=== PATIENT | male | born 1935 | race Caucasian/White ===

== ENCOUNTER 2019-12-31 07:50 | Day surgery (SDC) | payer OTHER ==
[2019-12-29 16:17] LABS: Absolute Lymphocytes (CBC) 1.9 K/uL (0.7-4.9); Basophils % 0.6 % (0-1.3); Hematocrit 37.6 % (39.6-49.0); Lymphocytes % 21.2 % (15.3-44.8); MPV 8.6 fL (7.6-11.3); RBC Red Blood Cell Count 3.96 M/uL (4.33-5.43)
[2019-12-29 16:23] LABS: Protime INR 1.08
[2019-12-29 16:35] LABS: Potassium 5.1 mmol/L (3.5-5.1)
--- NOTE | 2019-12-29 16:48 | RAD REPORT ---
EXAM DESCRIPTION: Dustin Stark (2 Views)12/29/2019 4:09 pm CLINICAL HISTORY: Hypertension/coronary arterial disease COMPARISON: 2017 FINDINGS: The lungs appear clear of acute infiltrate. The heart is borderline enlarged IMPRESSION: No acute abnormalities displayed
--- NOTE | 2019-12-31 06:40 | EKG ---
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: BRAYAN MEASUREMENT RESULTS: Intervals: Rate: 79 NV: 224 QRSD: 132 QT: 436 QTc: 499 [place]: P: 78 NV: 224 QRS: -46 T: 127 INTERPRETIVE STATEMENTS: Sinus rhythm with 1st degree AV block with occasional and consecutive premature ventricular complexes Left axis deviation Nonspecific intraventricular block Cannot rule out Inferior infarct, age undetermined Cannot rule out Anterior infarct, age undetermined T wave abnormality, consider lateral ischemia Abnormal ECG Compared to ECG 05/15/2015 13:02:24 Ventricular premature complex(es) now present First degree AV block now present Left-axis deviation now present Possible ischemia now present Sinus bradycardia no longer present Myocardial infarct finding still present T-wave abnormality still present Electronically Signed On 12-31-19 06:38:40 CDT by Vinh Barfield
--- OUTSIDE RECORDS SUMMARY | 2019-12-31 07:52 | XMS REPORT | Summary of Care ---
:1935 Author Organization [facility] - Health Address [address] [place] [address] Care Team Providers Name Role Phone Rell Zuñgia Primary Care Provider Encounter Details Date Type Department Care Team Description 08/26/2019 Orders Only [facility] Doctor Unassigned, No [address] [facility] [place] [address] [address] [place] [address] Allergies No Known Allergiesdocumented as of this encounter (statuses as of 11/03/2019) Medications Medication Sig Dispensed Refills Start Date End Date Status gabapentin 100 mg Take 100 mg by 0 Active capsule mouth at bedtime. clopidogrel 75 mg Take 75 mg by 0 Active tablet mouth daily. losartan 100 mg tablet Take 100 mg by 0 Active mouth daily. aspirin 81 mg chewable Take 81 mg by 0 Active tablet mouth daily. simvastatin 40 mg Take 40 mg by 0 Active tablet mouth daily. carvedilol 25 mg tablet Take 25 mg by 0 Active mouth 2 (two) times daily with meals. traMADol 50 mg tablet Take 50 mg by 0 Active mouth 2 (two) times daily. documented as of this encounter (statuses as of 11/03/2019) Active Problems No known active problemsdocumented as of this encounter (statuses as of 11/03/2019) Social History Tobacco Use Types Packs/Day Years Used Date Former Smoker Smokeless Tobacco: Never Used Sex Assigned at Date Recorded Not on file Job Start Date Occupation Industry Not on file Not on file Not on file Travel History Travel Start Travel End No recent travel history available. documented as of this encounter Last Filed Vital Signs Not on filedocumented in this encounter Plan of Treatment Health Maintenance Due Date Last Done Comments DTaP,Tdap,and Td Vaccines (1 - Tdap) 1946 Zoster Recombinant Vaccine (SHINGRIX) (1 of 2) 1987 Medicare Wellness Visit 2002 PNEUMOCOCCAL VACCINES 65+ (1 of 2 - PCV13) 2002 INFLUENZA VACCINE (#1) 2019 documented as of this encounter Implants Implanted Type Area Clinical Cytogenetics Director Device Shelf Model / Identifier Expiration Date Ser ial / Lot Lens, Bridger #[id number] - [id number] LENS Right: Bridger 06/12/2023 [id number] / Implanted: Qty: 1 on 03/03/2019 by Janusz Seals MD at [facility] 1 [id number] / N/A Lens, Bridger #[id number] - [id number] LENS Left: Eye Bridger 06/12/2023 [id number] / Implanted: Qty: 1 on 03/17/2019 by Janusz Seals MD at [facility] 1 [id number] / N/A documented as of this encounter Procedures Procedure Name Priority Date/Time Associated Diagnosis Comme nts AUTHORIZATION FOR RELEASE Routine 08/26/2019 12:01 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 & B ent [id number] [place] [phone] CIGNA CIGNA [id number] 2013-Prese HMO /PPO/[place] documented as of this encounter
--- OUTSIDE RECORDS SUMMARY | 2019-12-31 07:52 | XMS REPORT | Continuity of Care Document ---
:1935 Author Organization [facility] t Address [address] [place] [address] Dr. Garza. [address] [place] [address] Care Team Providers Name Role Phone Doctor Unassigned, [place] Attending Clinician Unavailable Carlo FLETCHER, A Attending Clinician 1, Lab Attending Clinician Unavailable Carlo FLETCHER, A Admitting Clinician Problems This patient has no known problems. Allergies, Adverse Reactions, Alerts This patient has no known allergies or adverse reactions. Medications This patient has no known medications. Procedures This patient has no known procedures. Encounters Start End Encounter Admission Attending Care Care Encounter Source Date/Time Date/Time Type Type Clinicians Facility Department ID 2019-08-26 2019-08-26 Orders Doctor RAMOS [id number] 00:00:00 00:00:00 Only Unassigned, AMELIA [id number] [place] [facility] 4.2.7.2.686 [id number] 2019-03-17 2019-03-17 [facility] [id number] 11:26:00 14:59:00 Encounter Janusz Logan [id number] [place] 4.2.7.2.686 Surgical [id number] [place] [address] 2019-03-03 2019-03-03 [facility] [id number] 09:37:00 13:20:00 Encounter Janusz Logan [id number] [place] [id number] Surgical [id number] [place] [address] 2019-03-03 2019-03-03 Orders Doctor RICHARD [id number] 00:00:00 00:00:00 Only Unassigned, AMELIA [id number] [place] [facility] [id number] [id number] [id number] 2019-02-24 2019-02-24 Wire 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
[2019-12-31] MEDS ORDERED: NA CHLORIDE 0.9% 500 ML ONE (08:11)
[2019-12-31] MEDS ORDERED: HEPA 1000U/500MLS 1,000 UNIT/500 ML BAG IV ONE (09:54)
[2019-12-31] MEDS ORDERED: MIDAZOLAM HCL 2 MG/2 ML INJ ONE (09:55)
[2019-12-31] MEDS ORDERED: FENTANYL CITR 100 MCG/2 ML ONE (09:55)
[2019-12-31] MEDS ORDERED: ATROPINE SULF 1 MG/10 ML SYR IV ONE (09:55)
[2019-12-31] MEDS ORDERED: NA CHLORIDE 0.9% 0 ML ONE (09:55)
[2019-12-31] MEDS ORDERED: ACETYLCYST 20% 4 ML VIAL IH ONE (09:59)
--- NOTE | 2019-12-31 11:28 | OP ---
Date of Procedure: 12/31/2019 Surgeon: Vinh Barfield MD Fiberglass Ski Maker: Izabela Matos. The patient will be going home today. Medical therapy. He will see me in the office in next 2 weeks . Procedures: Left heart catheterization, selective coronary arteriogram, left ventriculogram, and nusrat ective bilateral carotid angiogram. Reason For Procedure: CVD and CAD, positive stress test, positive carotid Doppler. History Of Present Illness: Mr. Mg is 84, has had a history of right carotid stent, multipl e coronary stents, had atypical chest pain, positive stress test, abnormal carotid Doppler. Procedure In Detail: Brought to the gold leaf laborer today as an outpatient. He was prepped and draped in t he routine sterile fashion. He was given Versed and fentanyl for sedation. A 6-English sheath was in troduced in the right common femoral artery. Angiography there was normal. Angio-Seal was used to c lose the case. Jany catheter left and right were used to do the procedure. He had a normal left main. He had 100% occlusion of the circumflex. He had 100% occlusion of the RCA distally. He had c ollaterals from the LAD to the distal circ and the OM. His LAD had pslrigvv-ye-ueqgyy plaque buildup without any focal stenosis. The LV gram showed an ejection fraction about 45% to 50%. No aortic st enosis. Normal left ventricular end-diastolic pressure of 12. He was hypertensive while there were no effusions noted. His carotid arteries revealed a patent right ICA stent. He had about 50% left i nternal carotid artery stenosis. He had 90% stenosis in both external carotid arteries. The common carotid arteries were normal. There were no complications or blood loss. Postoperative Diagnosis: Severe and coronary artery disease. Plan: Plan is however to continue medical therapy. Anesthesia: Total conscious sedation was 45 minutes. NB/MODL Voice ID: [id number] Report ID: [id number]
[2019-12-31 12:04] VITALS: TEMP 97.2
[2019-12-31 13:16] VITALS: BP 166/79; O2SAT 100
== END 2019-12-31 13:05 | disposition home or self-care (01) ==
LOC: CCL 07:50
DX: I25.10 Atherosclerotic heart disease of native coronary artery without angina pectoris (principal); I25.82 Chronic total occlusion of coronary artery; I65.23 Occlusion and stenosis of bilateral carotid arteries; Z11.59 Encounter for screening for other viral diseases; I34.0 Nonrheumatic mitral (valve) insufficiency; I70.208 Unspecified atherosclerosis of native arteries of extremities, other extremity; I10 Essential (primary) hypertension; E78.5 Hyperlipidemia, unspecified; E78.6 Lipoprotein deficiency; G62.9 Polyneuropathy, unspecified; F17.200 Nicotine dependence, unspecified, uncomplicated; Z95.5 Presence of coronary angioplasty implant and graft; Z79.02 Long term (current) use of antithrombotics/antiplatelets; Z79.82 Long term (current) use of aspirin
CPT/HCPCS: 93005; 85025; 80048; 36415; 85610; 85730; 71046; 93458; 36222; U0002; C1893; C1760; J2250; J3010; J7040; J0583

== ENCOUNTER 2020-01-22 15:57 | Inpatient (IN) | payer OTHER ==
--- OUTSIDE RECORDS SUMMARY | 2020-01-22 16:00 | XMS REPORT | Continuity of Care Document ---
:1935 Author Organization [facility] t Address [address] [place] [address] Dr. Garza. [address] [place] [address] Care Team Providers Name Role Phone Doctor Unassigned, [place] Attending Clinician Unavailable Carlo FLETCHER, A Attending [...] ID 2019-08-26 2019-08-26 Orders Doctor RAMOS [id number] 00:00:00 00:00:00 Only Unassigned AMELIA [id number] [place] [facility] 4.2.7.2.686 [id number] 2019-03-17 2019-03-17 [facility] [id number] 11:26:00 14:59:00 Encounter Janusz Logan [id number] [place] 4.2.7.2.686 Surgical [id number] [place] [address] 2019-03-03 2019-03-03 [facility] [id number] 09:37:00 13:20:00 Encounter Janusz Logan [id number] [place] 4.2.7.2.686 Surgical [id number] [place] [address] 2019-03-03 2019-03-03 Orders Doctor RAMOS [id number] 00:00:00 00:00:00 Only Unassigned, AMELIA [id number] [place] [facility] 4.2.7.2.686 [id number] 2019-02-24 2019-02-24 Cremator 1, Adc Lab [facility] [id number] 16:37:01 16:54:18 Visit M[place]ool 350.1.13.10 [place] 4.2.7.2.686 [place] [id number] Results This patient has no known results.
[2020-01-22 16:49] LABS: Absolute Lymphocytes (CBC) 1.1 K/uL (0.7-4.9); Basophils % 0.1 % (0-1.3); Hematocrit 37.3 % (39.6-49.0); Lymphocytes % 5.8 % (15.3-44.8); MPV 8.6 fL (7.6-11.3); RBC Red Blood Cell Count 3.96 M/uL (4.33-5.43)
[2020-01-22 16:55] LABS: Protime INR 1.29
--- NOTE | 2020-01-22 16:56 | RAD REPORT ---
EXAM DESCRIPTION: CT - Head Brain Wo Cont - 01/22/2020 4:39 pm CLINICAL HISTORY: AMS, fever COMPARISON: No comparisons TECHNIQUE: Axial 5 mm thick images of the head were obtained without IV contrast. All CT scans are performed using dose optimization technique as appropriate and may include automated exposure control or mA/KV adjustment according to patient size. FINDINGS: No intracranial hemorrhage, mass, edema or shift of mid-line structures. No acute infarcti on changes seen. No cortical edema or sulcal effacement. Mild atrophy and moderate chronic ischemic c hanges are present. Ventricles are in proportion to volume loss. Arterial and physiologic calcificat ions are present. Mastoid air cells and visualized portions of the paranasal sinuses are clear. No acute bony findings. IMPRESSION: No hemorrhage or acute intracranial finding identifiable. Atrophy and chronic ischemic changes are present with ventricles in proportion to volume loss. Chronic ischemic changes can mask nonhemorrhagic acute infarction. MR brain followup can be obtained if there is ongoing concern for acute ischemia.
[2020-01-22 17:28] LABS: Albumin 3.3 g/dL (3.4-5.0); Bilirubin Direct 0.3 mg/dL (0-0.2); Bilirubin Total 3.6 mg/dL (0.2-1.0); Ferritin 197.8 ng/mL (26-388); Potassium 5.2 mmol/L (3.5-5.1); Protein, Total 7.6 g/dL (6.4-8.2); Troponin (Emerg Dept Use Only) 0.04 ng/mL (0.0-0.045)
--- NOTE | 2020-01-22 17:44 | RAD REPORT ---
EXAM DESCRIPTION: RAD - Chest Single View - 01/22/2020 5:07 pm CLINICAL HISTORY: AMS, fever COMPARISON: Two view chest December 29, 2019 and December 23, 2016 TECHNIQUE: AP portable chest image was obtained 01/22/2020 5:07 pm . FINDINGS: No peripheral mass or consolidation. Small nodular focus lateral mid right lung field has not change from 2017. Interstitial pattern is not clearly different from prior imaging. No failure or volume overload. Heart and vasculature are normal. No measurable pleural effusion and no pneumothora x. No acute bony abnormality seen. No acute aortic findings suspected. IMPRESSION: No acute cardiopulmonary process. Chest is not clearly different from prior imaging.
--- NOTE | 2020-01-22 17:52 | ER ---
Nurse's Notes [facility] Name: Vitor Mg Age: 84 yrs Sex: Male : 1935 Arrival Date: 01/22/2020 Time: 16:00 Bed 14 Private MD: Diagnosis: Fever, unspecified;Altered mental status, unspecified;Acute kidney failure, unspecified Presentation: 01/21 16:41 Chief complaint: EMS states: PT FOUND BY NEIGHBOR "NON RESPONSIVE" SITTING IN CHAIR ls4 OUTSIDE. PT IS NOW ALERT AND ORIENTED TIMES SELF. PT DAUGHTER IS CONFIRMED COVID POSITIVE. Coronavirus screen: Surgical mask placed on patient. Patient moved to private room, placed in contact and droplet isolation with eye protection until further assessment. Patient denies a cough. Patient reports shortness of breath or difficulty breathing. Patient denies measured and/or subjective temperature greater than 100.4F prior to today's visit. Patient denies travel on a cruise ship or to a country the [facility] currently lists as an affected area. Patient reports contact with known and/or suspected case of COVID-19. Ebola Screen: No symptoms or risks identified at this time. Initial Sepsis Screen: Does the patient meet any 2 criteria? RR > 20 per min. Altered Mental Status. Yes Does the patient have a suspected source of infection? No. Patient's initial sepsis screen is negative. Risk Assessment: Do you want to hurt yourself or someone else? Patient reports no desire to harm self or others. Onset of symptoms is unknown. Care prior to arrival: Medication(s) given: Normal saline infusion, 650 ML IV initiated. 20 GA, in the right forearm, Oxygen administered. via nasal cannula. Activity prior to arrival: unresponsive. 16:41 Method Of Arrival: EMS: [facility] ls4 16:41 Acuity: GLENDY 2 ls4 Triage Assessment: 16:47 General: Appears distressed, Behavior is cooperative, flat. Pain: Unable to use pain ls4 scale. FLACC scale score is 3 out of 10. Neuro: Level of Consciousness is lethargic, Oriented to person, Spud Grader are weak bilaterally Moves all extremities. Weakness Gait is UNABLE. Speech is slurred, Facial symmetry appears normal, Pupils are PERRLA, Intact. Cardiovascular: Denies chest pain, Capillary refill < 3 seconds Clubbing of nail beds is absent Patient's skin is warm and dry. Rhythm is regular. Respiratory: Airway is patent Respiratory effort is labored, shallow, Respiratory pattern is tachypnea. Derm: Skin with poor turgor Skin is flushed, Skin temperature is warm. Musculoskeletal:. Historical: - Allergies: 16:47 No Known Allergies; ls4 - PMHx: 16:47 CAD; Chronic pain; Hypertension; ls4 - PSHx: 16:47 Heart stents; ls4 - Immunization history:: Adult Immunizations up to date. - Social history:: Smoking status: unknown. - Family history:: not pertinent. - Hospitalizations: : No recent hospitalization is reported. Screenin:12 Abuse screen: Denies threats or abuse. Denies injuries from another. Nutritional ls4 screening: No deficits noted. Tuberculosis screening: No symptoms or risk factors identified. Fall Risk None identified. Assessment: 17:12 Reassessment: Patient appears in no apparent distress at this time. Patient and/or ls4 family updated on plan of care and expected duration. Pain level reassessed. Patient is alert, oriented x 3, equal unlabored respirations, skin warm/dry/pink. 18:29 Reassessment: Patient appears in no apparent distress at this time. Patient and/or ls4 family updated on plan of care and expected duration. Pain level reassessed. Patient is alert, oriented x 3, equal unlabored respirations, skin warm/dry/pink. Patient denies pain at this time. Neuro: Level of Consciousness is awake, alert, obeys commands, Oriented to person, place. Vital Signs: 16:41 BP 122 / 47; Pulse 56; Resp 28; Temp 97.9(O); Pulse Ox 96% on R/A; Weight 86.18 kg; ls4 Height 5 ft. 10 in. (177.80 cm); Pain 0/10; 17:13 BP 114 / 45; Pulse 47; Resp 14; Pulse Ox 99% on R/A; Pain 0/10; ls4 19:00 BP 143 / 51; Pulse 61; Resp 16; Pulse Ox 96% on R/A; Pain 0/10; ls4 20:00 BP 158 / 61; Pulse 76; Resp 18; Pulse Ox 98% on R/A; Pain 0/10; ls4 21:00 BP 155 / 62; Pulse 73; Resp 19; Pulse Ox 97% on R/A; Pain 0/10; ls4 22:00 BP 158 / 63; Pulse 58; Resp 16; Pulse Ox 99% on R/A; Pain 0/10; ls4 0712 00:00 BP 148 / 55; Pulse 69; Resp 18; Pulse Ox 100% ; Pain 0/10; ls4 01:13 BP 148 / 58; Pulse 59; Resp 19; Pulse Ox 96% on R/A; Pain 0/10; ls4 01/21 16:41 Body Mass Index 27.26 (86.18 kg, 177.80 cm) 4 ED Course: 01/21 16:00 Patient arrived in ED. rn 16:00 Gregory Cheney MD is Attending Physician. rn 16:39 CT completed. Patient tolerated procedure well. Patient moved back from CT. bq 16:39 CT Head Brain wo Cont In Process Unspecified. EDMS 16:41 Debbei Huston RN is Primary Nurse. ls4 16:45 Triage completed. ls4 16:50 Arm band placed on left wrist. EKG done per protocol. Performed by ED Staff. Labs ls4 ordered per protocol. Drawn by ED staff. X-ray ordered. CT ordered. 17:07 CXR XRAY In Process Unspecified. EDMS 17:12 No provider procedures requiring assistance completed. Initial lab(s) drawn, by il, 4 sent to lab. X-ray(s) taken. Inserted saline lock: 18 gauge in right antecubital area, using aseptic technique. Blood collected. Patient maintains SpO2 saturation greater than 95% on room air. 17:50 Bacilio Stone DO is Hospitalizing Provider. rn 17:56 Throat Culture Sent. 4 01/23 07:00 Patient has correct armband on for positive identification. aa5 07:00 Patient admitted, IV remains in place. aa5 09:55 Urine Dipstick--Ancillary (enter results) Sent. 5 Administered Medications: No medications were administered Outcome: 01/21 17:51 Decision to Hospitalize by Provider. rn 01/23 07:00 Admitted to ER Hold. Please see [facility] for further documentation. aa5 07:00 Condition: stable aa5 07:00 Instructed on the need for admit. 13:10 Patient left the ED. aa5 Signatures: Dispatcher [employer] EDMS Quilty, СветланаGregory Morales MD MD rn Calderon, Audri, RN RN aa5 Cecy Ellis 5 Debbie Huston RN RN ls4 Corrections: (The following items were deleted from the chart) 13:29 13:28 Patient left the ED. adriana wright
--- NOTE | 2020-01-22 17:52 | EDPHYS ---
Physician Documentation [facility] Name: Vitor Mg Age: 84 yrs Sex: Male : 1935 Arrival Date: 01/22/2020 Time: 16:00 Bed 14 Private MD: ED Physician Gregory Cheney HPI: 01/21 16:04 This 84 yrs old Male presents to ER via Unassigned with complaints of AMS, rn fever. 16:04 The patient presents with confusion, decreased responsiveness. Onset: The rn symptoms/episode began/occurred at an unknown time. Associated signs and symptoms: Pertinent positives: confusion. Current symptoms: In the emergency department the patient's symptoms have improved. It is unknown whether or not the patient has had similar symptoms in the past. Unknown onset, neighbor called 911 because patient was not responding to his name, per report patient likes to sit outside daily, in partial shade, was found to be altered/minimally responsive, was alert when EMS arrived, was not unconscious. Patient does not report pain or problems, but does seem confused, unknown baseline and onset of symptoms. Per report, has been sitting outside since 0800. Daughter is COVID +, but unknown if direct contact recently. . Historical: - Allergies: 16:47 No Known Allergies; ls4 - PMHx: 16:47 CAD; Chronic pain; Hypertension; ls4 - PSHx: 16:47 Heart stents; ls4 - Immunization history:: Adult Immunizations up to date. - Social history:: Smoking status: unknown. - Family history:: not pertinent. - Hospitalizations: : No recent hospitalization is reported. ROS: 16:04 Constitutional: Negative for chills, and weight loss, Eyes: Negative for injury, pain, rn redness, and discharge, Cardiovascular: Negative for chest pain, palpitations, and edema, Respiratory: Negative for shortness of breath, cough, wheezing, and pleuritic chest pain, Abdomen/GI: Negative for abdominal pain, nausea, vomiting, diarrhea, and constipation, MS/Extremity: Negative for injury and deformity, Skin: Negative for injury, rash, and discoloration, Neuro: Negative for headache, numbness, tingling, and seizure. Exam: 16:04 Constitutional: This is a well developed, well nourished patient who is awake, alert, rn and in no acute distress. Head/Face: Normocephalic, atraumatic. ENT: dry MM Neck: Trachea midline, no thyromegaly or masses palpated, and no cervical lymphadenopathy. Supple, full range of motion without nuchal rigidity, or vertebral point tenderness. No Meningismus. Cardiovascular: Regular rate and rhythm. No pulse deficits. Respiratory: Diminished breath sounds bilateral bases. No increased work of breathing, no retractions or nasal flaring. Abdomen/GI: soft, non-tender Skin: Warm, dry, and no evidence of cellulitis. MS/ Extremity: Pulses equal, no cyanosis. Neurovascular intact. Full, normal range of motion. Equal circumference. Neuro: Awake and alert, difficult to understand, moves all 4 extremities equally. Vital Signs: 16:41 BP 122 / 47; Pulse 56; Resp 28; Temp 97.9(O); Pulse Ox 96% on R/A; Weight 86.18 kg; ls4 Height 5 ft. 10 in. (177.80 cm); Pain 0/10; 17:13 BP 114 / 45; Pulse 47; Resp 14; Pulse Ox 99% on R/A; Pain 0/10; ls4 19:00 BP 143 / 51; Pulse 61; Resp 16; Pulse Ox 96% on R/A; Pain 0/10; ls4 20:00 BP 158 / 61; Pulse 76; Resp 18; Pulse Ox 98% on R/A; Pain 0/10; ls4 21:00 BP 155 / 62; Pulse 73; Resp 19; Pulse Ox 97% on R/A; Pain 0/10; ls4 22:00 BP 158 / 63; Pulse 58; Resp 16; Pulse Ox 99% on R/A; Pain 0/10; ls4 0712 00:00 BP 148 / 55; Pulse 69; Resp 18; Pulse Ox 100% ; Pain 0/10; ls4 01:13 BP 148 / 58; Pulse 59; Resp 19; Pulse Ox 96% on R/A; Pain 0/10; 4 01/21 16:41 Body Mass Index 27.26 (86.18 kg, 177.80 cm) ls4 MDM: 01/21 16:00 Patient medically screened. rn 17:46 Differential Diagnosis: pneumonia, TIA, UTI, volume depletion, COVID, dehydration, heat rn exhaustion. Data reviewed: vital signs, nurses notes, lab test result(s), radiologic studies, CT scan, plain films, and as a result, I will admit patient. Counseling: I had a detailed discussion with the patient and/or guardian regarding: the historical points, exam findings, and any diagnostic results supporting the discharge/admit diagnosis, lab results, radiology results, the need for further work-up and treatment in the hospital. Response to treatment: the patient's symptoms have mildly improved after treatment, and as a result, I will admit patient. Admission orders: after a detailed discussion of the patient's condition and case, the admit orders are written by me. ED course: Spoke to daughter cassandra porter who states was over visiting him this last week after he was attacked by bees, states is normally very active. She visited him prior to being aware of her COVID status. Admitted for fever/AMS/possible COVID, and acute kidney injury.. 01/21 16:03 Order name: Blood Culture Adult (2) 01/21 16:03 Order name: BMP; Complete Time: 17:35 01/21 16:03 Order name: C-Reactive Protein; Complete Time: 17:35 01/21 16:03 Order name: CBC with Diff; Complete Time: 18:39 01/21 16:03 Order name: COVID-19 01/21 16:03 Order name: D-Dimer; Complete Time: 16:59 01/21 16:03 Order name: Ferritin; Complete Time: 17:35 01/21 16:03 Order name: Flu; Complete Time: 17:24 01/21 16:03 Order name: Lactate; Complete Time: 17:15 01/21 16:03 Order name: LFT's; Complete Time: 17:35 01/21 16:03 Order name: Lipase; Complete Time: 17:35 01/21 16:03 Order name: Procalcitonin; Complete Time: 17:38 01/21 16:03 Order name: PT-INR; Complete Time: 16:59 01/21 16:03 Order name: Ptt, Activated; Complete Time: 16:59 01/21 16:03 Order name: Strep; Complete Time: 17:15 01/21 16:03 Order name: Troponin (emerg Dept Use Only); Complete Time: 17:35 01/21 16:03 Order name: Urine Microscopic Only; Complete Time: 18:39 rn 01/21 16:03 Order name: Urine Culture 01/21 16:52 Order name: CBC Smear Scan; Complete Time: 18:39 [facility] 01/21 17:19 Order name: Throat Culture [facility] 01/22 02:50 Order name: Blood Culture [facility] 01/22 05:23 Order name: CBC with Automated Diff; Complete Time: 07:35 [facility] 01/22 05:50 Order name: Basic Metabolic Panel; Complete Time: 07:35 [facility] 01/22 05:50 Order name: Creatine Phosphokinase; Complete Time: 07:35 [facility] 01/22 05:50 Order name: T4 Free; Complete Time: 07:35 [facility] 01/22 05:50 Order name: Magnesium; Complete Time: 07:35 [facility] 01/22 05:50 Order name: Thyroid Stimulating Hormone; Complete Time: 07:35 [facility] 01/23 04:59 Order name: Gram Stain--Aerobic Bottle [facility] 01/23 06:36 Order name: CBC with Automated Diff [facility] 01/23 06:51 Order name: Basic Metabolic Panel [facility] 01/21 16:03 Order name: CXR XRAY; Complete Time: 17:45 rn 01/21 16:03 Order name: EKG; Complete Time: 16:04 rn 01/21 16:03 Order name: Cardiac monitoring; Complete Time: 18:28 01/21 16:03 Order name: Droplet/Contact Precautions; Complete Time: 10:17 rn 01/21 16:03 Order name: EKG - Nurse/Tech; Complete Time: 18:29 rn 01/21 16:03 Order name: Regalado; Complete Time: 18:29 rn 01/21 16:03 Order name: IV Start; Complete Time: 18:29 rn 01/21 16:03 Order name: Labs collected and sent; Complete Time: 18:29 rn 01/21 16:03 Order name: O2 Per Protocol; Complete Time: 18:28 rn 01/21 16:03 Order name: O2 Sat Monitoring; Complete Time: 18:28 rn 01/21 16:03 Order name: Urine Dipstick-Ancillary (obtain specimen); Complete Time: 18:28 rn 01/21 16:03 Order name: CT Head Brain wo Cont; Complete Time: 16:59 rn 01/23 06:51 Order name: Creatine Phosphokinase [facility] 01/23 06:51 Order name: Magnesium [facility] 01/23 09:34 Order name: Urine Dipstick--Ancillary (enter results) em1 01/23 09:43 Order name: Urine Dipstick-Ancillary ED[facility] Administered Medications: No medications were administered Disposition: 01/22/20 17:51 Hospitalization ordered by Bacilio Stone for Inpatient Admission. Preliminary diagnosis are Fever, unspecified, Altered mental status, unspecified, Acute kidney failure, unspecified. - Bed requested for [facility] ER HOLD. - Status is Inpatient Admission. aa5 - Condition is Stable. - Problem is new. - Symptoms have improved. Signatures: Dispatcher [employer] EDCO Gregory Cheney MD MD rn Calderon, Audri, RN RN aa5 Pollo Loya, CRE[employer] [id number] [employer] [id number] Cyndi Jones RN RN Debbie Huston RN RN ls4 Corrections: (The following items were deleted from the chart) 22:39 17:51 Hospitalization Ordered by Bacilio Stone DO for Inpatient Admission. Preliminary cg diagnosis is Fever, unspecified; Altered mental status, unspecified; Acute kidney failure, unspecified. Bed requested for Telemetry/MedSurg (Inpatient). Status is Inpatient Admission. Condition is Stable. Problem is new. Symptoms have improved. rn 22:39 22:39 01/22/2020 17:51 Hospitalization Ordered by Bacilio Stone DO for Inpatient cg Admission. Preliminary diagnosis is Fever, unspecified; Altered mental status, unspecified; Acute kidney failure, unspecified. Bed requested for [facility] ER HOLD. Status is Inpatient Admission. Condition is Stable. Problem is new. Symptoms have improved. 01/23 13:28 01/21 22:39 01/22/2020 17:51 Hospitalization Ordered by Bacilio Stone DO for Inpatient aa5 Admission. Preliminary diagnosis is Fever, unspecified; Altered mental status, unspecified; Acute kidney failure, unspecified. Bed requested for [facility] ER HOLD. Status is Inpatient Admission. Condition is Stable. Problem is new. Symptoms have improved.
[2020-01-22 17:53] LABS: Blood Morphology Comment NOT SEEN (NOT SEEN); Platelet Estimate ADEQ; Urine White Blood Cell Casts OK
[2020-01-22 18:27] LABS: Urine Bacteria LOADED /HPF (NONE SEEN); Urine Culture Reflex Order REFLEXED; Urine RBC <5 /HPF (NONE SEEN)
--- NOTE | 2020-01-22 18:42 | P.HP ---
Certification for Inpatient Patient admitted to: Inpatient With expected LOS: >2 Midnights Patient will require the following post-hospital care: None Practitioner: I am a practitioner with admitting privileges, knowledge of patient current condition, hospital course, and medical plan of care. Services: Services provided to patient in accordance with Admission requirements found in Title 42 Section 412.3 of the Code of Federal Regulations <Pollo Loya - Last Filed: 01/22/20 18:31> Patient History Date of Service: 01/22/20 Primary Care Provider: Yahir Reason for admission: ARF, UTI, AMS History of Present Illness: 84-year-old male with medical history of hypertension, CAD, hyperlipidemia, present to the emergency department after he was found to be outside sitting in a chair and unresponsive. Neighbor saw him sitting in a chair in front of his house and went to check on him and noticed that he was just gazing forward and not responding. Neighbor then dumped cold water on him and called 911. Patient was febrile with EMS with a fever of 103. Patient was evaluated in the emergency department with head CT scan which was without acute findings, chest x-ray without acute findings. Patient is found to have urinary tract infection, leukocytosis, acute renal failure. ED provider wishes to admit patient for further evaluation. When I saw the patient in the emergency department he was more alert than on arrival. Patient was able to tell me the current year but not the reason for which she is in the hospital or what happened this morning. Patient will be admitted for further evaluation and management. Home medications list reviewed: Yes - Past Medical/Surgical History Has patient received pneumonia vaccine in the past: No Diabetic: No -: Hypertension -: Hyperlipidemia -: CAD -: Cardiac catheterization Psychosocial/ Personal History: Patient currently lives at home alone - Family History Family History: Reviewed- Non-Contributory - Social History Smoking Status: Never smoker Alcohol use: No CD- Drugs: No Caffeine use: No Place of Residence: Home <Pollo Loya - Last Filed: 01/22/20 18:31> Date of Service: 01/22/20 Primary Care Provider: Dr. Zuñiga <Bacilio Stone - Last Filed: 01/22/20 18:45> Allergies No Known Allergies Allergy (Verified 05/15/15 13:02) Review of Systems General: Malaise Eyes: Unremarkable ENT: Unremarkable Respiratory: Unremarkable Cardiovascular: Unremarkable Gastrointestinal: Unremarkable Genitourinary: Unremarkable Musculoskeletal: Unremarkable Integumentary: Unremarkable Neurological: Unremarkable Lymphatics: Unremarkable <Pollo Loya - Last Filed: 01/22/20 18:31> Physical Examination - Physical Exam General: Alert, In no apparent distress, Oriented x3 HEENT: Atraumatic, Normocephalic Neck: Supple Respiratory: Clear to auscultation bilaterally, Normal air movement Cardiovascular: No edema, Regular rate/rhythm, Normal S1 S2 Capillary refill: <2 Seconds Gastrointestinal: Normal bowel sounds, Soft and benign Musculoskeletal: No swelling, No contractures, No erythema, No tenderness Integumentary: No significant lesion, No tenderness/swelling, No erythema, No warmth, Other (Mucous membranes dry) Neurological: Normal gait, Normal speech, Normal strength at 5/5 x4 extr, Normal tone, Sensation intact External genitalia: No edema - Studies Laboratory Data (last 24 hrs) 01/22/20 16:30: PT 15.1 H, INR 1.29, APTT 32.6 01/22/20 16:30: WBC 18.3 H, Hgb 12.2 L, Hct 37.3 L, Plt Count 149 L 01/22/20 16:30: Sodium 137, Potassium 5.2 H, BUN 31 H, Creatinine 2.59 H, Glucose 151 H, Total Bilirubin 3.6 H, AST 19, ALT 14, Alkaline Phosphatase 55, Lipase 148 Microbiology Data (last 24 hrs): 01/22/20 16:35 Nasopharnyx Influenza Type A Antigen Screen - Final 01/22/20 16:35 Nasopharnyx Influenza Type B Antigen Screen - Final 01/22/20 16:35 Throat Group A Streptococcus Rapid Screen - Final <Pollo Loya - Last Filed: 01/22/20 18:31> - Studies Laboratory Data (last 24 hrs) 01/22/20 16:30: PT 15.1 H, INR 1.29, APTT 32.6 01/22/20 16:30: WBC 18.3 H, Hgb 12.2 L, Hct 37.3 L, Plt Count 149 L 01/22/20 16:30: Sodium 137, Potassium 5.2 H, BUN 31 H, Creatinine 2.59 H, Glucose 151 H, Total Bilirubin 3.6 H, AST 19, ALT 14, Alkaline Phosphatase 55, Lipase 148 Microbiology Data (last 24 hrs): 01/22/20 16:35 Nasopharnyx Influenza Type A Antigen Screen - Final 01/22/20 16:35 Nasopharnyx Influenza Type B Antigen Screen - Final 01/22/20 16:35 Throat Group A Streptococcus Rapid Screen - Final <Bacilio Stone - Last Filed: 01/22/20 18:45> Assessment and Plan - Plan Assessment Acute renal failure-likely prerenal Urinary tract infection with leukocytosis Hypertension Hyperlipidemia CAD Plan Acute renal failure-likely prerenal: Patient will be admitted for further evaluation management. Nephrology will be consulted. Patient appears dry assume patient dehydrated after being found outside. Will start with maintenance fluids at 100 cc/hour. Will obtain CK levels. DVT prophylaxis with heparin 5000 units subcutaneous twice daily. Appreciate further input from nephrology. Urinary tract infection with leukocytosis: Will continue Rocephin at this time. Urine culture obtained, will follow results. Hypertension: Patient currently on ARB, will hold at this time. Will provide patient with p.r.n. blood pressure medication. Hyperlipidemia: Will obtain patient's home medications, hold statin at this time until his confirm patient is not rhabdomyolysis. CAD: Continue patient's Plavix to 5 mg once daily. Discharge Plan: Home Plan to discharge in: Greater than 2 days - Advance Directives Does patient have a Living Will: No Does patient have a Durable POA for Healthcare: No - Code Status/Comfort Care Code Status Assessed: Yes (Patient is full code) Critical Care: No Time Spent Managing Pts Care (In Minutes): 55 <Pollo Loya - Last Filed: 01/22/20 18:31> - Plan Case discussed in detail with nurse practitioner. Agree with evaluation, assessment and plan of care. Orders placed. Patient will be patient under investigation for COVID due to recent exposure. Continue IV fluids. Continue Rocephin. Will monitor closely. <Bacilio Stone - Last Filed: 01/22/20 18:45>
[2020-01-23 01:44] VITALS: BMI 26.6
[2020-01-23] MEDS ORDERED: HYDRALAZINE HCL 20 MG/ML VIAL IV PRN (02:31)
[2020-01-23] MEDS: HEPARIN 5000 UNIT/ML 1 ML VIAL SQ SCH ×3 (02:31→21:00)
[2020-01-23] MEDS: NA CHLORIDE 0.9% 1,000 ML IV SCH ×3 (02:31→22:31)
[2020-01-23] MEDS ORDERED: ONDANSETRON 4 MG/2 ML VIAL IV PRN (02:31)
[2020-01-23] MEDS ORDERED: ACETAMINOPHEN 500 MG TAB PO PRN (02:31)
[2020-01-23] MEDS: GABAPENTIN 100 MG CAP PO SCH ×2 (02:31→21:00)
[2020-01-23] MEDS ORDERED: TRAMADOL HCL 50 MG TAB PO PRN (02:31)
[2020-01-23] MEDS ORDERED: NA CHLORIDE 0.9% 1,000 ML ONE ×2 (02:57→13:43)
[2020-01-23] MEDS ORDERED: HEPARIN 5000 UNIT/ML 1 ML VIAL ONE ×2 (02:57→08:58)
[2020-01-23] MEDS ORDERED: GABAPENTIN 100 MG CAP ONE (03:04)
[2020-01-23 05:20] LABS: Absolute Lymphocytes (CBC) 1.4 K/uL (0.7-4.9); Basophils % 0.2 % (0-1.3); Hematocrit 33.8 % (39.6-49.0); Lymphocytes % 10.3 % (15.3-44.8); MPV 8.6 fL (7.6-11.3); RBC Red Blood Cell Count 3.59 M/uL (4.33-5.43)
[2020-01-23 05:50] LABS: Magnesium 2.1 mg/dL (1.8-2.4); Potassium 4.4 mmol/L (3.5-5.1); Thyroid Stimulating Hormone 0.609 uIU/mL (0.360-3.740)
[2020-01-23] MEDS ORDERED: CLOPIDOGREL 75 MG TABLET ONE (08:58)
[2020-01-23] MEDS ORDERED: CEFTRIAXONE/SWI 1gm 1 GM/10 ML SYR ONE (08:59)
[2020-01-23] MEDS ORDERED: CEFTRIAXONE/SWI 1gm 1 GM/10 ML SYR IVP SCH (09:00)
[2020-01-23] MEDS ORDERED: CLOPIDOGREL 75 MG TABLET PO SCH (09:00)
[2020-01-23] MEDS ORDERED: CEFTRIAXONE 1 GM/NS 50 ML 1 GM/50 ML BAG IV SCH (09:00)
--- NOTE | 2020-01-23 09:52 | P.CNS ---
Date of Consult: 01/23/20 Reason for Consult: KAYY Requesting Physician: mp tuttle Primary Care Provider: Dr. Zuñiga Chief Complaint: ARF, UTI, AMS History of Present Illness: Pt is an 84 yo male iwth past medical hx of HTN, CAD, HLD presenting with altered menatl status. At this time states he feels well but is unsure of why he is here. Work up done in the ED demonstrated kayy, hyperkalemia. Pt was started on IVF per primary team with improvement in kidney function. Renal has been consulted fro KAYY and hyperkalemia Allergies No Known Allergies Allergy (Verified 05/15/15 13:02) - Past Medical/Surgical History Diabetic: No -: Hypertension -: Hyperlipidemia -: CAD -: Cardiac catheterization Psychosocial/ Personal History: Patient currently lives at home alone - Social History Alcohol use: No CD- Drugs: No Caffeine use: No Place of Residence: Home Review of Systems General: Unremarkable Eyes: Unremarkable Respiratory: Unremarkable Cardiovascular: Unremarkable Gastrointestinal: Unremarkable Genitourinary: Unremarkable Musculoskeletal: Unremarkable Integumentary: Unremarkable Neurological: Confusion Physical Examination Temp Pulse Resp BP Pulse Ox 73 19 152/57 H 97 01/23/20 06:31 01/23/20 06:31 01/23/20 06:31 01/23/20 06:31 General: Alert, Oriented x2 HEENT: Atraumatic, PERRLA, Mucous membr. moist/pink, EOMI, Sclerae nonicteric Neck: Supple, 2+ carotid pulse no bruit, No LAD, Without JVD or thyroid abnormality Respiratory: Diminished Cardiovascular: No edema, Normal S1 S2 Capillary refill: <2 Seconds Gastrointestinal: Normal bowel sounds, No tenderness Integumentary: No rashes, No breakdown Neurological: Normal gait, Normal speech, Normal tone, Normal affect Laboratory Data (last 24 hrs) 01/22/20 16:30: PT 15.1 H, INR 1.29, APTT 32.6 01/22/20 16:30: WBC 18.3 H, Hgb 12.2 L, Hct 37.3 L, Plt Count 149 L 01/22/20 16:30: Sodium 137, Potassium 5.2 H, BUN 31 H, Creatinine 2.59 H, Glucose 151 H, Total Bilirubin 3.6 H, AST 19, ALT 14, Alkaline Phosphatase 55, Lipase 148 - Problems (1) KAYY (acute kidney injury) Current Visit: Yes Status: Acute (2) Hyperkalemia Current Visit: Yes Status: Acute (3) UTI (urinary tract infection) Current Visit: Yes Status: Acute Conclusions/Impression: KAYY most likely prerenal . Agree with continued IVF hydration Hyperkalemia is improved with IVF. Continue to monitor. Low K diet. May liberalize once kidney function is back to normal Avoid any contrasted studies, acei, arbs, nsaids, fleece enemas Please renally dose medications. Medications looking appropriate Will continue to follow.
--- NOTE | 2020-01-23 11:08 | P.PN ---
Subjective Date of Service: 01/23/20 Primary Care Provider: Dr. Zuñiga Chief Complaint: ARF, UTI, AMS Subjective: Improving Review of Systems 10-point ROS is otherwise unremarkable Physical Examination - Vital Signs Blood Pressure: 152/57 Pulse: 73 Respirations: 19 Pulse Ox (%): 97 - Physical Exam General: Alert, In no apparent distress HEENT: Atraumatic, PERRLA, EOMI Neck: Supple, JVD not distended Respiratory: Clear to auscultation bilaterally, Normal air movement Cardiovascular: Regular rate/rhythm, Normal S1 S2 Gastrointestinal: Normal bowel sounds, No tenderness Musculoskeletal: No tenderness Integumentary: No rashes Neurological: Normal speech, Normal tone, Normal affect Lymphatics: No axilla or inguinal lymphadenopathy - Studies Laboratory Data (last 24 hrs) 01/22/20 16:30: PT 15.1 H, INR 1.29, APTT 32.6 01/22/20 16:30: WBC 18.3 H, Hgb 12.2 L, Hct 37.3 L, Plt Count 149 L 01/22/20 16:30: Sodium 137, Potassium 5.2 H, BUN 31 H, Creatinine 2.59 H, Glucose 151 H, Total Bilirubin 3.6 H, AST 19, ALT 14, Alkaline Phosphatase 55, Lipase 148 Microbiology Data (last 24 hrs): 01/22/20 16:35 Nasopharnyx Influenza Type A Antigen Screen - Final 01/22/20 16:35 Nasopharnyx Influenza Type B Antigen Screen - Final 01/22/20 16:35 Throat Group A Streptococcus Rapid Screen - Final Assessment & Plan Discharge Plan: Home Plan to discharge in: 24 Hours - Code Status/Comfort Care Code Status Assessed: Yes (Patient is full code) Physician Review Additional Text: Assessment Acute renal failure-likely prerenal Urinary tract infection with leukocytosis Hypertension Hyperlipidemia CAD Plan Acute renal failure-likely prerenal: Patient doing much better with fluids overnight, still with some renal insufficiency. Patient still appears dry. Will continue with normal saline 100 cc/hours for now and re-evaluate. Nephrology did see patient and agrees that patient is likely prerenal. Urinary tract infection with leukocytosis: Will continue Rocephin at this time. Urine culture obtained, will follow results. Hypertension: Patient currently on ARB, will hold at this time. Will provide patient with p.r.n. blood pressure medication. Hyperlipidemia: Will obtain patient's home medications, hold statin at this time until his confirm patient is not rhabdomyolysis. CAD: Continue patient's Plavix to 75 mg once daily. Critical Care: No Time Spent Managing Pts Care (In Minutes): 55
[2020-01-24] MEDS ORDERED: HEPARIN 5000 UNIT/ML 1 ML VIAL ONE (01:21)
[2020-01-24] MEDS ORDERED: NA CHLORIDE 0.9% 1,000 ML ONE ×2 (01:21→09:45)
[2020-01-24] MEDS ORDERED: ACETAMINOPHEN 500 MG TAB ONE (01:21)
[2020-01-24] MEDS ORDERED: TRAMADOL HCL 50 MG TAB ONE (01:23)
[2020-01-24] MEDS ORDERED: HYDRALAZINE HCL 20 MG/ML VIAL ONE (02:30)
[2020-01-24 06:31] LABS: Absolute Lymphocytes (CBC) 1.6 K/uL (0.7-4.9); Basophils % 0.3 % (0-1.3); Hematocrit 36.3 % (39.6-49.0); Lymphocytes % 12.8 % (15.3-44.8); MPV 8.6 fL (7.6-11.3); RBC Red Blood Cell Count 3.87 M/uL (4.33-5.43)
[2020-01-24 06:50] LABS: Magnesium 2.1 mg/dL (1.8-2.4); Potassium 4.3 mmol/L (3.5-5.1)
[2020-01-24 09:42] LABS: Urine Blood 1+ (NEG); Urine Glucose NEGATIVE (NEG); Urine Protein TRACE (NEG)
--- NOTE | 2020-01-24 11:02 | P.DS ---
Admission Date: 01/22/20 Discharge Date: 01/24/20 Primary Care Provider: Dr. Zuñiga Reason for Admission: ARF, UTI, AMS Consultations: Nephrology- Dr. Rosa Procedures: Chest x-ray FINDINGS: No peripheral mass or consolidation. Small nodular focus lateral mid right lung field has not change from 2017. Interstitial pattern is not clearly different from prior imaging. No failure or volume overload. Heart and vasculature are normal. No measurable pleural effusion and no pneumothorax. No acute bony abnormality seen. No acute aortic findings suspected. IMPRESSION: No acute cardiopulmonary process. Head CT All CT scans are performed using dose optimization technique as appropriate and may include automated exposure control or mA/KV adjustment according to patient size. FINDINGS: No intracranial hemorrhage, mass, edema or shift of mid-line structures. No acute infarction changes seen. No cortical edema or sulcal effacement. Mild atrophy and moderate chronic ischemic changes are present. Ventricles are in proportion to volume loss. Arterial and physiologic calcifications are present. Mastoid air cells and visualized portions of the paranasal sinuses are clear. No acute bony findings. IMPRESSION: No hemorrhage or acute intracranial finding identifiable. Atrophy and chronic ischemic changes are present with ventricles in proportion to volume loss. Chronic ischemic changes can mask nonhemorrhagic acute infarction. MR brain followup can be obtained if there is ongoing concern for acute ischemia. Medical problem list Acute renal failure-likely prerenal Urinary tract infection with leukocytosis Hypertension Hyperlipidemia CAD Brief History of Present Illness: 84-year-old male with medical history of hypertension, CAD, hyperlipidemia, present to the emergency department after he was found to be outside sitting in a chair and unresponsive. Neighbor saw him sitting in a chair in front of his house and went to check on him and noticed that he was just gazing forward and not responding. Neighbor then dumped cold water on him and called 911. Patient was febrile with EMS with a fever of 103. Patient was evaluated in the emergency department with head CT scan which was without acute findings, chest x-ray without acute findings. Patient is found to have urinary tract infection, leukocytosis, acute renal failure. ED provider wishes to admit patient for further evaluation. When I saw the patient in the emergency department he was more alert than on arrival. Patient was able to tell me the current year but not the reason for which she is in the hospital or what happened this morning. Patient will be admitted for further evaluation and management. Hospital Course: 84-year-old male with medical history of hypertension, hyperlipidemia, coronary artery disease present to the emergency department with acute mental status changes, acute kidney injury, urinary tract infection. Patient was admitted, nephrology did see the patient. Patient received IV Rocephin throughout the course of hospitalization. Patient mental status and kidney function greatly improved during his hospital stay. Patient is now back to baseline mental status and renal function. Urine culture grew out 4 gram- negative rods. Discussed with daughter at length. Patient will be discharged on Augmentin 500 PO BID for seven days. Patient wanted to follow up with primary care doctor in 1-2 weeks to follow this hospitalization. Daughter reports the patient does live at home alone but she and other family will stay with him to help him take care of his animals. The patient is stable for discharge at this time. Patient daughter test positive for COVID, patient is PUI, currently still pending results of the testing. Will recommend self quarantine for 2 weeks, social distancing, facial coverings, patient to call for results from testing if they do not hear in the next day or 2. If results are positive patient will be contacted over the phone. Patient not currently having any symptoms of COVID. Patient with history of hypertension, hyperlipidemia, coronary artery disease. Patient continue with his previously prescribed medications for these conditions. Further adjustment to medications can be performed by his primary care doctor. <Pollo Loya - Last Filed: 01/24/20 11:14> Admission Date: 01/22/20 Discharge Date: 01/26/20 Hospital Course: Urine culture result shows Morganella. Patient was sent home with Augmentin. I was able to reach family. Spoke to daughter. Augmentin will be discontinued. Will switch over to Levaquin 500 mg daily for 7 days. Recommend follow up with PCP to further address. <Bacilio Stone - Last Filed: 01/26/20 14:57> Disposition: ROUTINE DISCHARGE Discharge Condition: GOOD Vital Signs/Physical Exam: Temp Pulse Resp BP Pulse Ox 98.6 F 79 19 141/68 H 100 01/24/20 06:00 01/24/20 06:00 01/24/20 06:00 01/24/20 06:00 01/24/20 06:00 General: Alert, In no apparent distress HEENT: Atraumatic, PERRLA, EOMI Neck: Supple, JVD not distended Respiratory: Clear to auscultation bilaterally, Normal air movement Cardiovascular: Regular rate/rhythm, Normal S1 S2 Gastrointestinal: Normal bowel sounds, No tenderness Musculoskeletal: No tenderness Integumentary: No rashes Neurological: Normal speech, Normal tone, Normal affect Laboratory Data at Discharge: WBC 12.9 K/uL (4.3-10.9) H 01/24/20 05:00 Hgb 12.3 g/dL (13.6-17.9) L 01/24/20 05:00 Hct 36.3 % (39.6-49.0) L 01/24/20 05:00 Plt Count 154 K/uL (152-406) D 01/24/20 05:00 PT 15.1 SECONDS (9.5-12.5) H 01/22/20 16:30 INR 1.29 01/22/20 16:30 APTT 32.6 SECONDS (24.3-36.9) 01/22/20 16:30 Sodium 140 mmol/L (136-145) 01/24/20 05:00 Potassium 4.3 mmol/L (3.5-5.1) 01/24/20 05:00 BUN 27 mg/dL (7-18) H 01/24/20 05:00 Creatinine 1.15 mg/dL (0.55-1.3) 01/24/20 05:00 Glucose 102 mg/dL (74-106) 01/24/20 05:00 Magnesium 2.1 mg/dL (1.8-2.4) 01/24/20 05:00 Total Bilirubin 3.6 mg/dL (0.2-1.0) H 01/22/20 16:30 AST 19 U/L (15-37) 01/22/20 16:30 ALT 14 U/L (12-78) 01/22/20 16:30 Alkaline Phosphatase 55 U/L (45-117) 01/22/20 16:30 Lipase 148 U/L (73-393) 01/22/20 16:30 <Pollo Loya - Last Filed: 01/24/20 11:14> Vital Signs/Physical Exam: Temp Pulse Resp BP Pulse Ox 97.9 F 80 18 145/57 H 98 01/24/20 12:00 01/24/20 12:00 01/24/20 12:00 01/24/20 12:00 01/24/20 12:00 Laboratory Data at Discharge: WBC 12.9 K/uL (4.3-10.9) H 01/24/20 05:00 Hgb 12.3 g/dL (13.6-17.9) L 01/24/20 05:00 Hct 36.3 % (39.6-49.0) L 01/24/20 05:00 Plt Count 154 K/uL (152-406) D 01/24/20 05:00 PT 15.1 SECONDS (9.5-12.5) H 01/22/20 16:30 INR 1.29 01/22/20 16:30 APTT 32.6 SECONDS (24.3-36.9) 01/22/20 16:30 Sodium 140 mmol/L (136-145) 01/24/20 05:00 Potassium 4.3 mmol/L (3.5-5.1) 01/24/20 05:00 BUN 27 mg/dL (7-18) H 01/24/20 05:00 Creatinine 1.15 mg/dL (0.55-1.3) 01/24/20 05:00 Glucose 102 mg/dL (74-106) 01/24/20 05:00 Magnesium 2.1 mg/dL (1.8-2.4) 01/24/20 05:00 Total Bilirubin 3.6 mg/dL (0.2-1.0) H 01/22/20 16:30 AST 19 U/L (15-37) 01/22/20 16:30 ALT 14 U/L (12-78) 01/22/20 16:30 Alkaline Phosphatase 55 U/L (45-117) 01/22/20 16:30 Lipase 148 U/L (73-393) 01/22/20 16:30 <Bacilio Stone - Last Filed: 01/26/20 14:57> Patient Discharge Instructions: 1. Patient will need follow up with primary care doctor in 1-2 weeks to follow up this hospitalization. Recommend repeat in 1 week with primary care doctor to confirm resolution of urinary tract infection. 2. 84-year-old male with medical history of hypertension, hyperlipidemia, coronary artery disease present to the emergency department with acute mental status changes, acute kidney injury, urinary tract infection. Patient was admitted, nephrology did see the patient. Patient received IV Rocephin throughout the course of hospitalization. Patient mental status and kidney function greatly improved during his hospital stay. Patient is now back to baseline mental status and renal function. Urine culture grew out 4 gram-negative rods. Discussed with daughter at length. Patient will be discharged on Augmentin 500 PO BID for seven days. Patient wanted to follow up with primary care doctor in 1-2 weeks to follow this hospitalization. Daughter reports the patient does live at home alone but she and other family will stay with him to help him take care of his animals. The patient is stable for discharge at this time. Patient daughter test positive for COVID, patient is PUI, currently still pending results of the testing. Will recommend self quarantine for 2 weeks, social distancing, facial coverings, patient to call for results from testing if they do not hear in the next day or 2. If results are positive patient will be contacted over the phone. Patient not currently having any symptoms of COVID. Patient with history of hypertension, hyperlipidemia, coronary artery disease. Patient continue with his previously prescribed medications for these conditions. Further adjustment to medications can be performed by his primary care doctor. Diet: AHA Activity: Ad tamiko Time spent managing pt's care (in minutes): 55 <Pollo Loya - Last Filed: 01/24/20 11:14> <Bacilio Stone - Last Filed: 01/26/20 14:57> Home Medications: Clopidogrel Bisulfate [Plavix*] 75 mg PO DAILY tablet 01/24/20 Gabapentin [Neurontin*] 100 mg PO BEDTIME cap 01/24/20 traMADol HCL [Ultram*] 50 mg PO TID PRN tab 01/24/20 levoFLOXacin [Levaquin] 500 mg PO DAILY #7 tab 01/26/20 New Medications: levoFLOXacin [Levaquin] 500 mg PO DAILY #7 tab
[2020-01-24 11:26] VITALS: BP 145/57; TEMP 97.9
[2020-01-24] MEDS ORDERED: NA CHLORIDE 0.9% 1,000 ML IV SCH (11:30)
[2020-01-24 12:40] VITALS: O2SAT 98
== END 2020-01-24 13:10 | disposition home or self-care (01) | DRG 683 ==
LOC: ER 15:57 → ERHOLD 18:29
PROVIDERS: ADMIT Family Medicine; ATTEND Family Medicine
DX: N17.9 Acute kidney failure, unspecified (principal); N39.0 Urinary tract infection, site not specified; E87.5 Hyperkalemia; I10 Essential (primary) hypertension; E78.5 Hyperlipidemia, unspecified; I25.10 Atherosclerotic heart disease of native coronary artery without angina pectoris; Z20.828 Contact with and (suspected) exposure to other viral communicable diseases
CPT/HCPCS: 36415; 70450; 71045; 80048; 80076; 81003; 81015; 82550; 82728; 83605; 83690; 83735; 84145; 84439; 84443; 84484; 85025; 85379; 85610; 85730; 86140; 87040; 87070; 87077; 87081; 87086; 87088; 87186; 87205; 87804; 93005; 99285; J0360; J0696; J1644; J7030; U0002

== ENCOUNTER 2020-09-22 07:18 | Day surgery (SDC) | payer OTHER ==
[2020-09-20 12:20] LABS: Absolute Lymphocytes (CBC) 1.9 K/uL (0.7-4.9); Basophils % 0.6 % (0-1.3); Hematocrit 35.8 % (39.6-49.0); Lymphocytes % 19.9 % (15.3-44.8); MPV 7.8 fL (7.6-11.3); RBC Red Blood Cell Count 3.85 M/uL (4.33-5.43)
[2020-09-20 12:37] LABS: Albumin 3.7 g/dL (3.4-5.0); Bilirubin Total 2.4 mg/dL (0.2-1.0); Potassium 5.3 mmol/L (3.5-5.1); Protein, Total 7.9 g/dL (6.4-8.2)
[2020-09-22] MEDS ORDERED: Ringers Lactate 1,000 ML IV SCH (07:30)
[2020-09-22] MEDS ORDERED: IBUPROFEN 400 MG TAB PO PRN (07:30)
[2020-09-22] MEDS ORDERED: ACETAMINOPHEN 325 MG TABLET PO PRN (07:30)
[2020-09-22] MEDS ORDERED: Ringers Lactate 1,000 ML IV ONE (07:56)
[2020-09-22] MEDS ORDERED: EPINEPHRINE/PF 1 MG/ML AMP ONE (08:48)
[2020-09-22] MEDS ORDERED: OXYMETAZOLINE HCL 0.05% 15ML NAS ONE (09:16)
[2020-09-22] MEDS ORDERED: GLYCOPYRROLATE 0.2 MG/ML SYR ONE ×2 (09:24)
[2020-09-22] MEDS ORDERED: propofoL 200 MG/20 ML VIAL IV ONE (09:24)
[2020-09-22] MEDS ORDERED: LIDOCAINE 2% MPF 5 ML VIAL ONE (09:24)
[2020-09-22] MEDS ORDERED: MIDAZOLAM HCL 2 MG/2 ML INJ ONE (09:24)
[2020-09-22] MEDS ORDERED: FENTANYL CITR 250 MCG/5 ML ONE (09:26)
[2020-09-22] MEDS ORDERED: LIDOCAINE 1% W/EPI 1:100,000 MDV 20 ML VIAL ONE (09:26)
[2020-09-22] MEDS ORDERED: ROCURONIUM 50 MG/5 ML VIAL IV ONE (09:26)
[2020-09-22] MEDS ORDERED: ONDANSETRON 4 MG/2 ML VIAL ONE (09:28)
[2020-09-22] MEDS ORDERED: FENTANYL CITR 100 MCG/2 ML ONE (09:28)
[2020-09-22] MEDS ORDERED: EPHEDRINE SULF 50 MG/ML VIAL ONE (09:30)
[2020-09-22] MEDS ORDERED: SUCCINYLCHOLINE 20 MG/ML (10 ML) IV ONE (09:31)
--- NOTE | 2020-09-22 10:00 | P.BOP ---
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
--- NOTE | 2020-09-22 11:16 | OP ---
Date of Procedure: 09/22/2020 Surgeon: Mary Gastelum MD Preoperative Diagnosis: Neoplasm of uncertain behavior of larynx. 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 Procedure: Direct laryngoscopy with telescope and biopsy. Indication For Procedure: Mr. Mg presented to the ENT Clinic in followup for evaluation of a neck mass. He was initially seen at [facility] for a stroke and during evaluation was noted to have a mass in the neck. Outpatient referral to the ENT was recommended. 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 It is unknown whether the immobility is due to the tumor or due to his recent stroke, which affected the left side of his body. Description Of Procedure: The patient was brought to the operating room. He was placed under genera l anesthesia via oral endotracheal tube. He is easily and atraumatically intubated with no significa nt difficulty. A shoulder roll was placed. The neck was extended and head supported and exam under anesthesia was undertaken. The lips, buccal mucosa, gingiva, floor of mouth, oral tongue, hard palat e, soft palate and uvula are all unremarkable. The patient is edentulous in the maxilla and mandible . There was no visible tonsil tissue and findings were suggestive of prior tonsillectomy. The tonsi llar fossa and base of tongue were palpated with no indurated masses or lesions. A [facility] laryngoscope was fitted with a 15-degree telescope and used to perform a direct laryng oscopy. The scope was initially advanced to the glottis. The subglottis was partially obscured by t he presence of the endotracheal tube, but appeared unremarkable. The left and right true vocal fold appeared slightly hypervascular, but did not appear to be involved with any gross tumor. The larynge al ventricle appeared clear from gross tumor. The lower portion of the left false vocal fold appeare d to smooth, but as we moved superiorly exophytic tumor was seen to occupy the left supraglottic nik nx extending slightly onto the base of the epiglottis and involving the aryepiglottic fold and aryten oid. A cup forceps was used to collect biopsy specimens from this main mass of tumor and was labeled false vocal fold. A gauze sponge was applied to the biopsy site for several minutes to aid in hemos tasis. After removal, the Kelsey-Berci laryngoscope was removed and the Eugene laryngoscope was us ed to perform further evaluation. The majority of the epiglottis appears uninvolved. The vallecula appears clear from any gross tumor. The posterior aspect of the left arytenoid appears to have some additional tumor and a second biopsy labeled left arytenoid was collected. The interarytenoid area w as slightly difficult to assess due to the presence of the endotracheal tube. The posterior hypophar yngeal wall and piriform sinus appear uninvolved in the tumor. I am concerned about some submucosal spread of the tumor going toward the pharyngoepiglottic fold. After suctioning of blood and secretio ns and additional packing in the hypopharynx to control bleeding from the arytenoid biopsy site. The area appears hemostatic. The laryngoscope was removed and the patient was returned to care of anest hesia for awakening and extubation in the operating room, which proceeded without difficulty. Complications: None. Specimen: 1.Left false vocal fold. 2.Left arytenoid. Findings: Based on the appearance and the extent of the tumor, I would classify his findings as T3 d ue to preoperative immobility of the hemilarynx. Based on the ease of intubation and lack of obstruc tive bulky tumor, the decision was made to forego a surgical airway at this time. Disposition: The patient was transported in stable condition to the recovery room and will be discha rged home later today. We will initiate a referral to the radiation and medical oncologist for definitive treatment. MANUEL/LIZ Voice ID: [id number] Report ID: [id number]
[2020-09-22 11:47] VITALS: BP 152/47; TEMP 96.9; O2SAT 98
== END 2020-09-22 11:37 | disposition home health service (06) ==
LOC: OR 07:18
PROVIDERS: ATTEND Otolaryngology
PROC: 0CBS8ZX Excision of Larynx, Via Natural or Artificial Opening Endoscopic, Diagnostic (ICD-10-PCS; 2020-09-22)
PROC: 0CBV8ZX Excision of Left Vocal Cord, Via Natural or Artificial Opening Endoscopic, Diagnostic (ICD-10-PCS; principal; 2020-09-22 09:00)
DX: C32.0 Malignant neoplasm of glottis (principal); I10 Essential (primary) hypertension; M19.90 Unspecified osteoarthritis, unspecified site; Z95.5 Presence of coronary angioplasty implant and graft; Z20.822 Contact with and (suspected) exposure to COVID-19
CPT/HCPCS: 93005; 85025; 36415; 88305; 80053; 31536; U0003; J2704; J0330; J3010; J7120; J2405; J0171; J2250

== ENCOUNTER 2020-12-29 12:16 | Emergency (ER) | payer OTHER ==
--- OUTSIDE RECORDS SUMMARY | 2020-12-29 12:18 | XMS REPORT | Continuity of Care Document ---
:1935 Author Organization [facility] t Address [address] [place] [address] Dr. Garza[address] [place] [address] Care Team Providers Name Role Phone Doctor Unassigned, [place] Attending Clinician Unavailable Carlo FLETCHER, A Attending [...] ID 2019-08-26 2019-08-26 Orders Doctor RAMOS [id number] 00:00:00 00:00:00 Only UnassignedROBERTAY [id number] [place] [facility] [id number] 2019-03-17 2019-03-17 [facility] [id number] 11:26:00 14:59:00 Encounter Janusz Logan [id number] [place] [id number] Surgical [id number] [place] [address] 2019-03-03 2019-03-03 [facility] [id number] 09:37:00 13:20:00 Encounter Janusz Logan [id number] [place] [id number] Surgical [id number] [place] [address] 2019-03-03 2019-03-03 Orders Doctor RAMOS [id number] 00:00:00 00:00:00 Only Unassigned, AMELIA [id number] [place] [facility] [id number] 2019-02-24 2019-02-24 Sales Utility Representative 1, Adc Lab [facility] [id number] 16:37:01 16:54:18 Visit Roscoe [id number] [place] [id number] [place] [id number] Results This patient has no known results.
[2020-12-29 13:12] LABS: Absolute Lymphocytes (CBC) 1.4 K/uL (0.7-4.9); Basophils % 0.7 % (0-1.3); Hematocrit 30.5 % (39.6-49.0); Lymphocytes % 20.4 % (15.3-44.8); MPV 7.3 fL (7.6-11.3); RBC Red Blood Cell Count 3.28 M/uL (4.33-5.43)
[2020-12-29 13:23] LABS: Protime INR 1.59
[2020-12-29 13:24] LABS: Albumin 2.8 g/dL (3.4-5.0); Bilirubin Direct 0.3 mg/dL (0-0.2); Bilirubin Total 1.3 mg/dL (0.2-1.0); Magnesium 2.1 mg/dL (1.8-2.4); Potassium 4.6 mmol/L (3.5-5.1); Protein, Total 6.6 g/dL (6.4-8.2); Troponin (Emerg Dept Use Only) 0.04 ng/mL (0.0-0.045)
--- NOTE | 2020-12-29 13:50 | RAD REPORT ---
EXAM DESCRIPTION: RAD - Chest Single View - 12/29/2020 1:24 pm CLINICAL HISTORY: DYSPNEA, weakness, history of head and neck cancer COMPARISON: Portable January 2001 TECHNIQUE: AP portable chest image was obtained 12/29/2020 1:24 pm . FINDINGS: Chronic interstitial lung pattern is present not substantially different from comparison. No consolidation, mass or failure findings. Severity of chronic disease could mask minimal edema or infiltrate. Heart and vasculature are normal. No measurable pleural effusion and no pneumothorax. No acute bony abnormality seen. No acute aortic findings suspected. IMPRESSION: Chronic interstitial pattern matching comparison.
--- NOTE | 2020-12-29 14:23 | RAD REPORT ---
EXAM DESCRIPTION: CT - Head Brain Wo Cont - 12/29/2020 2:04 pm CLINICAL HISTORY: DIZZINESS, syncope, head and neck cancer, prior CVA COMPARISON: CT head January 2020 TECHNIQUE: Axial 5 mm thick images of the head were obtained without IV contrast. All CT scans are performed using dose optimization technique as appropriate and may include automated exposure control or mA/KV adjustment according to patient size. FINDINGS: No intracranial hemorrhage, mass, edema or shift of mid-line structures. No acute cortical based infarction. No cortical edema or sulcal effacement. No abnormal extra-axial fluid collections. Atrophy changes are present mild to moderate for age with ventricles in proportion to the volume los s. Physiologic basal ganglia calcifications are present. There is moderate severity chronic ischemic change. This extends into the posterior limbs of each internal capsule thalamus tissue. Mastoid air cells and visualized portions of the paranasal sinuses are clear. No acute bony findings. Prominent soft tissue seen between the left superior orbital ridge and the na sofrontal junction. This is difficult to further characterize. This could be trauma related if there was a fall. Soft tissue infection/inflammatory process is possible. IMPRESSION: Negative non-contrast CT head examination. And prominent soft tissues between the left superior orbital rim and the nasofrontal junction. This n eeds correlation with clinical presentation.
--- NOTE | 2020-12-29 15:14 | ER ---
Nurse's Notes [facility] Name: Vitor Mg Age: 85 yrs Sex: Male : 1935 Arrival Date: 12/29/2020 Time: 12:18 Bed 8 Private MD: Diagnosis: Muscle weakness (generalized) Presentation: 12/29 12:18 Chief complaint: EMS states: Generalized weakness x approx 3 weeks, had difficulty ph standing and getting into daughter's vehicle today, currently receiving radiation for throat cancer, VSS. Coronavirus screen: Client denies travel out of the [place] in the last 14 days. At this time, the client does not indicate any symptoms associated with coronavirus-19. Ebola Screen: No symptoms or risks identified at this time. Initial Sepsis Screen: Does the patient meet any 2 criteria? No. Patient's initial sepsis screen is negative. Does the patient have a suspected source of infection? No. Patient's initial sepsis screen is negative. Risk Assessment: Do you want to hurt yourself or someone else? Patient reports no desire to harm self or others. Onset of symptoms was December 29, 2020. 12:18 Method Of Arrival: EMS: [facility] ph 12:18 Acuity: GLENDY 3 ph Historical: - Allergies: 12:22 No Known Allergies; ph - PMHx: 12:22 CAD; Chronic pain; Hypertension; Cancer, throat; CVA; ph - PSHx: 12:22 Heart stents; ph - Immunization history:: Adult Immunizations unknown. - Social history:: Smoking status: Patient reports the use of cigarette tobacco products. Screenin:23 Abuse screen: Denies threats or abuse. Denies injuries from another. Nutritional ph screening: No deficits noted. Tuberculosis screening: No symptoms or risk factors identified. Fall Risk None identified. Assessment: 12:30 General: Appears in no apparent distress. comfortable, Behavior is calm, cooperative, ph appropriate for age. Pain: Complains of pain in neck. Neuro: Level of Consciousness is awake, alert, obeys commands, Oriented to person, place, time, situation, Reports dizziness. Cardiovascular: Reports fatigue, lightheadedness, Denies chest pain, nausea, shortness of breath. Respiratory: Airway is patent Respiratory effort is even, unlabored. GI: No signs and/or symptoms were reported involving the gastrointestinal system. Derm: Skin is fragile, is thin, Skin is pink, warm \T\ dry. Musculoskeletal: Circulation, motion, and sensation intact. Range of motion: intact in all extremities. 13:30 Reassessment: Patient appears in no apparent distress at this time. Patient and/or ph family updated on plan of care and expected duration. Pain level reassessed. Patient is alert, oriented x 3, equal unlabored respirations, skin warm/dry/pink. 14:30 Reassessment: Patient appears in no apparent distress at this time. Patient and/or ph family updated on plan of care and expected duration. Pain level reassessed. Patient is alert, oriented x 3, equal unlabored respirations, skin warm/dry/pink. 15:30 Reassessment: Patient appears in no apparent distress at this time. Patient and/or ph family updated on plan of care and expected duration. Pain level reassessed. Patient is alert, oriented x 3, equal unlabored respirations, skin warm/dry/pink. D/C pending completion of IV fluids. Vital Signs: 12:18 BP 129 / 58; Pulse 61; Resp 18; Temp 97.5; Pulse Ox 96% on R/A; ph 13:10 BP 123 / 52; Pulse 64; Resp 18; Pulse Ox 97% on R/A; ph 15:30 BP 158 / 85 Supine; Pulse 70; ph 15:30 BP 142 / 70 Sitting; Pulse 71; ph 15:30 BP 127 / 52 Standing; Pulse 81; ph ED Course: 12:18 Patient arrived in ED. ph 12:21 Triage completed. ph 12:22 Arm band placed on Patient placed in an exam room, on a stretcher, on cardiac/vascular sonographer, ph on pulse oximetry. 12:23 Patient has correct armband on for positive identification. Call light in reach. Side ph rails up X2. Pulse ox on. NIBP on. Door closed. Noise minimized. Warm blanket given. 12:24 Oc Bridges PA is PHCP. jr8 12:24 Matt Tran MD is Attending Physician. jr8 12:28 Marlin Hensley RN is Primary Nurse. ph 12:55 Maintain EMS IV. Dressing intact. Good blood return noted. Site clean \T\ dry. Gauge \T\ ph site: 20 RAC. IV is patent, with fluids infusing freely, with good blood return, Flushed right with 5 ml normal saline. 13:24 XRAY Chest (1 view) In Process Unspecified. EDMS 14:03 CT Head Brain wo Cont In Process Unspecified. EDMS 17:20 No provider procedures requiring assistance completed. IV discontinued, intact, ph bleeding controlled, No redness/swelling at site. Pressure dressing applied. Administered Medications: 15:35 Drug: NS 0.9% 1000 ml Route: IV; Rate: 1000 ml; Site: left antecubital; ph Outcome: 15:13 Discharge ordered by MD. nicholson 17:22 Patient left the ED. ph 17:22 Discharged to home via wheelchair. ph 17:22 Condition: good 17:22 Discharge instructions given to patient, family, Instructed on discharge instructions, follow up and referral plans. Demonstrated understanding of instructions, follow-up care. Signatures: Dispatcher [employer] EDOc Moore PA PA jr8 Marlin Hensley, RN RN ph
--- NOTE | 2020-12-29 15:14 | EDPHYS ---
Physician Documentation [facility] Name: Vitor Mg Age: 85 yrs Sex: Male : 1935 Arrival Date: 12/29/2020 Time: 12:18 Bed 8 Private MD: ED Physician Matt Tran HPI: 12/29 14:38 This 85 yrs old Male presents to ER via EMS with complaints of General jr8 Weakness. 14:38 Onset: The symptoms/episode began/occurred gradually, 1 week(s) ago. Associated signs jr8 and symptoms: The patient has no apparent associated signs or symptoms. Modifying factors: The patient symptoms are alleviated by nothing, the patient symptoms are aggravated by activity. The patient has not experienced similar symptoms in the past. The patient has not recently seen a physician. 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 Stated that since then has been weak and fatigued . Historical: - Allergies: 12:22 No Known Allergies; ph - PMHx: 12:22 CAD; Chronic pain; Hypertension; Cancer, throat; CVA; ph - PSHx: 12:22 Heart stents; ph - Immunization history:: Adult Immunizations unknown. - Social history:: Smoking status: Patient reports the use of cigarette tobacco products. ROS: 14:38 Eyes: Negative for injury, pain, redness, and discharge, ENT: Negative for injury, jr8 pain, and discharge, Neck: Negative for injury, pain, and swelling, Cardiovascular: Negative for chest pain, palpitations, and edema, Respiratory: Negative for shortness of breath, cough, wheezing, and pleuritic chest pain, Abdomen/GI: Negative for abdominal pain, nausea, vomiting, diarrhea, and constipation, Back: Negative for injury and pain, MS/Extremity: Negative for injury and deformity, Skin: Negative for injury, rash, and discoloration, Neuro: Negative for headache, weakness, numbness, tingling, and seizure. 14:38 Constitutional: Positive for fatigue, malaise. Exam: 14:38 Eyes: Pupils equal round and reactive to light, extra-ocular motions intact. Lids and jr8 lashes normal. Conjunctiva and sclera are non-icteric and not injected. Cornea within normal limits. Periorbital areas with no swelling, redness, or edema. ENT: Nares patent. No nasal discharge, no septal abnormalities noted. Tympanic membranes are normal and external auditory canals are clear. Oropharynx with no redness, swelling, or masses, exudates, or evidence of obstruction, uvula midline. Mucous membranes moist. Neck: Trachea midline, no thyromegaly or masses palpated, and no cervical lymphadenopathy. Supple, full range of motion without nuchal rigidity, or vertebral point tenderness. No Meningismus. Cardiovascular: Regular rate and rhythm with a normal S1 and S2. No gallops, murmurs, or rubs. Normal PMI, no JVD. No pulse deficits. Respiratory: Lungs have equal breath sounds bilaterally, clear to auscultation and percussion. No rales, rhonchi or wheezes noted. No increased work of breathing, no retractions or nasal flaring. Abdomen/GI: Soft, non-tender, with normal bowel sounds. No distension or tympany. No guarding or rebound. No evidence of tenderness throughout. Back: No spinal tenderness. No costovertebral tenderness. Full range of motion. Skin: Warm, dry with normal turgor. Normal color with no rashes, no lesions, and no evidence of cellulitis. MS/ Extremity: Pulses equal, no cyanosis. Neurovascular intact. Full, normal range of motion. Neuro: Awake and alert, GCS 15, oriented to person, place, time, and situation. Cranial nerves II-XII grossly intact. Motor strength 5/5 in all extremities. Sensory grossly intact. Cerebellar exam normal. Normal gait. Vital Signs: 12:18 BP 129 / 58; Pulse 61; Resp 18; Temp 97.5; Pulse Ox 96% on R/A; ph 13:10 BP 123 / 52; Pulse 64; Resp 18; Pulse Ox 97% on R/A; ph 15:30 BP 158 / 85 Supine; Pulse 70; ph 15:30 BP 142 / 70 Sitting; Pulse 71; ph 15:30 BP 127 / 52 Standing; Pulse 81; ph MDM: 12:25 Patient medically screened. [facility] 14:38 Data reviewed: vital signs, nurses notes, lab test result(s), EKG, radiologic studies, [facility] CT scan, plain films. Data interpreted: Pulse oximetry: on room air is 97 %. Interpretation: normal. Counseling: I had a detailed discussion with the patient and/or guardian regarding: the historical points, exam findings, and any diagnostic results supporting the discharge/admit diagnosis, lab results, radiology results, the need for outpatient follow up, a family practitioner, to return to the emergency department if symptoms worsen or persist or if there are any questions or concerns that arise at home. 15:12 ED course: No acute findings on labs, ECG, or imaging to explain the weakness he has bharat felt. Most likely from his treatments. Would continue to hydrate and eat well. Push protein content. Needs to f/u with PCP. If worse knows to return . 12/29 12:25 Order name: Basic Metabolic Panel; Complete Time: 13:32 12/29 12:25 Order name: CBC with Diff; Complete Time: 13:12/29 12:25 Order name: LFT's; Complete Time: :12/29 12:25 Order name: Magnesium; Complete Time: 13:12/29 12:25 Order name: NT PRO-BNP; Complete Time: 13:12/29 12:25 Order name: PT-INR; Complete Time: 13:12/29 12:25 Order name: Troponin (emerg Dept Use Only); Complete Time: 13:12/29 12:25 Order name: XRAY Chest (1 view); Complete Time: 13:51 12/29 12:25 Order name: EKG; Complete Time: 12:12/29 12:25 Order name: Cardiac monitoring; Complete Time: 13:12/29 12:25 Order name: EKG - Nurse/Tech; Complete Time: 14:03 12/29 12:25 Order name: IV Saline Lock; Complete Time: 13:12/29 13:52 Order name: CT Head Brain wo Cont; Complete Time: 14:12/29 12:25 Order name: Labs collected and sent; Complete Time: 13:12/29 12:25 Order name: O2 Per Protocol; Complete Time: 13:12/29 12:25 Order name: O2 Sat Monitoring; Complete Time: 13:12/29 13:51 Order name: Orthostatics; Complete Time: 15:51 Administered Medications: 15:35 Drug: NS 0.9% 1000 ml Route: IV; Rate: 1000 ml; Site: left antecubital; ph Disposition: 12/30 14:37 Co-signature as Attending Physician, Matt Tran MD. ma2 Disposition: 12/29/20 15:13 Discharged to Home. Impression: Muscle weakness (generalized). - Condition is Stable. - Discharge Instructions: Weakness. - Medication Reconciliation Form, Thank You Letter, Antibiotic Education, Prescription Opioid Use form. - Follow up: Private Physician; When: 2 - 3 days; Reason: Recheck today's complaints, Continuance of care, Re-evaluation by your physician. - Problem is new. - Symptoms have improved. Signatures: Dispatcher [employer] EDMS Oc Bridges PA PA jr8 Marlin Hensley RN RN ph Alzahri, Mohammad, MD MD ma2 Corrections: (The following items were deleted from the chart) 12/29 17:22 15:13 12/29/2020 15:13 Discharged to Home. Impression: Muscle weakness (generalized). ph Condition is Stable. Forms are Medication Reconciliation Form, Thank You Letter, Antibiotic Education, Prescription Opioid Use. Follow up: Private Physician; When: 2 - 3 days; Reason: Recheck today's complaints, Continuance of care, Re-evaluation by your physician. Problem is new. Symptoms have improved. jr8
[2020-12-29] MEDS ORDERED: NA CHLORIDE 0.9% 1,000 ML ONE (15:53)
[2020-12-29 17:54] VITALS: TEMP 97.5
[2020-12-29 17:56] VITALS: O2SAT 97
[2020-12-29 17:58] VITALS: BP 127/52
--- NOTE | 2020-12-30 09:45 | EKG ---
Test Date: 2020-12-29 Test Time: 13:38:40 Email Designer: KASSIDY MEASUREMENT RESULTS: Intervals: Rate: 66 AL: 194 QRSD: 130 QT: 464 QTc: 486 Sabine: P: 44 AL: 194 QRS: -45 T: 213 INTERPRETIVE STATEMENTS: Sinus rhythm with premature atrial complexes Left axis deviation Nonspecific intraventricular block Inferior infarct, age undetermined Cannot rule out Anterior infarct, age undetermined T wave abnormality, consider lateral ischemia Abnormal ECG Compared to ECG 09/20/2020 11:57:47 Atrial premature complex(es) now present Sinus bradycardia no longer present Myocardial infarct finding still present T-wave abnormality still present Possible ischemia still present Electronically Signed On 12-30-20 09:43:42 CDT by Vinh Barfield
== END 2020-12-29 17:22 | disposition home or self-care (01) ==
LOC: ER 12:16
DX: R53.1 Weakness (principal); I25.10 Atherosclerotic heart disease of native coronary artery without angina pectoris; I10 Essential (primary) hypertension; Z95.5 Presence of coronary angioplasty implant and graft; C14.0 Malignant neoplasm of pharynx, unspecified; Z86.73 Personal history of transient ischemic attack (TIA), and cerebral infarction without residual deficits; F17.210 Nicotine dependence, cigarettes, uncomplicated; G89.29 Other chronic pain
CPT/HCPCS: 93005; 85025; 80048; 36415; 83735; 85610; 80076; 84484; 83880; 70450; 71045; J7030

== ENCOUNTER 2020-12-30 18:14 | Emergency (ER) | payer OTHER ==
--- OUTSIDE RECORDS SUMMARY | 2020-12-30 18:17 | XMS REPORT | Continuity of Care Document ---
:1935 Author Organization [facility] t Address [address] [place] [address] Care Team Providers Name Role Phone Doctor Unassigned, [place] Attending Clinician Unavailable Carlo FLETCHER, A Attending [...] ID 2019-08-26 2019-08-26 Orders Doctor RAMOS [id number] 00:00:00 00:00:00 Only Unassigned, AMELIA [id number] [place] [facility] [id number] [id number] 2019-03-17 2019-03-17 [facility] [id number] 11:26:00 14:59:00 Encounter Janusz Logan [id number] [place] [id number] Surgical [id number] [place] [address] 2019-03-03 2019-03-03 [facility] [id number] 09:37:00 13:20:00 Encounter Janusz Logan [id number] [place] [id number] Surgical [id number] [place] [address] 2019-03-03 2019-03-03 Orders Doctor RICHARD [id number] 12 00:00:00 00:00:00 Only Unassigned, AMELIA [id number] [place] [facility] [id number] [id number] 2019-02-24 2019-02-24 Substation Designer 1, Adc Lab [facility] [id number] 16:37:01 16:54:18 Visit Doreen [id number] [place] [id number] [place] [id number] 353 Results This patient has no known results.
--- NOTE | 2020-12-30 19:05 | ER ---
Nurse's Notes [facility] Name: Vitor Mg Age: 85 yrs Sex: Male : 1935 Arrival Date: 12/30/2020 Time: 18:18 Bed 13 Private MD: Rell Zuñiga Diagnosis: Facial Laceration Presentation: 12/30 18:26 Chief complaint: Intermittent bleeding from wound on forehead sustained during fall 2 hb weeks ago. Daughter reports "the house looks like a murderer scene and it was squirting like a faucet last night." Not bleeding at this time. Takes Eliquis. Coronavirus screen: At this time, the client does not indicate any symptoms associated with coronavirus-19. Ebola Screen: No symptoms or risks identified at this time. Risk Assessment: Do you want to hurt yourself or someone else? Patient reports no desire to harm self or others. Onset of symptoms was December 30, 2020. 18:26 Method Of Arrival: Wheelchair hb 18:26 Acuity: GLENDY 3 hb Historical: - Allergies: 18:29 No Known Allergies; hb - PMHx: 18:29 CAD; cancer, throat; Chronic pain; CVA; Hypertension; hb - PSHx: 18:29 Heart stents; hb - Immunization history:: Adult Immunizations up to date. - Social history:: Smoking status: Patient denies any tobacco usage or history of. Screenin:33 Abuse screen: Denies threats or abuse. Nutritional screening: No deficits noted. vg1 Tuberculosis screening: No symptoms or risk factors identified. Fall Risk Fall in past 12 months (25 points). No secondary diagnosis (0 pts). No IV (0 pts). Ambulatory Aid- Crutches/Cane/Walker (15 pts). Gait- Normal/Bed Rest/Wheelchair (0 pts) Mental Status- Oriented to own ability (0 pts). Total Guzman Fall Scale indicates Low Risk Score (25-44 pts). Fall prevention measures have been instituted. Side Rails Up X 2 Placed close to Nursing Station Family Present and informed to notify staff if they need to leave bedside. Assessment: 18:30 General: Appears in no apparent distress. comfortable, Behavior is calm, cooperative. vg1 Pain: Denies pain. Neuro: Level of Consciousness is awake, alert, obeys commands, Oriented to person, place, time, situation. Cardiovascular: Patient's skin is warm and dry. Respiratory: Airway is patent Respiratory effort is even, unlabored. GI: No signs and/or symptoms were reported involving the gastrointestinal system. : No signs and/or symptoms were reported regarding the genitourinary system. EENT: No signs and/or symptoms were reported regarding the EENT system. Derm: Skin is thin, Skin is pink, warm \\T\\ dry. Wound noted above left eye Wound is bleeding. Musculoskeletal: Circulation, motion, and sensation intact. Vital Signs: 18:26 BP 163 / 68; Pulse 68; Resp 16; Temp 97.2; Pulse Ox 100% ; hb 18:34 BP 163 / 68; Pulse 70; Resp 16; Pulse Ox 98% on R/A; vg1 ED Course: 18:18 Patient arrived in ED. mr 18:18 Rell Zuñiga MD is Private Physician. mr 18:23 Nusrat Jones, RN is Primary Nurse. vg1 18:26 [facility] 18:26 Matt Tran MD is Attending Physician. [facility] 18:29 Triage completed. hb 18:29 Arm band placed on. hb 18:34 Patient has correct armband on for positive identification. Placed in gown. Bed in low vg1 position. Call light in reach. Side rails up X2. Adult w/ patient. 19:03 Felipe Pichardo MD is Referral Physician. [facility] 19:16 Primary Nurse role handed off by Nusrat Jones RN mw2 Administered Medications: No medications were administered Outcome: 19:03 Discharge ordered by . [facility] 19:17 Discharged to home ambulatory. ak2 19:17 Condition: good 19:17 Discharge instructions given to patient, family, Prescriptions given X 19:18 Patient left the ED. ak2 Signatures: Robin Hawthorne PA PA jeremy AlessandroChery Evie Sierra, RN RN Veronica Wood 2 Nusrat Jones RN RN 1 Pete Yousif ak2 Corrections: (The following items were deleted from the chart) 18:31 18:26 Temp 97.2F; hb hb
--- NOTE | 2020-12-30 19:05 | EDPHYS ---
Physician Documentation [facility] Name: Vitor Mg Age: 85 yrs Sex: Male : 1935 Arrival Date: 12/30/2020 Time: 18:18 Bed 13 Private MD: Rell Zuñiga ED Physician Matt Tran HPI: 12/30 19:00 This 85 yrs old Male presents to ER via Wheelchair with complaints of Open jmm Wound. 19:00 The complaints affect the forehead. Onset: The symptoms/episode began/occurred jmm gradually, 2 week(s) ago. Associated signs and symptoms: Loss of consciousness: This patient did not experience any loss of consciousness. Pertinent negatives: fever. Family states the patient has had interittent bleeding since the initial injury worse last night. . Historical: - Allergies: 18:29 No Known Allergies; hb - PMHx: 18:29 CAD; cancer, throat; Chronic pain; CVA; Hypertension; hb - PSHx: 18:29 Heart stents; hb - Immunization history:: Adult Immunizations up to date. - Social history:: Smoking status: Patient denies any tobacco usage or history of. ROS: 19:00 Constitutional: Negative for fever, chills, and weight loss, Cardiovascular: Negative jmm for chest pain, palpitations, and edema, Respiratory: Negative for shortness of breath, cough, wheezing, and pleuritic chest pain. 19:00 Skin: Positive for laceration(s). 19:00 All other systems are negative. Exam: 19:00 Constitutional: This is a well developed, well nourished patient who is awake, alert, jmm and in no acute distress. 19:00 Eyes: EOMI, no conjunctival erythema appreciated ENT: Moist Mucus Membranes Neck: Trachea midline, Supple Chest/axilla: Normal chest wall appearance and motion. Cardiovascular: Regular rate and rhythm. No edema appreciated Respiratory: Normal respirations, no respiratory distress appreciated Abdomen/GI: Non distended, soft Back: Normal ROM Skin: General appearance color normal MS/ Extremity: Moves all extremities, no obvious deformities appreciated, no edema noted to the lower extremities Neuro: Awake and alert, normal gait Psych: Behavior is normal, Mood is normal, Patient is cooperative and pleasant 19:00 Head/face: laceration noted to the left eyebrow region, mild bleeding, large clot noted. Vital Signs: 18:26 BP 163 / 68; Pulse 68; Resp 16; Temp 97.2; Pulse Ox 100% ; hb 18:34 BP 163 / 68; Pulse 70; Resp 16; Pulse Ox 98% on R/A; vg1 Laceration: 19:01 Wound Repair of 1cm ( 0.4in ) subcutaneous laceration to forehead. Distal jmm neuro/vascular/tendon intact. Anesthesia: Local anesthetic administered with 2 mls of 1% lidocaine w/ Epi. Wound prep: Moderate cleansing with betadine by me. Skin closed with 1 4-0 Prolene using figure 8. Patient tolerated well. MDM: 18:44 Patient medically screened. jeremy 19:01 Data reviewed: vital signs, nurses notes. Counseling: I had a detailed discussion with nilsa the patient and/or guardian regarding: the historical points, exam findings, and any diagnostic results supporting the discharge/admit diagnosis, the need for outpatient follow up, to return to the emergency department if symptoms worsen or persist or if there are any questions or concerns that arise at home. ED course: Bleeding controlled in the ED. RX for abx given due to delayed closure. Administered Medications: No medications were administered Disposition: 12/30/20 19:03 Discharged to Home. Impression: Facial Laceration. - Condition is Stable. - Discharge Instructions: Delayed Wound Closure. - Prescriptions for Bactrim DS 800- 160 mg Oral Tablet - take 1 tablet by ORAL route every 12 hours for 10 days; 20 tablet. - Medication Reconciliation Form, Thank You Letter, Antibiotic Education, Prescription Opioid Use form. - Follow up: Felipe Pichardo MD; When: 2 - 3 days; Reason: Recheck today's complaints, Continuance of care, Re-evaluation by your physician. Signatures: Robin Hawthorne PA PA jmm Baxter, Heather, ALLEY RN Pete Sim ak2 Corrections: (The following items were deleted from the chart) 19:18 19:03 12/30/2020 19:03 Discharged to Home. Impression: Facial Laceration. Condition is ak2 Stable. Forms are Medication Reconciliation Form, Thank You Letter, Antibiotic Education, Prescription Opioid Use. Follow up: Felipe Pichardo; When: 2 - 3 days; Reason: Recheck today's complaints, Continuance of care, Re-evaluation by your physician. nilsa
[2020-12-30] MEDS ORDERED: LIDOCAINE 1% W/EPI 1:100,000 MDV 20 ML VIAL ONE (19:09)
[2020-12-30 19:51] VITALS: BP 163/68; TEMP 97.2
[2020-12-30 19:53] VITALS: O2SAT 98
== END 2020-12-30 19:18 | disposition home or self-care (01) ==
LOC: ER 18:14
PROC: 0JQ10ZZ Repair Face Subcutaneous Tissue and Fascia, Open Approach (ICD-10-PCS; principal; 2020-12-30)
DX: S01.81XA Laceration without foreign body of other part of head, initial encounter (principal); I10 Essential (primary) hypertension; Z85.21 Personal history of malignant neoplasm of larynx; Z95.818 Presence of other cardiac implants and grafts
CPT/HCPCS: 99282

== ENCOUNTER 2021-01-09 13:51 | Inpatient (IN) | payer OTHER ==
--- OUTSIDE RECORDS SUMMARY | 2021-01-09 13:53 | XMS REPORT | Continuity of Care Document ---
:1935 Author Organization [facility] t Address [address] [place] [address] Dr. [address] [place] [address] Care Team Providers Name Role Phone Doctor Unassigned, Brielle Attending Clinician Unavailable Carlo FLETCHER, A Attending [...] ID 2019-08-26 2019-08-26 Orders Doctor RAMOS [id number] 00:00:00 00:00:00 Only Unassigned, AMELIA [id number] Brielle [facility] [id number] 2019-03-17 2019-03-17 [facility] [id number] 11:26:00 14:59:00 Encounter Janusz Logan [id number] [place] [id number] Surgical [id number] [place] [address] 2019-03-03 2019-03-03 [facility] [id number] 09:37:00 13:20:00 Encounter Janusz Logan [id number] [place] [id number] Surgical [id number] [place] [address] 2019-03-03 2019-03-03 Orders Doctor RICHARD [id number] 12 00:00:00 00:00:00 Only Unassigned, AMELIA [id number] [place] [facility] [id number] [id number] 2019-02-24 2019-02-24 Chemistry Teacher 1, Adc Lab [facility] [id number] 16:37:01 16:54:18 Visit Doreen [id number] [place] [id number] [place] [id number] [id number] Results This patient has no known results.
[2021-01-09 14:51] LABS: Absolute Lymphocytes (CBC) 1.6 K/uL (0.7-4.9); Hematocrit 31.2 % (39.6-49.0); Lymphocytes % 23.5 % (15.3-44.8); MPV 7.5 fL (7.6-11.3); RBC Red Blood Cell Count 3.34 M/uL (4.33-5.43)
[2021-01-09 15:17] LABS: Bilirubin Direct 0.2 mg/dL (0-0.2); Bilirubin Total 0.6 mg/dL (0.2-1.0); Magnesium 2.4 mg/dL (1.8-2.4); Protein, Total 6.8 g/dL (6.4-8.2); Troponin (Emerg Dept Use Only) 0.03 ng/mL (0.0-0.045)
[2021-01-09 15:23] LABS: Potassium 5.8 mmol/L (3.5-5.1)
--- NOTE | 2021-01-09 16:06 | RAD REPORT ---
EXAM DESCRIPTION: Dustin Single View01/09/2021 3:54 pm CLINICAL HISTORY: Syncope COMPARISON: December 29, 2020 FINDINGS: Mild haziness involves the left lung apex which may indicate mild pneumonitis. Pleural and pulmonary parenchymal scarring unchanged Calcified lung granulomas. Calcified pleural plaques are present. Heart is upper limits normal size
--- NOTE | 2021-01-09 16:23 | ER ---
Nurse's Notes [facility] Name: Vitor Mg Age: 85 yrs Sex: Male : 1935 Arrival Date: 01/09/2021 Time: 13:55 Bed 14 Private MD: Diagnosis: Other pneumonia, unspecified organism;Hyperkalemia;Acute kidney failure, unspecified Presentation: 01/09 13:57 Chief complaint: Patient states: Near syncopal episode while at follow up during [facility] treatment. BP at [place] center was reading 80/40s. Daughter reports that patient has been experiencing dizzy episodes upon standing/ repositioning for about a week. Coronavirus screen: Client denies travel out of the [place] in the last 14 days. Ebola Screen: Patient denies exposure to infectious person. Patient denies travel to an Ebola-affected area in the 21 days before illness onset. Initial Sepsis Screen: Does the patient meet any 2 criteria? No. Patient's initial sepsis screen is negative. Does the patient have a suspected source of infection? No. Patient's initial sepsis screen is negative. Risk Assessment: Do you want to hurt yourself or someone else? Patient reports no desire to harm self or others. Onset of symptoms was January 02, 2021. 13:57 Method Of Arrival: Ambulatory ss 13:57 Acuity: GLENDY 3 ss Triage Assessment: 14:12 General: Appears in no apparent distress. comfortable, Behavior is cooperative, bp appropriate for age, drowsy. Pain: Denies pain. EENT: No deficits noted. Neuro: Reports a syncopal episode. Cardiovascular: Rhythm is sinus bradycardia. Respiratory: No deficits noted. GI: No signs and/or symptoms were reported involving the gastrointestinal system. : No signs and/or symptoms were reported regarding the genitourinary system. Derm: No deficits noted. Musculoskeletal: No deficits noted. Historical: - Allergies: 15:33 No Known Allergies; bp - Home Meds: 15:33 apixaban oral [Active]; gabapentin enacarbil oral [Active]; clopidogrel oral [Active]; bp Tramadol Oral [Active]; carvedilol oral [Active]; losartan oral [Active]; Simvastatin Oral [Active]; - PMHx: 15:33 CAD; cancer, throat; Chronic pain; CVA; Hypertension; bp - Immunization history:: Adult Immunizations up to date. - Social history:: Smoking status: Patient denies any tobacco usage or history of. Screenin:00 Abuse screen: Denies threats or abuse. Denies injuries from another. Nutritional bp screening: No deficits noted. Tuberculosis screening: No symptoms or risk factors identified. Fall Risk None identified. Assessment: 14:15 General: SEE TRIAGE NOTE. bp 15:00 Reassessment: No changes from previously documented assessment. Patient and/or family bp updated on plan of care and expected duration. Pain level reassessed. Neuro: Level of Consciousness is awake, alert, confused. Cardiovascular: Rhythm is sinus rhythm. 19:00 Reassessment: Patient appears in no apparent distress at this time. Patient and/or ad5 family updated on plan of care and expected duration. Pain level reassessed. Patient is alert, oriented x 3, equal unlabored respirations, skin warm/dry/pink. 19:00 General: Appears in no apparent distress. comfortable, Behavior is calm, cooperative, ad5 appropriate for age. Pain: Denies pain. Neuro: No deficits noted. Level of Consciousness is awake, alert, obeys commands, Oriented to person, place, situation, Jig Bore Operator are equal bilaterally Weakness. Cardiovascular: No deficits noted. Capillary refill < 3 seconds Patient's skin is warm and dry. Respiratory: No deficits noted. Airway is patent Respiratory effort is even, unlabored, Respiratory pattern is regular, symmetrical. Vital Signs: 13:57 BP 126 / 50; Resp 19; Temp 98.3(O); Pulse Ox 100% on R/A; Pain 0/10; ss 15:00 BP 105 / 48; Pulse 60; Resp 19; Pulse Ox 100% ; bp 19:30 BP 143 / 65; Pulse 70; Resp 20 S; Pulse Ox 95% on R/A; ad5 NIH Stroke Scale Scores: 13:57 NIHSS Score: 0 ss ED Course: 13:55 Patient arrived in ED. as 13:59 Chente Schmid PA is PHCP. cp 13:59 Gregory Cheney MD is Attending Physician. cp 14:00 Patient has correct armband on for positive identification. Bed in low position. Call bp light in reach. Side rails up X2. Adult w/ patient. 14:02 Ok Motley, RN is Primary Nurse. bp 14:13 Arm band placed on. bp 14:25 Inserted saline lock: 20 gauge in right forearm, using aseptic technique. Blood bp collected. 14:36 Triage completed. ss 15:54 XRAY Chest (1 view) In Process Unspecified. EDMS 16:21 Rell Zuñiga MD is Hospitalizing Provider. cp 16:41 CT Head Brain wo Cont In Process Unspecified. EDMS 17:35 IV discontinued, intact, bleeding controlled, Pressure dressing applied. dh3 17:43 Inserted saline lock: 20 gauge in right antecubital area, using aseptic technique. dh3 19:31 No provider procedures requiring assistance completed. ea 19:31 Patient admitted, IV remains in place. ea Administered Medications: 16:10 Drug: Kayexalate (polystyrene) 30 grams Route: PO; bp 17:49 Follow up: Response: No adverse reaction bp 16:15 Drug: Insulin Regular Human 5 units {Co-Signature: jl7 (Eben Tomlin RN).} Route: IVP; bp Site: right forearm; 17:49 Follow up: Response: No adverse reaction bp 16:15 Drug: D50W 50 ml Route: IVP; Site: right forearm; bp 17:49 Follow up: Response: No adverse reaction bp 16:15 Drug: Calcium Gluconate 1 grams Route: IVPB; Infused Over: 60 mins; Site: right forearm;bp 17:49 Follow up: IV Status: Completed infusion; IV Intake: 100ml bp 16:30 Drug: NS 0.9% 500 ml Route: IV; Rate: 500 ml/hr; Site: right antecubital; bp 19:31 Follow up: IV Status: Completed infusion; IV Intake: 500ml ad5 16:30 Drug: Rocephin - (cefTRIAXone) 1 grams Route: IVPB; Infused Over: 30 mins; Site: right bp antecubital; 18:15 Follow up: IV Status: Completed infusion; IV Intake: 50ml bp 18:00 Drug: Zithromax (azithromycin) 500 mg Route: IVPB; Infused Over: 1 hrs; Site: right bp antecubital; Intake: 17:49 IV: 100ml; Total: 100ml. bp 18:15 IV: 50ml; Total: 150ml. bp 19:31 IV: 500ml; Total: 650ml. ad5 Outcome: 16:22 Decision to Hospitalize by Provider. cp 19:31 Instructed on the need for admit, Demonstrated understanding of instructions. ea 19:40 Admitted to Med/surg accompanied by nurse, via stretcher, Report called to ALLEY Gonzalez ad5 19:40 Condition: stable 20:09 Patient left the ED. ad5 NIH Stroke Scale - NIH Stroke Score Date: 01/09/2021 Time: 13:57 Total Score = 0 1a. Level of Consciousness (LOC) - 0(Alert) 1b. Level of Consciousness (LOC) (Month \T\ Age) - 0(Both) 1c. LOC Commands (Open \T\ Closes Eyes/Programmer Analyst) - 0(Both) 2. Best Gaze (Lateral Gaze Paresis) - 0(Normal) 3. Visual Field Loss - 0(No visual loss) 4. Facial Palsy - 0(Normal) 5a. Left Arm: Motor (10-second hold) - 0(No drift) 5b. Right Arm: Motor (10-second hold) - 0(No drift) 6a. Left Leg: Motor (5-second hold - always test supine) - 0(No drift) 6b. Right Leg: Motor (5-second hold - always test supine) - 0(No drift) 7. Limb Ataxia (finger/nose \T\ heel/morton - test with eyes open) - 0(Absent) 8. Sensory Loss (pinprick arms/legs/face) - 0(Normal) 9. Best Language: Aphasia (description/naming/reading) - 0(No aphasia) 10. Dysarthria (speech clarity - read or repeat words) - 0(Normal) 11. Extinction and Inattention (visual/tactile/auditory/spatial/personal) - 0(No abnormality) Initials: ss Signatures: Dispatcher [employer] Radha Serna Shelby, RN RN Chente Schmid PA PA cp Herrera, Deanna 3 Shari Dowling RN RN ea Peltier, Brian, RN RN bp Davidson, Andrea ad5 Eben Tomlin RN jl7
--- NOTE | 2021-01-09 16:23 | EDPHYS ---
Physician Documentation [facility] Name: Vitor Mg Age: 85 yrs Sex: Male : 1935 Arrival Date: 01/09/2021 Time: 13:55 Bed 14 Private MD: ED Physician Gregory Cheney HPI: 01/09 14:05 This 85 yrs old Male presents to ER via Unassigned with complaints of Syncope.cp 14:05 The patient has experienced syncope, collapsed. cp 14:05 Onset: The symptoms/episode began/occurred today. cp 14:05 Duration: The patient has had multiple episodes, that last an unknown period of time. cp Context: the episode(s) was witnessed, by family, daughter, occurred while walking into office at [facility] for f/u appt. Daughter reports patient seemed to have multiple episodes of brief loss of consciousness while walking into office of [facility]. EMS reports blood pressure in the 80's upon initial evaluation. Historical: - Allergies: 15:33 No Known Allergies; bp - Home Meds: 15:33 apixaban oral [Active]; gabapentin enacarbil oral [Active]; clopidogrel oral [Active]; bp Tramadol Oral [Active]; carvedilol oral [Active]; losartan oral [Active]; Simvastatin Oral [Active]; - PMHx: 15:33 CAD; cancer, throat; Chronic pain; CVA; Hypertension; bp - Immunization history:: Adult Immunizations up to date. - Social history:: Smoking status: Patient denies any tobacco usage or history of. ROS: 14:10 Neuro: Positive for syncope, weakness, Negative for altered mental status, headache, cp numbness. 14:10 Constitutional: Negative for body aches, chills, fever, poor PO intake. cp 14:10 Cardiovascular: Negative for chest pain, edema, palpitations. 14:10 Respiratory: Negative for cough, shortness of breath, wheezing. 14:10 Eyes: Negative for injury, pain, redness, and discharge. cp 14:10 ENT: Negative for ear pain, sore throat, difficulty swallowing, difficulty handling cp secretions. 14:10 Abdomen/GI: Negative for abdominal pain, nausea, vomiting, and diarrhea, black/tarry stool, rectal bleeding. 14:10 : Negative for urinary symptoms. 14:10 All other systems are negative. Exam: 14:15 Constitutional: The patient appears in no acute distress, alert, awake, cp non-diaphoretic, non-toxic, well developed, frail. 14:15 Head/Face: Normocephalic, atraumatic. cp 14:15 Eyes: Periorbital structures: appear normal, Pupils: equal, round, and reactive to light and accomodation, Extraocular movements: intact throughout, Conjunctiva: normal, no exudate, no injection, Sclera: no appreciated abnormality, Lids and lashes: appear normal, bilaterally. 14:15 ENT: External ear(s): are unremarkable, Ear canal(s): are normal, clear, TM's: dullness, bilaterally, Nose: is normal, Mouth: Lips: dry, Oral mucosa: moist, Posterior pharynx: Airway: no evidence of obstruction, patent. 14:15 Neck: ROM/movement: is normal, is supple, without pain, no range of motions limitations. 14:15 Chest/axilla: Inspection: normal, Palpation: is normal, no crepitus, no tenderness. 14:15 Cardiovascular: Rate: normal, Rhythm: regular, Edema: is not appreciated, JVD: is not appreciated. 14:15 Respiratory: the patient does not display signs of respiratory distress, Respirations: normal, no use of accessory muscles, no retractions, labored breathing, is not present, Breath sounds: are clear throughout, no decreased breath sounds, no stridor, no wheezing. 14:15 Abdomen/GI: Inspection: abdomen appears normal, Bowel sounds: active, all quadrants, Palpation: abdomen is soft and non-tender, in all quadrants. 14:15 Back: pain, is absent, ROM is normal. 14:15 Skin: cellulitis, is not appreciated, no rash present. 14:15 Neuro: Orientation: to person, place \T\ time. Mentation: is normal, Motor: moves all fours, general weakness with no focal deficits, Sensation: is normal. 14:35 ECG was reviewed by the Attending Physician. cp Vital Signs: 13:57 BP 126 / 50; Resp 19; Temp 98.3(O); Pulse Ox 100% on R/A; Pain 0/10; ss 15:00 BP 105 / 48; Pulse 60; Resp 19; Pulse Ox 100% ; bp 19:30 BP 143 / 65; Pulse 70; Resp 20 S; Pulse Ox 95% on R/A; ad5 NIH Stroke Scale Scores: 13:57 NIHSS Score: 0 ss MDM: 14:00 Patient medically screened. 16:21 Data reviewed: vital signs, nurses notes, lab test result(s), EKG, radiologic studies, cp plain films. 17:45 Counseling: I had a detailed discussion with the patient and/or guardian regarding: the historical points, exam findings, and any diagnostic results supporting the discharge/admit diagnosis, lab results, radiology results, the need for further work-up and treatment in the hospital. 17:45 Physician consultation: Rell Zuñiga MD was called at 17:45, was contacted at 17:45, regarding admission, to the telemetry unit. patient's condition. 01/09 14:07 Order name: Basic Metabolic Panel; Complete Time: 15:54 01/09 15:54 Interpretation: Normal except: NA 134; K 5.8; GLUC 141; BUN 26; CRE 2.25; GFR 28. 01/09 14:07 Order name: CBC with Diff; Complete Time: 15:54 01/09 15:55 Interpretation: Normal except: RBC 3.34; HGB 10.2; HCT 31.2; PLT 255; MPV 7.5. 01/09 14:07 Order name: LFT's; Complete Time: 15:54 01/09 14:07 Order name: Magnesium; Complete Time: 15:54 01/09 14:07 Order name: NT PRO-BNP; Complete Time: 15:54 01/09 14:07 Order name: PT-INR; Complete Time: 17:08 01/09 14:07 Order name: Troponin (emerg Dept Use Only); Complete Time: 15:54 01/09 15:55 Interpretation: Reviewed. 01/09 14:07 Order name: Urine Microscopic Only; Complete Time: 17:45 01/09 16:11 Order name: SARS-COV-2 RT PCR; Complete Time: 16:17 [facility] 01/09 17:02 Order name: Urine Dipstick-Ancillary; Complete Time: 17:08 [facility] 01/09 17:51 Order name: Basic Metabolic Panel [facility] 01/09 17:51 Order name: Basic Metabolic Panel [facility] 01/09 17:51 Order name: CBC with Automated Diff EDMS 01/09 14:07 Order name: XRAY Chest (1 view); Complete Time: 16:08 01/09 14:07 Order name: EKG; Complete Time: 14:08 01/09 16:20 Order name: CT Head Brain wo Cont; Complete Time: 17:08 01/09 17:08 Interpretation: Report reviewed. 01/09 17:51 Order name: CBC with Automated Diff EDMS 01/09 17:51 Order name: NT PRO-BNP EDMS 01/09 17:51 Order name: NT PRO-BNP EDMS 01/09 17:51 Order name: Troponin I EDMS 01/09 17:51 Order name: Troponin I EDMS 01/09 17:51 Order name: Troponin I EDWA 01/09 14:07 Order name: Cardiac monitoring; Complete Time: 14:12 01/09 14:07 Order name: EKG - Nurse/Tech; Complete Time: 14:30 01/09 14:07 Order name: IV Saline Lock; Complete Time: 14:30 01/09 14:07 Order name: Labs collected and sent; Complete Time: 14:30 01/09 14:07 Order name: O2 Per Protocol; Complete Time: 14:11 01/09 14:07 Order name: O2 Sat Monitoring; Complete Time: 14:11 01/09 14:07 Order name: Urine Dipstick-Ancillary (obtain specimen); Complete Time: 17:50 01/09 17:51 Order name: Regular EDWA EC:35 Rate is 58 beats/min. Rhythm is regular. WI interval is prolonged at 208 msec. QRS cp interval is prolonged at 128 msec. QT interval is normal. Interpreted by me. Reviewed by me. Administered Medications: 16:10 Drug: Kayexalate (polystyrene) 30 grams Route: PO; bp 17:49 Follow up: Response: No adverse reaction bp 16:15 Drug: Insulin Regular Human 5 units {Co-Signature: jl7 (Eben Tomlin RN).} Route: IVP; bp Site: right forearm; 17:49 Follow up: Response: No adverse reaction bp 16:15 Drug: D50W 50 ml Route: IVP; Site: right forearm; bp 17:49 Follow up: Response: No adverse reaction bp 16:15 Drug: Calcium Gluconate 1 grams Route: IVPB; Infused Over: 60 mins; Site: right forearm;bp 17:49 Follow up: IV Status: Completed infusion; IV Intake: 100ml bp 16:30 Drug: NS 0.9% 500 ml Route: IV; Rate: 500 ml/hr; Site: right antecubital; bp 19:31 Follow up: IV Status: Completed infusion; IV Intake: 500ml ad5 16:30 Drug: Rocephin - (cefTRIAXone) 1 grams Route: IVPB; Infused Over: 30 mins; Site: right bp antecubital; 18:15 Follow up: IV Status: Completed infusion; IV Intake: 50ml bp 18:00 Drug: Zithromax (azithromycin) 500 mg Route: IVPB; Infused Over: 1 hrs; Site: right bp antecubital; Disposition Summary: 01/09/21 16:22 Hospitalization Ordered Hospitalization Status: Inpatient Admission cp Provider: Rell Zuñiga cp Location: Telemetry/MedSurg (Inpatient) cp Condition: Fair cp Problem: new cp Symptoms: have improved cp Bed/Room Type: Standard cp Room Assignment: 212(01/09/21 18:36) dw Diagnosis - Other pneumonia, unspecified organism cp - Hyperkalemia cp - Acute kidney failure, unspecified cp Forms: - Medication Reconciliation Form cp - SBAR form cp NIH Stroke Scale - NIH Stroke Score Date: 01/09/2021 Time: 13:57 Total Score = 0 1a. Level of Consciousness (LOC) - 0(Alert) 1b. Level of Consciousness (LOC) (Month \T\ Age) - 0(Both) 1c. LOC Commands (Open \T\ Closes Eyes/Airplane Navigator) - 0(Both) 2. Best Gaze (Lateral Gaze Paresis) - 0(Normal) 3. Visual Field Loss - 0(No visual loss) 4. Facial Palsy - 0(Normal) 5a. Left Arm: Motor (10-second hold) - 0(No drift) 5b. Right Arm: Motor (10-second hold) - 0(No drift) 6a. Left Leg: Motor (5-second hold - always test supine) - 0(No drift) 6b. Right Leg: Motor (5-second hold - always test supine) - 0(No drift) 7. Limb Ataxia (finger/nose \T\ heel/morton - test with eyes open) - 0(Absent) 8. Sensory Loss (pinprick arms/legs/face) - 0(Normal) 9. Best Language: Aphasia (description/naming/reading) - 0(No aphasia) 10. Dysarthria (speech clarity - read or repeat words) - 0(Normal) 11. Extinction and Inattention (visual/tactile/auditory/spatial/personal) - 0(No abnormality) Initials: ss Addendum: 01/11/2021 19:18 Co-signature as Attending Physician, Gregory Cheney MD. rn Signatures: Dispatcher [employer] EDMS Gavi Thapa RN RN dw Gregory Cheney MD MD rn Page, Corey, PA PA cp Peltier, Brian, ALLEY RN Edy Guzman RN jl7 Corrections: (The following items were deleted from the chart) 01/09 15:15 14:56 CORONAVIRUS+MR.LAB.BRZ ordered. EDMS EDMS 17:50 16:09 Regalado ordered. cp bp 18:36 16:22 cp dw
[2021-01-09 16:32] LABS: Protime INR 1.46
[2021-01-09] MEDS ORDERED: INSULIN -REGULAR HUMAN 50 UNIT/0.5 ML ML ONE (16:34)
[2021-01-09] MEDS ORDERED: CALCIUM GLUCONATE 1 GM IVPB 1 GM/50 ML BAG IV ONE (16:35)
[2021-01-09] MEDS ORDERED: SOD POLYSTYREN SUL 15 GM/60 ML UCUP ONE (16:35)
[2021-01-09] MEDS ORDERED: D50W 25 GM/50 ML SYRINGE IV ONE (16:35)
[2021-01-09 17:02] LABS: Urine Blood Trace-intact (Negative); Urine Glucose Trace (Negative); Urine Protein Negative (Negative); Urine Specific Gravity 1.015 (1.005-1.030)
--- NOTE | 2021-01-09 17:02 | RAD REPORT ---
EXAM DESCRIPTION: CT - Head Brain Wo Cont - 01/09/2021 4:41 pm CLINICAL HISTORY: Syncope COMPARISON: December 29, 2020 TECHNIQUE: Computed axial tomography of the head was obtained. IV contrast was not requested. All CT scans are performed using dose optimization technique as appropriate and may include automated exposure control or mA/KV adjustment according to patient size. FINDINGS: An intracranial bleed is not seen . The ventricles are normal in caliber. No extra-axial fluid collection is noted. Basal ganglia calcifications Mild low-density areas within periventricular, deep and subcortical white matter likely represent isc hemic changes secondary to small vessel disease. Fluid within the sinuses/ mastoids is not seen. IMPRESSION: No acute intracranial abnormality is seen. If patient's symptoms persist MRI of the bra in would be recommended.
[2021-01-09] MEDS ORDERED: CEFTRIAXONE/SWI 1gm 1 GM/10 ML SYR ONE (17:41)
[2021-01-09] MEDS ORDERED: NA CHLORIDE 0.9% 500 ML ONE (17:41)
[2021-01-09 17:42] LABS: Urine Bacteria <20 /HPF (NONE SEEN); Urine RBC <5 /HPF (NONE SEEN)
[2021-01-09] MEDS ORDERED: AZITHROMYCIN 500 MG/250 ML BAG IV SCH (17:45)
[2021-01-09] MEDS: NA CHLORIDE 0.9% 1,000 ML IV SCH (20:24)
[2021-01-09] MEDS ORDERED: CEFTRIAXONE/SWI 1gm 1 GM/10 ML SYR IV SCH (21:00)
[2021-01-09] MEDS: MORPHINE 4 MG/ML SYR IV PRN (22:12)
[2021-01-09 22:53] VITALS: BMI 22.8
[2021-01-10] MEDS: MORPHINE 4 MG/ML SYR IV PRN ×2 (03:24→12:45)
[2021-01-10 06:11] LABS: Absolute Lymphocytes (CBC) 2.3 K/uL (0.7-4.9); Basophils % 1.1 % (0-1.3); Hematocrit 31.7 % (39.6-49.0); Lymphocytes % 29.3 % (15.3-44.8); MPV 7.2 fL (7.6-11.3); RBC Red Blood Cell Count 3.38 M/uL (4.33-5.43)
[2021-01-10] MEDS: CEFTRIAXONE/SWI 1gm 1 GM/10 ML SYR IV SCH ×2 (06:26→21:16)
[2021-01-10 06:29] LABS: Potassium 4.8 mmol/L (3.5-5.1)
[2021-01-10] MEDS ORDERED: PNEUMOCOCCAL VACCINE 0.5 ML IMVAC ONE (08:00)
[2021-01-10] MEDS ORDERED: CLOPIDOGREL 75 MG TABLET PO ONE (08:47)
[2021-01-10] MEDS ORDERED: carvediloL 25 MG TAB PO ONE (08:47)
[2021-01-10] MEDS ORDERED: LOSARTAN POTASSIUM 50 MG TABLET PO ONE (08:47)
[2021-01-10] MEDS ORDERED: APIXABAN 2.5 MG TABLET PO ONE (08:48)
[2021-01-10] MEDS: AZITHROMYCIN IV 250 MG in NA CHLORIDE 0.9% 250 ML IVPB SCH (09:34)
[2021-01-10] MEDS: NA CHLORIDE 0.9% 1,000 ML IV SCH (09:34)
--- NOTE | 2021-01-10 16:35 | EKG ---
Test Date: 2021-01-09 Test Time: 14:31:03 Rda: MILANA MEASUREMENT RESULTS: Intervals: Rate: 58 TX: 208 QRSD: 128 QT: 464 QTc: 455 Norman: P: TX: 208 QRS: -14 T: 245 INTERPRETIVE STATEMENTS: Sinus bradycardia Nonspecific intraventricular block Possible Lateral infarct, age undetermined Possible Inferior infarct, age undetermined Abnormal ECG Compared to ECG 12/29/2020 13:38:40 Sinus rhythm no longer present Atrial premature complex(es) no longer present Left-axis deviation no longer present T-wave abnormality no longer present Possible ischemia no longer present Myocardial infarct finding still present Electronically Signed On 01-10-21 16:33:10 CDT by Vinh Barfield
[2021-01-10] MEDS ORDERED: DOCUSATE NA 100 MG CAP PO PRN (16:45)
[2021-01-10] MEDS ORDERED: HYDROCODONE PO PRN (19:30)
[2021-01-10] MEDS ORDERED: ACETAMINOPHEN PO PRN (19:30)
[2021-01-10] MEDS ORDERED: HOME MED 1 EA UNK (Simvastatin [Simvastatin] 40 MG Tablet) PO SCH (21:00)
[2021-01-10] MEDS: ATORVASTATIN 20 MG TAB PO SCH (21:19)
[2021-01-10] MEDS: APIXABAN 2.5 MG TABLET PO SCH (21:19)
[2021-01-10] MEDS: carvediloL 25 MG TAB PO SCH (21:20)
[2021-01-10] MEDS: GABAPENTIN 100 MG CAP PO SCH (21:21)
[2021-01-11 04:44] LABS: Absolute Lymphocytes (CBC) 1.7 K/uL (0.7-4.9); Basophils % 1.4 % (0-1.3); Hematocrit 28.3 % (39.6-49.0); Lymphocytes % 27.3 % (15.3-44.8); MPV 7.2 fL (7.6-11.3); RBC Red Blood Cell Count 3.07 M/uL (4.33-5.43)
[2021-01-11 04:58] LABS: Potassium 5.1 mmol/L (3.5-5.1)
[2021-01-11] MEDS: CEFTRIAXONE/SWI 1gm 1 GM/10 ML SYR IV SCH ×2 (07:06→21:21)
[2021-01-11] MEDS: carvediloL 25 MG TAB PO SCH ×2 (08:36→21:22)
[2021-01-11] MEDS: CLOPIDOGREL 75 MG TABLET PO SCH (08:36)
[2021-01-11] MEDS: APIXABAN 2.5 MG TABLET PO SCH ×2 (08:36→21:22)
[2021-01-11] MEDS: AZITHROMYCIN IV 250 MG in NA CHLORIDE 0.9% 250 ML IVPB SCH (08:36)
[2021-01-11] MEDS: LOSARTAN POTASSIUM 50 MG TABLET PO SCH (08:36)
[2021-01-11] MEDS ORDERED: HOME MED 1 EA UNK (Losartan Potassium [Losartan Potassium] 100 MG Tablet) PO SCH (09:00)
--- NOTE | 2021-01-11 09:15 | RAD REPORT ---
EXAM DESCRIPTION: RAD - Chest Single View - 01/11/2021 4:58 am CLINICAL HISTORY: possible pneumonia Chest pain. COMPARISON: Chest Single View dated 01/09/2021; Chest Single View dated 12/29/2020; Chest Single View dated 01/22/2020; Chest Pa And Lat (2 Views) dated 12/29/2019 FINDINGS: Portable technique limits examination quality. Mild bilateral pulmonary opacities are present, slightly progressive since comparative study. The hea rt is mildly enlarged in size. No displaced fractures.Aortic atherosclerosis. IMPRESSION: Mild worsening in bilateral pulmonary opacities seen since comparative study.
--- NOTE | 2021-01-11 19:49 | PN ---
Date of Progress Note: 01/11/2021 The patient seems stabilized today as far as his blood pressure and his activity level was concerned. He did walk with physical therapy using his walker and his daughter for support. His creatinine gaona s dropped significantly and was back to normal. Remainder of his chemistries are good. He now had n o further episodes of near or actual syncope and I feel that patient could be discharged probably in a.m. Continue all his medications with the use of Home Health and perhaps some home aides as long as there is somebody in the house with him. Home health has been consulted. HR/MODL Voice ID: [id number] Report ID: [id number]
--- NOTE | 2021-01-11 20:01 | PN ---
The patient's creatinine has now dropped below 3. Hydration has improved and atrial fibrillation. C ontinued on his home medications. Blood pressure is stable. Physical Therapy will be consulted as w ell as Energy Economist and Home Health. HR/MODL Voice ID: [id number] Report ID: [id number]
--- NOTE | 2021-01-11 20:01 | HP ---
Date of Admission: 01/09/2021 Entrance Complaint: Syncope and near syncope. History Of Present Illness: The patient was brought to the emergency room after having a visit at [facility] where was follow up for his throat cancer and radiation treatment, and she stated, th is was from the daughter that he felt weak, dizzy and just about passed out and perhaps for a second or 2 was out. At that time, he was seen by emergency personnel. His blood pressure was recorded in the 80s. The patient had a somewhat similar episode approximately 10 days ago, was seen in the ER. At that time, workup was basically negative. It was felt that he should follow up with Cardiology as well. An actual appointment has been made for last week when he had his syncope episode. Past Medical History: As mentioned throat cancer with radiation treatment. Also history of hyperten alex, atrial fibrillation, CVA. Family History: Noncontributory. Social History: Nonsmoker, nondrinker. Physical Examination: General: Patient is a rather hard of hearing but stable mentally, depressed could be determined. Vital Signs: Stable vital signs at the time he was seen in the hospital. Head and Neck: Normocephalic. Pupils are equal and reactive to light and accommodation. Fundi nega tive. Trachea midline. Thyroid not palpable. ENT negative. Chest: Clear to P and A. Cardiovascular: PMI in midclavicular line. Heart: Sounds normal. Peripheral pulses are present and equal bilaterally. Abdomen: No organomegaly. Bowel sounds present. Extremities: Decreased strength in the lower extremities, good tone and movements bilaterally. Refl exes physiologic. Rectal: Deferred. Impression: Syncope, near syncope, possible vasovagal syncope, hypertension controlled, coronary art celso disease, atrial fibrillation controlled, throat cancer by history, remote. Plan: Patient will be admitted, placed on telemetry. It as noted that his creatinine was excessive. He has had history of this when he has had somewhat similar episode or the stroke. . On ce he is hydrated. He comes down to relatively normal levels. HR/MODL Voice ID: [id number]
[2021-01-11] MEDS: ATORVASTATIN 20 MG TAB PO SCH (21:21)
[2021-01-11] MEDS: GABAPENTIN 100 MG CAP PO SCH (21:21)
[2021-01-11] MEDS: MORPHINE 4 MG/ML SYR IV PRN (21:22)
[2021-01-12 04:23] LABS: Absolute Lymphocytes (CBC) 1.9 K/uL (0.7-4.9); Basophils % 1.5 % (0-1.3); Hematocrit 30.5 % (39.6-49.0); Lymphocytes % 26.2 % (15.3-44.8); MPV 7.3 fL (7.6-11.3); RBC Red Blood Cell Count 3.28 M/uL (4.33-5.43)
[2021-01-12 04:41] LABS: Potassium 4.6 mmol/L (3.5-5.1)
[2021-01-12] MEDS: carvediloL 25 MG TAB PO SCH (08:52)
[2021-01-12] MEDS: CEFTRIAXONE/SWI 1gm 1 GM/10 ML SYR IV SCH (08:52)
[2021-01-12] MEDS: APIXABAN 2.5 MG TABLET PO SCH (08:53)
[2021-01-12] MEDS: CLOPIDOGREL 75 MG TABLET PO SCH (08:53)
[2021-01-12] MEDS: LOSARTAN POTASSIUM 50 MG TABLET PO SCH (08:53)
[2021-01-12] MEDS: AZITHROMYCIN IV 250 MG in NA CHLORIDE 0.9% 250 ML IVPB SCH (08:53)
[2021-01-12 11:38] VITALS: O2SAT 98
[2021-01-12] MEDS: MORPHINE 4 MG/ML SYR IV PRN (12:14)
[2021-01-12 12:44] VITALS: BP 129/57; TEMP 97
--- NOTE | 2021-01-12 17:20 | PN ---
Date of Progress Note: 01/12/2021 The patient seems stable. His creatinine is now down on in normal. Potassium is normal. He has been mobilized. Blood pressure is stable. Feel he could be discharged. Home health has been set up to m onitor him. We will continue to monitor his creatinine. Some question which triggers off his near a nd vasovagal syncope whether that comes first or whether his creatinine is elevated and it makes him more susceptible, therefore we will monitor his the creatinine levels on an outpatient basis. He is to follow up with his oncologist and firer bisque kiln in the next few weeks. I will see him depending on the results of the blood test. Can be discharged this afternoon. Continue on the same medication. HR/MODL Voice ID: [id number] Report ID: [id number]
[2021-01-12] MEDS ORDERED: ENSURE ENLIVE 237 ML CAN PO SCH (21:00)
== END 2021-01-12 17:51 | disposition home health service (06) | DRG 312 ==
LOC: ER 13:51 → ERHOLD 17:47 → 2ND 19:41
PROVIDERS: ADMIT Family Medicine; ATTEND Family Medicine
DX: R55 Syncope and collapse (principal); I10 Essential (primary) hypertension; I48.91 Unspecified atrial fibrillation; I25.10 Atherosclerotic heart disease of native coronary artery without angina pectoris; Z85.819 Personal history of malignant neoplasm of unspecified site of lip, oral cavity, and pharynx
CPT/HCPCS: 36415; 70450; 71045; 80048; 80076; 81003; 81015; 83735; 83880; 84484; 85025; 85610; 93005; 94760; 97116; 97161; 97530; 99285; J0456; J0610; J0696; J7030; J7040; J7050; U0003

== ENCOUNTER 2021-01-31 13:49 | Observation (INO) | payer OTHER ==
--- OUTSIDE RECORDS SUMMARY | 2021-01-31 13:51 | XMS REPORT | Continuity of Care Document ---
:1935 Author Organization [facility] t Address [address] [place] [address] Care Team Providers Name Role Phone Doctor Unassigned, [place] Attending Clinician Unavailable Carlo FLETCHER, A Attending Clinician 1, Lab Attending Clinician Unavailable Carlo FLETCHER, A Admitting Clinician Problems This patient has no known problems. Allergies, Adverse Reactions, Alerts This patient has no known allergies or adverse reactions. Social History Social Habit Start Date Stop Date Quantity Comments Source Sex Assigned At [facility] Medications This patient has no known medications. Procedures This patient has no known procedures. Encounters Start End Encounter Admission Attending Care Care Encounter Source Date/Time Date/Time Type Type Clinicians Facility Department ID 2019-08-26 2019-08-26 Orders Doctor RAMOS [id number] 00:00:00 00:00:00 Only Unassigned, AMELIA [id number] [place] [facility] [id number] 2019-03-17 2019-03-17 [facility] [id number] 11:26:00 14:59:00 Encounter Janusz Logan [id number] [place] [id number] Surgical [id number] Bryan 071 2019-03-03 2019-03-03 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 [facility] [id number] 16:37:01 16:54:18 Visit Doreen [id number] [place] [id number] [place] [id number] Results Test Description Test Time Test Comments Results Result Comments Source SARS-COV2/RT-PCR ([facility]) 2020-01-23 16:45:00 Test Item Value Reference Range Interpretation Comme nts SARS-COV2/RT-PCR (test code = 0035733) Negative Not Detected, N egative SARS-COV-2 PERFORMING LAB (test code = 8702923) [facility] Negative result for this test determines that SARS-CoV-2 RNA was not present in the specimen above the Limit of Detection (LOD). However, Negative results do not preclude SARS-CoV-2 infection and should not be used as the sole basis for treatment or patient management decisions. Negative results mustbe combined with clinical observations, patient history, and epidemiological information. A false negative result may occur if a specimen is improperly collected, transported or handled. A false negative result should be considered if patient's recent exposures or clinical presentation indicate that COVID-19 (SARS-CoV-2) is likely and diagnostic tests for other causes of illness are negative. Re-testing should be considered in cases of suspected false negatives.The limit of detection for this assay is 800 copies/mL.This SARS CoV-2 test is a real-time RT-PCR test intended for the qualitative detection of nucleic acid from SARS-CoV-2 in a nasopharyngeal swab specimen collected from individuals susp ected of COVID-19 by their healthcare provider.This test has not been Food and Drug Administration (FDA) cleared or approved. This is a modified version of an approved Emergency Use Authorization (EUA) and is in the process of review by the FDA. Once authorized by the FDA, the issued EUA will be effective until the declaration that circumstances exist justifying the authorization of the emergency use of in vitro diagnostic tests for detection and/or diagnosis of COVID-19 is terminated under Section 564(b)(2) of the Act or the EUA is revoked under Section 564(g) of the Act.Fact Sheet for Healthcare Providers:https://www.[employer]/sites/default/files/product/documents/Fact_Shee s_EV_Oivmhqrbq_Ceyt_NSLZ-WmO-8.pdfFact Sheet for Healthcare Patients:https://www.[employer]/sites/default/files/product/ documents/Xzrs_Eayxx_Wbtfhbpp_Tzzt_DKUR-HcR-0.pdfPerforming Laboratory:[facility] [place] [address]
--- NOTE | 2021-01-31 14:25 | RAD REPORT ---
EXAM DESCRIPTION: RAD - Chest Single View - 01/31/2021 2:14 pm CLINICAL HISTORY: CHEST PAIN COMPARISON: Chest Pa And Lat (2 Views) dated 01/18/2021; Chest Single View dated 01/11/2021; Chest Singl e View dated 01/09/2021; Chest Single View dated 12/29/2020 FINDINGS: No evidence of edema or pneumonia. The heart size is within normal limits.No acute osseous abnormality. No significant pleural effusions or pneumothorax. Several calcified right lung nodules. No suspicious masses identified. Cardiomegaly. IMPRESSION: No acute cardiopulmonary disease.
[2021-01-31 14:29] LABS: Absolute Lymphocytes (CBC) 1.6 K/uL (0.7-4.9); Basophils % 0.7 % (0-1.3); Hematocrit 31.3 % (39.6-49.0); Lymphocytes % 22.7 % (15.3-44.8); MPV 7.6 fL (7.6-11.3); RBC Red Blood Cell Count 3.34 M/uL (4.33-5.43)
[2021-01-31 14:37] LABS: Protime INR 1.33
[2021-01-31] MEDS ORDERED: NA CHLORIDE 0.9% 500 ML ONE (14:46)
[2021-01-31 15:00] LABS: Albumin 3.3 g/dL (3.4-5.0); Bilirubin Direct 0.3 mg/dL (0-0.2); Magnesium 2.6 mg/dL (1.8-2.4); Potassium 4.8 mmol/L (3.5-5.1); Protein, Total 6.7 g/dL (6.4-8.2); Troponin (Emerg Dept Use Only) 0.04 ng/mL (0.0-0.045)
--- NOTE | 2021-01-31 16:30 | EDPHYS ---
Physician Documentation [facility] Name: Vitor Mg Age: 85 yrs Sex: Male : 1935 Arrival Date: 01/31/2021 Time: 13:52 Bed 6 Private MD: ED Physician Matt Tran HPI: 01/31 14:57 This 85 yrs old Male presents to ER via EMS with complaints of Low Blood ma2 Pressure. 14:57 Onset: The symptoms/episode began/occurred gradually, 2 day(s) ago. Severity of ma2 symptoms: At their worst the symptoms were mild in the emergency department the symptoms are unchanged. The patient has not experienced similar symptoms in the past. 15:02 85 years old male, was at the clinic today and before he was seen his blood pressure ma2 was 70/50, so they called EMS and they checked blood pressure was 80/50, so they brought the patient here, he was dizzy and lightheaded, however he has no symptoms at this time, with normal blood pressure, he had this before 2 weeks ago where he was hypotensive and found to be dehydrated.. Historical: - Allergies: 13:56 No Known Allergies; tw2 - Home Meds: 13:56 Coreg 25 mg Oral tab 1 tab 2 times per day [Active]; Eliquis 2.5 mg oral tab 1 tab 2 tw2 times per day [Active]; glucosamine sulfate 1,500 mg oral pwpk [Active]; lansoprazole 30 mg oral cpDR 1 cap once daily [Active]; losartan 100 mg oral tab 1 tab once daily [Active]; Neurontin 100 mg Oral cap 1 cap once daily [Active]; Plavix 75 mg Oral tab 1 tab once daily [Active]; prednisone 20 mg Oral tab 1 tab 2 times per day [Active]; simvastatin 40 mg oral tab [Active]; Symbicort 80-4.5 mcg/actuation inhalation HFAA 2 puffs 2 times per day [Active]; tramadol 50 mg Oral tab 1 tab every 4 hours [Active]; - PMHx: 13:56 CAD; cancer, throat; Chronic pain; CVA; Hypertension; tw2 - Immunization history:: Adult Immunizations. - Social history:: Smoking status: . - Family history:: not pertinent. ROS: 15:02 Constitutional: Negative for fever, chills, and weight loss. ma2 15:02 All other systems are negative. Exam: 15:02 Constitutional: This is a well developed, well nourished patient who is awake, alert, ma2 and in no acute distress. Head/Face: Normocephalic, atraumatic. Eyes: Pupils equal round and reactive to light, extra-ocular motions intact. Lids and lashes normal. Conjunctiva and sclera are non-icteric and not injected. Cornea within normal limits. Periorbital areas with no swelling, redness, or edema. ENT: Nares patent. No nasal discharge, no septal abnormalities noted. Tympanic membranes are normal and external auditory canals are clear. Oropharynx with no redness, swelling, or masses, exudates, or evidence of obstruction, uvula midline. Mucous membranes moist. Neck: Trachea midline, no thyromegaly or masses palpated, and no cervical lymphadenopathy. Supple, full range of motion without nuchal rigidity, or vertebral point tenderness. No Meningismus. Chest/axilla: Normal chest wall appearance and motion. Nontender with no deformity. No lesions are appreciated. Cardiovascular: Regular rate and rhythm with a normal S1 and S2. No gallops, murmurs, or rubs. Normal PMI, no JVD. No pulse deficits. Respiratory: Lungs have equal breath sounds bilaterally, clear to auscultation and percussion. No rales, rhonchi or wheezes noted. No increased work of breathing, no retractions or nasal flaring. Abdomen/GI: Soft, non-tender, with normal bowel sounds. No distension or tympany. No guarding or rebound. No evidence of tenderness throughout. Skin: Warm, dry with normal turgor. Normal color with no rashes, no lesions, and no evidence of cellulitis. MS/ Extremity: Pulses equal, no cyanosis. Neurovascular intact. Full, normal range of motion. Neuro: Awake and alert, GCS 15, oriented to person, place, time, and situation. Cranial nerves II-XII grossly intact. Motor strength 5/5 in all extremities. Sensory grossly intact. Cerebellar exam normal. Normal gait. Vital Signs: 13:52 BP 102 / 51; Pulse 60; Resp 17; Temp 98.6(TE); Pulse Ox 100% on R/A; Weight 79.38 kg tw2 (R); 15:03 BP 124 / 44; Pulse 66; Resp 15; Pulse Ox 99% on R/A; hb 16:00 BP 129 / 50; Pulse 67; Resp 15; Pulse Ox 99% on R/A; hb 16:48 BP 137 / 67; Pulse 66; Resp 14; Pulse Ox 97% on R/A; hb 17:54 BP 137 / 55; Pulse 66; Resp 17; Pulse Ox 100% on R/A; Pain 0/10; hb 18:27 BP 164 / 94; Pulse 89; Resp 22; Pulse Ox 97% ; hb 19:42 BP 108 / 42; Pulse 70; Resp 17; Pulse Ox 99% ; ad5 MDM: 13:54 Patient medically screened. [facility] 15:02 Differential Diagnosis altered mental status, sepsis, flu, dehydration. [facility] 16:20 Data reviewed: vital signs, nurses notes. Counseling: I had a detailed discussion with [facility] the patient and/or guardian regarding: the historical points, exam findings, and any diagnostic results supporting the discharge/admit diagnosis, the presence of at least one elevated blood pressure reading (>120/80) during this emergency department visit, the need for outpatient follow up. 16:28 Response to treatment: the patient's symptoms have markedly improved after treatment. [facility] 01/31 13:52 Order name: Basic Metabolic Panel [facility] 01/31 13:52 Order name: CBC with Diff [facility] 01/31 13:52 Order name: LFT's [facility] 01/31 13:52 Order name: Magnesium [facility] 01/31 13:52 Order name: NT PRO-BNP; Complete Time: 15:38 [facility] 01/31 13:52 Order name: PT-INR; Complete Time: 15:38 [facility] 01/31 13:52 Order name: Troponin (emerg Dept Use Only); Complete Time: 15:38 [facility] 01/31 13:53 Order name: Basic Metabolic Panel; Complete Time: 15:38 [facility] 01/31 13:53 Order name: CBC with Automated Diff; Complete Time: 15:38 [facility] 01/31 13:53 Order name: Liver (Hepatic) Function; Complete Time: 15:38 [facility] 01/31 13:53 Order name: Magnesium; Complete Time: 15:38 [facility] 01/31 14:05 Order name: Blood Culture Adult (2) [facility] 01/31 14:05 Order name: Lactate; Complete Time: 15:38 [facility] 01/31 13:52 Order name: XRAY Chest (1 view); Complete Time: 15:38 [facility] 01/31 13:52 Order name: EKG; Complete Time: 13:53 [facility] 01/31 13:52 Order name: Cardiac monitoring; Complete Time: 14:39 [facility] 01/31 13:52 Order name: EKG - Nurse/Tech; Complete Time: 16:44 [facility] 01/31 13:52 Order name: IV Saline Lock; Complete Time: 14:39 [facility] 01/31 13:52 Order name: Labs collected and sent; Complete Time: 14:39 [facility] 01/31 13:52 Order name: O2 Per Protocol; Complete Time: 14:39 [facility] 01/31 13:52 Order name: O2 Sat Monitoring; Complete Time: 14:39 [facility] 01/31 14:05 Order name: Urine Dipstick-Ancillary (obtain specimen); Complete Time: 16:33 [facility] 01/31 19:18 Order name: SARS-COV-2 RT PCR EDMS Administered Medications: 14:39 Drug: NS 0.9% 500 ml Route: IV; Rate: bolus; Site: left antecubital; hb 15:00 Follow up: Response: No adverse reaction; IV Status: Completed infusion; IV Intake: hb 500ml Disposition Summary: 01/31/21 16:29 Hospitalization Ordered Hospitalization Status: Observation ma2 Provider: Bacilio Stone [facility] Location: Telemetry/MedSur (observation) ma2 Condition: Stable ma2 Problem: new pr2 Symptoms: are unchanged pr2 Bed/Room Type: Standard [facility] Room Assignment: 205(01/31/21 19:26) tl1 Diagnosis - Dehydration ma2 - Hypovolemia ma2 Forms: - Medication Reconciliation Form ma2 - SBAR form pr2 Signatures: Dispatcher [employer] EDMS Desiree Ibarra RN RN tl1 Evie Sierra RN RN hb Wise, Tara, RN RN tw2 Matt Tran MD MD pr2 Corrections: (The following items were deleted from the chart) 18:19 17:55 CORONAVIRUS+MR.LAB.BRZ ordered. EDMS EDMS 19:26 16:29 ma2 tl1
--- NOTE | 2021-01-31 16:30 | ER ---
Nurse's Notes [facility] Name: Vitor Mg Age: 85 yrs Sex: Male : 1935 Arrival Date: 01/31/2021 Time: 13:52 Bed 6 Private MD: Diagnosis: Dehydration;Hypovolemia Presentation: 01/31 13:52 Chief complaint: EMS states: pt was at [facility] [employer] [facility] for routine check up. tw2 Staff noted BP in 70's. We initially got 80's. Staff started a 22g in RIGHT hand. we started 500 ml NS. he was also AMS when we arrived. has become more aware since fluids have started. states he just "doesn't feel well". no changes noted on EKG. Staff and pts daughter told us that the same thing happened a week ago and was admitted for dehydration. Coronavirus screen: At this time, the client does not indicate any symptoms associated with coronavirus-19. Ebola Screen: Patient denies travel to an Ebola-affected area in the 21 days before illness onset. Initial Sepsis Screen: Does the patient meet any 2 criteria? No. Patient's initial sepsis screen is negative. Does the patient have a suspected source of infection? No. Patient's initial sepsis screen is negative. Risk Assessment: Do you want to hurt yourself or someone else? Patient reports no desire to harm self or others. Onset of symptoms was January 31, 2021. 13:52 Method Of Arrival: EMS: [facility] tw2 13:52 Acuity: GLENDY 2 tw2 Historical: - Allergies: 13:56 No Known Allergies; tw2 - Home Meds: 13:56 Coreg 25 mg Oral tab 1 tab 2 times per day [Active]; Eliquis 2.5 mg oral tab 1 tab 2 tw2 times per day [Active]; glucosamine sulfate 1,500 mg oral pwpk [Active]; lansoprazole 30 mg oral cpDR 1 cap once daily [Active]; losartan 100 mg oral tab 1 tab once daily [Active]; Neurontin 100 mg Oral cap 1 cap once daily [Active]; Plavix 75 mg Oral tab 1 tab once daily [Active]; prednisone 20 mg Oral tab 1 tab 2 times per day [Active]; simvastatin 40 mg oral tab [Active]; Symbicort 80-4.5 mcg/actuation inhalation HFAA 2 puffs 2 times per day [Active]; tramadol 50 mg Oral tab 1 tab every 4 hours [Active]; - PMHx: 13:56 CAD; cancer, throat; Chronic pain; CVA; Hypertension; tw2 - Immunization history:: Adult Immunizations. - Social history:: Smoking status: . - Family history:: not pertinent. Screenin:59 Abuse screen: Denies threats or abuse. Denies injuries from another. Nutritional hb screening: No deficits noted. Tuberculosis screening: No symptoms or risk factors identified. Fall Risk Total Guzman Fall Scale indicates Low Risk Score (25-44 pts). Fall prevention measures have been instituted. Side Rails Up X 2 Frequent Obs/Assesments occuring As available Patient and Family Educated on Fall Prevention Program and strategies. Assessment: 14:00 General: Appears in no apparent distress. Behavior is calm, cooperative. Pain: Denies hb pain. Neuro: Level of Consciousness is lethargic, Oriented to person. Cardiovascular: Patient's skin is warm and dry. Rhythm is regular. Respiratory: Respiratory effort is even, unlabored, Respiratory pattern is regular, symmetrical. GI: No signs and/or symptoms were reported involving the gastrointestinal system. : No signs and/or symptoms were reported regarding the genitourinary system. EENT: No signs and/or symptoms were reported regarding the EENT system. Derm: Skin is pink, warm \\T\\ dry. Musculoskeletal: Reports generalized weakness. 14:09 Reassessment: xray at bedside at this time. tw2 15:02 Reassessment: Patient appears in no apparent distress at this time. No changes from previously documented assessment. Patient and/or family updated on plan of care and expected duration. Pain level reassessed. 16:07 Reassessment: Patient appears in no apparent distress at this time. Patient and/or hb family updated on plan of care and expected duration. Pain level reassessed. 16:20 Reassessment: Dr. Stone at bedside. 16:47 Reassessment: Patient appears in no apparent distress at this time. Patient and/or hb family updated on plan of care and expected duration. Pain level reassessed. 17:54 Reassessment: Patient appears in no apparent distress at this time. No changes from previously documented assessment. Patient and/or family updated on plan of care and expected duration. Pain level reassessed. 19:05 Reassessment: Patient appears in no apparent distress at this time. Patient and/or ad5 family updated on plan of care and expected duration. Pain level reassessed. Patient is alert, oriented x 3, equal unlabored respirations, skin warm/dry/pink. Vital Signs: 13:52 BP 102 / 51; Pulse 60; Resp 17; Temp 98.6(TE); Pulse Ox 100% on R/A; Weight 79.38 kg tw2 (R); 15:03 BP 124 / 44; Pulse 66; Resp 15; Pulse Ox 99% on R/A; hb 16:00 BP 129 / 50; Pulse 67; Resp 15; Pulse Ox 99% on R/A; hb 16:48 BP 137 / 67; Pulse 66; Resp 14; Pulse Ox 97% on R/A; hb 17:54 BP 137 / 55; Pulse 66; Resp 17; Pulse Ox 100% on R/A; Pain 0/10; hb 18:27 BP 164 / 94; Pulse 89; Resp 22; Pulse Ox 97% ; hb 19:42 BP 108 / 42; Pulse 70; Resp 17; Pulse Ox 99% ; ad5 ED Course: 13:52 Patient arrived in ED. tw2 13:52 Matt Tran MD is Attending Physician. ma2 13:56 Triage completed. tw2 13:59 Evie Sierra, RN is Primary Nurse. hb 13:59 Patient has correct armband on for positive identification. Bed in low position. Call hb light in reach. Side rails up X2. shelter monitor on. Pulse ox on. NIBP on. 14:07 Arm band placed on. tw2 14:12 Warm blanket given. hb 14:13 XRAY Chest (1 view) In Process Unspecified. EDMS 16:15 Assisted with urinal. hb 16:29 Bacilio Stone DO is Hospitalizing Provider. ma2 16:35 Warm blanket given. hb 16:44 Door closed. Noise minimized. Lights dimmed. Warm blanket given. Diet: Patient given hb water. 17:54 Assisted to bathroom. Assisted with urinal. hb 18:07 Diet: Patient given water. hb 19:47 No provider procedures requiring assistance completed. Patient admitted, IV remains in ad5 place. Administered Medications: 14:39 Drug: NS 0.9% 500 ml Route: IV; Rate: bolus; Site: left antecubital; hb 15:00 Follow up: Response: No adverse reaction; IV Status: Completed infusion; IV Intake: hb 500ml Intake: 15:00 IV: 500ml; Total: 500ml. hb Outcome: 16:29 Decision to Hospitalize by Provider. day 19:47 Admitted to Med/surg Report called to ALLEY Dumont ad5 19:47 Condition: stable 19:47 Instructed on the need for admit. 20:05 Patient left the ED. em Signatures: Dispatcher [employer] Kel Ellington RN RN Evie Sanches RN RN hb Wise, Tara, RN RN 2 Matt Tran MD MD [facility] Edy Marino ad5
--- NOTE | 2021-01-31 16:47 | P.HP ---
Certification for Inpatient Patient admitted to: Observation With expected LOS: <2 Midnights Patient will require the following post-hospital care: None Practitioner: I am a practitioner with admitting privileges, knowledge of patient current condition, hospital course, and medical plan of care. Services: Services provided to patient in accordance with Admission requirements found in Title 42 Section 412.3 of the Code of Federal Regulations Patient History Date of Service: 01/31/21 Primary Care Provider: Dr. Zuñiga; Cardiology-Dr. Barfield Reason for admission: Hypertension History of Present Illness: 85-year-old male with history of CAD, peripheral x-ray disease, history of CVA, hypertension, and throat cancer. Patient had been recently seen in the hospital for syncope. Patient was found to be dehydrated at that time. Patient was discharged. Since that time his blood pressures have been fluctuating high and low. He went to his phlebotomy coordinator today to further evaluate. Patient takes Eliquis 2.5 mg 1 pill twice daily, losartan 100 mg daily, Plavix 75 mg daily, Zocor 40 mg daily, carvedilol 25 mg 1 pill twice daily. While at the cardiology office he was found to have a low blood pressure of around 70-80 systolic. EMS was called EMS noted blood pressure of around 80 systolic. Patient was given 500 bolus fluid by EMS. In the ER patient was given another 500 bolus. Patient at that time had had some dizziness, disorientation. No syncopal episode was noted. The patient was transferred by EMS to the hospital. In the ER patient was evaluated. Patient received another 500 IV fluid bolus. Blood pressure improved. Blood pressure now stable. Patient alert and cooperative. White count 7.2, hemoglobin 10.6. Sodium 136, potassium 4.8. BUN of 33, creatinine 1.5 GFR 45. Troponin unremarkable. Patient was admitted for further evaluation. Upon further investigation daughter who is present reports blood pressures have been fluctuating. There has not been any report of his blood pressures being low but he has lost a significant amount of weight since he was diagnosed with throat cancer. This was diagnosed in 2020. Since that time he has received radiation therapy. He has had poor oral intake. He does take his medications regularly. Allergies No Known Allergies Allergy (Verified 01/09/21 20:26) Home medications list reviewed: Yes Home Medications: Clopidogrel Bisulfate [Plavix*] 75 mg PO DAILY tablet 01/24/20 Gabapentin [Neurontin*] 100 mg PO BEDTIME cap 01/24/20 Apixaban [Eliquis] 2.5 mg PO BID 09/20/20 Carvedilol [Coreg] 25 mg PO BID 09/20/20 Losartan Potassium 100 mg PO DAILY 09/20/20 Simvastatin 40 mg PO BEDTIME 09/20/20 traMADol HCL [Ultram*] 50 mg PO BID PRN 09/20/20 Docusate [Colace Cap] 2 tab PO BID PRN 01/09/21 Hydrocodone/Apap 7.5/325 Soln 5 ml PO SEECOM 01/09/21 - Past Medical/Surgical History Diabetic: No -: Hypertension -: Hyperlipidemia -: CAD -: Throat cancer status post radiation therapy -: Chronic pain -: CVA -: Peripheral vascular disease -: Multiple stents to the heart -: Stents to the lower extremity -: Stents to the carotid Psychosocial/ Personal History: Patient lives at home with daughter. - Family History Family History: Reviewed- Non-Contributory - Social History Smoking Status: Never smoker Alcohol use: No CD- Drugs: No Caffeine use: No Place of Residence: Home Review of Systems General: Weakness, Malaise, As per HPI Eyes: Unremarkable Respiratory: Unremarkable Cardiovascular: Light Headedness, As per HPI Gastrointestinal: Unremarkable Genitourinary: Unremarkable Musculoskeletal: Unremarkable Integumentary: Unremarkable Neurological: Weakness, Confusion, As per HPI Lymphatics: Unremarkable Physical Examination - Studies Laboratory Data (last 24 hrs) 01/31/21 14:22: PT 15.3 H, INR 1.33 01/31/21 14:22: WBC 7.20, Hgb 10.6 L, Hct 31.3 L, Plt Count 177 01/31/21 14:22: Sodium 136, Potassium 4.8, BUN 33 H, Creatinine 1.50 H, Glucose 105, Magnesium 2.6 H, Total Bilirubin 1.0, AST 19, ALT 15, Alkaline Phosphatase 46 Assessment and Plan - Plan Physical Exam: GENERAL: The patient is a well-developed, well-nourished, in no apparent distress. Alert and oriented x3. VITAL SIGNS: Reviewed HEENT: Head is normocephalic and atraumatic. Extraocular muscles are intact. Pup ils are equal, round, and reactive to light and accommodation. Nares appeared normal. Mouth is well hydrated and without lesions. Mucous membranes are moist. NECK: Supple. No carotid bruits. No lymphadenopathy or thyromegaly. LUNGS: Clear to auscultation. No crackles or wheezes are heard. HEART: Regular rate and rhythm, no appreciable gallops, rubs, murmurs or extra heart sounds ABDOMEN: Soft, nontender, and nondistended. Positive bowel sounds. No hepatosplenomegaly was noted. EXTREMITIES: Without any cyanosis, clubbing, rash, lesions or peripheral edema. NEUROLOGIC: The patient is oriented to person, place and time. Strength and sensation are grossly intact. Face is symmetric. SKIN: Normal color, turgor and temperature. No ulcerations or rashes noted. Impression: Hypotension likely from dehydration and medication with history of hypertension CAD Atrial fibrillation on chronic anticoagulation therapy Peripheral vascular disease History of CVA Hyperlipidemia History of throat cancer status post radiation therapy Chronic pain Plan: Hypotension likely from dehydration and medication with history of hypertension: Patient will be admitted for further evaluation and treatment. Blood pressure is now stable. Suspect patient is likely dehydrated in combination with his blood pressure medication. For now we will hold losartan. Will decrease carvedilol by half. Continue carvedilol 12.5 mg 1 pill twice daily. We will place parameters to hold if systolic less than 110. Will check orthostatics in the morning. Continue IV fluids for now. Recheck lab again tomorrow. Will consult cardiology to further discuss as the patient was seen in the office. CAD: Continue with Plavix 75 mg daily, Zocor 40 mg daily Atrial fibrillation on chronic anticoagulation therapy: Continue Eliquis 2.5 mg 1 pill twice daily. Will decrease carvedilol to 12.5 mg twice daily. Parameters in place to hold if blood pressure is low. Continue with above recommendation. Peripheral vascular disease: Continue with home medicationPlavix, Zocor. History of CVA: Continue home medicationPlavix, Zocor. Hyperlipidemia: Continue with Zocor 40 mg daily History of throat cancer status post radiation therapy: Patient has finished radiation therapy. Will continue with chopped diet. Encourage oral intake. Will provide supplementation. Chronic pain: Continue tramadol and hydrocodone. Code Status: DO NOT RESUSCITATE DVT prophylaxis: Eliquis Advanced Care Planning-30 minutes: Home at discharge Discharge Plan: Home Plan to discharge in: 24 Hours - Advance Directives Does patient have a Living Will: No Does patient have a Durable POA for Healthcare: No - Code Status/Comfort Care Code Status Assessed: Yes (Patient is DNR) Time Spent Managing Pts Care (In Minutes): 55
[2021-01-31] MEDS ORDERED: TRAMADOL HCL 50 MG TAB PO PRN (20:16)
[2021-01-31] MEDS ORDERED: NA CHLORIDE 0.9% 1,000 ML IV SCH (20:16)
[2021-01-31] MEDS ORDERED: ONDANSETRON 4 MG/2 ML VIAL IV PRN (20:16)
[2021-01-31] MEDS ORDERED: ACETAMINOPHEN 500 MG TAB PO PRN (20:16)
[2021-01-31 20:36] VITALS: BMI 23.1
[2021-01-31] MEDS ORDERED: GABAPENTIN 100 MG CAP PO SCH (21:00)
[2021-01-31] MEDS ORDERED: ATORVASTATIN 20 MG TAB PO SCH (21:00)
[2021-01-31 21:11] LABS: Troponin I 0.04 ng/mL (0.0-0.045)
[2021-01-31] MEDS: HYDROCODONE/APAP 5/325 MG TAB PO PRN (21:40)
[2021-01-31] MEDS: APIXABAN 2.5 MG TABLET PO SCH (21:40)
[2021-01-31] MEDS: carvediloL 12.5 MG TAB PO SCH (21:45)
[2021-01-31 23:48] LABS: Urine Appearance CLEAR (Clear); Urine Bilirubin NEGATIVE (Negative); Urine Blood NEGATIVE (Negative); Urine Color YELLOW (Yellow); Urine Glucose NEGATIVE (Negative); Urine Protein NEGATIVE (Negative); Urine Urobilinogen 0.2 mg/dL (0.2-1.0)
[2021-01-31 23:51] LABS: Urine Microscopic Reflex NO UMIC
--- NOTE | 2021-02-01 05:58 | P.DS ---
Admission Date: 01/31/21 Discharge Date: 02/01/21 Primary Care Provider: Dr. Zuñiga; Cardiology-Dr. Barfield Disposition: ROUTINE DISCHARGE Discharge Condition: GOOD Reason for Admission: Hypertension Consultations: Cardiology-Dr. Barfield Procedures: COVID: Negative, Unvaccinated CXR: COMPARISON: Chest Pa And Lat (2 Views) dated 01/18/2021; Chest Single View dated 01/11/2021; Chest Single View dated 01/09/2021; Chest Single View dated 12/29/2020 FINDINGS: No evidence of edema or pneumonia. The heart size is within normal limits.No acute osseous abnormality. No significant pleural effusions or pneumothorax. Several calcified right lung nodules. No suspicious masses identified. Cardiomegaly. IMPRESSION: No acute cardiopulmonary disease. Medical problem list: Hypotension likely from dehydration and medication with history of hypertension CAD Atrial fibrillation on chronic anticoagulation therapy Peripheral vascular disease History of CVA Hyperlipidemia History of throat cancer status post radiation therapy Chronic pain Brief History of Present Illness: 85-year-old male with history of CAD, peripheral x-ray disease, history of CVA, hypertension, and throat cancer. Patient had been recently seen in the hospital for syncope. Patient was found to be dehydrated at that time. Patient was discharged. Since that time his blood pressures have been fluctuating high and low. He went to his corduroy brusher operator today to further evaluate. Patient takes Eliquis 2.5 mg 1 pill twice daily, losartan 100 mg daily, Plavix 75 mg daily, Zocor 40 mg daily, carvedilol 25 mg 1 pill twice daily. While at the cardiology office he was found to have a low blood pressure of around 70-80 systolic. EMS was called EMS noted blood pressure of around 80 systolic. Patient was given 500 bolus fluid by EMS. In the ER patient was given another 500 bolus. Patient at that time had had some dizziness, disorientation. No syncopal episode was noted. The patient was transferred by EMS to the hospital. In the ER patient was evaluated. Patient received another 500 IV fluid bolus. Blood pressure improved. Blood pressure now stable. Patient alert and cooperative. White count 7.2, hemoglobin 10.6. Sodium 136, potassium 4.8. BUN of 33, creatinine 1.5 GFR 45. Troponin unremarkable. Patient was admitted for further evaluation. Upon further investigation daughter who is present reports blood pressures have been fluctuating. There has not been any report of his blood pressures being low but he has lost a significant amount of weight since he was diagnosed with throat cancer. This was diagnosed in 2020. Since that time he has received radiation therapy. He has had poor oral intake. He does take his medications regularly. Hospital Course: Patient presented with hypotension likely from dehydration and medication. Patient with history of hypertension. Patient received IV fluids as the patient appeared slightly dehydrated. Medications have been adjusted during the course of his stay. Case discussed with his corduroy brusher operator. At discharge losartan will be discontinued. At discharge patient will continue with carvedilol 12.5 mg 1 pill twice daily. Recommend to monitor blood pressure daily. He is to keep his blood pressure log and follow-up with his PCP or cardiology to further adjust medication. If blood pressures remain above 140/90 carvedilol will need to be adjusted. This can be done with the help of his PCP or corduroy brusher operator. Recommend follow-up with PCP in 1 to 2 weeks to Day hospitalization. Recommend follow- up with cardiology in 1 week to follow-up this hospitalization and further adjust medication. Patient with history of CAD, peripheral vascular disease, atrial fibrillation on chronic anticoagulation therapy, history of CVA, and hypertension. At discharge patient will continue with Plavix 75 mg daily, Zocor 40 mg daily, Eliquis 2.5 mg 1 pill twice daily and as recommended above carvedilol 12.5 mg 1 pill twice daily. Recommend follow-up with PCP and cardiology in 1 to 2 weeks to follow-up hospitalization. Patient with history of throat cancer status post radiation therapy. Patient has finished radiation. Patient will continue with a chopped diet. Recommend follow-up with oncology and radiation oncology to further monitor his care. Patient with chronic pain. At discharge patient will continue with tramadol, Neurontin and hydrocodone as directed. Vital Signs/Physical Exam: Temp Pulse Resp BP Pulse Ox 97.8 F 71 18 144/64 H 97 02/01/21 04:00 02/01/21 04:00 02/01/21 04:00 02/01/21 04:00 02/01/21 04:00 General: Alert, In no apparent distress, Oriented x3, Cooperative HEENT: Atraumatic Neck: Supple Respiratory: Clear to auscultation bilaterally, Normal air movement Cardiovascular: Normal pulses, Regular rate/rhythm Gastrointestinal: Normal bowel sounds, No tenderness, No masses, No rebound, No guarding Musculoskeletal: No erythema, No tenderness, No warmth Integumentary: No tenderness/swelling, No erythema, No warmth, No cyanosis Neurological: Normal speech, Normal strength at 5/5 x4 extr, Normal tone, Normal affect Laboratory Data at Discharge: WBC 7.20 K/uL (4.3-10.9) 01/31/21 14:22 Hgb 10.6 g/dL (13.6-17.9) L 01/31/21 14:22 Hct 31.3 % (39.6-49.0) L 01/31/21 14:22 Plt Count 177 K/uL (152-406) 01/31/21 14:22 PT 15.3 SECONDS (9.5-12.5) H 01/31/21 14:22 INR 1.33 01/31/21 14:22 Sodium 136 mmol/L (136-145) 01/31/21 14:22 Potassium 4.8 mmol/L (3.5-5.1) 01/31/21 14:22 BUN 33 mg/dL (7-18) H 01/31/21 14:22 Creatinine 1.50 mg/dL (0.55-1.3) H 01/31/21 14:22 Glucose 105 mg/dL (74-106) 01/31/21 14:22 Magnesium 2.6 mg/dL (1.8-2.4) H 01/31/21 14:22 Total Bilirubin 1.0 mg/dL (0.2-1.0) 01/31/21 14:22 AST 19 U/L (15-37) 01/31/21 14:22 ALT 15 U/L (12-78) 01/31/21 14:22 Alkaline Phosphatase 46 U/L (45-117) 01/31/21 14:22 Troponin I 0.04 ng/mL (0.0-0.045) 01/31/21 20:33 Home Medications: Clopidogrel Bisulfate [Plavix*] 75 mg PO DAILY tablet 01/24/20 Gabapentin [Neurontin*] 100 mg PO BEDTIME cap 01/24/20 Apixaban [Eliquis *] 2.5 mg PO BID 09/20/20 Simvastatin 40 mg PO BEDTIME 09/20/20 traMADol HCL [Ultram*] 50 mg PO BID PRN 09/20/20 Docusate [Colace Cap*] 2 tab PO BID PRN 01/09/21 Hydrocodone Bit/Acetaminophen [Hydrocodon-Acetaminophen 5-325] 1 tab PO Q6H PRN 01/31/21 carvediloL [Coreg*] 12.5 mg PO BID 6AM 6PM #60 tab 02/01/21 New Medications: carvediloL [Coreg*] 12.5 mg PO BID 6AM 6PM #60 tab Physician Discharge Instructions: Patient presented with hypotension likely from dehydration and medication. Patient with history of hypertension. Patient received IV fluids as the patient appeared slightly dehydrated. Medications have been adjusted during the course of his stay. Case discussed with his corduroy brusher operator. At discharge losartan will be discontinued. At discharge patient will continue with carvedilol 12.5 mg 1 pill twice daily. Recommend to monitor blood pressure daily. He is to keep his blood pressure log and follow-up with his PCP or cardiology to further adjust medication. If blood pressures remain above 140/90 carvedilol will need to be adjusted. This can be done with the help of his PCP or corduroy brusher operator. Recommend follow-up with PCP in 1 to 2 weeks to Day hospitalization. Recommend follow-up with cardiology in 1 week to follow-up this hospitalization and further adjust medication. Patient with history of CAD, peripheral vascular disease, atrial fibrillation on chronic anticoagulation therapy, history of CVA, and hypertension. At discharge patient will continue with Plavix 75 mg daily, Zocor 40 mg daily, Eliquis 2.5 mg 1 pill twice daily and as recommended above carvedilol 12.5 mg 1 pill twice daily. Recommend follow-up with PCP and cardiology in 1 to 2 weeks to follow-up hospitalization. Patient with history of throat cancer status post radiation therapy. Patient has finished radiation. Patient will continue with a chopped diet. Recommend follow-up with oncology and radiation oncology to further monitor his care. Patient with chronic pain. At discharge patient will continue with tramadol, Neurontin and hydrocodone as directed. Diet: AHA Activity: Ad tamiko Followup: Unknown,U [Primary Care Provider] - Time spent managing pt's care (in minutes): 55
[2021-02-01] MEDS: carvediloL 12.5 MG TAB PO SCH (06:10)
[2021-02-01 06:31] LABS: Absolute Lymphocytes (CBC) 1.4 K/uL (0.7-4.9); Basophils % 0.6 % (0-1.3); Hematocrit 30.7 % (39.6-49.0); Lymphocytes % 25.5 % (15.3-44.8); MPV 7.3 fL (7.6-11.3); RBC Red Blood Cell Count 3.27 M/uL (4.33-5.43)
[2021-02-01 06:43] LABS: Potassium 4.5 mmol/L (3.5-5.1)
[2021-02-01 06:44] LABS: Magnesium 2.5 mg/dL (1.8-2.4); Thyroid Stimulating Hormone 1.27 uIU/mL (0.360-3.740)
[2021-02-01 06:50] LABS: CKMB Creatine Kinase MB 3.9 ng/mL (1.0-3.6); Troponin I 0.05 ng/mL (0.0-0.045)
[2021-02-01] MEDS ORDERED: DOCUSATE NA 100 MG CAP PO PRN (07:35)
[2021-02-01] MEDS: APIXABAN 2.5 MG TABLET PO SCH (08:10)
[2021-02-01] MEDS: HYDROCODONE/APAP 5/325 MG TAB PO PRN (08:13)
[2021-02-01] MEDS ORDERED: CLOPIDOGREL 75 MG TABLET PO SCH (09:00)
[2021-02-01 11:14] VITALS: O2SAT 97
[2021-02-01 12:58] VITALS: BP 124/58; TEMP 97.3
--- NOTE | 2021-02-02 20:17 | CON ---
Date of Consultation: 02/01/2021 Reason For Consultation: Hypotension. History Of Present Illness: Mr. Mg is an 85-year-old patient whom I know, actually was in m y office with altered mental status, blood pressure of 70, sent to the emergency room for admission a nd evaluation and was admitted by Dr. Stone. He never really had any chest pain or nausea or vomiti ng. He had diaphoresis. He had altered mental status. No PND, orthopnea, pedal edema, palpitation, or syncope. Past Medical History: As indicated. Has atrial fibrillation, coronary artery disease, , C OPD, history of CVA, and history of throat cancer. Review of Systems: He is a do not resuscitate. Social History: Negative. Family History: Negative. Allergies: NONE. Medications: At home include Eliquis, Neurontin, losartan, Zocor, Coreg, Plavix, and Symbicort. Physical Examination: Vital Signs: When I saw him; his blood pressure was 144/64 after hydration and he was in chronic atr ial fibrillation. His rate was 80. HEENT: Negative. Neck: Supple with no bruit. Chest: Clear. Cardiac: Revealed a regular rhythm and rate. No murmurs, gallops, or rubs. Abdomen: Benign. Extremities: Revealed no clubbing, cyanosis, or edema. Diagnostic Data: Positive for a creatinine of 1.5 and that improved to 1.16 after hydration. His tr oponin was 0.05. BNP was 4641. Impression And Plan: Hypotension with dehydration that has improved. His BNP elevation and troponin elevation are secondary to demand ischemia from hypotension. I think we need to continue his Eliqui s for his atrial fibrillation. We need to continue his Neurontin. We need to stop the losartan. We need to continue Zocor. We need to decrease the Coreg dose by half. Continue Plavix and Symbicort, and he can go home and I will see him in the office in the near future. JUNIOR/RUDYL Voice ID: [id number] Report ID: [id number]
== END 2021-02-01 12:59 | disposition home health service (06) ==
LOC: ER 13:49 → 2ND 20:00
PROVIDERS: ADMIT Family Medicine; ATTEND Family Medicine
DX: I95.9 Hypotension, unspecified (principal); I25.10 Atherosclerotic heart disease of native coronary artery without angina pectoris; I10 Essential (primary) hypertension; I48.91 Unspecified atrial fibrillation; E78.5 Hyperlipidemia, unspecified; E86.1 Hypovolemia; G89.29 Other chronic pain; J44.9 Chronic obstructive pulmonary disease, unspecified; I73.9 Peripheral vascular disease, unspecified; Z66 Do not resuscitate; Z79.01 Long term (current) use of anticoagulants; Z79.02 Long term (current) use of antithrombotics/antiplatelets; Z95.5 Presence of coronary angioplasty implant and graft; Z95.820 Peripheral vascular angioplasty status with implants and grafts; Z86.73 Personal history of transient ischemic attack (TIA), and cerebral infarction without residual deficits; Z85.819 Personal history of malignant neoplasm of unspecified site of lip, oral cavity, and pharynx; Z20.822 Contact with and (suspected) exposure to COVID-19
CPT/HCPCS: 87040 ×2; 85025 ×2; 80048 ×2; 36415; 83735 ×2; 82550 ×2; 85610; 80061; 80076; 83605; 84443; 81003; 84484 ×3; 82553 ×2; 84439; 83880; 71045; 97161; 96360; 99285; U0003; J7040; J7030 ×2; G0378 ×3

== ENCOUNTER 2022-01-02 13:05 | Inpatient (IN) | payer OTHER ==
--- OUTSIDE RECORDS SUMMARY | 2022-01-02 13:09 | XMS REPORT | Continuity of Care Document ---
:1935 Author Organization [facility] t Address [address] [place] [address] Care Team Providers Name Role Phone Leslee Zuñigaey Primary Care Physician Therapy, Adc Covid Infusion Attending Clinician Unavailable Bridget FLETCHER, H Attending Clinician Ben GILL Attending Clinician Unavailable Azeb HAGER Attending Clinician Unavailable Only, Db Test Attending Clinician Unavailable Ludivina BELT NOTCHER Attending Clinician LUDIVINA Attending Clinician Unavailable Doctor Unassigned, Name Attending Clinician Unavailable Carlo FLETCHER, A Attending Clinician 1, Lab Attending Clinician Unavailable Carlo FLETCHER, A Admitting Clinician Payers Payer Name Policy Type Policy Number Effective Date Expiration Date S ource Problems Condition Condition Condition Status Onset Resolution Last Treating Co mments Source Name Details Category Date Date Treatment Clinician Date No known No known Disease Unive rs active active ity of problems problems [facility] Allergies, Adverse Reactions, Alerts Allergy Allergy Status Severity Reaction(s) Onset Inactive Treating Comm ents Source Name Type Date Date Clinician NO KNOWN Drug Active Univers ALLERGIE Class ity of S [facility] Social History Social Habit Start Date Stop Date Quantity Comments Source Exposure to 2021-12-21 2021-12-31 Not sure [facility] SARS-CoV-2 (event) 00:00:00 13:06:00 Medica l Branch Tobacco use and 2019-03-01 2019-03-01 Never used [facility] exposure 00:00:00 00:00:00 Medical Branch Sex Ass[birth year] At [birth year] [facility] 00:00:00 00:00:00 Medical Branch Smoking Status Start Date Stop Date Source Former smoker 2019-03-01 00:00:00 2019-03-01 00:00:00 [facility] Medical Branch Medications Ordered Filled Start Stop Current Ordering Indication Dosage Frequency Signature Comments Components Source Medication Medication Date Date Medication? Clinician (SIG) Name Name aspirin 81 2019-0 Yes 81mg Take 81 mg U nivers mg chewable 9-09 by mouth ity of tablet 16:02: daily. [place] [address] Medical Branch simvastatin 2019-0 Yes 40mg Take 40 mg Univers 40 mg 9-09 by mouth ity of tablet 16:02: daily. [place] [address] Medical Branch carvedilol 2018-0 Yes 25mg Take 25 mg U nivers 25 mg 9-09 by mouth 2 ity of tablet 16:02: (two) [place] [address] times Medical daily with Branch meals. traMADol 50 2018-0 Yes 50mg Take 50 mg Univers mg tablet 9-09 by mouth 2 ity of 16:02: (two) [place] [address] times Medical daily. Branch gabapentin 2018-0 Yes 100mg Take 100 Un tameka 100 mg 9-09 mg by ity of capsule 16:02: mouth at [place] [address] bedtime. Medical Branch clopidogrel 2018-0 Yes 75mg Take 75 mg Univers 75 mg 9-09 by mouth ity of tablet 16:02: daily. [place] [address] Medical Branch losartan 2018-0 Yes 100mg Take 100 Univ ers 100 mg 9-09 mg by ity of tablet 16:02: mouth [place] [address] daily. Medical Branch aspirin 81 2019-0 Yes 81mg Take 81 mg U nivers mg chewable 9-09 by mouth ity of tablet 16:02: daily. [place] [address] Medical Branch simvastatin 2019-0 Yes 40mg Take 40 mg Univers 40 mg 9-09 by mouth ity of tablet 16:02: daily. [place] [address] Medical Branch carvedilol 2019-0 Yes 25mg Take 25 mg U nivers 25 mg 9-09 by mouth 2 ity of tablet 16:02: (two) [place] [address] times Medical daily with Branch meals. traMADol 50 2019-0 Yes 50mg Take 50 mg Univers mg tablet 9-09 by mouth 2 ity of 16:02: (two) [place] [address] times Medical daily. Branch gabapentin 2019-0 Yes 100mg Take 100 Un tameka 100 mg 9-09 mg by ity of capsule 16:02: mouth at [place] [address] bedtime. Medical Branch clopidogrel 2019-0 Yes 75mg Take 75 mg Univers 75 mg 9-09 by mouth ity of tablet 16:02: daily. [place] [address] Medical Branch losartan 2019-0 Yes 100mg Take 100 Univ ers 100 mg 9-09 mg by ity of tablet 16:02: mouth [place] [address] daily. Medical Branch aspirin 81 2019-0 Yes 81mg Take 81 mg U nivers mg chewable 9-09 by mouth ity of tablet 16:02: daily. [place] [address] Medical Branch simvastatin 2019-0 Yes 40mg Take 40 mg Univers 40 mg 9-09 by mouth ity of tablet 16:02: daily. [place] [address] Medical Branch carvedilol 2019-0 Yes 25mg Take 25 mg U nivers 25 mg 9-09 by mouth 2 ity of tablet 16:02: (two) [place] [address] times Medical daily with Branch meals. traMADol 50 2019-0 Yes 50mg Take 50 mg Univers mg tablet 9-09 by mouth 2 ity of 16:02: (two) [place] [address] times Medical daily. Branch gabapentin 2019-0 Yes 100mg Take 100 Un tameka 100 mg 9-09 mg by ity of capsule 16:02: mouth at [place] [address] bedtime. Medical Branch clopidogrel 2019-0 Yes 75mg Take 75 mg Univers 75 mg 9-09 by mouth ity of tablet 16:02: daily. [place] [address] Medical Branch losartan 2019-0 Yes 100mg Take 100 Univ ers 100 mg 9-09 mg by ity of tablet 16:02: mouth [place] [address] daily. Medical Branch aspirin 81 2019-0 Yes 81mg Take 81 mg U nivers mg chewable 9-09 by mouth ity of tablet 16:02: daily. [place] [address] Medical Branch simvastatin 2019-0 Yes 40mg Take 40 mg Univers 40 mg 9-09 by mouth ity of tablet 16:02: daily. [place] [address] Medical Branch carvedilol 2019-0 Yes 25mg Take 25 mg U nivers 25 mg 9-09 by mouth 2 ity of tablet 16:02: (two) [place] [address] times Medical daily with Branch meals. traMADol 50 2019-0 Yes 50mg Take 50 mg Univers mg tablet 9-09 by mouth 2 ity of 16:02: (two) [place] [address] times Medical daily. Branch gabapentin 2019-0 Yes 100mg Take 100 Un tameka 100 mg 9-09 mg by ity of capsule 16:02: mouth at [place] [address] bedtime. Medical Branch clopidogrel 2019-0 Yes 75mg Take 75 mg Univers 75 mg 9-09 by mouth ity of tablet 16:02: daily. [place] [address] Medical Branch losartan 2019-0 Yes 100mg Take 100 Univ ers 100 mg 9-09 mg by ity of tablet 16:02: mouth [place] [address] daily. [facility] Immunizations Ordered Filled Immunization Date Status Comments Sourc e Immunization Name Name MICHELLE 2022-01-01 Completed University o f 00:00:00 [facility] Vital Signs Vital Name Observation Time Observation Value Comments Source Systolic blood 2022-01-01 22:08:00 142 mm[Hg] Univer sity of pressure [facility] Diastolic blood 2022-01-01 22:08:00 71 mm[Hg] Unive rsity of pressure [facility] Heart rate 2022-01-01 22:08:00 88 /min [facility] Body temperature 2022-01-01 22:08:00 36.89 Aissatou [facility] Respiratory rate 2022-01-01 22:08:00 19 /min [facility] Oxygen saturation in 2022-01-01 22:08:00 93 /min [facility] Arterial blood by [facility] Pulse oximetry [place] Body height 2022-01-01 21:01:00 180.3 cm [facility] Body weight 2022-01-01 21:01:00 81.647 kg [facility] BMI 2022-01-01 21:01:00 25.10 kg/m2 [facility] Procedures Procedure Date / Time Performed Performing Clinician Clementine e CONSENT/REFUSAL FOR 2021-12-31 18:08:39 Doctor Unassigned, No [facility] DIAGNOSIS AND Name [facility] TREATMENT ASSIGNMENT OF BENEFITS 2021-12-31 18:08:28 Doctor Unassigned, No [facility] Encounters Start End Encounter Admission Attending Care Care Encounter Source Date/Time Date/Time Type Type Clinicians Facility Department ID 2022-01-01 2022-01-01 Nurse Therapy, Adc Covid Infusion [facility] [id number] [facility] 16:00:00 17:00:00 Visit Felipa Gill 350.1.13.10 [place] [id number] [facility] [address] [place] 2022-01-01 2022-01-01 Outpatient Dominique GILL [facility] [id number] Univers 16:00:00 16:00:00 FELIPA [id number] ity [facility] 2022-01-01 2022-01-01 Outpatient Dominique GILL [facility] [id number] Univers 16:00:00 16:00:00 FELIPA ity [facility] 2022-01-01 2022-01-01 Letter Niyah Bowie [id number] Univers 00:00:00 00:00:00 (Out) AMELIA 350.1.13.10 it y of HOSPITAL 4.2.7.2.686 [place] [id number] [facility] [address] [place] 2021-12-31 2021-12-31 Laboratory Only, Ang Db Test [facility] [id number] Univers 13:00:00 13:15:00 Only Ludivina [facility] 350.1.13.10 ity of [place] 4.2.7.2.686 [place] MONSTER?BLEA [id number] [address] MEDICAL OFFICE BUILDING 2021-12-31 2021-12-31 Outpatient R LUDIVINA [facility] [id number] Univers 13:00:00 13:00:00 JASPREET hully o f [facility] 2021-12-31 2021-12-31 Orders Doctor RAMOS 1.2.840.114 [id number] Univers 00:00:00 00:00:00 Only Unassigned, AMELIA 350.1.13.10 ity of [place] [facility] 4.2.7.2.686 [place] [id number] [facility] [address] [place] 2019-08-26 2019-08-26 Orders Doctor RAMOS 1.2.840.114 [id number] 00:00:00 00:00:00 Only Unassigned, AMELIA 350.1.13.10 [place] [facility] 4.2.7.2.686 [id number] 2019-03-17 2019-03-17 [facility] [id number] 11:26:00 14:59:00 Encounter Janusz Logan 350.1.13.10 [place] 4.2.7.2.686 Surgical [id number] [place] [id number] 2019-03-03 2019-03-03 [facility] [id number] 09:37:00 13:20:00 Encounter Janusz Logan 350.1.13.10 [place] 4.2.7.2.686 Surgical [id number] [place] [address] 2019-03-03 2019-03-03 Orders Doctor RICHARD [id number] 00:00:00 00:00:00 Only Unassigned, AMELIA 350.1.13.10 [place] [facility] 4.2.7.2.686 [id number] 2019-02-24 2019-02-24 [place] Icer 1, Adc Lab [facility] 1.2.840.114 [id number] 16:37:01 16:54:18 Visit Doreen 350.1.13.10 [place] 4.2.7.2.686 [place] [id number] Results Test Description Test Time Test Comments Results Result Comments Source SARS-COV2/RT-PCR ([facility]) 2020-01-23 16:45:00 Test Item Value Reference Range Interpretation Comme nts SARS-COV2/RT-PCR (test code = 1979169) Negative Not Detected, N egative SARS-COV-2 PERFORMING LAB (test code = 6819060) [facility] Negative result for this test determines that [...] a nasopharyngeal swab specimen collected from individuals suspected of COVID-19 by their healthcare provider.This test [...] 564(g) of the Act.Fact Sheet for Healthcare Providers:https://www.[employer]/sites/default/files/product/documents/Fact_Shee w_RJ_Wrxelubzf_Ordr_XRRT-YqA-3.pdfFact Sheet for Healthcare Patients:https://www.[employer]com/sites/default/files/product/ documents/Vwxu_Bmloi_Kvtqgoru_Dfkk_PGWN-CiS-4.pdfPerforming Laboratory:[facility] [place] [address]
[2022-01-02] MEDS ORDERED: NA CHLORIDE 0.9% 500 ML ONE (14:51)
[2022-01-02] MEDS ORDERED: LIDOCAINE VISCOUS 2% SOLN 15 ML UDC ONE (14:51)
[2022-01-02 14:55] LABS: Urine Blood Trace-lysed (Negative); Urine Glucose Negative (Negative); Urine Protein 1+ (Negative); Urine Specific Gravity 1.015 (1.005-1.030)
[2022-01-02 14:59] LABS: Absolute Lymphocytes (CBC) 0.9 K/uL (0.7-4.9); Hematocrit 31.4 % (39.6-49.0); Lymphocytes % 16.9 % (15.3-44.8); MCV 92.7 fL (80-100); MPV 7.6 fL (7.6-11.3); RBC Red Blood Cell Count 3.38 M/uL (4.33-5.43)
[2022-01-02 15:00] LABS: Protime INR 1.39
[2022-01-02 15:16] LABS: Albumin 2.7 g/dL (3.4-5.0); Bilirubin Direct 0.3 mg/dL (0-0.2); Bilirubin Total 0.8 mg/dL (0.2-1.0); Magnesium 2.2 mg/dL (1.8-2.4); Potassium 4.4 mmol/L (3.5-5.1); Protein, Total 6.3 g/dL (6.4-8.2)
[2022-01-02 15:25] LABS: Urine Bacteria <20 /HPF (NONE SEEN); Urine RBC NONE SEEN /HPF (NONE SEEN)
[2022-01-02 15:32] LABS: Troponin High Sensitivity 216.7 pg/mL (<58.9)
--- NOTE | 2022-01-02 15:59 | RAD REPORT ---
EXAM DESCRIPTION: RAD - Chest Single View - 01/02/2022 3:32 pm CLINICAL HISTORY: COUGH COMPARISON: Chest Single View dated 01/31/2021; Chest Pa And Lat (2 Views) dated 01/18/2021; Chest Sing le View dated 01/11/2021; Chest Single View dated 01/09/2021 FINDINGS: Lines: None. Lungs: Bilateral nodular foci in the mid lungs which are chronic and may reflect sequela of granuloma tous disease. Increasing airspace opacities in the lung bases, right greater than left. Pleural: No significant pleural effusions or pneumothorax. Cardiac: The heart size is within normal limits. Bones: No acute fractures. Other: IMPRESSION: Basilar airspace disease, right greater than left, concerning for pneumonia/pneumonitis.
--- NOTE | 2022-01-02 16:48 | RAD REPORT ---
EXAM DESCRIPTION: CT - Chest For Pe Angio - 01/02/2022 4:37 pm CLINICAL HISTORY: shortness of breath COMPARISON: Chest Single View dated 01/02/2022 TECHNIQUE: Dynamically enhanced axial 3 mm thick images of the chest were obtained during administra tion of <100> mL Isovue 370 IV contrast. Coronal and oblique reconstruction images were generated and reviewed. Exam utilizes a protocol for optimal evaluation of pulmonary arterial tree. Maximum intensity projections 3D imaging was utilized All CT scans are performed using dose optimization technique as appropriate and may include automated exposure control or mA/KV adjustment according to patient size. FINDINGS: Chest Wall: No suspicious thyroid nodules or pathologic lymphadenopathy. Lungs: Ill-defined nodular ground-glass opacities are present within the lung bases. Paraseptal emphy sema. Pleura: Small effusions. Pleural plaques. Mediastinum/jelani: Reactive sized hilar and mediastinal lymph nodes. Pulmonary arteries/Aorta: No filling defect identified. No aortic aneurysm. Heart: No significant pericardial effusion. Cardiomegaly. Multi-vessel coronary artery disease. Upper abdomen: No acute abnormality. Bones: No acute abnormality. Multilevel degenerative changes are present in the spine. IMPRESSION: 1. Negative for pulmonary embolism. 2. Interstitial pulmonary edema with more focal basilar type opacities that could reflect a coexistin g pneumonia/pneumonitis.
--- NOTE | 2022-01-02 18:45 | EDPHYS ---
Physician Documentation [facility] Name: Vitor Mg Age: 86 yrs Sex: Male : 1935 Arrival Date: 01/02/2022 Time: 13:06 Bed 20 Private MD: Rell Zuñiga ED Physician Gregory Cheney HPI: 01/02 14:30 This 86 yrs old Male presents to ER via Wheelchair with complaints of Covid+, Cough. cp 14:30 The patient or guardian reports cough, that is intermittent. Onset: The cp symptoms/episode began/occurred 4 day(s) ago. Severity of symptoms: in the emergency department the symptoms are unchanged, despite home interventions. Associated signs and symptoms: Pertinent positives: sore throat, general weakness. 14:30 Patient reports testing positive for COVID-19 2 days ago. Was seen at [facility] and cp given IV antibodies. Historical: - Allergies: 13:42 No Known Allergies; ss - Home Meds: 21:04 Coreg 25 mg Oral tab 1 tab 2 times per day [Active]; Eliquis 2.5 mg Oral tab 1 tab 2 kd3 times per day [Active]; glucosamine sulfate 1,500 mg Oral pwpk [Active]; lansoprazole 30 mg Oral cpDR 1 cap once daily [Active]; losartan 100 mg Oral tab 1 tab once daily [Active]; Neurontin 100 mg Oral cap 1 cap once daily [Active]; Plavix 75 mg Oral tab 1 tab once daily [Active]; prednisone 20 mg Oral tab 1 tab 2 times per day [Active]; simvastatin 40 mg Oral tab [Active]; Symbicort 80-4.5 mcg/actuation inhalation HFAA 2 puffs 2 times per day [Active]; tramadol 50 mg Oral tab 1 tab every 4 hours [Active]; - PMHx: 13:42 CAD; Chronic pain; cancer, throat; CVA; Hypertension; ss - Immunization history:: Client reports having NOT received the Covid vaccine. - Social history:: Smoking status: Patient denies any tobacco usage or history of. ROS: 14:35 Constitutional: Positive for body aches, poor PO intake, Negative for fever. cp 14:35 Eyes: Negative for injury, pain, redness, and discharge. cp 14:35 ENT: Positive for sore throat. 14:35 Cardiovascular: Negative for chest pain, edema, palpitations. 14:35 Respiratory: Positive for cough, Negative for shortness of breath, wheezing. 14:35 Abdomen/GI: Negative for abdominal pain, vomiting, diarrhea, constipation. 14:35 Neuro: Positive for weakness, Negative for altered mental status, dizziness. 14:35 All other systems are negative. Exam: 14:40 Constitutional: The patient appears in no acute distress, alert, awake, comfortable, cp non-diaphoretic, non-toxic, well developed, well nourished. 14:40 Head/Face: Normocephalic, atraumatic. cp 14:40 Eyes: Periorbital structures: appear normal, Conjunctiva: normal, no exudate, no injection, Sclera: no appreciated abnormality, Lids and lashes: appear normal, bilaterally. 14:40 ENT: External ear(s): are unremarkable, Ear canal(s): are normal, clear, TM's: dullness, bilaterally, Nose: is normal, Mouth: Lips: dry, Oral mucosa: dry, Posterior pharynx: Airway: no evidence of obstruction, patent, swelling, is not appreciated, erythema, that is moderate, exudate, is not appreciated. 14:40 Neck: ROM/movement: is normal, is supple, without pain, no range of motions limitations, no meningismus. 14:40 Chest/axilla: Inspection: normal, Palpation: is normal, no crepitus, no tenderness. 14:40 Cardiovascular: Rate: normal, Rhythm: regular, Edema: ankle edema, that is mild, JVD: is not appreciated. 14:40 Respiratory: the patient does not display signs of respiratory distress, Respirations: normal, no use of accessory muscles, no retractions, labored breathing, is not present, Breath sounds: are clear throughout, no decreased breath sounds, no stridor, no wheezing. 14:40 Abdomen/GI: Inspection: abdomen appears normal, Palpation: abdomen is soft and non-tender, in all quadrants. 14:40 Back: pain, is absent, ROM is normal. 14:40 Skin: cellulitis, is not appreciated, no rash present. 14:40 Neuro: Orientation: to person, place \\T\\ time. Mentation: is normal, Motor: moves all fours, general weakness with no focal deficits, Sensation: is normal. 15:15 ECG was reviewed by the Attending Physician. cp 17:25 : Rectal exam: Rectal tone: normal, Stool: brown, Guaiac testing: results were cp negative for occult blood. Vital Signs: 13:39 BP 127 / 48; Pulse 71; Resp 16; Temp 98.1(TE); Pulse Ox 96% on R/A; Weight 83.46 kg; ss Height 5 ft. 11 in. (180.34 cm); Pain 8/10; 21:02 BP 139 / 56; Pulse 84; Resp 19; Pulse Ox 95% on R/A; kd3 13:39 Body Mass Index 25.66 (83.46 kg, 180.34 cm) ss MDM: 13:43 Patient medically screened. cp 15:00 Differential Diagnosis: Pneumonia Other sepsis, UTI. cp 18:30 Data reviewed: vital signs, nurses notes, lab test result(s), EKG, radiologic studies, cp CT scan, plain films. 18:30 Test interpretation: by ED physician or midlevel provider: ECG, plain radiologic cp studies. Counseling: I had a detailed discussion with the patient and/or guardian regarding: the historical points, exam findings, and any diagnostic results supporting the discharge/admit diagnosis, lab results, radiology results, the need for further work-up and treatment in the hospital. Physician consultation: Pollo Loya was contacted at 18:30, regarding admission, to the telemetry unit. patient's condition. 01/02 14:27 Order name: Basic Metabolic Panel; Complete Time: 15:44 01/02 15:44 Interpretation: Normal except: NA 134; BUN 26; GFR 63; CA 8.3. cp 01/02 14:27 Order name: CBC with Diff; Complete Time: 15:44 01/02 15:44 Interpretation: Normal except: RBC 3.38; HGB 10.5; HCT 31.4; PLT 122; MN% 15.0. 01/02 14:27 Order name: LFT's; Complete Time: 15:44 01/02 15:44 Interpretation: Normal except: ALK 43; BILID 0.3; TP 6.3; ALB 2.7; GLOB 3.6; A/G 0.8. cp 01/02 14:27 Order name: Magnesium; Complete Time: 15:44 01/02 14:27 Order name: NT PRO-BNP; Complete Time: 15:44 cp 01/02 14:27 Order name: PT-INR; Complete Time: 15:44 cp 01/02 14:27 Order name: Troponin HS; Complete Time: 15:44 cp 01/02 15:45 Interpretation: Abnormal: Troponin HS 216.7. cp 01/02 14:27 Order name: Urine Microscopic Only; Complete Time: 15:44 cp 01/02 14:27 Order name: COVID-19 SARS RT PCR (Document "Date of Onset" if Symptomatic); Complete cp Time: 15:58 01/02 14:27 Order name: Strep; Complete Time: 15:44 cp 01/02 14:27 Order name: Influenza Screen (a \\T\\ B); Complete Time: 15:44 cp 01/02 14:56 Order name: Urine Dipstick-Ancillary; Complete Time: 15:44 EDMS 01/02 15:03 Order name: Throat Culture EDLA 01/02 17:11 Order name: Procalcitonin; Complete Time: 20:11 cp 01/02 14:27 Order name: XRAY Chest (1 view); Complete Time: 17:08 cp 01/02 14:27 Order name: EKG; Complete Time: 14:28 cp 01/02 14:27 Order name: Cardiac monitoring; Complete Time: 14:47 cp 01/02 15:46 Order name: CT Chest For PE Angio cp 01/02 15:52 Order name: Chest For Pe Angio; Complete Time: 17:08 EDMS 01/02 17:11 Order name: Lactate; Complete Time: 20:11 cp 01/02 17:11 Order name: Blood Culture Adult (2) cp 01/02 18:49 Order name: CRP; Complete Time: 20:11 cp 01/02 14:27 Order name: EKG - Nurse/Tech; Complete Time: 15:13 cp 01/02 14:27 Order name: IV Saline Lock; Complete Time: 14:49 cp 01/02 14:27 Order name: Labs collected and sent; Complete Time: 14:49 cp 01/02 14:27 Order name: O2 Per Protocol; Complete Time: 14:49 cp 01/02 14:27 Order name: O2 Sat Monitoring; Complete Time: 14:49 cp 01/02 14:27 Order name: Urine Dipstick-Ancillary (obtain specimen); Complete Time: 15:13 cp EC:15 Rate is 80 beats/min. Rhythm is regular. WV interval is prolonged at 226 msec. QRS cp interval is prolonged at 140 msec. QT interval is normal. T waves are Inverted in leads I, aVL. Interpreted by me. Reviewed by me. Administered Medications: 15:45 Discontinued: NS 0.9% 250 ml IV at 125 ml/hr once cp 14:47 Drug: Viscous Lidocaine Liquid (4 %) 5 ml Route: Mucous Membrane; [facility] 21:08 Follow up: Response: No adverse reaction kd3 14:47 Drug: NS 0.9% 250 ml Route: IV; Rate: bolus; Site: right antecubital; [facility] 21:08 Follow up: Response: No adverse reaction; IV Status: Completed infusion kd3 14:47 Drug: NS 0.9% 250 ml Route: IV; Rate: 125 ml/hr; Site: right antecubital; [facility] 19:08 Drug: Albuterol - atroVENT (ipratropium) (3:1) (2.5 mg - 0.5 mg) 3 ml Route: Nebulizer; [facility] 21:07 Follow up: Response: No adverse reaction; Wheezing diminished kd3 19:10 Drug: Rocephin - (cefTRIAXone) 1 grams Route: IVPB; Infused Over: 30 mins; Site: right [facility] antecubital; 21:08 Follow up: Response: No adverse reaction; IV Status: Completed infusion kd3 19:10 Drug: Zithromax (azithromycin) 500 mg Route: IVPB; Infused Over: 1 hrs; Site: right [facility] antecubital; 21:08 Follow up: Response: No adverse reaction; IV Status: Completed infusion kd3 19:10 Drug: Aspirin Chewable Tablet 324 mg Route: PO; 6 21:08 Follow up: Response: No adverse reaction kd3 19:11 Drug: Lasix (furosemide) 40 mg Route: IVP; Site: right antecubital; [facility] 21:08 Follow up: Response: No adverse reaction kd3 Disposition Summary: 01/02/22 18:45 Hospitalization Ordered Hospitalization Status: Inpatient Admission cp Provider: Marixa Cota cp Location: Telemetry/MedSurg (Inpatient) cp Condition: Fair cp Problem: new cp Symptoms: have improved cp Bed/Room Type: Standard cp Room Assignment: 418(01/02/22 20:17) cg Diagnosis - Pneumonia due to SARS-associated coronavirus cp - Unspecified combined systolic (congestive) and diastolic (congestive) heart failure cp Forms: - Medication Reconciliation Form cp - SBAR form cp Addendum: 01/04/2022 07:14 Co-signature as Attending Physician, Gregory Cheney MD. r n Signatures: Dispatcher [employer] EDMS Chente Clayton MD MD cha Nieto, Roman, MD MD rn Smirch, Shelby, RN RN ss Pollo Loya, PROCESS DEVELOPMENT CHEMIST-C PROCESS DEVELOPMENT CHEMIST-Cla1 Chente Schmid PA Cyndi Jones cp, RN RN cg Doucette, Kyli, RN RN kd3 Nanci Gilmore RN RN [id number] Corrections: (The following items were deleted from the chart) 01/02 15:14 14:28 Chest Single View+RAD.RAD.BRZ ordered. EDMS EDMS 15:44 15:44 Normal except: NA 134; BUN 26; GFR 63. cp cp 20:17 18:45 cp cg
--- NOTE | 2022-01-02 18:45 | ER ---
Nurse's Notes [facility] Name: Vitor Mg Age: 86 yrs Sex: Male : 1935 Arrival Date: 01/02/2022 Time: 13:06 Bed 20 Private MD: Rell Zuñiga Diagnosis: Pneumonia due to SARS-associated coronavirus;Unspecified combined systolic (congestive) and diastolic (congestive) heart failure Presentation: 01/02 13:39 Chief complaint: Patient's son or daughter states: "Friday morning, he started ss getting sick. Friday he did a home test and was positive for COVID. He did the infusion, but it doesn't seem to be helping. His throat hurts so bad from the coughing and he is so weak, it's hard for him to cough everything up.". Coronavirus screen: Vaccine status: Client presents with at least one sign or symptom that may indicate coronavirus-19. Ebola Screen: Patient denies exposure to infectious person. Patient denies travel to an Ebola-affected area in the 21 days before illness onset. Initial Sepsis Screen: Does the patient meet any 2 criteria? No. Patient's initial sepsis screen is negative. Does the patient have a suspected source of infection? No. Patient's initial sepsis screen is negative. Risk Assessment: Do you want to hurt yourself or someone else? Patient reports no desire to harm self or others. Onset of symptoms was December 29, 2021. 13:39 Method Of Arrival: Wheelchair ss 13:39 Acuity: GLENDY 3 ss Historical: - Allergies: 13:42 No Known Allergies; ss - Home Meds: 21:04 Coreg 25 mg Oral tab 1 tab 2 times per day [Active]; Eliquis 2.5 mg Oral tab 1 tab 2 kd3 times per day [Active]; glucosamine sulfate 1,500 mg Oral pwpk [Active]; lansoprazole 30 mg Oral cpDR 1 cap once daily [Active]; losartan 100 mg Oral tab 1 tab once daily [Active]; Neurontin 100 mg Oral cap 1 cap once daily [Active]; Plavix 75 mg Oral tab 1 tab once daily [Active]; prednisone 20 mg Oral tab 1 tab 2 times per day [Active]; simvastatin 40 mg Oral tab [Active]; Symbicort 80-4.5 mcg/actuation inhalation HFAA 2 puffs 2 times per day [Active]; tramadol 50 mg Oral tab 1 tab every 4 hours [Active]; - PMHx: 13:42 CAD; Chronic pain; cancer, throat; CVA; Hypertension; ss - Immunization history:: Client reports having NOT received the Covid vaccine. - Social history:: Smoking status: Patient denies any tobacco usage or history of. Screenin:54 Abuse screen: Denies threats or abuse. Denies injuries from another. Nutritional 6 screening: No deficits noted. Tuberculosis screening: No symptoms or risk factors identified. Fall Risk Ambulatory Aid- Crutches/Cane/Walker (15 pts). Gait- Weak (10 pts.). Assessment: 13:52 General: Appears in no apparent distress. ill, Behavior is calm, cooperative. Pain: [facility] Pain currently is 2 out of 10 on a pain scale. Quality of pain is described as aching. Neuro: No deficits noted. Cardiovascular: No deficits noted. Respiratory: Reports cough that is pain with cough since for three days. EENT: Throat is reddened Reports pain in uvula, left aspect of posterior pharynx and right aspect of posterior pharynx when swallowing Pain is 6 out of 10 on a pain scale. since 2-3 days. Vital Signs: 13:39 BP 127 / 48; Pulse 71; Resp 16; Temp 98.1(TE); Pulse Ox 96% on R/A; Weight 83.46 kg; Height 5 ft. 11 in. (180.34 cm); Pain 8/10; 21:02 BP 139 / 56; Pulse 84; Resp 19; Pulse Ox 95% on R/A; kd3 13:39 Body Mass Index 25.66 (83.46 kg, 180.34 cm) ED Course: 13:06 Patient arrived in ED. mr 13:07 Rell Zuñiga MD is Private Physician. mr 13:39 Chente Schmid PA is PHCP. cp 13:39 Gregory Cheney MD is Attending Physician. cp 13:42 Triage completed. 13:42 Arm band placed on right wrist. 13:52 Nanci Gilmore, ALLEY is Primary Nurse. [facility] 13:54 Bed in low position. Call light in reach. Side rails up X 1. [facility] 15:16 EKG done, by ED staff, reviewed by Chente COKER. jw7 15:34 XRAY Chest (1 view) In Process Unspecified. EDMS 16:[address] jh6 16:39 Chest For Pe Angio In Process Unspecified. EDMS 18:44 Marixa Cota MD is Hospitalizing Provider. cp 20:28 Primary Nurse role handed off by Nanci Gilmore, ALLEY as6 20:55 Ghada Anthony, ALLEY is Primary Nurse. kd3 21:03 No provider procedures requiring assistance completed. Patient admitted, IV remains in kd3 place. Administered Medications: 15:45 Discontinued: NS 0.9% 250 ml IV at 125 ml/hr once cp 14:47 Drug: Viscous Lidocaine Liquid (4 %) 5 ml Route: Mucous Membrane; [facility] 21:08 Follow up: Response: No adverse reaction kd3 14:47 Drug: NS 0.9% 250 ml Route: IV; Rate: bolus; Site: right antecubital; [facility] 21:08 Follow up: Response: No adverse reaction; IV Status: Completed infusion kd3 14:47 Drug: NS 0.9% 250 ml Route: IV; Rate: 125 ml/hr; Site: right antecubital; 6 19:08 Drug: Albuterol - atroVENT (ipratropium) (3:1) (2.5 mg - 0.5 mg) 3 ml Route: Nebulizer; 6 21:07 Follow up: Response: No adverse reaction; Wheezing diminished kd3 19:10 Drug: Rocephin - (cefTRIAXone) 1 grams Route: IVPB; Infused Over: 30 mins; Site: right [facility] antecubital; 21:08 Follow up: Response: No adverse reaction; IV Status: Completed infusion kd3 19:10 Drug: Zithromax (azithromycin) 500 mg Route: IVPB; Infused Over: 1 hrs; Site: right [facility] antecubital; 21:08 Follow up: Response: No adverse reaction; IV Status: Completed infusion kd3 19:10 Drug: Aspirin Chewable Tablet 324 mg Route: PO; 6 21:08 Follow up: Response: No adverse reaction kd3 19:11 Drug: Lasix (furosemide) 40 mg Route: IVP; Site: right antecubital; [facility] 21:08 Follow up: Response: No adverse reaction kd3 Medication: 21:04 VIS not applicable for this client. kd3 Outcome: 18:45 Decision to Hospitalize by Provider. cp 21:03 Admitted to Med/surg room 418. kd3 21:03 Condition: stable 21:03 Discharge instructions given to patient, family, Instructed on the need for admit, Demonstrated understanding of instructions, follow-up care. 21:57 Patient left the ED. kd3 Signatures: Dispatcher [employer] EDND AlessandroChery mr Denia Givens RN RN ss Chente Schmid, JOHN PAUL PA cp Brown Amezquita RN RN as6 Ghada Anthony RN RN kd3 Nanci Gilmore RN RN jh6 Kae Garcia jw7
[2022-01-02] MEDS ORDERED: ALBUTEROL 2.5 MG/3 ML NEB SOL ONE (18:57)
[2022-01-02] MEDS ORDERED: CEFTRIAXONE 1000 MG/VIAL ONE (18:57)
[2022-01-02] MEDS ORDERED: ASPIRIN 81 MG CHEWABLE TABLET ONE (18:57)
[2022-01-02] MEDS ORDERED: FUROSEMIDE 40 MG/4 ML VIAL ONE (18:57)
[2022-01-02] MEDS ORDERED: AZITHROMYCIN 500 MG INJ IVPB ONE (18:57)
[2022-01-02] MEDS ORDERED: NA CHLORIDE 0.9% 250 ML ONE (18:58)
[2022-01-02] MEDS ORDERED: IPRATROPIUM BROM 0.5MG/2.5ML ONE (18:58)
--- NOTE | 2022-01-02 20:19 | P.HP ---
Certification for Inpatient Patient admitted to: Inpatient With expected LOS: >2 Midnights Patient will require the following post-hospital care: None Practitioner: I am a practitioner with admitting privileges, knowledge of patient current condition, hospital course, and medical plan of care. Services: Services provided to patient in accordance with Admission requirements found in Title 42 Section 412.3 of the Code of Federal Regulations Patient History Date of Service: 01/02/22 Reason for admission: CHF exacerbation, NSTEMI, COVID pneumonia History of Present Illness: 86-year-old male history of A. fib on chronic anticoagulation, CAD, CVA, hypertension, throat cancer presents the emergency department for generalized weakness, cough, sore throat. He reports taking a home test for COVID on Friday which was positive but seem to be getting worse. He was evaluated in the emergency department his labs were significant for moderately elevated high- sensitivity troponin, elevated BNP COVID-positive high C-reactive protein he had a CT scan of his chest which revealed pulmonary edema with more focal basilar type opacities which could reflect coexisting pneumonia or pneumonitis. ED prior wishes to admit patient for further evaluation and management of NSTEMI/CHF exacerbation/COVID pneumonia. Allergies No Known Allergies Allergy (Verified 01/31/21 22:58) Home Medications: Clopidogrel Bisulfate [Plavix*] 75 mg PO DAILY tablet 01/24/20 Gabapentin [Neurontin*] 100 mg PO BEDTIME cap 01/24/20 Apixaban [Eliquis *] 2.5 mg PO BID 09/20/20 Simvastatin 40 mg PO BEDTIME 09/20/20 traMADol HCL [Ultram*] 50 mg PO BID PRN 09/20/20 Docusate [Colace Cap*] 2 tab PO BID PRN 01/09/21 Hydrocodone Bit/Acetaminophen [Hydrocodon-Acetaminophen 5-325] 1 tab PO Q6H PRN 01/31/21 carvediloL [Coreg*] 12.5 mg PO BID 6AM 6PM #60 tab 02/01/21 - Past Medical/Surgical History Diabetic: No -: Hypertension -: Hyperlipidemia -: CAD -: Throat cancer status post radiation therapy -: Chronic pain -: CVA -: Peripheral vascular disease -: A. fib on chronic anticoagulation -: Multiple stents to the heart -: Stents to the lower extremity -: Stents to the carotid Psychosocial/ Personal History: Patient lives at home with daughter. - Family History Family History: Reviewed- Non-Contributory - Social History Alcohol use: No CD- Drugs: No Caffeine use: No Place of Residence: Home Review of Systems Unremarkable ENT: Throat Pain Respiratory: Cough, Shortness of Breath, Pleuritic Pain Cardiovascular: Edema Physical Examination - Physical Exam General: Alert, In no apparent distress, Oriented x3 HEENT: Atraumatic, PERRLA, Mucous membr. moist/pink, EOMI, Sclerae nonicteric Neck: Supple, 2+ carotid pulse no bruit, No LAD, Without JVD or thyroid abnormality Respiratory: Diminished, Crackles/rales Cardiovascular: Normal S1 S2, Edema, Irregular heart rate/rhythm Capillary refill: <2 Seconds Gastrointestinal: Normal bowel sounds, No tenderness Musculoskeletal: No tenderness Integumentary: No rashes Neurological: Normal speech, Normal strength at 5/5 x4 extr, Normal tone, Normal affect - Studies Laboratory Data (last 24 hrs) 01/02/22 14:40: PT 15.4 H, INR 1.39 01/02/22 14:40: WBC 5.2, Hgb 10.5 L, Hct 31.4 L, Plt Count 122 L 01/02/22 14:40: Sodium 134 L, Potassium 4.4, BUN 26 H, Creatinine 1.14, Glucose 106, Magnesium 2.2, Total Bilirubin 0.8, AST 30, ALT 18, Alkaline Phosphatase 43 L Microbiology Data (last 24 hrs): 01/02/22 14:35 Nasopharnyx Influenza Type A Antigen Screen - Final 01/02/22 14:35 Nasopharnyx Influenza Type B Antigen Screen - Final 01/02/22 14:35 Throat Group A Streptococcus Rapid Screen - Final Assessment and Plan - Plan Assessment: NSTEMI Acute on chronic diastolic congestive heart failure COVID-19 pneumonia A. fib on chronic anticoagulation Hypertension CAD Plan: NSTEMI: Suspect demand ischemia related to CHF exacerbation, continue diuresis, cardiology consult, trend troponins and monitor on telemetry. Patient is chest pain-free. Acute on chronic diastolic congestive heart failure: Patient reports he stopped taking his diuretic a few weeks ago continue with IV Lasix, other home medications. Cardiology consult in place. COVID-19 pneumonia: CRP significant elevated patient symptomatic with sore throat, cough. CT suggestive of possible pneumonitis/pneumonia White blood cell count normal at this time CRP significantly elevated will hold off on antibiotics defer to pulmonology continue steroids given significant elevated CRP. Appreciate further input from pulmonology. A. fib on chronic anticoagulation: Continue Eliquis, other home medications and monitor on telemetry. Hypertension: Continue home meds CAD:Continue home meds DVT PPX: Continue Eliquis Code status: Full Discharge Plan: Home Plan to discharge in: Greater than 2 days - Advance Directives Does patient have a Living Will: No Does patient have a Durable POA for Healthcare: No - Code Status/Comfort Care Code Status Assessed: Yes (Full code) Critical Care: No Time Spent Managing Pts Care (In Minutes): 70
[2022-01-02] MEDS ORDERED: ONDANSETRON 4 MG/2 ML VIAL IV PRN (22:25)
[2022-01-02] MEDS ORDERED: BENZONATATE 100 MG CAP PO PRN (22:25)
[2022-01-02 22:57] VITALS: BMI 25.1
[2022-01-02] MEDS ORDERED: TRAMADOL HCL 50 MG TAB PO PRN (23:10)
[2022-01-02] MEDS: TRAMADOL HCL 50 MG TAB PO PRN (23:25)
[2022-01-02] MEDS: GABAPENTIN 100 MG CAP PO SCH (23:25)
[2022-01-02] MEDS: APIXABAN 2.5 MG TABLET PO SCH (23:25)
[2022-01-03] MEDS ORDERED: DOCUSATE NA 100 MG CAP PO PRN (04:36)
[2022-01-03 06:14] LABS: Absolute Lymphocytes (CBC) 0.8 K/uL (0.7-4.9); Hematocrit 32.5 % (39.6-49.0); Lymphocytes % 17.1 % (15.3-44.8); MCV 90.9 fL (80-100); MPV 7.5 fL (7.6-11.3); RBC Red Blood Cell Count 3.58 M/uL (4.33-5.43)
[2022-01-03 06:30] LABS: Albumin 2.5 g/dL (3.4-5.0); Bilirubin Total 0.6 mg/dL (0.2-1.0); Magnesium 1.9 mg/dL (1.8-2.4); Potassium 3.7 mmol/L (3.5-5.1); Protein, Total 6.4 g/dL (6.4-8.2)
[2022-01-03 06:33] LABS: Troponin High Sensitivity 219.7 pg/mL (<58.9)
[2022-01-03] MEDS: carvediloL 12.5 MG TAB PO SCH ×2 (07:00→17:06)
--- NOTE | 2022-01-03 08:29 | P.CNS ---
Date of Consult: 01/03/22 Reason for Consult: Coronavirus pneumonia Chief Complaint: CHF exacerbation, NSTEMI, COVID pneumonia History of Present Illness: Patient is 86 years of age with metabolic syndrome atrial fibrillation presented to the emergency room with cough sore throat tested positive for COVID troponins were also elevated he feels fine and is off oxygen right now possible non-STEMI Allergies No Known Allergies Allergy (Verified 01/31/21 22:58) Home Medications: Clopidogrel Bisulfate [Plavix*] 75 mg PO DAILY tablet 01/24/20 Apixaban [Eliquis *] 2.5 mg PO BID 09/20/20 Simvastatin 40 mg PO BEDTIME 09/20/20 traMADol HCL [Ultram*] 50 mg PO TID PRN 09/20/20 Docusate [Colace Cap*] 2 tab PO BID PRN 01/09/21 carvediloL [Coreg*] 12.5 mg PO BID 6AM 6PM #60 tab 02/01/21 Gabapentin [Neurontin*] 100 mg PO TID 01/02/22 - Past Medical/Surgical History Diabetic: No -: Hypertension -: Hyperlipidemia -: CAD -: Throat cancer status post radiation therapy -: Chronic pain -: CVA -: Peripheral vascular disease -: A. fib on chronic anticoagulation -: Multiple stents to the heart -: Stents to the lower extremity -: Stents to the carotid Psychosocial/ Personal History: Patient lives at home with daughter. - Social History Smoking Status: Unknown if ever smoked Alcohol use: No CD- Drugs: No Caffeine use: No Place of Residence: Home Review of Systems General: Weakness Respiratory: Shortness of Breath Physical Examination Temp Pulse Resp BP Pulse Ox 98.4 F 84 19 132/76 94 01/03/22 04:00 01/03/22 07:00 01/03/22 04:00 01/03/22 07:00 01/03/22 04:00 General: Alert, Oriented x3, Cooperative Laboratory Data (last 24 hrs) 01/02/22 14:40: PT 15.4 H, INR 1.39 01/02/22 14:40: WBC 5.2, Hgb 10.5 L, Hct 31.4 L, Plt Count 122 L 01/02/22 14:40: Sodium 134 L, Potassium 4.4, BUN 26 H, Creatinine 1.14, Glucose 106, Magnesium 2.2, Total Bilirubin 0.8, AST 30, ALT 18, Alkaline Phosphatase 43 L - Problems (1) Pneumonia due to coronavirus disease 2019 Current Visit: Yes Status: Acute Plan: Age 86 admitted with possible coronavirus pneumonia he is tested positive is got some basilar interstitial changes troponins elevated most likely from the COVID BNP is also elevated he is currently off oxygen vital signs are stable discontinue steroid possible mild heart failure is to p.o. Lasix patient is anticoagulated echocardiogram ordered plan for discharge
[2022-01-03] MEDS ORDERED: dexAMETHasone 4 MG TAB PO SCH (09:00)
[2022-01-03] MEDS ORDERED: POTASSIUM CL SA 10 MEQ TAB PO ONE (09:00)
[2022-01-03] MEDS ORDERED: FUROSEMIDE 40 MG/4 ML VIAL IV SCH (09:00)
[2022-01-03] MEDS: APIXABAN 2.5 MG TABLET PO SCH ×2 (09:18→20:31)
[2022-01-03] MEDS: FUROSEMIDE 40 MG TABLET PO SCH (09:18)
[2022-01-03] MEDS: GABAPENTIN 100 MG CAP PO SCH ×3 (09:18→20:31)
[2022-01-03] MEDS: CLOPIDOGREL 75 MG TABLET PO SCH (09:18)
--- NOTE | 2022-01-03 12:53 | P.PN ---
Subjective Date of Service: 01/03/22 Chief Complaint: CHF exacerbation, NSTEMI, COVID pneumonia Subjective: No new changes ( Still significant discomfort No new changes overnight Evaluated by pulmonary this morning Daughter at bedside) Physical Examination - Vital Signs Temperature: 97.8 F Blood Pressure: 121/69 Pulse: 110 Respirations: 18 Pulse Ox (%): 97 - Studies Laboratory Data (last 24 hrs) 01/02/22 14:40: PT 15.4 H, INR 1.39 01/02/22 14:40: WBC 5.2, Hgb 10.5 L, Hct 31.4 L, Plt Count 122 L 01/02/22 14:40: Sodium 134 L, Potassium 4.4, BUN 26 H, Creatinine 1.14, Glucose 106, Magnesium 2.2, Total Bilirubin 0.8, AST 30, ALT 18, Alkaline Phosphatase 43 L Microbiology Data (last 24 hrs): 01/02/22 14:35 Nasopharnyx Influenza Type A Antigen Screen - Final 01/02/22 14:35 Nasopharnyx Influenza Type B Antigen Screen - Final 01/02/22 14:35 Throat Group A Streptococcus Rapid Screen - Final Assessment And Plan - Current Problems (Diagnosis) (1) Pneumonia due to coronavirus disease 2018 Current Visit: Yes Status: Acute (2) KAYY (acute kidney injury) Current Visit: No Status: Acute (3) Hyperkalemia Current Visit: No Status: Acute (4) UTI (urinary tract infection) Current Visit: No Status: Acute Physician Review: Patient Assessed, Agree with Above Assessment and Plan Physician Review Additional Text: - Physical Exam General: Alert, elderly male, in mild discomfort HEENT: Atraumatic, PERRLA, Mucous membr. moist/pink, EOMI, Sclerae nonicteric Neck: Supple, 2+ carotid pulse no bruit, No LAD, Without JVD or thyroid abnormality Respiratory: Still coarse crepitations bilaterally Cardiovascular: Normal S1 S2, Edema, Irregular heart rate/rhythm Capillary refill: <2 Seconds Gastrointestinal: Normal bowel sounds, No tenderness Musculoskeletal: No tenderness Integumentary: No rashes Neurological: Normal speech, Normal strength at 5/5 x4 extr, Normal tone, Normal affect Assessment and Plan NSTEMI Acute on chronic diastolic congestive heart failure COVID-19 pneumonia A. fib on chronic anticoagulation Hypertension CAD Gram + cocci bacteremia Plan: -start vanco/cefepime -follow full blood cx Troponin marginally elevated but stable Status post evaluated by cardiology, no new changes for now Follow-up pending echo Continue Lasix for presumed mild diastolic CHF Evaluated by pulmonary, steroids stopped now, follow with pulmonary Continue antitussives Continue Eliquis for A. fib, Continue home meds Advance directivewe discussed with family 01/03/22 17:13
[2022-01-03] MEDS: GUAIFENESIN 600 MG SA TAB PO SCH ×2 (14:48→20:31)
[2022-01-03] MEDS: CEFTRIAXONE 1,000 MG in NA CHLORIDE 0.9% 50 ML IVPB SCH (17:50)
[2022-01-03] MEDS ORDERED: VANCOMYCIN 2 GM in NA CHLORIDE 0.9% 500 ML IVPB ONE (18:00)
[2022-01-03] MEDS ORDERED: CEFTRIAXONE 1,000 MG in NA CHLORIDE 0.9% 50 ML IVPB SCH (18:00)
[2022-01-03] MEDS: TRAMADOL HCL 50 MG TAB PO PRN (20:31)
--- NOTE | 2022-01-03 20:36 | CON ---
Date of Consultation: 01/03/2022 Reason For Consultation: Elevated troponin. History Of Present Illness: An 86-year-old male with past medical history of coronary artery disease , dyslipidemia, hypertension, and throat cancer, presented to the hospital with generalized weakness, cough, and sore throat. Denies having any chest pain, tested positive for COVID and was admitted as such. He denies having any orthopnea or lower extremity edema or any chest pain. Past Medical History: As outlined above in HPI. Medications: Refer to reconciliation sheet for detailed list. Allergies: NO KNOWN DRUG ALLERGIES. Family History: No premature coronary artery disease or cancer. Social History: He does not smoke or drink. Does not use any drugs. Review of Systems: All systems reviewed and they were negative except for what mentioned in HPI. Physical Examination: Vital Signs: Reviewed. Head and Neck: Pupils are equal, reactive to light. Intact eye movements. No JVD. No cervical lym phadenopathy. Neck is supple. Thyroid is not enlarged. Lungs: Clear to auscultation. No accessory muscle use or muscle retraction. Heart: Irregular. No extra sounds. Abdomen: Soft, nontender. Bowel sounds positive. No organomegaly. No masses or hernia. No rigidi ty or rebound. Extremities: No clubbing or cyanosis. Intact pulses. Skin: No rash. Neurologic: Alert, awake, oriented x3. No acute focal deficits appreciated. Investigations: Troponin 219. Creatinine 1.09. C-reactive protein is 148. Hemoglobin is 11.1, whi te blood cell count is 4.8. Assessment And Recommendations: 1.Elevated troponin, very mild troponin leak, likely due to demand ischemia versus COVID induced. A t this point, it has been stable. Obtain an echocardiogram to evaluate for any wall motion abnormali ties and no further cardiac workup to be done as an inpatient. Once the patient is released and COVI D free, we will plan for outpatient nuclear stress test. 2.Atrial fibrillation, chronic. Heart rate is controlled. Continue anticoagulation. 3.Hypertension. Resume home medications, adjust further if needed. 4.COVID pneumonia appears to be stable and managed by Pulmonary. SR/MODL Voice ID: [id number] Report ID: [id number]
[2022-01-03] MEDS ORDERED: HOME MED 1 EA UNK (Simvastatin [Simvastatin] 40 MG Tablet) PO SCH (21:00)
[2022-01-03] MEDS ORDERED: ATORVASTATIN 20 MG TAB PO SCH (21:00)
[2022-01-03] MEDS ORDERED: GABAPENTIN 100 MG CAP PO SCH (23:13)
[2022-01-04 03:57] LABS: Absolute Lymphocytes (CBC) 1.2 K/uL (0.7-4.9); Hematocrit 33.3 % (39.6-49.0); Lymphocytes % 21.9 % (15.3-44.8); MCV 90.9 fL (80-100); MPV 7.7 fL (7.6-11.3); RBC Red Blood Cell Count 3.66 M/uL (4.33-5.43)
[2022-01-04 04:14] LABS: Albumin 2.6 g/dL (3.4-5.0); Bilirubin Total 0.6 mg/dL (0.2-1.0); C-Reactive Protein 98.6 mg/L (<3.00); Protein, Total 6.3 g/dL (6.4-8.2)
[2022-01-04 05:09] VITALS: O2SAT 97
[2022-01-04] MEDS: carvediloL 12.5 MG TAB PO SCH (06:32)
[2022-01-04] MEDS ORDERED: CHLORASEPTIC LOZENGES PO PRN (08:23)
[2022-01-04] MEDS: CEFTRIAXONE 1,000 MG in NA CHLORIDE 0.9% 50 ML IVPB SCH (08:25)
[2022-01-04] MEDS: APIXABAN 2.5 MG TABLET PO SCH (08:25)
[2022-01-04] MEDS: FUROSEMIDE 40 MG TABLET PO SCH (08:25)
[2022-01-04] MEDS: CLOPIDOGREL 75 MG TABLET PO SCH (08:25)
[2022-01-04] MEDS: GABAPENTIN 100 MG CAP PO SCH (08:25)
[2022-01-04] MEDS: GUAIFENESIN 600 MG SA TAB PO SCH (08:25)
--- NOTE | 2022-01-04 10:25 | P.PN ---
Subjective Date of Service: 01/04/22 Chief Complaint: CHF exacerbation, NSTEMI, COVID pneumonia Subjective: No new changes (Complain of sore throat but improving) Physical Examination - Vital Signs Temperature: 97.5 F Blood Pressure: 119/67 Pulse: 102 Respirations: 20 Pulse Ox (%): 98 - Studies Microbiology Data (last 24 hrs): 01/02/22 14:35 Throat Culture & Sensitivity - Final NORMAL UPPER RESPIRATORY CRYSTAL GROWN. 01/02/22 18:00 Blood - Blood Blood Culture Gram Stain - Final 01/02/22 18:15 Blood - Blood Blood Culture Gram Stain - Final Assessment And Plan - Current Problems (Diagnosis) (1) Pneumonia due to coronavirus disease 2019 Current Visit: Yes Status: Acute (2) KAYY (acute kidney injury) Current Visit: No Status: Acute (3) Hyperkalemia Current Visit: No Status: Acute (4) UTI (urinary tract infection) Current Visit: No Status: Acute Physician Review: Patient Assessed, Agree with Above Assessment and Plan Physician Review Additional Text: - Physical Exam General: Alert, elderly male, in mild discomfort HEENT: Atraumatic, PERRLA, Mucous membr. moist/pink, EOMI, Sclerae nonicteric Neck: Supple, 2+ carotid pulse no bruit, No LAD, Without JVD or thyroid abnormality Respiratory: Still coarse crepitations bilaterally Cardiovascular: Normal S1 S2, Edema, Irregular heart rate/rhythm Capillary refill: <2 Seconds Gastrointestinal: Normal bowel sounds, No tenderness Musculoskeletal: No tenderness Integumentary: No rashes Neurological: Normal speech, Normal strength at 5/5 x4 extr, Normal tone, Normal affect Assessment and Plan NSTEMI Acute on chronic diastolic congestive heart failure COVID-19 pneumonia A. fib on chronic anticoagulation Hypertension CAD Gram + cocci bacteremia Plan: -Clinically improving Continue vancomycin/cefepime for bacteremia Follow repeat blood culture today Unclear if actual infection versus contamination of blood culture sample, follow repeat today Continue Lasix Steroid held by pulmonary service, consider restart Continue management for COVID Continue isolation Status post mild elevated troponin, evaluated by cardiology, no new changes for now likely due to demand mediated Continue antitussives Continue Eliquis for A. fib, Continue home meds
--- NOTE | 2022-01-04 12:20 | P.DS ---
Admission Date: 01/02/22 Discharge Date: 01/04/22 Disposition: DC HOME/HOME HEALTH CARE Discharge Condition: FAIR Reason for Admission: CHF exacerbation, NSTEMI, COVID pneumonia - Problems (1) Pneumonia due to coronavirus disease 2018 Current Visit: Yes Status: Acute (2) KAYY (acute kidney injury) Current Visit: No Status: Acute (3) Hyperkalemia Current Visit: No Status: Acute (4) UTI (urinary tract infection) Current Visit: No Status: Acute Brief History of Present Illness: History of Present Illness: 86-year-old male history of A. fib on chronic anticoagulation, CAD, CVA, hypertension, throat cancer presents the emergency department for generalized weakness, cough, sore throat. He reports taking a home test for COVID on Friday which was positive but seem to be getting worse. He was evaluated in the emergency department his labs were significant for moderately elevated high- sensitivity troponin, elevated BNP COVID-positive high C-reactive protein he had a CT scan of his chest which revealed pulmonary edema with more focal basilar type opacities which could reflect coexisting pneumonia or pneumonitis. ED prior wishes to admit patient for further evaluation and management of NSTEMI/CHF exacerbation/COVID pneumonia. Allergies No Known Allergies Allergy (Verified 01/31/21 22:58) Hospital Course: Patient was admitted withc void pna , presumed acute coronary syndrome and CHF exacerbation. He was evaluated by both pulmonary and cardiology services. He is dose of steroids with discontinued as pulmonary felt his shortness of breath was likely due to CHF exacerbation. Was admitted by cardiology he had mild elevated troponin but recommended to follow as outpatient with stress test. Patient was started on IV diuretics he is can subsequently improved very well. His shortness of breath has resolved with ambulating with minimal assist. He will be discharged home to continue Lasix. Of note patient had positive blood culture for gram-positive cocci in clusters, suspicion for contamination. Antibiotics was no started. Patient will be discharged home today to follow-up with pulmonary and cardiology as outpatient - Physical Exam General: Alert, In no apparent distress, Oriented x3 HEENT: Atraumatic, PERRLA, Mucous membr. moist/pink, EOMI, Sclerae nonicteric Neck: Supple, 2+ carotid pulse no bruit, No LAD, Without JVD or thyroid abnorma lity Respiratory: improving basal creps Cardiovascular: Normal S1 S2, Edema, Irregular heart rate/rhythm Capillary refill: <2 Seconds Gastrointestinal: Normal bowel sounds, No tenderness Musculoskeletal: No tenderness Integumentary: No rashes Neurological: Normal speech, Normal strength at 5/5 x4 extr, Normal tone, Normal affect Vital Signs/Physical Exam: Temp Pulse Resp BP Pulse Ox 97.5 F 102 H 20 119/67 98 01/04/22 10:24 01/04/22 10:24 01/04/22 10:24 01/04/22 10:24 01/04/22 10:24 Laboratory Data at Discharge: WBC 5.6 K/uL (4.3-10.9) D 01/04/22 02:48 Hgb 11.3 g/dL (13.6-17.9) L 01/04/22 02:48 Hct 33.3 % (39.6-49.0) L 01/04/22 02:48 Plt Count 175 K/uL (152-406) D 01/04/22 02:48 PT 15.4 SECONDS (9.5-12.5) H 01/02/22 14:40 INR 1.39 01/02/22 14:40 Sodium 135 mmol/L (136-145) L 01/04/22 02:48 Potassium 4.0 mmol/L (3.5-5.1) 01/04/22 02:48 BUN 24 mg/dL (7-18) H 01/04/22 02:48 Creatinine 1.22 mg/dL (0.55-1.3) 01/04/22 02:48 Glucose 116 mg/dL (74-106) H 01/04/22 02:48 Magnesium 2.0 mg/dL (1.8-2.4) 01/04/22 02:48 Total Bilirubin 0.6 mg/dL (0.2-1.0) 01/04/22 02:48 AST 41 U/L (15-37) H 01/04/22 02:48 ALT 28 U/L (12-78) 01/04/22 02:48 Alkaline Phosphatase 39 U/L (45-117) L 01/04/22 02:48 Home Medications: Clopidogrel Bisulfate [Plavix*] 75 mg PO DAILY tablet 01/24/20 Apixaban [Eliquis *] 2.5 mg PO BID 09/20/20 Simvastatin 40 mg PO BEDTIME 09/20/20 traMADol HCL [Ultram*] 50 mg PO TID PRN 09/20/20 Docusate [Colace Cap*] 2 tab PO BID PRN 01/09/21 carvediloL [Coreg*] 12.5 mg PO BID 6AM 6PM #60 tab 02/01/21 Gabapentin [Neurontin*] 100 mg PO TID 01/02/22 Furosemide [Lasix*] 40 mg PO DAILY #30 tab 01/04/22 New Medications: Furosemide [Lasix*] 40 mg PO DAILY #30 tab Followup: Rell Zuñiga MD [Primary Care Provider] -
[2022-01-04 12:45] VITALS: BP 146/87; TEMP 97.6
--- NOTE | 2022-01-04 13:28 | P.PN ---
Subjective Date of Service: 01/04/22 Chief Complaint: CHF exacerbation, NSTEMI, COVID pneumonia Subjective: Improving (Patient is doing a better new complaints daughter at the bedside) Review of Systems General: Weakness Respiratory: Shortness of Breath Physical Examination - Vital Signs Temperature: 97.6 F Blood Pressure: 146/87 Pulse: 107 Respirations: 20 Pulse Ox (%): 98 - Physical Exam General: Alert, Oriented x3 Respiratory: Clear to auscultation bilaterally, Diminished - Studies Microbiology Data (last 24 hrs): 01/02/22 14:35 Throat Culture & Sensitivity - Final NORMAL UPPER RESPIRATORY CRYSTAL GROWN. 01/02/22 18:00 Blood - Blood Blood Culture Gram Stain - Final 01/02/22 18:15 Blood - Blood Blood Culture Gram Stain - Final Assessment And Plan - Current Problems (Diagnosis) (1) Coronavirus infection Current Visit: Yes Status: Acute Plan: Patient is 86 years of age admitted with coronavirus infection he is doing well saturations satisfactory does not qualify for steroid bone is probably from demand ischemia seen by cardiology labs reviewed cultures most likely contaminant minimal interstitial changes no evidence of pneumonia room air oxygenation normal discharge home vital signs stable Physician Review: Patient Assessed, Agree with Above Assessment and Plan
[2022-01-04] MEDS ORDERED: VANCOMYCIN 1.5 GM in NA CHLORIDE 0.9% 500 ML IVPB SCH (18:00)
--- NOTE | 2022-01-05 17:37 | EKG ---
Test Date: 2022-01-02 Test Time: 15:10:35 [employer] Farmer: JOSE MEASUREMENT RESULTS: Intervals: Rate: 80 [place]: 226 QRSD: 140 QT: 444 QTc: 512 [place]: P: 80 [place]: 226 QRS: -40 T: 142 INTERPRETIVE STATEMENTS: Sinus rhythm with 1st degree AV block Left axis deviation Nonspecific intraventricular block Cannot rule out Inferior infarct, age undetermined Possible Anterolateral infarct, age undetermined Abnormal ECG Compared to ECG 01/09/2021 14:31:03 First degree AV block now present Left-axis deviation now present Sinus bradycardia no longer present Myocardial infarct finding still present Electronically Signed On 01-05-22 17:31:54 CDT by Bossman Zuniga
--- NOTE | 2022-01-07 07:17 | ECHO ---
HEIGHT: 5 ft 11 in WEIGHT: 180 lb 0 oz DATE OF STUDY: 01/04/[address]: Luther Alford MD 2-DIMENSIONAL: YES M.MODE: YES DOPPLER: YES COLOR FLOW: YES TDS: PORTABLE: YES DEFINITY: BUBBLE STUDY: DIAGNOSIS: ELEVATED TROPONIN CARDIAC HISTORY: CATHERIZATION: YES SURGERY: PROSTHETIC VALVE: PACEMAKER: MEASUREMENTS (cm) DIASTOLIC (NORMALS) SYSTOLIC (NORMALS) IVSd 1.3 (0.6-1.2) LA Diam 3.7 (1.9-4.0) LVEF 40% LVIDd 5.2 (3.5-5.7) LVIDs 4.3 (2.0-3.5) %FS 17% LVPWd 1.2 (0.6-1.2) Ao Diam 3.1 (2.0-3.7) 2 DIMENSIONAL ASSESSMENT: RIGHT ATRIUM: NORMAL LEFT ATRIUM: NORMAL RIGHT VENTRICLE: NORMAL LEFT VENTRICLE: LEFT VENTRICULAR HYPERTROPHY TRICUSPID VALVE: MILD TRICUSPID REGURGITATION MITRAL VALVE: MILD MITRAL REGURGITATION PULMONIC VALVE: NORMAL AORTIC VALVE: NORMAL PERICARDIAL EFFUSION: NONE AORTIC ROOT: NORMAL LEFT VENTRICULAR WALL MOTION: MODERATE GLOBAL HYPOKINESIS DOPPLER/COLOR FLOW: SEE BELOW COMMENTS: 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 MODERATE GLOBAL HYPOKINESIS. MILD TO MODERATE MITRAL REGURGITATION. MILD TRICUSPID REGURGITATION TECHNOLOGIST: DARIAN PAT
== END 2022-01-04 14:12 | disposition home health service (06) | DRG 177 ==
LOC: ER 13:05 → ERHOLD 19:14 → 4TH 20:34
PROVIDERS: ADMIT Internal Medicine; ATTEND Internal Medicine
DX: U07.1 COVID-19 (principal); J12.82 Pneumonia due to coronavirus disease 2019; I21.4 Non-ST elevation (NSTEMI) myocardial infarction; I50.33 Acute on chronic diastolic (congestive) heart failure; N17.9 Acute kidney failure, unspecified; I48.20 Chronic atrial fibrillation, unspecified; I25.10 Atherosclerotic heart disease of native coronary artery without angina pectoris; E78.5 Hyperlipidemia, unspecified; I73.9 Peripheral vascular disease, unspecified; I11.0 Hypertensive heart disease with heart failure; E87.5 Hyperkalemia; Z79.01 Long term (current) use of anticoagulants; Z86.73 Personal history of transient ischemic attack (TIA), and cerebral infarction without residual deficits; Z85.819 Personal history of malignant neoplasm of unspecified site of lip, oral cavity, and pharynx; Z92.3 Personal history of irradiation; Z95.5 Presence of coronary angioplasty implant and graft
CPT/HCPCS: 36415; 71045; 71275; 80048; 80053; 80076; 81003; 81015; 83605; 83735; 83880; 84145; 84484; 85025; 85610; 86140; 87040; 87070; 87077; 87081; 87186; 87205; 87804; 92610; 93005; 93306; 94010; 94640; 96365; 96366; 96367; 96375; 99285; J0456; J1940; J3370; J7040; J7050; Q9967; U0003

== ENCOUNTER 2022-05-07 07:20 | Inpatient (IN) | payer OTHER ==
--- OUTSIDE RECORDS SUMMARY | 2022-05-07 07:23 | XMS REPORT | Continuity of Care Document ---
:1935 Author Organization [facility] t Address [address] [place] [address] [address]. [address] [place] [address] Care Team Providers Name Role Phone Rell Zuñiga Primary Care Physician Therapy, Adc Covid Infusion Attending Clinician Unavailable Felipa Gill MD Attending Clinician FELIPA GILL Attending Clinician Unavailable Niyah Bowie RN Attending Clinician Unavailable Only, Ang Db Test Attending Clinician Unavailable Audrey Solorznao Attending Clinician AUDREY FLORENCE Attending Clinician Unavailable Doctor Unassigned, [place] Attending Clinician Unavailable Janusz Matos MD Attending Clinician 1, [facility] Attending Clinician Unavailable Janusz Matos MD Admitting Clinician Payers Payer Name Policy Type Policy Number Effective Date Expiration Date S ource Problems Condition Condition Condition Status Onset Resolution Last Treating Co mments Source Name Details Category Date Date Treatment Clinician Date No known No known Disease Unive rs active active ity of problems problems [facility] Allergies, Adverse Reactions, Alerts Allergy Allergy Status Severity Reaction(s) Onset Inactive Treating Comm ents Source Name Type Date Date Clinician NO KNOWN Drug Active Univers ALLERGIE Class ity of S [facility] Social History Social Habit Start Date Stop Date Quantity Comments Source Exposure to 2021-12-21 2021-12-31 Not sure [facility] SARS-CoV-2 (event) 00:00:00 13:06:00 Medica l Branch Tobacco use and 2019-03-01 2019-03-01 Never used [facility] [place] exposure 00:00:00 00:00:00 [facility] Sex Assigned At [birth year] JOVITA Moreno 00:00:00 [facility]:00 [facility] Smoking Status Start Date Stop Date Source Former smoker 2019-03-01 00:00:00 2019-03-01 00:00:00 [facility] Medical Branch Medications Ordered Filled Start Stop Current Ordering Indication Dosage Frequency Signature Comments Components Source Medication Medication Date Date Medication? Clinician (SIG) Name Name aspirin 81 2019- Yes 81mg Take 81 mg U nivers mg chewable 9-09 by mouth ity of tablet 16:02: daily. [place] [address] Medical Branch simvastatin 2018-0 Yes 40mg Take 40 mg Univers 40 mg 9-09 by mouth ity of tablet 16:02: daily. [place] [address] Medical Branch carvedilol 2018- Yes 25mg Take 25 mg U nivers 25 mg 9-09 by mouth 2 ity of tablet 16:02: (two) [place] [address] times Medical daily with Branch meals. traMADol 50 2018- Yes 50mg Take 50 mg Univers mg tablet 9-09 by mouth 2 ity of 16:02: (two) [place] [address] times Medical daily. Branch gabapentin Yes 100mg Take 100 Un tameka 100 mg 9-09 mg by ity of capsule 16:02: mouth at [place] [address] bedtime. Medical Branch clopidogrel 2018-0 Yes 75mg Take 75 mg Univers 75 mg 9-09 by mouth ity of tablet 16:02: daily. [place] [address] Medical Branch losartan 2018-0 Yes 100mg Take 100 Univ ers 100 mg 9-09 mg by ity of tablet 16:02: mouth [place] [address] daily. Medical Branch aspirin 81 2019-0 Yes 81mg Take 81 mg U nivers mg chewable 9-09 by mouth ity of tablet 16:02: daily. [place] [address] Medical Branch simvastatin 2018-0 Yes 40mg Take 40 mg Univers 40 mg 9-09 by mouth ity of tablet 16:02: daily. [place] [address] Medical Branch carvedilol 2018-0 Yes 25mg Take 25 mg U nivers 25 mg 9-09 by mouth 2 ity of tablet 16:02: (two) [place] [address] times Medical daily with Branch meals. traMADol 50 2018-0 Yes 50mg Take 50 mg Univers mg tablet 9-09 by mouth 2 ity of 16:02: (two) [place] [address] times Medical daily. Branch gabapentin 2019-0 Yes 100mg Take 100 Un tameka 100 mg 9-09 mg by ity of capsule 16:02: mouth at [place] [address] bedtime. Medical Branch clopidogrel 2019-0 Yes 75mg Take 75 mg Univers 75 mg 9-09 by mouth ity of tablet 16:02: daily. [place] [address] Medical Branch losartan 2019-0 Yes 100mg Take 100 Univ ers 100 mg 9-09 mg by ity of tablet 16:02: mouth [place] [address] daily. Medical Branch aspirin 81 2019-0 Yes 81mg Take 81 mg U nivers mg chewable 9-09 by mouth ity of tablet 16:02: daily. [place] [address] Medical Branch simvastatin 2019-0 Yes 40mg Take 40 mg Univers 40 mg 9-09 by mouth ity of tablet 16:02: daily. [place] [address] Medical Branch carvedilol 2019-0 Yes 25mg Take 25 mg U nivers 25 mg 9-09 by mouth 2 ity of tablet 16:02: (two) [place] [address] times Medical daily with Branch meals. traMADol 50 2019-0 Yes 50mg Take 50 mg Univers mg tablet 9-09 by mouth 2 ity of 16:02: (two) [place] [address] times Medical daily. Branch gabapentin 2018-0 Yes 100mg Take 100 Un tameka 100 mg 9-09 mg by ity of capsule 16:02: mouth at [place] [address] bedtime. Medical Branch clopidogrel 2019-0 Yes 75mg Take 75 mg Univers 75 mg 9-09 by mouth ity of tablet 16:02: daily. [place] [address] Medical Branch losartan 2019-0 Yes 100mg Take 100 Univ ers 100 mg 9-09 mg by ity of tablet 16:02: mouth [place] [address] daily. Medical Branch aspirin 81 2019-0 Yes 81mg Take 81 mg U nivers mg chewable 9-09 by mouth ity of tablet 16:02: daily. [place] [address] Medical Branch simvastatin 2019-0 Yes 40mg Take 40 mg Univers 40 mg 9-09 by mouth ity of tablet 16:02: daily. [place] [address] Medical Branch carvedilol 2019-0 Yes 25mg Take 25 mg U nivers 25 mg 9-09 by mouth 2 ity of tablet 16:02: (two) [place] [address] times Medical daily with Branch meals. traMADol 50 2019-0 Yes 50mg Take 50 mg Univers mg tablet 9-09 by mouth 2 ity of 16:02: (two) [place] [address] times Medical daily. Branch gabapentin 2019-0 Yes 100mg Take 100 Un tameka 100 mg 9-09 mg by ity of capsule 16:02: mouth at [place] [address] bedtime. Medical Branch clopidogrel 2019-0 Yes 75mg Take 75 mg Univers 75 mg 9-09 by mouth ity of tablet 16:02: daily. [place] [address] Medical Branch losartan 2019-0 Yes 100mg Take 100 Univ ers 100 mg 9-09 mg by ity of tablet 16:02: mouth [place] [address] daily. Medical Branch Immunizations Ordered Filled Immunization Date Status Comments Sourc e Immunization Name Name MICHELLE 2022-01-01 Completed University o f 00:00:00 [facility] Vital Signs Vital Name Observation Time Observation Value Comments Source Systolic blood 2022-01-01 22:08:00 142 [facility]Hg[facility] Diastolic blood 2022-01-01 22:08:00 71 mm[Hg] [facility] Heart rate 2022-01-01 22:08:00 88 /min [facility] Body temperature 2022-01-01 22:08:00 36.89 [facility] Respiratory rate 2022-01-01 22:08:00 19 /min [facility] Oxygen saturation in 2022-01-01 22:08:00 93 /min [facility] Arterial blood by [facility] Pulse oximetry [facility] Body height 2022-01-01 21:01:00 180.3 cm [facility] Body weight 2022-01-01 21:01:00 81.647 kg [facility] BMI 2022-01-01 21:01:00 25.10 kg/m2 [facility] Procedures Procedure Date / Time Performed Performing Clinician Sour e CONSENT/REFUSAL FOR 2021-12-31 18:08:39 Doctor Unassigned, No [facility] DIAGNOSIS AND Name Medical [facility] TREATMENT ASSIGNMENT OF BENEFITS 2021-12-31 18:08:28 Doctor Unassigned, No [facility] Encounters Start End Encounter Admission Attending Care Care Encounter Source Date/Time Date/Time Type Type Clinicians Facility Department ID 2022-01-01 2022-01-01 Nurse Therapy, Adc Covid Infusion [facility] [id number] Univers 16:00:00 17:00:00 Visit Bridget Felipa Ben ALLENLUISA [id number] [place]y [id number] [id number] [facility] 053 [place] 2022-01-01 2022-01-01 Outpatient R [facility] [id number] Univers 16:00:00 16:00:00 FELIPA ity of [facility] 2022-01-01 2022-01-01 Letter Niyah Bowie [id number] Univers 00:00:00 00:00:00 (Out) AMELIA [id number] it y of HOSPITAL 4.2.7.2.686 [place] [id number] [facility] 019 [place] 2021-12-31 2021-12-31 Laboratory Only, Ang Db Test [facility] 1.2.8 40.114 [id number] Univers 13:00:00 13:15:00 [facility] [id number] ity of [place] 4.2.7.2.686 [place] as MONSTER?BLEA [id number] [address] MEDICAL OFFICE BUILDING 2021-12-31 2021-12-31 Outpatient R [facility] [id number] Univers 13:00:00 13:00:00 AUDREY ity o f [facility] 2021-12-31 2021-12-31 Orders Doctor RAMOS [id number] [id number] Univers 00:00:00 00:00:00 Only Unassigned, AMELIA [id number] ity of [place] [facility] 4.2.7.2.686 [place] as [id number] [facility] 009 Branch 2019-08-26 2019-08-26 Orders Doctor RAMOS 1.2.840.114 [id number] 00:00:00 00:00:00 Only Unassigned, AMELIA [id number] [place] [facility] 4.2.7.2.686 [id number] 2019-03-17 2019-03-17 [facility] [id number] 11:26:00 14:59:00 Encounter Janusz Logan [id number] [place] 4.2.7.2.686 Surgical [id number] [place] [address] 2019-03-03 2019-03-03 Hospital [facility] [id number] 09:37:00 13:20:00 Encounter Janusz Logan 350.1.13.10 [place] 4.2.7.2.686 [facility] [id number] [place] [address] 2019-03-03 2019-03-03 Orders Doctor RICHARD 1.2.840.114 [id number] 00:00:00 00:00:00 Only Unassigned, AMELIA 350.1.13.10 [place] [id number] 2019-02-24 2019-02-24 Auditing Clerk 1, Adc Lab [facility] 1.2.840.114 [id number] 16:37:01 16:54:18 Visit Doreen 350.1.13.10 [place] 4.2.7.2.686 [place] [id number] [id number] Results Test Description Test Time Test Comments Results Result Comments Source SARS-COV2/RT-PCR ([facility]) 2020-01-23 16:45:00 Test Item Value Reference Range Interpretation Comme nts SARS-COV2/RT-PCR (test code = 1300227) Negative Not Detected, N egative SARS-COV-2 PERFORMING LAB (test code = 1747331) [facility] Negative result for this test determines that SARS-CoV-2 RNA was not present in the specimen above the Limit of Detection (LOD). However, Negative results do not preclude SARS-CoV-2 infection and should not be used as the sole basis for treatment or patient management decisions. Negative results must be combined with clinical observations, patient history, and [...] justifying the authorization of the emergency use ofin vitro diagnostic tests for detection and/or diagnosis of COVID-19 is terminated under Section 564(b)(2) of the Act or the EUA is revoked under Section 564(g) of the Act.Fact Sheet for Healthcare Prov iders:https://www.[employer]/sites/default/files/product/documents/Fact_Sheet_HC _Elmhdqqev_Cnyf_VZHY-NzS-2.pdfFact Sheet for Healthcare Patients:https://www.[employer]/sites/default/files/product/docume nts/Imrq_Ywnva_Uficjcse_Zplk_HSOP-OcH-5.pdfPerforming Laboratory:[facility] [place] [address]
[2022-05-07 07:59] LABS: Absolute Lymphocytes (CBC) 0.9 K/uL (0.7-4.9); Hematocrit 38.6 % (39.6-49.0); Lymphocytes % 10.3 % (15.3-44.8); MCV 92.9 fL (80-100); MPV 8.1 fL (7.6-11.3); RBC Red Blood Cell Count 4.16 M/uL (4.33-5.43)
[2022-05-07 08:02] LABS: Protime INR 1.4
[2022-05-07 08:24] LABS: Albumin 3.7 g/dL (3.4-5.0); Bilirubin Direct 0.4 mg/dL (0-0.2); Bilirubin Total 2.2 mg/dL (0.2-1.0); Magnesium 2.3 mg/dL (1.8-2.4); Potassium 4.2 mmol/L (3.5-5.1); Protein, Total 7.4 g/dL (6.4-8.2); Troponin High Sensitivity 48.2 pg/mL (<58.9)
--- NOTE | 2022-05-07 08:41 | RAD REPORT ---
EXAM DESCRIPTION: RAD - Chest Single View - 05/07/2022 8:30 am CLINICAL HISTORY: DYSPNEA COMPARISON: Portable 01/02/2022, portable 01/31/2021 TECHNIQUE: AP portable chest image was obtained 05/07/2022 8:30 am . FINDINGS: Lung volumes are normal range. Interstitial and alveolar opacities are present in the lowe r right lung field is slightly more prominent than prior imaging. Patient has a baseline chronic lung parenchymal process. Heart size is prominent but stable. Upper lobe vasculature within normal range. No measurable pleura l effusion and no pneumothorax. No acute bony abnormality seen. No acute aortic findings suspected. IMPRESSION: Mild or early right lung base pneumonia is suspected, superimposed on chronic interstiti al lung disease.
--- NOTE | 2022-05-07 09:09 | ER ---
Nurse's Notes [facility] Name: Vitor Mg Age: 87 yrs Sex: Male : 1935 Arrival Date: 05/07/2022 Time: 07:22 Bed 7 Private MD: Diagnosis: Pneumonia, congestive heart failure Presentation: 05/07 07:22 Chief complaint: EMS states: client was cleaning his chicken coops about two days ago kc6 and then started having some difficulty breathing. stated they believe it may have been from the dust/feathers. Coronavirus screen: Vaccine status: Patient reports being unvaccinated. Client denies travel out of the [place] in the last 14 days. At this time, the client does not indicate any symptoms associated with coronavirus-19. Ebola Screen: No symptoms or risks identified at this time. Initial Sepsis Screen: Does the patient meet any 2 criteria? No. Patient's initial sepsis screen is negative. Does the patient have a suspected source of infection? No. Patient's initial sepsis screen is negative. Risk Assessment: Do you want to hurt yourself or someone else? Patient reports no desire to harm self or others. Onset of symptoms was May 05, 2022. 07:22 Method Of Arrival: EMS: [facility] 07:22 Acuity: GLENDY 3 kc6 Triage Assessment: 07:52 General: Appears in no apparent distress. uncomfortable, Behavior is calm, cooperative, kc6 appropriate for age. Historical: - Allergies: 07:52 No Known Allergies; kc6 - Home Meds: 07:52 Eliquis 2.5 mg oral tab [Active]; Neurontin 100 mg Oral cap 1 cap once daily [Active]; kc6 Plavix 75 mg oral tab [Active]; simvastatin 40 mg oral tab [Active]; carvedilol 12.5 mg oral tab [Active]; tramadol 50 mg Oral tab 1 tab every 4 hours [Active]; - PMHx: 07:52 cancer, throat; CVA; Hypertension; kc6 - PSHx: 07:52 Stented artery; kc6 - Immunization history:: Adult Immunizations up to date, Client reports having NOT received the Covid vaccine. Flu vaccine is not up to date. - Social history:: Smoking status: unknown. Screenin:55 Abuse screen: Denies threats or abuse. Denies injuries from another. Nutritional kc6 screening: No deficits noted. Tuberculosis screening: No symptoms or risk factors identified. Fall Risk No fall in past 12 months (0 pts). Secondary diagnosis (15 points) CVA, IV access (20 points). Ambulatory Aid- None/Bed Rest/Nurse Assist (0 pts). Gait- Normal/Bed Rest/Wheelchair (0 pts) Mental Status- Oriented to own ability (0 pts). Total Guzman Fall Scale indicates Low Risk Score (25-44 pts). Fall prevention measures have been instituted. Side Rails Up X 2 Placed close to Nursing Station Frequent Obs/Assesments occuring Family Present and informed to notify staff if they need to leave bedside As available Patient and Family Educated on Fall Prevention Program and strategies. Assessment: 07:27 General: Appears in no apparent distress. uncomfortable, Behavior is calm, cooperative, kc6 appropriate for age. Pain: Complains of pain in mid-sternal area Pain does not radiate. Quality of pain is described as burning, sharp, Pain began 2-3 days ago. Is intermittent, Alleviated by rest, Aggravated by increased activity. Neuro: Brunner Agitation-Sedation Scale (RASS): 0 - Alert and Calm Level of Consciousness is awake, alert, obeys commands, Oriented to person, place, time, situation, Appropriate for age. Cardiovascular: Heart tones S1 S2 present Capillary refill < 3 seconds. Respiratory: Airway is patent Respiratory effort is even, labored, Respiratory pattern is symmetrical, tachypnea Breath sounds with wheezes bilaterally. expiratory. GI: No signs and/or symptoms were reported involving the gastrointestinal system. : No signs and/or symptoms were reported regarding the genitourinary system. EENT: No signs and/or symptoms were reported regarding the EENT system. Derm: No signs and/or symptoms reported regarding the dermatologic system. Skin is intact, Skin is pink, warm \\T\\ dry. Musculoskeletal: No signs and/or symptoms reported regarding the musculoskeletal system. 08:27 Reassessment: Patient appears in no apparent distress at this time. No changes from kc6 previously documented assessment. Patient and/or family updated on plan of care and expected duration. Pain level reassessed. Patient is alert, oriented x 3, equal unlabored respirations, skin warm/dry/pink. 09:30 Reassessment: Patient appears in no apparent distress at this time. No changes from kc6 previously documented assessment. Patient and/or family updated on plan of care and expected duration. Pain level reassessed. Patient is alert, oriented x 3, equal unlabored respirations, skin warm/dry/pink. client stated his pain is 10/10 to the RICK lower legs and feet. 10:35 Reassessment: Patient appears in no apparent distress at this time. No changes from kc6 previously documented assessment. Patient and/or family updated on plan of care and expected duration. Pain level reassessed. Patient is alert, oriented x 3, equal unlabored respirations, skin warm/dry/pink. 11:14 Reassessment: 450 mL of clear, yellow urine emptied from urinal. [facility] 11:52 Reassessment: Patient appears in no apparent distress at this time. No changes from kc6 previously documented assessment. Patient and/or family updated on plan of care and expected duration. Pain level reassessed. Patient is alert, oriented x 3, equal unlabored respirations, skin warm/dry/pink. client stated his pain is "gone". 12:52 Reassessment: Patient appears in no apparent distress at this time. No changes from kc6 previously documented assessment. Patient and/or family updated on plan of care and expected duration. Pain level reassessed. Patient is alert, oriented x 3, equal unlabored respirations, skin warm/dry/pink. 13:52 Reassessment: Patient appears in no apparent distress at this time. No changes from kc6 previously documented assessment. Patient and/or family updated on plan of care and expected duration. Pain level reassessed. Patient is alert, oriented x 3, equal unlabored respirations, skin warm/dry/pink. 14:52 Reassessment: Patient appears in no apparent distress at this time. No changes from kc6 previously documented assessment. Patient and/or family updated on plan of care and expected duration. Pain level reassessed. Patient is alert, oriented x 3, equal unlabored respirations, skin warm/dry/pink. 15:52 Reassessment: Patient appears in no apparent distress at this time. No changes from kc6 previously documented assessment. Patient and/or family updated on plan of care and expected duration. Pain level reassessed. Patient is alert, oriented x 3, equal unlabored respirations, skin warm/dry/pink. 18:39 Reassessment: attempted to call report to fourth floor. Per Liat, she assigned client kc6 to car shifter nurse ALLEY Dumont who is in the middle of [facility]. Vital Signs: 07:22 BP 139 / 95 LA Sitting (auto/reg); Pulse 123 LA; Resp 24 S; Temp 97.9(TE); Pulse Ox 99% kc6 on 2.5 lpm NC; 07:58 BP 139 / 95; Pulse 123; Resp 24 S; Temp 97.9(TE); Pulse Ox 99% on 2.5 lpm NC; Weight kc6 72.57 kg (R); Height 5 ft. 11 in. (180.34 cm) (R); 08:28 BP 131 / 82; Pulse 90; Resp 17 S; Pulse Ox 98% on 2.5 lpm NC; kc6 09:32 BP 148 / 81; Pulse 97; Resp 24 S; Pulse Ox 99% on 2.5 lpm NC; Pain 10/10; kc6 10:35 BP 146 / 87; Pulse 106; Resp 23 S; Pulse Ox 100% on 2.5 lpm NC; kc6 11:53 BP 140 / 82; Pulse 92; Resp 18 S; Temp 97.7(O); Pulse Ox 96% on 2.5 lpm NC; Pain 0/10; kc6 15:38 BP 124 / 72; Pulse 99; Resp 19 S; Pulse Ox 98% on 2.5 lpm NC; Pain 0/10; kc6 16:25 BP 115 / 68; Pulse 97; Resp 18 S; Pulse Ox 98% on 2.5 lpm NC; kc6 18:42 BP 127 / 65; Pulse 71; Resp 13 S; Pulse Ox 100% on R/A; kc6 20:00 BP 127 / 57; Pulse 87; Resp 23; Pulse Ox 99% on R/A; ll3 07:58 Body Mass Index 22.32 (72.57 kg, 180.34 cm) [facility] ED Course: 07:22 Patient arrived in ED. kc6 07:22 Lisette Booker, ALLEY is Primary Nurse. kc6 07:22 Jamarcus Parrish MD is Attending Physician. sp3 07:27 Triage completed. kc6 07:39 EKG done, by ED staff, reviewed by Jamarcus Parrish MD. jd3 07:51 Basic Metabolic Panel Sent. kc6 07:51 CBC with Diff Sent. kc6 07:51 D-Dimer Sent. kc6 07:51 LFT's Sent. kc6 07:51 Magnesium Sent. kc6 07:51 NT PRO-BNP Sent. kc6 07:52 PT-INR Sent. kc6 07:52 Troponin HS Sent. kc6 07:52 No provider procedures requiring assistance completed. Inserted saline lock: 20 gauge kc6 in right antecubital area, using aseptic technique. Blood collected. 07:59 Arm band placed on. kc6 08:21 COVID-19 SARS RT PCR (Document "Date of Onset" if Symptomatic) Sent. kc6 08:31 XRAY Chest (1 view) In Process Unspecified. EDMS 09:08 Drake Kingsley MD is Hospitalizing Provider. sp3 09:40 First set of blood cultures drawn Right Forearm. vg1 09:51 Rell Zuñiga MD is Hospitalizing Provider. sp3 09:57 Drake Kingsley MD is Hospitalizing Provider. sp3 10:35 Blood Culture Adult (2) Sent. kc6 10:39 Patient has correct armband on for positive identification. Placed in gown. Bed in low kc6 position. Call light in reach. Side rails up X2. Adult w/ patient. 19:52 Flu Sent. oe 21:05 Patient admitted, IV remains in place. ll3 Administered Medications: 09:25 Drug: Lasix (furosemide) 40 mg Route: IVP; Site: right antecubital; kc6 10:25 Follow up: Urine output 1200 ml; Response: No adverse reaction kc6 09:25 Drug: traMADol 50 mg Route: PO; kc6 10:25 Follow up: Response: No adverse reaction; Pain is decreased; RASS: Alert and Calm (0) kc6 10:30 Drug: Cefepime 1 grams Route: IVPB; Rate: 200 ml/hr; Infused Over: 30 mins; Site: right kc6 antecubital; 10:59 Follow up: Response: No adverse reaction; IV Status: Completed infusion; IV Intake: kc6 100ml Medication: 10:39 VIS not applicable for this client. kc6 Intake: 10:59 IV: 100ml; Total: 100ml. kc6 Output: 10:25 Urine: 1200ml; Total: 1200ml. kc6 Outcome: 09:08 Decision to Hospitalize by Provider. sp3 21:05 Admitted to Tele accompanied by tech, via wheelchair, room 430, with oxygen, with ll3 chart, Report called to ALLEY Dumont 21:10 Patient left the ED. ll3 Signatures: Dispatcher [employer] EDMS Brett Garcia Jonathon RN RN jNusrat Kam RN RN vg1 Jamarcus Parrish MD MD sp3 Kendal Ramirez RN RN ll3 Lisette Booker RN RN kc6 Corrections: (The following items were deleted from the chart) 07:36 07:27 Pain: Denies pain. kc6 kc6 11:07 07:27 Respiratory: Airway is patent Respiratory effort is even, labored, Respiratory kc6 pattern is symmetrical, tachypnea kc6
--- NOTE | 2022-05-07 09:09 | EDPHYS ---
Physician Documentation [facility] Name: Vitor Mg Age: 87 yrs Sex: Male : 1935 Arrival Date: 05/07/2022 Time: 07:22 Bed 7 Private MD: ED Physician Jamarcus Parrish HPI: 05/07 07:45 This 87 yrs old Male presents to ER via EMS with complaints of shortness of breath. sp3 07:45 87-year-old male with a history of atrial fibrillation, COPD, hypertension, prior CVA sp3 and to the ED for chief complaint shortness of breath for 4 days. Patient did say that he was cleaning up bird cages approximately 1 week ago and that may be a contributing factor. Patient also recovered from hospitalization from COVID-19 in December 2021. He denies any URI symptoms, cough, fever, chest pain, abdominal pain, back pain, headache, nausea, vomiting, diarrhea, rash, known sick contacts, travel history, or any other ROS at this time. Shortness of breath is worse on exertion.. Historical: - Allergies: 07:52 No Known Allergies; kc6 - Home Meds: 07:52 Eliquis 2.5 mg oral tab [Active]; Neurontin 100 mg Oral cap 1 cap once daily [Active]; kc6 Plavix 75 mg oral tab [Active]; simvastatin 40 mg oral tab [Active]; carvedilol 12.5 mg oral tab [Active]; tramadol 50 mg Oral tab 1 tab every 4 hours [Active]; - PMHx: 07:52 cancer, throat; CVA; Hypertension; kc6 - PSHx: 07:52 Stented artery; kc6 - Immunization history:: Adult Immunizations up to date, Client reports having NOT received the Covid vaccine. Flu vaccine is not up to date. - Social history:: Smoking status: unknown. ROS: 07:47 Constitutional: Negative for fever, chills, and weight loss, Eyes: Negative for injury, sp3 pain, redness, and discharge, ENT: Negative for injury, pain, and discharge, Neck: Negative for injury, pain, and swelling, Cardiovascular: Negative for chest pain, palpitations, and edema, Abdomen/GI: Negative for abdominal pain, nausea, vomiting, diarrhea, and constipation, Back: Negative for injury and pain, MS/Extremity: Negative for injury and deformity, Skin: Negative for injury, rash, and discoloration, Neuro: Negative for headache, weakness, numbness, tingling, and seizure, Psych: Negative for depression, anxiety, suicide ideation, homicidal ideation, and hallucinations, Allergy/Immunology: Negative for hives, rash, and allergies, Endocrine: Negative for neck swelling, polydipsia, polyuria, polyphagia, and marked weight changes, Hematologic/Lymphatic: Negative for swollen nodes, abnormal bleeding, and unusual bruising. 07:47 All other systems are negative. Exam: 07:47 Constitutional: This is a well developed, well nourished patient who is awake, alert, sp3 and in no acute distress. Head/Face: Normocephalic, atraumatic. Eyes: Pupils equal round and reactive to light, extra-ocular motions intact. Lids and lashes normal. Conjunctiva and sclera are non-icteric and not injected. Cornea within normal limits. Periorbital areas with no swelling, redness, or edema. ENT: Nares patent. No nasal discharge, no septal abnormalities noted. External auditory canals are clear. Oropharynx with no redness, swelling, or masses, exudates, or evidence of obstruction, uvula midline. Mucous membranes moist. Neck: Trachea midline, no thyromegaly or masses palpated, and no cervical lymphadenopathy. Supple, full range of motion without nuchal rigidity, or vertebral point tenderness. No Meningismus. Chest/axilla: Normal chest wall appearance and motion. Nontender with no deformity. No lesions are appreciated. Abdomen/GI: Soft, non-tender, with normal bowel sounds. No distension or tympany. No guarding or rebound. No evidence of tenderness throughout. Skin: Warm, dry with normal turgor. Normal color with no rashes, no lesions, and no evidence of cellulitis. MS/ Extremity: Pulses equal, no cyanosis. Neurovascular intact. Full, normal range of motion. Neuro: Awake and alert, GCS 15, oriented to person, place, time, and situation. Cranial nerves II-XII grossly intact. Motor strength 5/5 in all extremities. Sensory grossly intact. Cerebellar exam normal. Normal gait. Psych: Awake, alert, with orientation to person, place and time. Behavior, mood, and affect are within normal limits. 07:47 Cardiovascular: Patient is in atrial fibrillation with heart rate in the 90-120 range varies on patient and exertion during physical exam.. 07:47 ECG was reviewed by the Attending Physician. EG demonstrates atrial fibrillation with ventricular response at 100 bpm with possible a flutter pattern as well. QRS demonstrates left bundle branch block no discordance in nonspecific diffuse ST/T changes. EKG from December 2021 demonstrates normal sinus rhythm with left bundle branch block. 07:47 Respiratory: Patient has Rales/crackles bilaterally in the lower lung lane posteriorly. Upper lung lane and anterior are coarse but clear. Respiratory rate is in the 20-24 range patient is on oxygen at 2 L with saturation in the 98% range.. Vital Signs: 07:22 BP 139 / 95 LA Sitting (auto/reg); Pulse 123 LA; Resp 24 S; Temp 97.9(TE); Pulse Ox 99% kc6 on 2.5 lpm NC; 07:58 BP 139 / 95; Pulse 123; Resp 24 S; Temp 97.9(TE); Pulse Ox 99% on 2.5 lpm NC; Weight kc6 72.57 kg (R); Height 5 ft. 11 in. (180.34 cm) (R); 08:28 BP 131 / 82; Pulse 90; Resp 17 S; Pulse Ox 98% on 2.5 lpm NC; kc6 09:32 BP 148 / 81; Pulse 97; Resp 24 S; Pulse Ox 99% on 2.5 lpm NC; Pain 10/10; kc6 10:35 BP 146 / 87; Pulse 106; Resp 23 S; Pulse Ox 100% on 2.5 lpm NC; kc6 11:53 BP 140 / 82; Pulse 92; Resp 18 S; Temp 97.7(O); Pulse Ox 96% on 2.5 lpm NC; Pain 0/10; kc6 15:38 BP 124 / 72; Pulse 99; Resp 19 S; Pulse Ox 98% on 2.5 lpm NC; Pain 0/10; kc6 16:25 BP 115 / 68; Pulse 97; Resp 18 S; Pulse Ox 98% on 2.5 lpm NC; kc6 18:42 BP 127 / 65; Pulse 71; Resp 13 S; Pulse Ox 100% on R/A; kc6 20:00 BP 127 / 57; Pulse 87; Resp 23; Pulse Ox 99% on R/A; ll3 07:58 Body Mass Index 22.32 (72.57 kg, 180.34 cm) kc6 MDM: 07:23 Patient medically screened. sp3 07:51 Data reviewed: vital signs, nurses notes, EMS record. ED course: 87-year-old male with sp3 complex medical history now presents with shortness of breath for 4 days. Differential diagnosis includes CHF, pneumonia, viral syndrome with COPD exacerbation and to a lesser extent pulmonary embolism. 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 Patient has no current cancer treatment. Do not believe patient is having acute coronary syndrome, GA, sepsis, aortic pathology in the thorax or abdomen including dissection and aneurysm or any other critical findings at this time. Work-up will include standard cardiac work-up of labs, chest x-ray, EKG, and oxygen treatment. Disposition will be based on work-up results with likely admission given his degree of dyspnea.. 09:05 ED course: As right lower lobe pneumonia as well as elevated BNP. Will initiate Lasix sp3 and antibiotic treatment and admit patient. Atrial fibrillation and resulting ventricular response may result in decreased neck output resulting in possible CHF. Is negative and given creatinine CT PE protocol is contraindicated. However I do not believe PE is a high probability in this patient. Patient feels better on oxygen we will get patient admitted at this time.. 05/07 07:30 Order name: Basic Metabolic Panel; Complete Time: 08:44 sp3 05/07 07:30 Order name: CBC with Diff; Complete Time: 08:3 05/07 07:30 Order name: D-Dimer; Complete Time: 08: sp3 05/07 07:30 Order name: LFT's; Complete Time: 08:44 sp3 05/07 07:30 Order name: Magnesium; Complete Time: 08:44 sp3 05/07 07:30 Order name: NT PRO-BNP; Complete Time: 08:44 sp3 05/07 07:30 Order name: PT-INR; Complete Time: 08:44 sp3 05/07 07:30 Order name: Troponin HS; Complete Time: 08:44 sp3 05/07 07:30 Order name: XRAY Chest (1 view); Complete Time: 08:44 sp3 05/07 08:14 Order name: COVID-19 SARS RT PCR (Document "Date of Onset" if Symptomatic); Complete ss Time: 09:58 05/07 08:47 Order name: Blood Culture Adult (2) sp3 05/07 10:07 Order name: Vent Perfusion VQ Scan EDMS 05/07 19:36 Order name: Flu wm 05/07 20:32 Order name: Influenza Screen (A EDMS 05/07 07:30 Order name: EKG; Complete Time: 07:31 sp3 05/07 07:30 Order name: Cardiac monitoring; Complete Time: 07:36 sp3 05/07 07:30 Order name: EKG - Nurse/Tech; Complete Time: 07:36 sp3 05/07 07:30 Order name: IV Saline Lock; Complete Time: 07:51 3 05/07 07:30 Order name: Labs collected and sent; Complete Time: 07:51 3 05/07 07:30 Order name: O2 Per Protocol; Complete Time: 07:36 3 05/07 07:30 Order name: O2 Sat Monitoring; Complete Time: 07:36 3 05/07 10:08 Order name: Heart Healthy; Complete Time: 10:35 EDMS 05/07 11:51 Order name: CT EDMS Administered Medications: 09:25 Drug: Lasix (furosemide) 40 mg Route: IVP; Site: right antecubital; 6 10:25 Follow up: Urine output 1200 ml; Response: No adverse reaction [facility] 09:25 Drug: traMADol 50 mg Route: PO; 6 10:25 Follow up: Response: No adverse reaction; Pain is decreased; RASS: Alert and Calm (0) [facility] 10:30 Drug: Cefepime 1 grams Route: IVPB; Rate: 200 ml/hr; Infused Over: 30 mins; Site: right [facility] antecubital; 10:59 Follow up: Response: No adverse reaction; IV Status: Completed infusion; IV Intake: kc6 100ml Disposition Summary: 05/07/22 09:08 Hospitalization Ordered Hospitalization Status: Inpatient Admission sp3 Location: Telemetry/[facility] (Inpatient) sp3 Condition: Stable sp3 Problem: new sp3 Symptoms: have worsened sp3 Bed/Room Type: Standard sp3 Provider: Drake Kingsley(05/07/22 09:58) sp3 Room Assignment: [facility](05/07/22 18:27) Diagnosis - Pneumonia, congestive heart failure sp3 Forms: - Medication Reconciliation Form sp3 - SBAR form sp3 Signatures: Dispatcher [employer] EDMS Denia Givens RN RN ss Jamarcus Parrish MD MD sp3 Lisette Booker RN RN kc6 Corrections: (The following items were deleted from the chart) 09:07 09:05 ED course: As right lower lobe pneumonia as well as elevated BNP. Will initiate sp3 Lasix and antibiotic treatment and admit patient. Atrial fibrillation and resulting ventricular response may result in decreased neck output resulting in possible CHF.. sp3 09:51 09:08 Drake Kingsley sp3 sp3 09:58 09:51 Rell Zuñiga sp3 sp3 18:27 09:08 sp3 ss
[2022-05-07] MEDS ORDERED: TRAMADOL HCL 50 MG TAB ONE (09:16)
[2022-05-07] MEDS ORDERED: FUROSEMIDE 40 MG/4 ML VIAL ONE ×2 (09:16→17:44)
[2022-05-07] MEDS ORDERED: ACETAMINOPHEN 325 MG TABLET PO PRN (10:03)
[2022-05-07] MEDS ORDERED: ONDANSETRON 4 MG/2 ML VIAL IV PRN (10:09)
[2022-05-07] MEDS ORDERED: NA CHLORIDE 0.9% 100 ML IV ONE (10:15)
[2022-05-07] MEDS ORDERED: CEFEPIME 1 GM/VIAL ONE (10:15)
[2022-05-07] MEDS: CEFTRIAXONE 1,000 MG in NA CHLORIDE 0.9% 50 ML IVPB SCH (11:00)
--- NOTE | 2022-05-07 11:50 | RAD REPORT ---
EXAM DESCRIPTION: CT - Chest For Pe Angio - 05/07/2022 11:17 am CLINICAL HISTORY: R/O PE elevated D-Dimer COMPARISON: Chest For Pe Angio dated 01/02/2022; Chest Single View dated 05/07/2022 TECHNIQUE: Dynamically enhanced 3 mm thick images of the chest were obtained during administration o f approximately 150mL Isovue 370 IV contrast. Coronal and oblique MIP reconstruction images were gene rated and reviewed. Exam utilizes a protocol to evaluate the pulmonary arterial tree. All CT scans are performed using dose optimization technique as appropriate and may include automated exposure control or mA/KV adjustment according to patient size. FINDINGS: No pulmonary emboli are identified. Aorta opacification is limited on this pulmonary artery focused examination. Patient has very dense a ortic atherosclerotic calcifications. No centrally displaced calcifications. Calcifications are seen in the origin of the great vessels. Aortic findings are not grossly different from the January 02 examin ation. Cardiomegaly is present. No pericardial thickening or effusion. Prominent emphysema changes are present. Small right pleural effusion is present layering in the post erior right chest. Calcified and noncalcified pleural plaques are present no new or enlarging plaque. Subpleural bulla and bleb formation is present. No pneumothorax. Mediastinal and hilar lymph nodes are present in a pattern matching the December examination. No clearly pathologic lymphadenopathy. No chest wall masses or abnormal axillary lymphadenopathy. IMPRESSION: No pulmonary emboli identified. No focal acute lung parenchymal process seen. Patient has underlying emphysema. Bronchial wall thickening is present. This was present on the prior examination and more prominent. A mild bronchitis or seminal are viral infiltrate is possible. Small right-sided pleural effusion.
[2022-05-07] MEDS: AZITHROMYCIN IV 500 MG in NA CHLORIDE 0.9% 250 ML IVPB SCH (12:00)
[2022-05-07] MEDS: ASPIRIN EC 81 MG TAB PO SCH (12:00)
[2022-05-07] MEDS ORDERED: NA CHLORIDE 0.9% 50 ML IV ONE (12:24)
[2022-05-07] MEDS ORDERED: ASPIRIN EC 81 MG TAB PO ONE (12:24)
[2022-05-07] MEDS ORDERED: CEFTRIAXONE 1000 MG/VIAL ONE (12:24)
[2022-05-07] MEDS ORDERED: AZITHROMYCIN 500 MG INJ IVPB ONE (13:19)
[2022-05-07] MEDS ORDERED: NA CHLORIDE 0.9% 250 ML ONE (13:19)
[2022-05-07] MEDS ORDERED: HYDROCODONE/APAP 5/325 MG TAB ONE (13:48)
[2022-05-07] MEDS: IPRATROPIUM BROM 0.5MG/2.5ML NEB SCH ×2 (14:00→20:00)
[2022-05-07] MEDS: ALBUTEROL 2.5 MG/3 ML NEB SOL NEB SCH ×2 (14:00→20:00)
[2022-05-07] MEDS: FUROSEMIDE 40 MG/4 ML VIAL IV SCH (17:00)
[2022-05-07] MEDS ORDERED: HEPARIN 5000 UNIT/ML 1 ML VIAL SQ SCH (21:00)
[2022-05-07] MEDS ORDERED: ALBUTEROL 2.5 MG/3 ML NEB SOL ONE (21:28)
[2022-05-07] MEDS ORDERED: IPRATROPIUM BROM 0.5MG/2.5ML ONE (21:29)
[2022-05-07] MEDS: HYDROCODONE/APAP 5/325 MG TAB PO PRN (22:36)
[2022-05-07] MEDS: GABAPENTIN 100 MG CAP PO SCH (22:38)
[2022-05-07 23:31] LABS: Urine Bilirubin NEGATIVE (Negative); Urine Blood Trace (Negative); Urine Clarity Clear (Clear); Urine Color Colorless (Yellow); Urine Glucose NEGATIVE (Negative); Urine Mucus Slight /HPF (None Seen); Urine Protein NEGATIVE (Negative); Urine RBC <5 /HPF (None Seen); Urine Urobilinogen Normal (Normal)
[2022-05-08] MEDS: ALBUTEROL 2.5 MG/3 ML NEB SOL NEB SCH ×4 (01:10→19:30)
[2022-05-08] MEDS: IPRATROPIUM BROM 0.5MG/2.5ML NEB SCH ×4 (01:10→19:30)
[2022-05-08 04:45] LABS: Absolute Lymphocytes (CBC) 1.4 K/uL (0.7-4.9); Hematocrit 36.6 % (39.6-49.0); Lymphocytes % 20.4 % (15.3-44.8); MCV 92.8 fL (80-100); RBC Red Blood Cell Count 3.94 M/uL (4.33-5.43)
[2022-05-08 04:50] LABS: Potassium 3.5 mmol/L (3.5-5.1)
[2022-05-08] MEDS ORDERED: DOCUSATE NA 100 MG CAP PO PRN (04:54)
[2022-05-08] MEDS: HYDROCODONE/APAP 5/325 MG TAB PO PRN ×3 (04:55→18:50)
--- NOTE | 2022-05-08 05:10 | P.HP ---
Certification for Inpatient Patient admitted to: Inpatient With expected LOS: >2 Midnights Patient will require the following post-hospital care: None Practitioner: I am a practitioner with admitting privileges, knowledge of patient current condition, hospital course, and medical plan of care. Services: Services provided to patient in accordance with Admission requirements found in Title 42 Section 412.3 of the Code of Federal Regulations Patient History Date of Service: 05/07/22 Reason for admission: SOB History of Present Illness: Patient is an 87-year-old male with a past medical history significant for atrial fibrillation, COPD, hypertension, CVA, HLD who presents with complaint of shortness of breath that has been ongoing for the past 4 days. Patient reported associated signs and symptoms of generalized weakness, fatigue and chest tightness. Patient denies any other signs or symptoms. Symptoms are aggravated or relieved by nothing. Patient decided to present to the hospital due to worsening symptoms. Allergies No Known Allergies Allergy (Verified 05/07/22 21:46) Home Medications: Clopidogrel Bisulfate [Plavix*] 75 mg PO DAILY tablet 01/24/20 Apixaban [Eliquis *] 2.5 mg PO BID 09/20/20 Simvastatin 40 mg PO BEDTIME 09/20/20 traMADol HCL [Ultram*] 50 mg PO TID PRN 09/20/20 Docusate [Colace Cap*] 2 tab PO BID PRN 01/09/21 carvediloL [Coreg*] 12.5 mg PO BID 6AM 6PM #60 tab 02/01/21 Gabapentin [Neurontin*] 100 mg PO TID 01/02/22 Furosemide [Lasix*] 40 mg PO SEECOM 05/07/22 - Past Medical/Surgical History Has patient received pneumonia vaccine in the past: Yes Diabetic: No -: Hypertension -: Hyperlipidemia -: CAD -: Throat cancer status post radiation therapy -: Chronic pain -: CVA -: Peripheral vascular disease -: A. fib on chronic anticoagulation -: Multiple stents to the heart -: Stents to the lower extremity -: Stents to the carotid Psychosocial/ Personal History: Patient lives at home with daughter. - Social History Smoking Status: Former smoker Alcohol use: No CD- Drugs: No Caffeine use: No Place of Residence: Home Review of Systems General: Weakness, Other (fatigue) Eyes: Unremarkable ENT: Unremarkable Respiratory: Shortness of Breath, Other (Chest tightness ) Cardiovascular: Unremarkable Gastrointestinal: Unremarkable Genitourinary: Unremarkable Musculoskeletal: Unremarkable Integumentary: Unremarkable Neurological: Weakness Lymphatics: Unremarkable Physical Examination - Vital Signs Temperature: 98 F Blood Pressure: 130/75 Pulse: 80 Respirations: 17 Pulse Ox (%): 98 - Physical Exam General: Alert, Oriented x3, Cooperative, Mild distress HEENT: Atraumatic, PERRLA, Mucous membr. moist/pink, EOMI, Sclerae nonicteric Neck: Supple, 2+ carotid pulse no bruit, No LAD, Without JVD or thyroid abnormality Respiratory: Diminished Cardiovascular: No edema, Normal S1 S2 Capillary refill: <2 Seconds Gastrointestinal: Normal bowel sounds, Soft and benign, Non-distended, No tenderness Musculoskeletal: No clubbing, No swelling, No tenderness Integumentary: No rashes, No breakdown, No significant lesion Neurological: Normal speech, Normal tone, Normal affect Lymphatics: No axilla or inguinal lymphadenopathy - Studies Laboratory Data (last 24 hrs) 05/07/22 07:43: PT 15.4 H, INR 1.40 05/07/22 07:43: WBC 8.30, Hgb 13.0 L, Hct 38.6 L, Plt Count 142 L 05/07/22 07:43: Sodium 132 L, Potassium 4.2, BUN 27 H, Creatinine 1.37 H, Glucose 123 H, Magnesium 2.3, Total Bilirubin 2.2 H, AST 26, ALT 22, Alkaline Phosphatase 53 Assessment and Plan - Plan --Pneumonia. Noted on imaging. Continue antibiotics, neb treatment with albuterol\Atrovent and O2 therapy. --Acute on chronic systolic CHF exacerbation. Continue diuresis with Lasix. Daily weight and strict I/O. 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 Likely secondary to volume overload. Continue current treatment regimen. Will reassess levels in a.m. --Anemia of chronic disease. H&H stable. We will Continue to monitor hemoglobin and transfuse if less than 7.0. --Hypertension. Stable. Continue home medications. --HLD. Continue statin. --Atrial fibrillation. Continue Eliquis. --History of PVD\CAD\CVA. Continue Aspirin, Plavix, Eliquis and statin. --Acute on chronic COPD exacerbation. Continue current management. --Peripheral neuropathy. Continue gabapentin. --Elevated D-dimer. CTA PE protocol negative for PE. Continue supportive care. --DVT prophylaxis with Eliquis. Discharge Plan: Home Plan to discharge in: Greater than 2 days - Advance Directives Does patient have a Living Will: Yes Does patient have a Durable POA for Healthcare: No - Code Status/Comfort Care Code Status Assessed: Yes Code Status: Full Code Physician Review: Patient Assessed, Agree with Above Assessment and Plan Critical Care: No
[2022-05-08 05:43] VITALS: BMI 23.3
[2022-05-08] MEDS: carvediloL 12.5 MG TAB PO SCH ×2 (05:45→17:25)
[2022-05-08] MEDS ORDERED: INFLUENZA VACCINE (for 6+ mo) 0.5 ML DOSE IMVAC ONE (08:00)
[2022-05-08] MEDS: FUROSEMIDE 40 MG/4 ML VIAL IV SCH ×2 (08:50→17:25)
[2022-05-08] MEDS: CEFTRIAXONE 1,000 MG in NA CHLORIDE 0.9% 50 ML IVPB SCH (08:51)
[2022-05-08] MEDS: AZITHROMYCIN IV 500 MG in NA CHLORIDE 0.9% 250 ML IVPB SCH (08:51)
[2022-05-08] MEDS: GABAPENTIN 100 MG CAP PO SCH ×3 (08:52→19:55)
[2022-05-08] MEDS: APIXABAN 2.5 MG TABLET PO SCH ×2 (08:52→19:55)
[2022-05-08] MEDS: ASPIRIN EC 81 MG TAB PO SCH (08:52)
[2022-05-08] MEDS: CLOPIDOGREL 75 MG TABLET PO SCH (08:52)
[2022-05-08] MEDS: METHYLPREDNISOLONE 40 MG INJ IV SCH ×2 (08:52→17:25)
[2022-05-08] MEDS ORDERED: POTASSIUM CL SA 10 MEQ TAB PO ONE (09:00)
--- NOTE | 2022-05-08 13:09 | EKG ---
Test Date: 2022-05-07 Test Time: 07:32:28 Machine Fitter: JOHN MEASUREMENT RESULTS: Intervals: Rate: 101 RI: QRSD: 156 QT: 396 QTc: 513 [place]: P: RI: QRS: -77 T: 110 INTERPRETIVE STATEMENTS: Atrial flutter with variable AV block with premature ventricular or aberrantly conducted complexes Left axis deviation Left bundle branch block Abnormal ECG Compared to ECG 01/02/2022 15:10:35 Ventricular premature complex(es) now present Left bundle-branch block now present Sinus rhythm no longer present First degree AV block no longer present Myocardial infarct finding no longer present Electronically Signed On 05-08-22 13:07:17 CDT by Bossman Zuniga
--- NOTE | 2022-05-08 19:18 | P.PN ---
Subjective Date of Service: 05/08/22 Chief Complaint: SOB No acute events overnight. His breathing is much improved today. His SpO2 was 98 % on 2 L NC this morning. He reports generalized weakness, so will consult PT. I have also encouraged him to utilize incentive spirometry. Review of Systems 10-point ROS is otherwise unremarkable General: Weakness Respiratory: SOB with Excertion Physical Examination - Vital Signs Temperature: 97.0 F Blood Pressure: 124/65 Pulse: 98 Respirations: 16 Pulse Ox (%): 97 - Physical Exam General: Alert, In no apparent distress, Oriented x3 HEENT: Atraumatic, PERRLA, Mucous membr. moist/pink, EOMI, Sclerae nonicteric Neck: Supple Respiratory: Normal air movement, Diminished, Rhonchi/gurgles (faint) Cardiovascular: Regular rate/rhythm, Normal S1 S2, No gallops, No rubs, No murmurs, Edema (trace) Gastrointestinal: Normal bowel sounds, Soft and benign, Non-distended, No tender ness, No rebound, No guarding Musculoskeletal: No clubbing Integumentary: No rashes Neurological: Normal speech, Cranial nerves 3-12 intact, Normal affect Assessment And Plan - Plan # Sepsis likely secondary to Community-Acquired Pneumonia She meets sepsis criteria based on HR > 90 bpm and RR > 20 breaths/min, and the suspected source is pneumonia. - Sepsis order set was initiated - Lactate was requested - Blood cultures drawn before antibiotics were given - Broad spectrum antibiotics started: Ceftriaxone + Azithromycin - In regards to fluids: - 30 mL/kg of IV fluids was not administered given SBP > 90, MAP > 65 # Acute on Chronic Decompensated Congestive Heart Failure - Consult Cardiology - recommendations appreciated - Ordered transthoracic echocardiogram - Diuresis with IV furosemide - Continue home carvedilol - Daily weights - Strict I/O - Cardiac diet, 1.5 L fluid restriction, 2 g Na restriction # Elevated D-Dimer - suspect secondary to above - D-Dimer = 1259 - CT chest angiogram = "No pulmonary emboli identified. No focal acute lung parenchymal process seen. Patient has underlying emphysema. Bronchial wall thickening is present. This was present on the prior examination and more prominent. A mild bronchitis or seminal are viral infiltrate is possible. Small right-sided pleural effusion." - Continue home apixaban # Coronary Artery Disease # Peripheral Vascular Disease # Cerebrovascular Accident # Hypertension # Dyslipidemia - Continue home aspirin, clopidogrel, carvedilol # Chronic Obstructive Pulmonary Disease - Does not appear to be in acute exacerbation - Continue home inhalers # Chronic Atrial Fibrillation His [id number] = 6 (CHF=1, HTN=1, Age>75=2, CVA=1, CAD/PAD=1), which warrants anticoagulation. - For rate control - carvedilol - For anticoagulation - apixaban # Chronic Kidney Disease Stage III # Anemia of Chronic Kidney Disease - Creatinine = near baseline - Monitor creatinine and urine output - Renally dose medications # Peripheral Neuropathy - Continue gabapentin Drake Kingsley M.D.
[2022-05-08] MEDS: ATORVASTATIN 20 MG TAB PO SCH (19:55)
[2022-05-08] MEDS ORDERED: GABAPENTIN 100 MG CAP PO ONE (21:55)
[2022-05-09] MEDS: IPRATROPIUM BROM 0.5MG/2.5ML NEB SCH ×4 (01:10→20:00)
[2022-05-09] MEDS: ALBUTEROL 2.5 MG/3 ML NEB SOL NEB SCH ×4 (01:10→20:00)
[2022-05-09 05:33] LABS: Absolute Lymphocytes (CBC) 0.7 K/uL (0.7-4.9); Hematocrit 40.1 % (39.6-49.0); Lymphocytes % 7.1 % (15.3-44.8); MCV 93.3 fL (80-100); MPV 8.1 fL (7.6-11.3)
[2022-05-09] MEDS: carvediloL 12.5 MG TAB PO SCH ×2 (05:51→17:00)
[2022-05-09] MEDS: CEFTRIAXONE 1,000 MG in NA CHLORIDE 0.9% 50 ML IVPB SCH (09:44)
[2022-05-09] MEDS: AZITHROMYCIN IV 500 MG in NA CHLORIDE 0.9% 250 ML IVPB SCH (09:45)
[2022-05-09] MEDS: FUROSEMIDE 40 MG/4 ML VIAL IV SCH ×2 (09:45→16:55)
[2022-05-09] MEDS: CLOPIDOGREL 75 MG TABLET PO SCH (09:45)
[2022-05-09] MEDS: GABAPENTIN 100 MG CAP PO SCH ×3 (09:46→20:59)
[2022-05-09] MEDS: ASPIRIN EC 81 MG TAB PO SCH (09:46)
[2022-05-09] MEDS: APIXABAN 2.5 MG TABLET PO SCH ×2 (09:46→20:58)
[2022-05-09] MEDS: HYDROCODONE/APAP 5/325 MG TAB PO PRN ×3 (10:39→23:56)
--- NOTE | 2022-05-09 19:21 | P.PN ---
Subjective Date of Service: 05/09/22 Chief Complaint: SOB No acute events overnight. His breathing is unchanged compared to yesterday. He tried to ambulate in his room last night without his oxygen and felt that he became extremely short of breath. SpO2 was 98 % on 2 L NC this morning. Review of Systems 10-point ROS is otherwise unremarkable Respiratory: Cough, Dry, Shortness of Breath Physical Examination - Vital Signs Temperature: 97.4 F Blood Pressure: 136/92 Pulse: 96 Respirations: 14 Pulse Ox (%): 100 Assessment And Plan - Plan - Physical Exam General: Alert, In no apparent distress, Oriented x3 HEENT: Atraumatic, PERRLA, Mucous membr. moist/pink, EOMI, Sclerae nonicteric Neck: Supple Respiratory: Normal air movement, Diminished, Rhonchi/gurgles (faint) Cardiovascular: Regular rate/rhythm, Normal S1 S2, No gallops, No rubs, No murmurs, Edema (trace) Gastrointestinal: Normal bowel sounds, Soft and benign, Non-distended, No tenderness, No rebound, No guarding Musculoskeletal: No clubbing Integumentary: No rashes Neurological: Normal speech, Cranial nerves 3-12 intact, Normal affect # Sepsis likely secondary to Community-Acquired Pneumonia She meets sepsis criteria based on HR > 90 bpm and RR > 20 breaths/min, and the suspected source is pneumonia. - Sepsis order set was initiated - Lactate = 1.2 - Blood cultures drawn before antibiotics were given - Broad spectrum antibiotics started: Ceftriaxone + Azithromycin - In regards to fluids: - 30 mL/kg of IV fluids was not administered given SBP > 90, MAP > 65 - Plan for home oxygen evaluation today # Acute on Chronic Decompensated Congestive Heart Failure - Consult Cardiology - recommendations appreciated - Ordered transthoracic echocardiogram - Diuresis with IV furosemide - Continue home carvedilol - Daily weights - Strict I/O - Cardiac diet, 1.5 L fluid restriction, 2 g Na restriction # Elevated D-Dimer - suspect secondary to above - D-Dimer = 1259 - CT chest angiogram = "No pulmonary emboli identified. No focal acute lung parenchymal process seen. Patient has underlying emphysema. Bronchial wall thickening is present. This was present on the prior examination and more prominent. A mild bronchitis or seminal are viral infiltrate is possible. Small right-sided pleural effusion." - Continue home apixaban # Coronary Artery Disease # Peripheral Vascular Disease # Cerebrovascular Accident # Hypertension # Dyslipidemia - Continue home aspirin, clopidogrel, carvedilol # Chronic Obstructive Pulmonary Disease - Does not appear to be in acute exacerbation - Continue home inhalers # Chronic Atrial Fibrillation His [id number] = 6 (CHF=1, HTN=1, Age>75=2, CVA=1, CAD/PAD=1), which warrants anticoagulation. - For rate control - carvedilol - For anticoagulation - apixaban # Chronic Kidney Disease Stage III # Anemia of Chronic Kidney Disease - Creatinine = near baseline - Monitor creatinine and urine output - Renally dose medications # Peripheral Neuropathy - Continue gabapentin Drake Kingsley M.D.
[2022-05-09] MEDS: ATORVASTATIN 20 MG TAB PO SCH (20:59)
[2022-05-09 22:21] LABS: Absolute Lymphocytes (CBC) 1.4 K/uL (0.7-4.9); Hematocrit 36.3 % (39.6-49.0); MPV 8.2 fL (7.6-11.3); RBC Red Blood Cell Count 3.94 M/uL (4.33-5.43)
[2022-05-09] MEDS ORDERED: GABAPENTIN 100 MG CAP PO ONE (22:32)
[2022-05-10] MEDS: IPRATROPIUM BROM 0.5MG/2.5ML NEB SCH ×4 (01:40→20:00)
[2022-05-10] MEDS: ALBUTEROL 2.5 MG/3 ML NEB SOL NEB SCH ×4 (01:40→20:00)
[2022-05-10 06:03] LABS: Potassium 4.2 mmol/L (3.5-5.1)
[2022-05-10] MEDS: carvediloL 12.5 MG TAB PO SCH ×2 (06:29→17:23)
[2022-05-10] MEDS: CLOPIDOGREL 75 MG TABLET PO SCH (08:49)
[2022-05-10] MEDS: FUROSEMIDE 40 MG/4 ML VIAL IV SCH ×2 (08:49→17:23)
[2022-05-10] MEDS: APIXABAN 2.5 MG TABLET PO SCH ×2 (08:49→21:21)
[2022-05-10] MEDS: GABAPENTIN 100 MG CAP PO SCH ×3 (08:49→18:34)
[2022-05-10] MEDS: ASPIRIN EC 81 MG TAB PO SCH (08:49)
[2022-05-10] MEDS: CEFTRIAXONE 1,000 MG in NA CHLORIDE 0.9% 50 ML IVPB SCH (08:50)
[2022-05-10] MEDS: AZITHROMYCIN IV 500 MG in NA CHLORIDE 0.9% 250 ML IVPB SCH (08:50)
--- NOTE | 2022-05-10 13:56 | P.PN ---
Subjective Date of Service: 05/10/22 Chief Complaint: SOB No acute events overnight. He reports that he feels slightly better today in regards to his breathing. He attempted an ambulatory SpO2 test yesterday, and I was informed that he desaturated to 88 %. Will work with case management to arrange for home oxygen. He has been working well with PT. Review of Systems 10-point ROS is otherwise unremarkable General: Weakness Respiratory: Cough, Shortness of Breath Physical Examination - Vital Signs Temperature: 97.9 F Blood Pressure: 120/72 Pulse: 89 Respirations: 16 Pulse Ox (%): 100 Assessment And Plan - Plan - Physical Exam General: Alert, In no apparent distress, Oriented x3 HEENT: Atraumatic, PERRLA, Mucous membr. moist/pink, EOMI, Sclerae nonicteric Neck: Supple Respiratory: SpO2 99 % on 2 L nasal cannula. Normal air movement, Diminished, Rhonchi/gurgles (faint) Cardiovascular: Regular rate/rhythm, Normal S1 S2, No gallops, No rubs, No murmurs, Edema (trace) Gastrointestinal: Normal bowel sounds, Soft and benign, Non-distended, No tenderness, No rebound, No guarding Musculoskeletal: No clubbing Integumentary: No rashes Neurological: Normal speech, Cranial nerves 3-12 intact, Normal affect # Sepsis likely secondary to Community-Acquired Pneumonia She meets sepsis criteria based on HR > 90 bpm and RR > 20 breaths/min, and the suspected source is pneumonia. - Sepsis order set was initiated - Lactate = 1.2 - Blood cultures drawn before antibiotics were given - Broad spectrum antibiotics started: Ceftriaxone + Azithromycin - In regards to fluids: - 30 mL/kg of IV fluids was not administered given SBP > 90, MAP > 65 - Consult case management for assistance with home oxygen arrangement - Continue PT # Acute on Chronic Decompensated Congestive Heart Failure - Consult Cardiology - recommendations appreciated - Ordered transthoracic echocardiogram - Diuresis with IV furosemide - Continue home carvedilol - Daily weights - Strict I/O - Cardiac diet, 1.5 L fluid restriction, 2 g Na restriction # Elevated D-Dimer - suspect secondary to above - D-Dimer = 1259 - CT chest angiogram = "No pulmonary emboli identified. No focal acute lung parenchymal process seen. Patient has underlying emphysema. Bronchial wall thickening is present. This was present on the prior examination and more prominent. A mild bronchitis or seminal are viral infiltrate is possible. Small right-sided pleural effusion." - Continue home apixaban # Coronary Artery Disease # Peripheral Vascular Disease # Cerebrovascular Accident # Hypertension # Dyslipidemia - Continue home aspirin, clopidogrel, carvedilol # Chronic Obstructive Pulmonary Disease - Does not appear to be in acute exacerbation - Continue home inhalers # Chronic Atrial Fibrillation His [id number] = 6 (CHF=1, HTN=1, Age>75=2, CVA=1, CAD/PAD=1), which warrants anticoagulation. - For rate control - carvedilol - For anticoagulation - apixaban # Chronic Kidney Disease Stage III # Anemia of Chronic Kidney Disease - Creatinine = near baseline - Monitor creatinine and urine output - Renally dose medications # Peripheral Neuropathy - Continue gabapentin Drake Kingsley M.D.
--- NOTE | 2022-05-10 14:42 | EKG ---
Test Date: 2022-05-10 Test Time: 11:03:33 Gas Plumbing Inspector: REYNALDO MEASUREMENT RESULTS: Intervals: Rate: 116 PA: QRSD: 148 QT: 382 QTc: 530 [place]: P: PA: QRS: -77 T: 102 INTERPRETIVE STATEMENTS: Atrial fibrillation with rapid ventricular response Left axis deviation Nonspecific intraventricular block Possible Lateral infarct, age undetermined Abnormal ECG Compared to ECG 05/07/2022 07:32:28 Myocardial infarct finding now present Atrial flutter no longer present Ventricular premature complex(es) no longer present Left bundle-branch block no longer present Electronically Signed On 05-10-22 14:42:09 CDT by Bossman Zuniga
[2022-05-10] MEDS: HYDROCODONE/APAP 5/325 MG TAB PO PRN ×2 (17:23→23:37)
[2022-05-10] MEDS: ATORVASTATIN 20 MG TAB PO SCH (21:21)
[2022-05-10 21:56] LABS: Absolute Lymphocytes (CBC) 1.8 K/uL (0.7-4.9); Hematocrit 38.8 % (39.6-49.0); Lymphocytes % 21.6 % (15.3-44.8); MCV 92.9 fL (80-100); MPV 7.8 fL (7.6-11.3); RBC Red Blood Cell Count 4.18 M/uL (4.33-5.43)
[2022-05-11] MEDS: IPRATROPIUM BROM 0.5MG/2.5ML NEB SCH ×2 (01:50→09:08)
[2022-05-11] MEDS: ALBUTEROL 2.5 MG/3 ML NEB SOL NEB SCH ×2 (01:50→09:08)
[2022-05-11 04:53] LABS: Potassium 4.3 mmol/L (3.5-5.1)
[2022-05-11] MEDS: CLOPIDOGREL 75 MG TABLET PO SCH (08:19)
[2022-05-11] MEDS: APIXABAN 2.5 MG TABLET PO SCH (08:19)
[2022-05-11] MEDS: ASPIRIN EC 81 MG TAB PO SCH (08:19)
[2022-05-11] MEDS: carvediloL 12.5 MG TAB PO SCH (08:19)
[2022-05-11] MEDS: GABAPENTIN 100 MG CAP PO SCH (08:19)
[2022-05-11] MEDS: FUROSEMIDE 40 MG/4 ML VIAL IV SCH (08:19)
[2022-05-11] MEDS: CEFTRIAXONE 1,000 MG in NA CHLORIDE 0.9% 50 ML IVPB SCH (08:20)
[2022-05-11 08:27] VITALS: BP 135/76; TEMP 97.4
--- NOTE | 2022-05-11 08:31 | RAD REPORT ---
EXAM DESCRIPTION: RAD - Chest Single View - 05/11/2022 7:45 am CLINICAL HISTORY: PNA COMPARISON: Portable 05/07/2022 ; January 2021 TECHNIQUE: AP portable chest image was obtained 05/11/2022 7:45 am . FINDINGS: Lung volumes are normal. No new or progressive lung parenchymal process. Lung parenchymal opacification in the right base seen May 07 has near fully cleared and is very close to baseline appearance. Heart and vasculature are normal. No measurable pleural effusion and no pneumothorax. No acute bony a bnormality seen. No acute aortic findings suspected. IMPRESSION: Complete or near complete clearing of right base infiltrative process. No new or progressive cardiopulmonary finding.
--- NOTE | 2022-05-11 08:48 | P.DS ---
Admission Date: 05/07/22 Discharge Date: 05/11/22 Primary Care Provider: Dr. Zuñiga Disposition: ROUTINE DISCHARGE Discharge Condition: GOOD Reason for Admission: SOB Hospital Course: DIAGNOSES: # Acute Hypoxic Respiratory Failure secondary to Community-Acquired Pneumonia and Chronic Obstructive Pulmonary Disease # Sepsis likely secondary to Community-Acquired Pneumonia # Acute on Chronic Decompensated Congestive Heart Failure # Elevated D-Dimer - suspect secondary to above # Coronary Artery Disease # Peripheral Vascular Disease # Cerebrovascular Accident # Hypertension # Dyslipidemia # Chronic Obstructive Pulmonary Disease # Chronic Atrial Fibrillation # Chronic Kidney Disease Stage III # Anemia of Chronic Kidney Disease # Peripheral Neuropathy HOSPITAL COURSE: Mr. Vitor Mg is a pleasant 87 year old male with a past medical history significant for coronary artery disease, chronic congestive heart failure, chronic obstructive pulmonary disease, chronic atrial fibrillation, peripheral vascular disease, chronic kidney disease stage III, prior cerebrovascular accident, hypertension, and dyslipidemia who was admitted to the [facility] on 05/07/2022 for shortness of breath. He was admitted to the Medicine service. Upon further evaluation, he was found to have acute hypoxic respiratory failure due to pneumonia as well as decompensated congestive heart failure. His initial chest x-ray revealed, "mild or early right lung base pneumonia is suspected, superimposed on chronic interstitial lung disease." His d-dimer returned elevated at 1259, so a CT chest aniogram was obtained, and this revealed, "no pulmonary emboli identified. No focal acute lung parenchymal process seen. Patient has underlying emphysema. Bronchial wall thickening is present. This was present on the prior examination and more prominent. A mild bronchitis or seminal are viral infiltrate is possible. Small right-sided pleural effusion." He was treated with IV antibiotics as well as IV furosemide, and experienced significant improvement in his symptoms. Despite improving clinically, he continued to desaturate with ambulation and qualified for home oxygen. With this assistance of case management, this was arranged for him. Earlier today, a follow-up chest x-ray was obtained, and revealed, "complete or near complete clearing of right base infiltrative process. No new or progressive cardiopulmonary finding." He did well with PT and was cleared to be discharged with close outpatient follow-up. On 05/11/2022, he was seen on morning rounds and deemed medically stable for discharge. He was discharged with instructions to schedule follow-up appointments with his PCP (Dr. Zuñiga) and his Ppap Coordinator (Dr. Alford). He was provided prescriptions for cefdinir, doxycycline, and benzonatate. He and his daughter (Ms. Granger) were given the opportunity to ask questions and reported no further questions. Furthermore, all questions were answered to the best of my ability. A copy of this discharge summary will be sent to the above providers to facilitate continuity of care. Today, I personally spent 25 minutes on his case, of which greater than 50% of the time was spent in patient education, counseling, and coordination of care as described above. - Physical Exam General: Alert, In no apparent distress, Oriented x3 HEENT: Atraumatic, PERRLA, Mucous membr. moist/pink, EOMI, Sclerae nonicteric Neck: Supple Respiratory: SpO2 99 % on 2 L nasal cannula. Normal air movement, Diminished, but clear to auscultation bilaterally Cardiovascular: Regular rate/rhythm, Normal S1 S2, No gallops, No rubs, No murmurs, No edema Gastrointestinal: Normal bowel sounds, Soft and benign, Non-distended, No tenderness, No rebound, No guarding Musculoskeletal: No clubbing Integumentary: No rashes Neurological: Normal speech, Cranial nerves 3-12 intact, Normal affect Vital Signs/Physical Exam: Temp Pulse Resp BP Pulse Ox 97.4 F 89 16 135/76 100 05/11/22 08:00 05/11/22 08:00 05/11/22 08:00 05/11/22 08:00 05/11/22 08:00 Laboratory Data at Discharge: WBC 8.40 K/uL (4.3-10.9) 05/10/22 21:45 Hgb 13.0 g/dL (13.6-17.9) L 05/10/22 21:45 Hct 38.8 % (39.6-49.0) L 05/10/22 21:45 Plt Count 165 K/uL (152-406) 05/10/22 21:45 PT 15.4 SECONDS (9.5-12.5) H 05/07/22 07:43 INR 1.40 05/07/22 07:43 Sodium 135 mmol/L (136-145) L 05/11/22 04:29 Potassium 4.3 mmol/L (3.5-5.1) 05/11/22 04:29 BUN 46 mg/dL (7-18) H 05/11/22 04:29 Creatinine 1.43 mg/dL (0.55-1.3) H 05/11/22 04:29 Glucose 104 mg/dL (74-106) 05/11/22 04:29 Magnesium 2.3 mg/dL (1.8-2.4) 05/07/22 07:43 Total Bilirubin 2.2 mg/dL (0.2-1.0) H 05/07/22 07:43 AST 26 U/L (15-37) 05/07/22 07:43 ALT 22 U/L (12-78) 05/07/22 07:43 Alkaline Phosphatase 53 U/L (45-117) 05/07/22 07:43 Home Medications: Clopidogrel Bisulfate [Plavix*] 75 mg PO DAILY tablet 01/24/20 Apixaban [Eliquis *] 2.5 mg PO BID 09/20/20 Simvastatin 40 mg PO BEDTIME 09/20/20 traMADol HCL [Ultram*] 50 mg PO TID PRN 09/20/20 Docusate [Colace Cap*] 2 tab PO BID PRN 01/09/21 carvediloL [Coreg*] 12.5 mg PO BID 6AM 6PM #60 tab 02/01/21 Gabapentin [Neurontin*] 100 mg PO TID 01/02/22 Furosemide [Lasix*] 40 mg PO SEECOM 05/07/22 Benzonatate [Tessalon Perle] 100 mg PO TID PRN 7 Days #20 cap 05/11/22 Cefdinir [Cefdinir*] 300 mg PO BID 5 Days #10 cap 05/11/22 Doxycycline Monohydrate 100 mg PO BID 5 Days #10 tab 05/11/22 New Medications: Cefdinir [Cefdinir*] 300 mg PO BID 5 Days #10 cap Doxycycline Monohydrate 100 mg PO BID 5 Days #10 tab Benzonatate [Tessalon Perle] 100 mg PO TID PRN 7 Days #20 cap PRN Reason: Cough Physician Discharge Instructions: 1. Please schedule a follow-up appointment with your PCP (Dr. Zuñiga) in 3-5 days - Please schedule a repeat chest x-ray in 2-3 weeks to make sure your pneumonia has fully healed 2. Please keep your scheduled appointment with Pulmonary Medicine (Dr. Alford) on 05/16/2022 Diet: Regular Activity: Ad tamiko Followup: Luther Alford MD [ACTIVE - CAN ADMIT] - Rell Zuñiga MD [Primary Care Provider] - Time spent managing pt's care (in minutes): 25
[2022-05-11 09:59] VITALS: O2SAT 99
== END 2022-05-11 12:08 | disposition home or self-care (01) | DRG 871 ==
LOC: ER 07:20 → ERHOLD 10:01 → 4TH 20:26
PROVIDERS: ADMIT Internal Medicine; ATTEND Internal Medicine
DX: A41.9 Sepsis, unspecified organism (principal); I50.23 Acute on chronic systolic (congestive) heart failure; J18.9 Pneumonia, unspecified organism; J96.01 Acute respiratory failure with hypoxia; I13.0 Hypertensive heart and chronic kidney disease with heart failure and stage 1 through stage 4 chronic kidney disease, or unspecified chronic kidney disease; I48.20 Chronic atrial fibrillation, unspecified; N17.9 Acute kidney failure, unspecified; N18.30 Chronic kidney disease, stage 3 unspecified; D63.1 Anemia in chronic kidney disease; J43.9 Emphysema, unspecified; E78.5 Hyperlipidemia, unspecified; G62.9 Polyneuropathy, unspecified; I73.9 Peripheral vascular disease, unspecified; I25.10 Atherosclerotic heart disease of native coronary artery without angina pectoris; Z95.5 Presence of coronary angioplasty implant and graft; Z86.73 Personal history of transient ischemic attack (TIA), and cerebral infarction without residual deficits; Z86.16 Personal history of COVID-19; Z79.01 Long term (current) use of anticoagulants; Z79.02 Long term (current) use of antithrombotics/antiplatelets; Z79.899 Other long term (current) drug therapy; Z87.891 Personal history of nicotine dependence; Z28.310 Unvaccinated for COVID-19; Z20.822 Contact with and (suspected) exposure to COVID-19
CPT/HCPCS: 36415; 71045; 71275; 80048; 80076; 81001; 83605; 83735; 83880; 84145; 84484; 85025; 85379; 85610; 87040; 87804; 93005; 94010; 96365; 96375; 97116; 97161; 97530; 99285; J0456; J0692; J1644; J1940; J2920; J7050; Q9967; U0003

== ENCOUNTER → 2022-06-02 | Emergency (ER) | payer OTHER ==
[~2022-06-02] MED LIST: FAMOTIDINE 20 MG/2 ML VIAL IV ONE; FUROSEMIDE 20 MG/ 2ML VIAL ONE; IPRATROPIUM BROM 0.5MG/2.5ML ONE; LEVALBUTEROL 1.25 MG/3 ML NEB ONE; METHYLPREDNISOLONE 125 MG INJ ONE; NA CHLORIDE 0.9% 1,000 ML ONE
--- OUTSIDE RECORDS SUMMARY | 2022-06-02 07:07 | XMS REPORT | Continuity of Care Document ---
:1935 Author Organization [facility] t Address [address] [place] [address] [address] [place] [address] Care Team Providers Name Role Phone Rell Zuñiga Primary Care Physician Therapy, Adc Covid Infusion Attending Clinician Unavailable Felipa Gill MD Attending Clinician FELIPA GILL Attending Clinician Unavailable Niyah Bowie RN Attending Clinician Unavailable Only, Ang Db Test Attending Clinician Unavailable Audrey Solorzano Attending Clinician AUDREY FLORENCE Attending Clinician Unavailable Doctor Unassigned, [place] Attending Clinician Unavailable Janusz Matos MD Attending Clinician 1, Adc Lab Attending Clinician Unavailable Janusz Matos MD Admitting Clinician Payers Payer Name Policy Type Policy Number Effective Date Expiration Date S ource Problems Condition Condition Condition Status Onset Resolution Last Treating Co mments Source Name Details Category Date Date Treatment Clinician Date No known No known Disease Unive rs active active ity of problems problems [facility] Allergies, Adverse Reactions, Alerts Allergy Allergy Status Severity Reaction(s) Onset Inactive Treating Comm ents Source Name Type Date Date Clinician NO KNOWN Drug Active Univers ALLERGIE Class ity of S [facility] Social History Social Habit Start Date Stop Date Quantity Comments Source Exposure to 2021-12-21 2021-12-31 Not sure [facility] SARS-CoV-2 (event) 00:00:00 13:06:00 Medica l Branch Tobacco use and 2019-03-01 2019-03-01 Never used [facility] [place] exposure 00:00:00 00:00:00 Medical Branch Sex Ass[birth year] At [birth year] JOVITA Moreno 00:00:00 [facility]:00 [facility] Smoking Status Start Date Stop Date Source Former smoker 2019-03-01 00:00:00 2019-03-01 00:00:00 [facility] Branch Medications Ordered Filled Start Stop Current Ordering Indication Dosage Frequency Signature Comments Components Source Medication Medication Date Date Medication? Clinician (SIG) Name Name aspirin 81 2019- Yes 81mg Take 81 mg U nivers mg chewable 9-09 by mouth ity of tablet 16:02: daily. [place] [address] Medical Branch simvastatin 2018- Yes 40mg Take 40 mg Univers 40 mg 9-09 by mouth ity of tablet 16:02: daily. [place] [address] Medical Branch carvedilol 2018- Yes 25mg Take 25 mg U nivers 25 mg 9-09 by mouth 2 ity of tablet 16:02: (two) [place] [address] times Medical daily with Branch meals. traMADol 50 2018- Yes 50mg Take 50 mg Univers mg tablet 9-09 by mouth 2 ity of 16:02: (two) [place] [address] times Medical daily. Branch gabapentin Yes 100mg Take 100 Un tameka 100 mg 9-09 mg by ity of capsule 16:02: mouth at [place] [address] bedtime. Medical Branch clopidogrel 2018-0 Yes 75mg Take 75 mg Univers 75 mg 9-09 by mouth ity of tablet 16:02: daily. [place] [address] Medical Branch losartan 2018-0 Yes 100mg Take 100 Univ ers 100 mg 9-09 mg by ity of tablet 16:02: mouth [place] [address] daily. Medical Branch aspirin 81 2019-0 Yes 81mg Take 81 mg U nivers mg chewable 9-09 by mouth ity of tablet 16:02: daily. [place] [address] Medical Branch simvastatin 2018-0 Yes 40mg Take 40 mg Univers 40 mg 9-09 by mouth ity of tablet 16:02: daily. [place] [address] Medical Branch carvedilol 2019-0 Yes 25mg Take 25 mg U nivers 25 mg 9-09 by mouth 2 ity of tablet 16:02: (two) [place] [address] times Medical daily with Branch meals. traMADol 50 2018- Yes 50mg Take 50 mg Univers mg tablet 9-09 by mouth 2 ity of 16:02: (two) [place] [address] times Medical daily. Branch gabapentin 2019-0 Yes 100mg Take 100 Un tameka 100 mg 9-09 mg by ity of capsule 16:02: mouth at [place] [address] bedtime. Medical Branch clopidogrel 2019-0 Yes 75mg Take 75 mg Univers 75 mg 9-09 by mouth ity of tablet 16:02: daily. [place] [address] Medical Branch losartan 2019-0 Yes 100mg Take 100 Univ ers 100 mg 9-09 mg by ity of tablet 16:02: mouth [place] [address] daily. Medical Branch aspirin 81 2019-0 Yes 81mg Take 81 mg U nivers mg chewable 9-09 by mouth ity of tablet 16:02: daily. [place] [address] Medical Branch simvastatin 2019-0 Yes 40mg Take 40 mg Univers 40 mg 9-09 by mouth ity of tablet 16:02: daily. [place] [address] Medical Branch carvedilol 2019-0 Yes 25mg Take 25 mg U nivers 25 mg 9-09 by mouth 2 ity of tablet 16:02: (two) [place] [address] times Medical daily with Branch meals. traMADol 50 2019-0 Yes 50mg Take 50 mg Univers mg tablet 9-09 by mouth 2 ity of 16:02: (two) [place] [address] times Medical daily. Branch gabapentin 2019-0 Yes 100mg Take 100 Un tameka 100 mg 9-09 mg by ity of capsule 16:02: mouth at [place] [address] bedtime. Medical Branch clopidogrel 2019-0 Yes 75mg Take 75 mg Univers 75 mg 9-09 by mouth ity of tablet 16:02: daily. [place] [address] Medical Branch losartan 2019-0 Yes 100mg Take 100 Univ ers 100 mg 9-09 mg by ity of tablet 16:02: mouth [place] [address] daily. Medical Branch aspirin 81 2019-0 Yes 81mg Take 81 mg U nivers mg chewable 9-09 by mouth ity of tablet 16:02: daily. [place] [address] Medical Branch simvastatin 2019-0 Yes 40mg Take 40 mg Univers 40 mg 9-09 by mouth ity of tablet 16:02: daily. [place] [address] Medical Branch carvedilol 2019-0 Yes 25mg Take 25 mg U nivers 25 mg 9-09 by mouth 2 ity of tablet 16:02: (two) [place] [address] times Medical daily with Branch meals. traMADol 50 2019-0 Yes 50mg Take 50 mg Univers mg tablet 9-09 by mouth 2 ity of 16:02: (two) [place] [address] times Medical daily. Branch gabapentin 2019-0 Yes 100mg Take 100 Un tameka 100 mg 9-09 mg by ity of capsule 16:02: mouth at [place] [address] bedtime. Medical Branch clopidogrel 2019-0 Yes 75mg Take 75 mg Univers 75 mg 9-09 by mouth ity of tablet 16:02: daily. [place] [address] Medical Branch losartan 2019-0 Yes 100mg Take 100 Univ ers 100 mg 9-09 mg by ity of tablet 16:02: mouth [place] [address] daily. Medical Branch Immunizations Ordered Filled Immunization Date Status Comments Sourc e Immunization Name Name MICHELLE 2022-01-01 Completed University o f 00:00:[address] [facility] Vital Signs Vital Name Observation Time Observation Value Comments Source Systolic blood 2022-01-01 22:08:00 142 mm[Hg] Univer sity of pressure [facility] Diastolic blood 2022-01-01 22:08:00 71 mm[Hg] Unive rsity of [facility] Heart rate 2022-01-01 22:08:00 88 /min [facility] Body temperature 2022-01-01 22:08:00 36.89 [facility] Respiratory rate 2022-01-01 22:08:00 19 /min [facility] Oxygen saturation in 2022-01-01 22:08:00 93 /min [facility] Arterial blood by [facility] Pulse oximetry [place] Body height 2022-01-01 21:01:00 180.3 cm [facility] Body weight 2022-01-01 21:01:00 81.647 kg [facility] BMI 2022-01-01 21:01:00 25.10 kg/m2 [facility] Procedures Procedure Date / Time Performed Performing Clinician Sour e CONSENT/REFUSAL FOR 2021-12-31 18:08:39 Doctor Unassigned, No [facility] DIAGNOSIS AND Name Medical [place] TREATMENT ASSIGNMENT OF BENEFITS 2021-12-31 18:08:28 Doctor Unassigned, No [facility] Encounters Start End Encounter Admission Attending Care Care Encounter Source Date/Time Date/Time Type Type Clinicians Facility Department ID 2022-01-01 2022-01-01 Nurse Therapy, Adc Covid Infusion [facility] [id number] Univers 16:00:00 17:00:00 Visit Bridget Felipa Contreras TIFFANYLUISA [id number] ity [place] [id number] [facility] [address] [place] 2022-01-01 2022-01-01 Outpatient R BRIDGET [facility] [id number] Univers 16:00:00 16:00:00 FELIPA ity of [facility] 2022-01-01 2022-01-01 Letter Niyah Bowie [id number] Univers 00:00:00 00:00:00 (Out) AMELIA [id number] it y of HOSPITAL 4.2.7.2.686 [place] [id number] [facility] 019 [place] 2021-12-31 2021-12-31 Laboratory Only, Ang Db Test [facility] [id number] Univers 13:00:00 13:15:00 Only Ludivina, [facility] [id number] ity of [place] 4.2.7.2.686 [place] MONSTER?BLEA [id number] [address] MEDICAL OFFICE BUILDING 2021-12-31 2021-12-31 Outpatient R LUDIVINA [facility] [id number] Univers 13:00:00 13:00:00 AUDREY hully o f [facility] 2021-12-31 2021-12-31 Orders Doctor RAMOS [id number] [id number] Univers 00:00:00 00:00:00 Only Unassigned, AMELIA [id number] ity of [place] [facility] 4.2.7.2.686 [place] [id number] [facility] 009 Branch 2019-08-26 2019-08-26 Orders Doctor RAMOS [id number] 00:00:00 00:00:00 Only Unassigned, AMELIA 350.1.13.10 [facility] HOSP[facility] 4.2.7.2.686 [id number] 2019-03-17 2019-03-17 [facility] [id number] 11:26:00 14:59:00 Encounter Janusz Logan 350.1.13.10 [place] 4.2.7.2.686 [facility] [id number] [place] [address] 2019-03-03 2019-03-03 [facility] [id number] 09:37:00 13:20:00 Encounter Janusz Logan 350.1.13.10 [place] 4.2.7.2.686 [facility] [id number] [place] [address] 2019-03-03 2019-03-03 Orders Doctor RICHARD [id number] 00:00:00 00:00:00 Only Unassigned, AMELIA 350.1.13.10 [place] [id number] 2019-02-24 2019-02-24 Retail Support Associate 1, Adc Lab [facility] [id number] 16:37:01 16:54:18 Visit Doreen 350.1.13.10 [place] 4.2.7.2.686 [place] [id number] Results Test Description Test Time Test Comments Results Result Comments Source SARS-COV2/RT-PCR ([facility]) 2020-01-23 16:45:00 Test Item Value Reference Range Interpretation Comme nts SARS-COV2/RT-PCR (test code = 0937246) Negative Not Detected, N egative SARS-COV-2 PERFORMING LAB (test code = 0819535) [facility] Negative result for this test determines that [...] of the Act.Fact Sheet for Healthcare Prov iders:https://www.rapt.fm/sites/default/files/product/documents/Fact_Sheet_HC _Zyfnptmgr_Tvec_LVWF-EjQ-1.pdfFact Sheet for Healthcare Patients:https://www.rapt.fm/sites/default/files/product/docume nts/Lmvp_Omlhp_Kuqgsrtk_Utpz_YKVF-PkP-2.pdfPerforming Laboratory:[facility] [place] [address]
[2022-06-02 07:58] LABS: Urine Blood Trace-intact (Negative); Urine Glucose Negative (Negative); Urine Protein 1+ (Negative); Urine pH 6.5 (5.0-7.0)
[2022-06-02 08:01] LABS: Hematocrit 41.9 % (39.6-49.0); Lymphocytes % 15.6 % (15.3-44.8); MCV 93.6 fL (80-100); MPV 7.9 fL (7.6-11.3); RBC Red Blood Cell Count 4.48 M/uL (4.33-5.43)
[2022-06-02 08:17] LABS: SARS-CoV-2 Antigen Rapid Res Negative (Negative)
[2022-06-02 08:18] LABS: Protime INR 1.31
[2022-06-02 08:21] LABS: Albumin 3.6 g/dL (3.4-5.0); Bilirubin Direct 0.4 mg/dL (0-0.2); Bilirubin Total 1.3 mg/dL (0.2-1.0); Magnesium 2.5 mg/dL (1.8-2.4); Potassium 4.2 mmol/L (3.5-5.1); Protein, Total 7.4 g/dL (6.4-8.2); Troponin High Sensitivity 58.1 pg/mL (<58.9)
--- NOTE | 2022-06-02 08:52 | RAD REPORT ---
EXAM DESCRIPTION: RAD - Chest Single View - 06/02/2022 8:31 am CLINICAL HISTORY: COUGH Chest pain. COMPARISON: Chest Pa And Lat (2 Views) dated 05/22/2022; Chest Single View dated 05/11/2022; Chest Si ngle View dated 05/07/2022; Chest Single View dated 01/02/2022 FINDINGS: Portable technique limits examination quality. Moderate airspace opacity is present in the right lung base medially. The heart is significantly enla rged. The heart is normal in size. No displaced fractures.Aortic atherosclerosis. IMPRESSION: Moderate airspace opacity medial right lung base likely represents pneumonia.
--- NOTE | 2022-06-02 09:50 | ER ---
Nurse's Notes [facility] Name: Vitor Mg Age: 87 yrs Sex: Male : 1935 Arrival Date: 06/02/2022 Time: 07:07 Bed 20 Private MD: Diagnosis: Pneumonia due to other specified bacteria-right lower lobe;Cardiomegaly;Dyspnea;Unspecified kidney failure-chronic ;Unspecified combined systolic (congestive) and diastolic (congestive) heart failure;Persistent atrial fibrillation;MCC (current) use of anticoagulants Presentation: 06/02 07:10 Chief complaint: EMS states: Pt from home, c/o SOB when he ambulated to restroom this morning after taking lasix, uses home oxygen at 3L, was not on oxygen when ambulating to restroom, VSS w/ Spo2 98% on 3L. Coronavirus screen: Vaccine status: Patient reports being unvaccinated. Ebola Screen: No symptoms or risks identified at this time. Initial Sepsis Screen: Does the patient meet any 2 criteria? No. Patient's initial sepsis screen is negative. Does the patient have a suspected source of infection? No. Patient's initial sepsis screen is negative. Risk Assessment: Do you want to hurt yourself or someone else? Patient reports no desire to harm self or others. Onset of symptoms was June 02, 2022. 07:10 Method Of Arrival: EMS: [facility] 07:10 Acuity: GLENDY 3 ph Triage Assessment: 07:16 General: Appears in no apparent distress. Behavior is calm, cooperative, appropriate ph for age, Denies fever. Pain: Denies pain. Neuro: Level of Consciousness is awake, alert, obeys commands, Oriented to person, place, time, situation. Cardiovascular: Reports shortness of breath, Denies chest pain, Capillary refill < 3 seconds in bilateral fingers Patient's skin is warm and dry. Respiratory: Reports shortness of breath at rest on exertion Airway is patent Respiratory effort is even, unlabored, Respiratory pattern is regular, symmetrical. GI: No signs and/or symptoms were reported involving the gastrointestinal system. Derm: Skin is fragile, is thin, Skin is pink, warm \T\ dry. Musculoskeletal: Circulation, motion, and sensation intact. Range of motion: intact in all extremities. Historical: - Allergies: 07:15 No Known Allergies; ph - Home Meds: 07:21 furosemide 40 mg Oral tab 1 tab once daily [Active]; Eliquis 2.5 mg Oral tab 1 tab 2 ph times per day [Active]; tramadol 50 mg Oral tab 1 tab three times a day [Active]; carvedilol 12.5 mg Oral tab 1 tab 2 times per day [Active]; Neurontin 100 mg Oral cap 1 cap 3 times per day [Active]; docusate sodium 100 mg Oral cap [Active]; simvastatin 40 mg Oral tab 1 tab daily [Active]; Plavix 75 mg Oral tab 1 tab once daily [Active]; - PMHx: 07:15 cancer, throat; CAD; Chronic pain; CVA; Hypertension; ph - PSHx: 07:15 Stented artery; ph - Immunization history:: Adult Immunizations unknown. - Social history:: Smoking status: Patient/guardian denies using tobacco, but has a distant history of tobacco abuse. - Family history:: not pertinent. Screenin:17 Abuse screen: Denies threats or abuse. Denies injuries from another. Nutritional ph screening: No deficits noted. Tuberculosis screening: No symptoms or risk factors identified. Fall Risk None identified. Assessment: 10:29 Reassessment: Patient appears in no apparent distress at this time. Patient and/or ph family updated on plan of care and expected duration. Pain level reassessed. Patient is alert, oriented x 3, equal unlabored respirations, skin warm/dry/pink. 10:30 Reassessment: Dr Alford at bedside to speak w/ pt and family, states that he plans to ph d/c pt home, will increase home lasix to 2 pills daily and have him follow up in his office for pulmonary issues. Vital Signs: 07:10 BP 124 / 75; Pulse 85; Resp 18; Temp 97.0; Pulse Ox 98% 3 lpm ; Weight 75.75 kg; Height ph 5 ft. 11 in. (180.34 cm); 10:31 BP 140 / 83; Pulse 78; Resp 20; Pulse Ox 97% on 3 lpm NC; ph 11:45 BP 155 / 90; Pulse 93; Resp 20; Pulse Ox 98% on R/A; eh3 07:10 Body Mass Index 23.29 (75.75 kg, 180.34 cm) ph ED Course: 07:07 Patient arrived in ED. eb 07:10 Marlin Hensley, RN is Primary Nurse. ph 07:15 Triage completed. ph 07:17 Arm band placed on Patient placed in an exam room, on a stretcher, on oxygen. ph 07:17 Patient has correct armband on for positive identification. Bed in low position. Call ph light in reach. Side rails up X2. Client placed on continuous cardiac and pulse oximetry monitoring. NIBP monitoring applied. Door closed. Noise minimized. Warm blanket given. 07:21 Chente Clatyon MD is Attending Physician. verónica 07:30 EKG done, by ED staff. tm3 07:51 Initial lab(s) drawn, by me, sent to lab. Inserted saline lock: 22 gauge in right tm3 antecubital area, using aseptic technique. 07:51 COVID swab sent to lab. tm3 08:00 Urine collected: clean catch specimen, clear. tm3 08:33 XRAY Chest (1 view) In Process Unspecified. EDMS 09:40 Luther Alford MD is Hospitalizing Provider. verónica 10:19 Primary Nurse role handed off by Marlin Hensley, ALLEY ph 10:20 Marlin Hensley RN is Primary Nurse. ph 12:47 No provider procedures requiring assistance completed. Patient admitted, IV remains in ph place. Administered Medications: 10:49 Drug: SOLU-Medrol (methylPrednisoLONE) 125 mg Route: IVP; Site: right antecubital; ph 11:15 Follow up: Response: No adverse reaction ph 10:49 Drug: Xopenex (levalbuterol) 1.25 mg Route: Inhalation; ph 11:30 Follow up: Response: No adverse reaction ph 10:49 Drug: AtroVENT (ipratropium) Aerosol 0.5 mg Route: Inhalation; ph 11:00 Follow up: Response: No adverse reaction ph 10:49 Drug: Pepcid (famotidine) 20 mg Route: IVP; Site: right antecubital; ph 11:15 Follow up: Response: No adverse reaction ph 10:49 Not Given (Physician Discretion): NS 0.9% 1000 ml IV at 75 ml/hr continuous ph 10:49 Drug: Lasix (furosemide) 20 mg Route: IVP; Site: right antecubital; ph 11:30 Follow up: Response: No adverse reaction ph Medication: 07:17 VIS not applicable for this client. ph Outcome: 09:49 Decision to Hospitalize by Provider. [facility] 12:47 Patient left the ED. ph 19:39 Admitted to ER Hold. Please see [facility] for further documentation. ph 19:39 Condition: good 19:39 Instructed on the need for admit. Signatures: Dispatcher [employer] EDMS Kamran Purvis tm3 Chente Clayton MD MD cha Hall, Patricia, RN RN Shannon Thomas Erin, RN RN 3
--- NOTE | 2022-06-02 09:50 | EDPHYS ---
Physician Documentation [facility] Name: Vitor Mg Age: 87 yrs Sex: Male : 1935 Arrival Date: 06/02/2022 Time: 07:07 Bed 20 Private MD: ED Physician Chente Clayton HPI: 06/02 09:32 This 87 yrs old Male presents to ER via EMS with complaints of dyspnea. verónica 09:32 The patient has shortness of breath with light activity. Onset: The symptoms/episode verónica began/occurred 2 day(s) ago. Duration: The symptoms are continuous, and are steadily getting worse. The patient's shortness of breath is aggravated by exertion, light activity, supine position, is alleviated by rest, sitting up, application of supplemental oxygen. The patient or guardian reports cough, that is intermittent, difficulty breathing. Modifying factors: The symptoms are alleviated by elevating head, remaining still, the symptoms are aggravated by activity, lying flat, talking. Associated signs and symptoms: The patient has no apparent associated signs or symptoms. Severity of symptoms: At their worst the symptoms were moderate in the emergency department the symptoms have improved moderately. Historical: - Allergies: 07:15 No Known Allergies; ph - Home Meds: 07:21 furosemide 40 mg Oral tab 1 tab once daily [Active]; Eliquis 2.5 mg Oral tab 1 tab 2 ph times per day [Active]; tramadol 50 mg Oral tab 1 tab three times a day [Active]; carvedilol 12.5 mg Oral tab 1 tab 2 times per day [Active]; Neurontin 100 mg Oral cap 1 cap 3 times per day [Active]; docusate sodium 100 mg Oral cap [Active]; simvastatin 40 mg Oral tab 1 tab daily [Active]; Plavix 75 mg Oral tab 1 tab once daily [Active]; - PMHx: 07:15 cancer, throat; CAD; Chronic pain; CVA; Hypertension; ph - PSHx: 07:15 Stented artery; ph - Immunization history:: Adult Immunizations unknown. - Social history:: Smoking status: Patient/guardian denies using tobacco, but has a distant history of tobacco abuse. - Family history:: not pertinent. ROS: 09:32 Constitutional: Negative for fever, chills, and weight loss, Eyes: Negative for injury, verónica pain, redness, and discharge, ENT: Negative for injury, pain, and discharge, Neck: Negative for injury, pain, and swelling, Abdomen/GI: Negative for abdominal pain, nausea, vomiting, diarrhea, and constipation, Back: Negative for injury and pain, : Negative for injury, bleeding, discharge, and swelling, MS/Extremity: Negative for injury and deformity, Skin: Negative for injury, rash, and discoloration, Neuro: Negative for headache, weakness, numbness, tingling, and seizure, Psych: Negative for depression, anxiety, suicide ideation, homicidal ideation, and hallucinations, Allergy/Immunology: Negative for hives, rash, and allergies, Endocrine: Negative for neck swelling, polydipsia, polyuria, polyphagia, and marked weight changes, Hematologic/Lymphatic: Negative for swollen nodes, abnormal bleeding, and unusual bruising. 09:32 Cardiovascular: Positive for chest pain, with cough, orthopnea, palpitations. 09:32 Respiratory: Positive for cough, dyspnea on exertion, shortness of breath, at rest. Exam: 09:32 Constitutional: This is a well developed, well nourished patient who is awake, alert, verónica and in no acute distress. Head/Face: Normocephalic, atraumatic. Eyes: Pupils equal round and reactive to light, extra-ocular motions intact. Lids and lashes normal. Conjunctiva and sclera are non-icteric and not injected. Cornea within normal limits. Periorbital areas with no swelling, redness, or edema. ENT: Nares patent. No nasal discharge, no septal abnormalities noted. Tympanic membranes are normal and external auditory canals are clear. Oropharynx with no redness, swelling, or masses, exudates, or evidence of obstruction, uvula midline. Mucous membranes moist. Neck: Trachea midline, no thyromegaly or masses palpated, and no cervical lymphadenopathy. Supple, full range of motion without nuchal rigidity, or vertebral point tenderness. No Meningismus. Chest/axilla: Normal chest wall appearance and motion. Nontender with no deformity. No lesions are appreciated. Cardiovascular: Regular rate and rhythm with a normal S1 and S2. No gallops, murmurs, or rubs. Normal PMI, no JVD. No pulse deficits. Abdomen/GI: Soft, non-tender, with normal bowel sounds. No distension or tympany. No guarding or rebound. No evidence of tenderness throughout. Back: No spinal tenderness. No costovertebral tenderness. Full range of motion. Male : Normal genitalia with no discharge or lesions. Skin: Warm, dry with normal turgor. Normal color with no rashes, no lesions, and no evidence of cellulitis. MS/ Extremity: Pulses equal, no cyanosis. Neurovascular intact. Full, normal range of motion. Neuro: Awake and alert, GCS 15, oriented to person, place, time, and situation. Cranial nerves II-XII grossly intact. Motor strength 5/5 in all extremities. Sensory grossly intact. Cerebellar exam normal. Normal gait. Psych: Awake, alert, with orientation to person, place and time. Behavior, mood, and affect are within normal limits. 09:32 ECG was reviewed by the Attending Physician. Vital Signs: 07:10 BP 124 / 75; Pulse 85; Resp 18; Temp 97.0; Pulse Ox 98% 3 lpm ; Weight 75.75 kg; Height ph 5 ft. 11 in. (180.34 cm); 10:31 BP 140 / 83; Pulse 78; Resp 20; Pulse Ox 97% on 3 lpm NC; ph 11:45 BP 155 / 90; Pulse 93; Resp 20; Pulse Ox 98% on R/A; eh3 07:10 Body Mass Index 23.29 (75.75 kg, 180.34 cm) ph MDM: 07:21 Patient medically screened. verónica 09:37 Differential diagnosis: Anemia asthma, Bronchitis CHF exacerbation, Chronic Obstructive verónica Pulmonary Disease bronchitis, flu, URI, pneumonia, pulmonary edema, Pulmonary Embolism reactive airway disease, Sepsis Unstable Angina. Antibiotic administration: The patient is for pseudomonal infection, zosyn. The patient's Wells Deep Vein Thrombosis Score was calculated as follows: Total Score: 0-2 Pts- Low Risk. Differential Diagnosis: Bronchitis Influenza Upper Respiratory Infection Pharyngitis Asthma Exacerbation Viral Syndrome Pneumonia. The patient's pulmonary embolism risk score was calculated as follows: Total Score: 0-2 points. This patient was found to be at low risk for a pulmonary embolism by using the Well's assessment criteria. Immunization status: Pneumococcal vaccine: Influenza vaccine: Data reviewed: vital signs, nurses notes, lab test result(s), EKG, radiologic studies, plain films. Data interpreted: security monitor: rate is 85 beats/min, rhythm is atrial fibrillation, Pulse oximetry: on 2L(s) per nasal canula, is 98 %. Test interpretation: by ED physician or midlevel provider: ECG, plain radiologic studies. Counseling: I had a detailed discussion with the patient and/or guardian regarding: the historical points, exam findings, and any diagnostic results supporting the discharge/admit diagnosis, lab results, radiology results, the need for further work-up and treatment in the hospital. 06/02 07:22 Order name: Basic Metabolic Panel; Complete Time: 08:30 [facility] 06/02 07:22 Order name: CBC with Diff; Complete Time: 08:30 [facility] 06/02 07:22 Order name: LFT's; Complete Time: 08:30 [facility] 06/02 07:22 Order name: Magnesium; Complete Time: 08:30 [facility] 06/02 07:22 Order name: NT PRO-BNP; Complete Time: 08:30 [facility] 06/02 07:22 Order name: PT-INR; Complete Time: 08:30 [facility] 06/02 07:22 Order name: Troponin HS; Complete Time: 08:30 [facility] 06/02 07:22 Order name: XRAY Chest (1 view); Complete Time: 09:20 [facility] 06/02 07:23 Order name: SARS RAPID; Complete Time: 08:30 [facility] 06/02 07:58 Order name: Urine Dipstick-Ancillary; Complete Time: 08:30 [facility] 06/02 07:22 Order name: Cardiac monitoring; Complete Time: 08:29 [facility] 06/02 07:22 Order name: EKG - Nurse/Tech; Complete Time: 08:29 [facility] 06/02 07:22 Order name: IV Saline Lock; Complete Time: 08:29 [facility] 06/02 07:22 Order name: Labs collected and sent; Complete Time: 08:29 [facility] 06/02 07:22 Order name: O2 Per Protocol; Complete Time: 08:29 [facility] 06/02 07:22 Order name: O2 Sat Monitoring; Complete Time: 08: [facility] 06/02 10:48 Order name: CONS Physician Consult EDMS EC:32 Rate is 87 beats/min. Rhythm is irregularly irregular. QRS [place] is Normal. MD interval verónica is normal. QRS interval is prolonged. QT interval is normal. No Q waves. T waves are Normal. No ST changes noted. Clinical impression: Atrial Fibrillation. Interpreted by me. Reviewed by me. Administered Medications: 10:49 Drug: SOLU-Medrol (methylPrednisoLONE) 125 mg Route: IVP; Site: right antecubital; ph 11:15 Follow up: Response: No adverse reaction ph 10:49 Drug: Xopenex (levalbuterol) 1.25 mg Route: Inhalation; ph 11:30 Follow up: Response: No adverse reaction ph 10:49 Drug: AtroVENT (ipratropium) Aerosol 0.5 mg Route: Inhalation; ph 11:00 Follow up: Response: No adverse reaction ph 10:49 Drug: Pepcid (famotidine) 20 mg Route: IVP; Site: right antecubital; ph 11:15 Follow up: Response: No adverse reaction ph 10:49 Not Given (Physician Discretion): NS 0.9% 1000 ml IV at 75 ml/hr continuous ph 10:49 Drug: Lasix (furosemide) 20 mg Route: IVP; Site: right antecubital; ph 11:30 Follow up: Response: No adverse reaction ph Disposition Summary: 06/02/22 09:49 Hospitalization Ordered Hospitalization Status: Inpatient Admission verónica Provider: Luther Alford cha Location: Telemetry/MedSurg (Inpatient) verónica Condition: Fair verónica Problem: new verónica Symptoms: have improved verónica Bed/Room Type: Standard verónica Room Assignment: verónica Diagnosis - Pneumonia due to other specified bacteria - right lower lobe verónica - Cardiomegaly verónica - Dyspnea verónica - Unspecified kidney failure - chronic verónica - Unspecified combined systolic (congestive) and diastolic (congestive) heart failure verónica - Persistent atrial fibrillation verónica - senior living (current) use of anticoagulants verónica Forms: - Medication Reconciliation Form verónica - SBAR form verónica Signatures: Dispatcher [employer] EDChente Nicholas MD MD cha Hall, Patricia, RN RN ph
--- NOTE | 2022-06-02 10:45 | P.CNS ---
Date of Consult: 06/02/22 Reason for Consult: Possible pneumonia Chief Complaint: Shortness of breath History of Present Illness: Patient is 87 years of age history of congestive heart failure he is at a history of COVID-pneumonia admitted with acute onset of shortness of breath he does have oxygen at home he is feeling fine now denies any fever chills cough phlegm x-ray was slightly abnormal some right-sided infiltrate have a history of congestive heart failure previous CAT scan did show a right-sided pleural effusion evidently has been exposed to some pigeon poop has been treated with antibiotics doxycycline recently was changed Allergies No Known Allergies Allergy (Verified 05/07/22 21:46) Home Medications: Clopidogrel Bisulfate [Plavix*] 75 mg PO DAILY tablet 01/24/20 Apixaban [Eliquis *] 2.5 mg PO BID 09/20/20 Simvastatin 40 mg PO BEDTIME 09/20/20 traMADol HCL [Ultram*] 50 mg PO TID PRN 09/20/20 Docusate [Colace Cap*] 2 tab PO BID PRN 01/09/21 carvediloL [Coreg*] 12.5 mg PO BID 6AM 6PM #60 tab 02/01/21 Gabapentin [Neurontin*] 100 mg PO TID 01/02/22 Benzonatate [Tessalon Perle*] 100 mg PO TID PRN 7 Days #20 cap 05/11/22 Furosemide [Lasix*] 80 mg PO SEECOM #30 tab 06/02/22 dexAMETHasone [Dexamethasone] 2 mg PO BID 10 Days #20 tab 06/02/22 levoFLOXacin [Levaquin*] 500 mg PO DAILY 7 Days #7 tab 06/02/22 - Past Medical/Surgical History Diabetic: No -: Hypertension -: Hyperlipidemia -: CAD -: Throat cancer status post radiation therapy -: Chronic pain -: CVA -: Peripheral vascular disease -: A. fib on chronic anticoagulation -: Multiple stents to the heart -: Stents to the lower extremity -: Stents to the carotid Psychosocial/ Personal History: Patient lives at home with daughter. - Social History Smoking Status: Unknown if ever smoked Alcohol use: No CD- Drugs: No Caffeine use: No Review of Systems 10-point ROS is otherwise unremarkable General: Weakness Respiratory: Shortness of Breath Physical Examination General: Alert, In no apparent distress, Oriented x3 Neck: Supple Respiratory: Clear to auscultation bilaterally, Diminished Cardiovascular: No edema, Regular rate/rhythm, Normal S1 S2 Gastrointestinal: Normal bowel sounds, Soft and benign Laboratory Data (last 24 hrs) 06/02/22 07:48: PT 14.4 H, INR 1.31 06/02/22 07:48: WBC 6.60, Hgb 14.0, Hct 41.9, Plt Count 141 L 06/02/22 07:48: Sodium 137, Potassium 4.2, BUN 30 H, Creatinine 1.42 H, Glucose 111 H, Magnesium 2.5 H, Total Bilirubin 1.3 H, AST 25, ALT 21, Alkaline Phosphat ase 59 - Problems (1) Congestive heart failure Current Visit: Yes Status: Acute Plan: Patient is 87 years of age with a history of congestive heart failure coronary artery disease peripheral vascular disease admitted with slight worsening of his shortness of breath no evidence of sepsis his white count is normal vital signs are all stable daughter at the bedside he is feeling a little better patient has oxygen at home discharged home on some levofloxacin and dexamethasone and to increase his Lasix to 80 mg once a day he used to take 40 twice a day and was decreased recently chronic baseline renal failure follow-up with me in 2 weeks
[2022-06-02 12:52] VITALS: TEMP 97
[2022-06-02 12:54] VITALS: BP 155/90; O2SAT 98
--- NOTE | 2022-06-03 15:31 | EKG ---
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: TM MEASUREMENT RESULTS: Intervals: Rate: 87 MO: QRSD: 168 QT: 432 QTc: 519 [place]: P: MO: QRS: 261 T: 125 INTERPRETIVE STATEMENTS: Atrial fibrillation with premature ventricular or aberrantly conducted complexes Right superior axis deviation Nonspecific intraventricular block Possible Inferior infarct, age undetermined Abnormal ECG Compared to ECG 05/10/2022 11:03:33 Ventricular premature complex(es) now present Right superior axis now present Left-axis deviation no longer present Myocardial infarct finding still present Electronically Signed On 06-03-22 15:28:54 [employer] SALES CLERK by Bossman Zuniga
== END | disposition home or self-care (01) ==
LOC: ER 07:04
DX: J15.8 Pneumonia due to other specified bacteria (principal); I13.0 Hypertensive heart and chronic kidney disease with heart failure and stage 1 through stage 4 chronic kidney disease, or unspecified chronic kidney disease; N18.9 Chronic kidney disease, unspecified; I50.40 Unspecified combined systolic (congestive) and diastolic (congestive) heart failure; N17.9 Acute kidney failure, unspecified; I48.19 Other persistent atrial fibrillation; Z79.01 Long term (current) use of anticoagulants; Z20.822 Contact with and (suspected) exposure to COVID-19; Z85.21 Personal history of malignant neoplasm of larynx
CPT/HCPCS: 93005; 85025; 80048; 36415; 83735; 85610; 80076; 81003; 84484; 83880; 71045; 96375; 96374; 99285; 87811; J1940; J7614; J7644; J7030; J2930

== ENCOUNTER 2022-06-25 15:40 | Inpatient (IN) | payer OTHER ==
--- OUTSIDE RECORDS SUMMARY | 2022-06-25 15:44 | XMS REPORT | Continuity of Care Document ---
:1935 Author Organization [facility] t Address [address] [place] [address] [address] [place] [address] Care Team Providers Name Role Phone Zara Rell Primary Care Physician Therapy, Adc Covid Infusion Attending Clinician Unavailable Felipa Gill MD Attending Clinician FELIPA GILL Attending Clinician Unavailable Niyah Bowie RN Attending Clinician Unavailable Only, Ang Db Test Attending Clinician Unavailable Audrey Solorzano Attending Clinician AUDREY FLORENCE Attending Clinician Unavailable Doctor Unassigned, [place] Attending Clinician Unavailable Janusz Matos MD Attending Clinician , Adc Lab Attending Clinician Unavailable Janusz Matos MD Admitting Clinician Payers Payer Name Policy Type Policy Number Effective Date Expiration Date S ource Problems Condition Condition Condition Status Onset Resolution Last Treating Co mments Source Name Details Category Date Date Treatment Clinician Date No known No known Disease Unive rs active active ity of problems problems [facility] Allergies, Adverse Reactions, Alerts Allergy Allergy Status Severity Reaction(s) Onset Inactive Treating Comm ents Source Name Type Date Date Clinician NO KNOWN Drug Active Univers ALLERGIE Class ity of S [facility] Social History Social Habit Start Date Stop Date Quantity Comments Source Exposure to 2021-12-21 2021-12-31 Not sure [facility] SARS-CoV-2 (event) 00:00:00 13:06:00 Medica l Branch Tobacco use and 2019-03-01 2019-03-01 Never used [facility] [place] exposure 00:00:00 00:00:00 Medical Branch Sex Ass[birth year] [facility] y of [place] 00:00:00 00:00:00 Medical Branch Smoking Status Start Date Stop Date Source Former smoker 2019-03-01 00:00:00 2019-03-01 00:00:00 [facility] Medical Branch Medications Ordered Filled Start Stop Current Ordering Indication Dosage Frequency Signature Comments Components Source Medication Medication Date Date Medication? Clinician (SIG) Name Name aspirin 81 2019-0 Yes 81mg Take 81 mg U nivers mg chewable 9-09 by mouth ity of tablet 16:02: daily. [place] [address] Medical Branch simvastatin 2019-0 Yes 40mg Take 40 mg Univers 40 mg 9-09 by mouth ity of tablet 16:02: daily. [place] [address] Medical Branch carvedilol 2018-0 Yes 25mg Take 25 mg U nivers 25 mg 9-09 by mouth 2 ity of tablet 16:02: (two) [address] Medical daily with Branch meals. traMADol 50 2018-0 Yes 50mg Take 50 mg Univers mg tablet 9-09 by mouth 2 ity of 16:02: (two) [place] [address] times Medical daily. Branch gabapentin 2018-0 Yes 100mg Take 100 Un tameka 100 mg 9-09 mg by ity of capsule 16:02: mouth at [place] [address] bedtime. Medical Branch clopidogrel 2018-0 Yes 75mg Take 75 mg Univers 75 mg 9-09 by mouth ity of tablet 16:02: daily. [place] [address] Medical Branch losartan 2019-0 Yes 100mg Take 100 Univ ers 100 mg 9-09 mg by ity of tablet 16:02: mouth [place] [address] daily. Medical Branch aspirin 81 2019-0 Yes 81mg Take 81 mg U nivers mg chewable 9-09 by mouth ity of tablet 16:02: daily. [place] [address] Medical Branch simvastatin 2019-0 Yes 40mg Take 40 mg Univers 40 mg 9-09 by mouth ity of tablet 16:02: daily. [place] [address] Medical Branch carvedilol 2019-0 Yes 25mg Take 25 mg U nivers 25 mg 9-09 by mouth 2 ity of tablet 16:02: (two) [place] [address] times Medical daily with Branch meals. traMADol 50 2019-0 Yes 50mg Take 50 mg Univers mg tablet 9-09 by mouth 2 ity of 16:02: (two) [place] [address] times Medical daily. Branch gabapentin 2019-0 Yes 100mg Take 100 Un tameka 100 mg 9-09 mg by ity of capsule 16:02: mouth at [place] [address] bedtime. Medical Branch clopidogrel 2019-0 Yes 75mg Take 75 mg Univers 75 mg 9-09 by mouth ity of tablet 16:02: daily. [place] [address] Medical Branch losartan 2019-0 Yes 100mg Take 100 Univ ers 100 mg 9-09 mg by ity of tablet 16:02: mouth [place] [address] daily. Medical Branch aspirin 81 2019-0 Yes 81mg Take 81 mg U nivers mg chewable 9-09 by mouth ity of tablet 16:02: daily. [place] [address] Medical Branch simvastatin 2019-0 Yes 40mg Take 40 mg Univers 40 mg 9-09 by mouth ity of tablet 16:02: daily. [place] [address] Medical Branch carvedilol 2019-0 Yes 25mg Take 25 mg U nivers 25 mg 9-09 by mouth 2 ity of tablet 16:02: (two) [place] [address] times Medical daily with Branch meals. traMADol 50 2019-0 Yes 50mg Take 50 mg Univers mg tablet 9-09 by mouth 2 ity of 16:02: (two) [place] [address] times Medical daily. Branch gabapentin 2019-0 Yes 100mg Take 100 Un tameka 100 mg 9-09 mg by ity of capsule 16:02: mouth at [place] [address] bedtime. Medical Branch clopidogrel 2019-0 Yes 75mg Take 75 mg Univers 75 mg 9-09 by mouth ity of tablet 16:02: daily. [place] [address] Medical Branch losartan 2019-0 Yes 100mg Take 100 Univ ers 100 mg 9-09 mg by ity of tablet 16:02: mouth [place] [address] daily. Medical Branch aspirin 81 2019-0 Yes 81mg Take 81 mg U nivers mg chewable 9-09 by mouth ity of tablet 16:02: daily. [place] [address] Medical Branch simvastatin 2019-0 Yes 40mg Take 40 mg Univers 40 mg 9-09 by mouth ity of tablet 16:02: daily. [place] [address] Medical Branch carvedilol 2019-0 Yes 25mg Take 25 mg U nivers 25 mg 9-09 by mouth 2 ity of tablet 16:02: (two) [place] [address] times Medical daily with Branch meals. traMADol 50 2019-0 Yes 50mg Take 50 mg Univers mg tablet 9-09 by mouth 2 ity of 16:02: (two) [place] [address] times Medical daily. Branch gabapentin 2019-0 Yes 100mg Take 100 Un tameka 100 mg 9-09 mg by ity of capsule 16:02: mouth at [place] [address] bedtime. Medical Branch clopidogrel 2019-0 Yes 75mg Take 75 mg Univers 75 mg 9-09 by mouth ity of tablet 16:02: daily. [place] [address] Medical Branch losartan 2019-0 Yes 100mg Take 100 Univ ers 100 mg 9-09 mg by ity of tablet 16:02: mouth [place] [address] daily. Medical Branch Immunizations Ordered Filled Immunization Date Status Comments Sourc e Immunization Name Name MICHELLE 2022-01-01 Completed University o f 00:00:00 [facility] Vital Signs Vital Name Observation Time Observation Value Comments Source Systolic blood 2022-01-01 22:08:00 142 mm[Hg] [facility] pressure [facility] Diastolic blood 2022-01-01 22:08:00 71 mm[Hg] [facility] Heart rate 2022-01-01 22:08:00 88 /min [facility] Body temperature 2022-01-01 22:08:00 36.89 [place] Respiratory rate 2022-01-01 22:08:00 19 /min [facility] Oxygen saturation in 2022-01-01 22:08:00 93 /min [facility] Arterial blood by [facility] Pulse oximetry [place] Body height 2022-01-01 21:01:00 180.3 cm [facility] Body weight 2022-01-01 21:01:00 81.647 kg [facility] BMI 2022-01-01 21:01:00 25.10 kg/m2 [facility] Procedures Procedure Date / Time Performed Performing Clinician Sour e CONSENT/REFUSAL FOR 2021-12-31 18:08:39 Doctor Unassigned, No [facility] DIAGNOSIS AND Name Medical [place] TREATMENT ASSIGNMENT OF BENEFITS 2021-12-31 18:08:28 Doctor Unassigned, No [facility] Encounters Start End Encounter Admission Attending Care Care Encounter Source Date/Time Date/Time Type Type Clinicians Facility Department ID 2022-01-01 2022-01-01 Nurse Therapy, Adc Covid Infusion [facility] [id number] Univers 16:00:00 17:00:00 Visit Bridget Felipa Contreras TIFFANYLUISA [id number] ity [place] [id number] [place] [id number] [place] 2022-01-01 2022-01-01 Outpatient R BRIDGET [facility] [id number] Univers 16:00:00 16:00:00 FELIPA ity of [facility] 2022-01-01 2022-01-01 Letter Niyah Bowie [id number] Univers 00:00:00 00:00:00 (Out) AMELIA [id number] it y of HOSPITAL 4.2.7.2.686 [place] [id number] [facility] 019 [place] 2021-12-31 2021-12-31 Laboratory Only, Ang Db Test [facility] 1.2.8 40.114 [id number] Univers 13:00:00 13:15:00 [facility] [id number] ity of [place] 4.2.7.2.686 [place] MONSTER?BLEA [id number] [address] MEDICAL OFFICE BUILDING 2021-12-31 2021-12-31 Outpatient R LUDIVINA [facility] [id number] Univers 13:00:00 13:00:00 AUDREY hully o f [facility] 2021-12-31 2021-12-31 Orders Doctor RAMOS [id number] [id number] Univers 00:00:00 00:00:00 Only Unassigned, AMELIA 350.1.13.10 ity of [place] [facility] 4.2.7.2.686 [place] [id number] [facility] 009 Branch 2019-08-26 2019-08-26 Orders Doctor RAMOS [id number] 00:00:00 00:00:00 Only Unassigned, AMELIA 350.1.13.10 [place] [facility] 4.2.7.2.686 [id number] 2019-03-17 2019-03-17 [facility] [id number] 11:26:00 14:59:00 Encounter Janusz [place] 350.1.13.10 [place] 4.2.7.2.686 Surgical [id number] [place] [address] 2019-03-03 2019-03-03 [facility] [id number] 09:37:00 13:20:00 Encounter Janusz Patel Dore[place] 350.1.13.10 [place] 4.2.7.2.686 Surgical [id number] [place] [address] 2019-03-03 2019-03-03 Orders Doctor RICHARD 1.2.840.114 [id number] 00:00:00 00:00:00 Only Unassigned, AMELIA 350.1.13.10 [place] [id number] [id number] 2019-02-24 2019-02-24 Phlebotomist Associate 1, Adc Lab [facility] [id number] 16:37:01 16:54:18 Visit Doreen 350.1.13.10 [place] 4.2.7.2.686 [place] [id number] 353 Results This patient has no known results.
[2022-06-25 17:00] LABS: Absolute Lymphocytes (CBC) 1.2 K/uL (0.7-4.9); Hematocrit 40.8 % (39.6-49.0); MCV 93.6 fL (80-100); MPV 7.6 fL (7.6-11.3); RBC Red Blood Cell Count 4.36 M/uL (4.33-5.43)
[2022-06-25 17:01] LABS: Protime INR 1.2
--- NOTE | 2022-06-25 17:16 | RAD REPORT ---
EXAM DESCRIPTION: RAD - Chest Single View - 06/25/2022 5:08 pm CLINICAL HISTORY: SOB Chest pain. COMPARISON: Chest Single View dated 06/02/2022; Chest Pa And Lat (2 Views) dated 05/22/2022; Chest Si ngle View dated 05/11/2022; Chest Single View dated 05/07/2022 FINDINGS: Portable technique limits examination quality. Mild interstitial pulmonary edema suspected. The heart is moderately enlarged. No displaced fractures . IMPRESSION: Mild CHF.
[2022-06-25 17:19] LABS: Albumin 3.4 g/dL (3.4-5.0); Bilirubin Direct 0.3 mg/dL (0-0.2); Bilirubin Total 1.3 mg/dL (0.2-1.0); Magnesium 2.4 mg/dL (1.6-2.4); Protein, Total 7.2 g/dL (6.4-8.2); Troponin High Sensitivity 54.1 pg/mL (<58.9)
[2022-06-25] MEDS ORDERED: FUROSEMIDE 40 MG/4 ML VIAL ONE (17:29)
[2022-06-25 18:20] LABS: SARS-COV-2 RT PCR NEGATIVE (NEGATIVE)
--- NOTE | 2022-06-25 18:26 | EDPHYS ---
[facility] Name: Vitor Mg Age: 87 yrs Sex: Male : 1935 Arrival Date: 06/25/2022 Time: 15:45 Bed 6 Private MD: Rell Zuñiga ED Physician Surjit Reynaga HPI: 06/25 16:17 This 87 yrs old Male presents to ER via Wheelchair with complaints of Feet Swelling, cp Shortness Of Breath. 16:17 The patient has shortness of breath at rest. Onset: The symptoms/episode began/occurred cp 4 day(s) ago. Duration: The symptoms are continuous, and are steadily getting worse. The patient's shortness of breath is aggravated by light activity. Associated signs and symptoms: Pertinent negatives: chest pain, productive cough, diaphoresis, fever, hemoptysis, vomiting. Severity of symptoms: in the emergency department the symptoms are unchanged despite home interventions. Historical: - PMHx: 16:16 CAD; cancer, throat; Chronic pain; CVA; Hypertension; jh5 - PSHx: 16:16 Stented artery; [facility] - Immunization history:: Adult Immunizations up to date. - Social history:: Smoking status: Patient/guardian denies using tobacco, the patient reports quitting approximately 40 years ago. ROS: 16:20 Constitutional: Negative for body aches, chills, fever, poor PO intake. cp 16:20 Cardiovascular: Positive for edema, Negative for chest pain, palpitations. cp 16:20 Respiratory: Positive for shortness of breath, at rest. Negative for wheezing. 16:20 Abdomen/GI: Negative for abdominal pain, vomiting, diarrhea, constipation. Exam: 16:25 Constitutional: The patient appears in no acute distress, alert, awake, cp non-diaphoretic, non-toxic, well developed, well nourished. 16:25 Head/Face: Normocephalic, atraumatic. cp 16:25 Eyes: Periorbital structures: appear normal, Conjunctiva: normal, no exudate, no injection, Sclera: no appreciated abnormality, Lids and lashes: appear normal, bilaterally. 16:25 ENT: External ear(s): are unremarkable, Nose: is normal, Mouth: Lips: moist, Oral mucosa: pink and intact, moist, Posterior pharynx: Airway: no evidence of obstruction, patent. 16:25 Neck: ROM/movement: is normal, is supple, without pain, no range of motions limitations. 16:25 Chest/axilla: Inspection: normal, Palpation: is normal, no crepitus, no tenderness. 16:25 Cardiovascular: Rate: normal, Rhythm: irregular, Edema: ankle edema, that is mild, JVD: is not appreciated. 16:25 Respiratory: the patient does not display signs of respiratory distress, Respirations: labored breathing, that is mild, Breath sounds: decreased breath sounds, that are moderate, throughout, stridor, is not appreciated. 16:25 Abdomen/GI: Inspection: abdomen appears normal, Palpation: abdomen is soft and non-tender, in all quadrants. 16:25 Back: pain, is absent, ROM is normal. 16:25 Skin: cellulitis, is not appreciated, no rash present. 16:25 Neuro: Orientation: to person, place \T\ time. Mentation: is normal, Motor: moves all fours, strength is normal, Sensation: is normal. 17:00 ECG was reviewed by the Attending Physician. Vital Signs: 16:15 BP 143 / 125; Pulse 80; Resp 20; Temp 98.7; Pulse Ox 91% ; Weight 74.84 kg; Height 5 5 ft. 11 in. (180.34 cm); 16:39 BP 125 / 73; Pulse 84; Resp 15; Pulse Ox 94% on 3 lpm NC; Pain 0/10; mb9 18:00 BP 153 / 83; Pulse 78; Resp 15; Pulse Ox 98% on 3 lpm NC; Pain 0/10; mb9 18:59 BP 148 / 77; Pulse 81; Resp 18; Pulse Ox 98% on R/A; Pain 0/10; mb9 16:15 Body Mass Index 23.01 (74.84 kg, 180.34 cm) [facility] MDM: 16:21 Patient medically screened. cp 17:40 Data reviewed: vital signs, nurses notes, lab test result(s), EKG, radiologic studies, cp plain films. 17:40 Antibiotic administration: Not indicated, the patient does not have an appreciated cp infiltrate. 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 Interpretation: acceptable. Test interpretation: by ED physician or midlevel provider: ECG, plain radiologic studies. 06/25 16:17 Order name: Basic Metabolic Panel; Complete Time: 17:20 06/25 17:20 Interpretation: Normal except: GLUC 109; BUN 31; CRE 1.32; GFR 53. 06/25 16:17 Order name: CBC with Diff; Complete Time: 17:08 06/25 17:09 Interpretation: Normal except: HGB 13.4; PLT 135. cp 06/25 16:17 Order name: LFT's; Complete Time: 17:20 06/25 17:21 Interpretation: Normal except: BILIT 1.3; BILID 0.3; GLOB 3.8; A/G 0.9. 06/25 16:17 Order name: Magnesium; Complete Time: 17:20 06/25 16:17 Order name: NT PRO-BNP; Complete Time: 17:20 06/25 17:32 Interpretation: Abnormal: NT PRO-BNP 8695. 06/25 16:17 Order name: PT-INR; Complete Time: 17:08 06/25 16:17 Order name: Troponin HS; Complete Time: 17:20 cp 06/25 17:22 Order name: COVID-19/FLU A+B; Complete Time: 18:20 cp 06/25 20:38 Order name: Basic Metabolic Panel EDMS 06/25 20:38 Order name: Basic Metabolic Panel EDMS 06/25 20:38 Order name: CBC with Automated Diff EDMS 06/25 20:38 Order name: CBC with Automated Diff EDMS 06/25 20:38 Order name: NT PRO-BNP EDMS 06/25 20:38 Order name: NT PRO-BNP EDMS 06/25 16:17 Order name: XRAY Chest (1 view); Complete Time: 17:20 06/25 17:21 Interpretation: Report review. 06/25 16:17 Order name: EKG; Complete Time: 16:18 06/25 16:17 Order name: Cardiac monitoring; Complete Time: 16:38 06/25 16:17 Order name: EKG - Nurse/Tech; Complete Time: 16:58 06/25 16:17 Order name: IV Saline Lock; Complete Time: 16:58 06/25 16:17 Order name: Labs collected and sent; Complete Time: 16:58 06/25 16:17 Order name: O2 Per Protocol; Complete Time: 16:38 06/25 16:17 Order name: O2 Sat Monitoring; Complete Time: 16:38 06/25 20:38 Order name: Low Sodium EDMS 06/25 20:38 Order name: Echo with Doppler EDMS EC:00 Rate is 78 beats/min. Rhythm is irregular. QRS interval is prolonged at 162 msec. QT cp interval is normal. T waves are Inverted in lead aVL. Interpreted by me. Reviewed by me. Administered Medications: 17:33 Drug: Lasix (furosemide) 40 mg Route: IVP; Site: right forearm; mb9 21:45 Drug: [place] (HYDROcodone-acetaminophen) (7.5 mg-325 mg) 1 tabs Route: PO; ll3 Disposition: 18:47 Co-signature as Attending Physician, Surjit Reynaga DO I was immediately available onsite ms3 in the emergency department for consultation in the care of the patient. Disposition Summary: 06/25/22 18:25 Hospitalization Ordered Hospitalization Status: Inpatient Admission cp Provider: Rell Zuñiga cp Condition: Stable cp Problem: an acute exacerbation cp Symptoms: have improved cp Bed/Room Type: Standard cp Location: Telemetry/MedSurg (Inpatient)(06/26/22 10:54) bd Room Assignment: 203(06/26/22 12:07) bd Diagnosis - Unspecified combined systolic (congestive) and diastolic (congestive) heart failure cp Forms: - Medication Reconciliation Form cp - SBAR form cp Signatures: Dispatcher [employer] EDWI Emilia Taveras bd Chente Schmid PA PA cp Cyndi Jones, RN RN Surjit Reece DO DO ms3 Karen Villafuerte RN RN jh5 Kendal Ramirez RN RN ll3 Chery Childs RN RN mb9 Corrections: (The following items were deleted from the chart) 19:49 18:25 Telemetry/MedSurg (Inpatient) cp cg 19:49 18:25 cp cg 21:40 19:49 [facility] ER HOLD cg cg 21:40 19:49 ERHOLD- cg cg 22:20 21:40 Telemetry/MedSurg (Inpatient) cg cg 22:20 21:40 cg cg 06/26 10:54 06/25 22:20 [facility] ER HOLD cg bd 06/26 10:54 06/25 22:20 ERHOLD- cg bd 06/26 12:07 10:54 214 bd bd
--- NOTE | 2022-06-25 18:26 | ER ---
Nurse's Notes [facility] Name: Vitor Mg Age: 87 yrs Sex: Male : 1935 Arrival Date: 06/25/2022 Time: 15:45 Bed 6 Private MD: Rell Zuñiga Diagnosis: Unspecified combined systolic (congestive) and diastolic (congestive) heart failure Presentation: 06/25 16:15 Chief complaint: Patient states: 4 days ago started getting SOB, worsening and now jh5 having swelling in legs. Coronavirus screen: Vaccine status: Patient reports receiving the 2nd dose of the covid vaccine. Client denies travel out of the [place] in the last 14 days. Ebola Screen: Patient negative for fever greater than or equal to 101.5 degrees Fahrenheit, and additional compatible Ebola Virus Disease symptoms Patient denies exposure to infectious person. Patient denies travel to an Ebola-affected area in the 21 days before illness onset. Initial Sepsis Screen: Does the patient meet any 2 criteria? No. Patient's initial sepsis screen is negative. Does the patient have a suspected source of infection? No. Patient's initial sepsis screen is negative. Risk Assessment: Do you want to hurt yourself or someone else? Patient reports no desire to harm self or others. 16:15 Method Of Arrival: Wheelchair [facility] 16:15 Acuity: GLENDY 3 jh5 Triage Assessment: 16:16 General: Appears uncomfortable, slender, Behavior is calm, cooperative, appropriate for [facility] age. Pain: Denies pain. Respiratory: Reports shortness of breath air hunger. Historical: - PMHx: 16:16 CAD; cancer, throat; Chronic pain; CVA; Hypertension; [facility] - PSHx: 16:16 Stented artery; [facility] - Immunization history:: Adult Immunizations up to date. - Social history:: Smoking status: Patient/guardian denies using tobacco, the patient reports quitting approximately 40 years ago. Screenin:00 Abuse screen: Denies threats or abuse. Nutritional screening: No deficits noted. jb4 Tuberculosis screening: No symptoms or risk factors identified. Fall Risk No fall in past 12 months (0 pts). IV access (20 points). Mental Status- Oriented to own ability (0 pts). Total Guzman Fall Scale indicates No Risk (0-24 pts). Assessment: 16:59 General: Appears in no apparent distress. comfortable, Behavior is calm, cooperative, mb9 appropriate for age. Pain: Denies pain. Neuro: Brunner Agitation-Sedation Scale (RASS): 0 - Alert and Calm Level of Consciousness is awake, alert, obeys commands, Oriented to person, place, time, situation, Appropriate for age. Cardiovascular: Heart tones S1 S2 present Rhythm is atrial fibrillation. Respiratory: Airway is patent Respiratory effort is even, unlabored, Respiratory pattern is regular, symmetrical, Breath sounds are clear bilaterally. Respiratory: Reports shortness of breath at rest on exertion since 4 days ago. GI: Abdomen is flat, non-distended, Bowel sounds present X 4 quads. Abd is soft and non tender X 4 quads. : Urine is clear. EENT: No signs and/or symptoms were reported regarding the EENT system. Derm: Skin is pink, warm \T\ dry. Musculoskeletal: Range of motion: intact in all extremities. 17:59 General: Appears in no apparent distress. comfortable, Behavior is calm, cooperative, mb9 appropriate for age. Pain: Denies pain. Neuro: Level of Consciousness is awake, alert, obeys commands, Oriented to person, place, time, situation, Appropriate for age. Cardiovascular: Rhythm is atrial fibrillation. Respiratory: Airway is patent Respiratory effort is even, unlabored, Respiratory pattern is regular, symmetrical. Derm: Skin is pink, warm \T\ dry. 18:58 Reassessment: respirations are even and unlabored. Airway is patent. Rhythm is Afib. Pt mb9 denies pain. Skin is pink, warm, and dry. Daughter at bedside. 19:09 Reassessment: Report given to Eladio HAGER. mb9 20:00 Reassessment: Patient appears in no apparent distress at this time. Patient and/or jb4 family updated on plan of care and expected duration. Pain level reassessed. Patient is alert, oriented x 3, equal unlabored respirations, skin warm/dry/pink. 21:00 Reassessment: Patient appears in no apparent distress at this time. Patient and/or jb4 family updated on plan of care and expected duration. Pain level reassessed. Patient is alert, oriented x 3, equal unlabored respirations, skin warm/dry/pink. Vital Signs: 16:15 BP 143 / 125; Pulse 80; Resp 20; Temp 98.7; Pulse Ox 91% ; Weight 74.84 kg; Height 5 [facility] ft. 11 in. (180.34 cm); 16:39 BP 125 / 73; Pulse 84; Resp 15; Pulse Ox 94% on 3 lpm NC; Pain 0/10; mb9 18:00 BP 153 / 83; Pulse 78; Resp 15; Pulse Ox 98% on 3 lpm NC; Pain 0/10; mb9 18:59 BP 148 / 77; Pulse 81; Resp 18; Pulse Ox 98% on R/A; Pain 0/10; mb9 16:15 Body Mass Index 23.01 (74.84 kg, 180.34 cm) [facility] ED Course: 15:45 Patient arrived in ED. as 15:45 Rell Zuñiga MD is Private Physician. as 15:48 Chente Schmid PA is PHCP. cp 15:48 Surjit Reynaga DO is Attending Physician. cp 16:[address] [facility] 16:16 Arm band placed on right wrist. 5 16:30 Inserted saline lock: 20 gauge in right forearm, using aseptic technique. Blood mb9 collected. 16:30 EKG done, by ED staff, reviewed by Chente COKER. mb9 16:38 Chery Childs, RN is Primary Nurse. mb9 16:58 Basic Metabolic Panel Sent. mb9 16:58 CBC with Diff Sent. mb9 16:58 LFT's Sent. mb9 16:58 Magnesium Sent. mb9 16:58 NT PRO-BNP Sent. mb9 16:58 PT-INR Sent. mb9 16:58 Troponin HS Sent. mb9 17:10 XRAY Chest (1 view) In Process Unspecified. EDMS 17:33 COVID-19/FLU A+B Sent. mb9 18:25 Rell Zuñiga MD is Hospitalizing Provider. cp 21:00 Patient admitted, IV remains in place. jb4 21:00 No provider procedures requiring assistance completed. jb4 Administered Medications: 17:33 Drug: Lasix (furosemide) 40 mg Route: IVP; Site: right forearm; mb9 21:45 Drug: Gattman (HYDROcodone-acetaminophen) (7.5 mg-325 mg) 1 tabs Route: PO; ll3 Medication: 16:59 VIS not applicable for this client. mb9 Output: 19:01 Urine: 1500ml (Voided); Total: 1500ml. mb9 Outcome: 18:25 Decision to Hospitalize by Provider. cp 21:00 Admitted to ER Hold. Please see [facility] for further documentation. jb4 21:00 Condition: stable 21:00 Discharge instructions given to patient, family, Instructed on the need for admit, Demonstrated understanding of instructions. 06/26 13:39 Patient left the ED. vg1 Signatures: Dispatcher [employer] Radha Serna Corey, PA PA cp Jaison Ontiveros, RN RN jb4 Nusrat Jones, RN RN vg1 Karen Villafuerte RN RN jh5 Kendal Ramirez RN RN 3 Chery Childs, RN RN mb9 Corrections: (The following items were deleted from the chart) 06/25 19:01 18:58 Reassessment: respirations are even and unlabored. Airway is patent. Rhythm is mb9 regular. Pt denies pain. Skin is pink, warm, and dry. Daughter at bedside. mb9
[2022-06-25] MEDS ORDERED: IPRATROPIUM BROM 0.5MG/2.5ML NEB PRN (20:31)
[2022-06-25] MEDS ORDERED: ONDANSETRON 4 MG/2 ML VIAL IV PRN (20:31)
[2022-06-25] MEDS ORDERED: ALBUTEROL 2.5 MG/3 ML NEB SOL NEB PRN (20:31)
[2022-06-25] MEDS ORDERED: HYDROCODONE/APAP 7.5/325 MG TAB ONE (21:06)
[2022-06-26 01:34] VITALS: BMI 22.8
[2022-06-26 03:07] LABS: Absolute Lymphocytes (CBC) 1.5 K/uL (0.7-4.9); Hematocrit 39.4 % (39.6-49.0); Lymphocytes % 24.9 % (15.3-44.8); MCV 92.3 fL (80-100); MPV 7.9 fL (7.6-11.3); RBC Red Blood Cell Count 4.27 M/uL (4.33-5.43)
[2022-06-26 03:15] LABS: Potassium 3.3 mmol/L (3.5-5.1)
[2022-06-26] MEDS ORDERED: ASPIRIN 81 MG CHEWABLE TABLET ONE (07:48)
[2022-06-26] MEDS ORDERED: FUROSEMIDE 20 MG/ 2ML VIAL ONE (07:48)
[2022-06-26] MEDS ORDERED: ENOXAPARIN 40 MG/0.4 ML SQ ONE (07:49)
[2022-06-26] MEDS: FUROSEMIDE 20 MG/ 2ML VIAL IV SCH ×2 (08:01→16:11)
[2022-06-26] MEDS: ASPIRIN EC 81 MG TAB PO SCH (08:01)
[2022-06-26] MEDS ORDERED: ENOXAPARIN 40 MG/0.4 ML SQ SCH (09:00)
[2022-06-26] MEDS: APIXABAN 2.5 MG TABLET PO SCH ×2 (09:00→20:20)
[2022-06-26] MEDS ORDERED: HYDROCODONE/APAP 7.5/325 MG TAB ONE (10:13)
[2022-06-26] MEDS: HYDROCODONE/APAP 7.5/325 MG TAB PO PRN ×3 (10:14→22:00)
[2022-06-26] MEDS ORDERED: IPRATROPIUM BROM 0.5MG/2.5ML NEB PRN (14:00)
[2022-06-26] MEDS ORDERED: ALBUTEROL 2.5 MG/3 ML NEB SOL NEB PRN (14:00)
[2022-06-26] MEDS ORDERED: DOCUSATE NA 100 MG CAP PO PRN (15:09)
[2022-06-26] MEDS ORDERED: POTASSIUM CL SA 10 MEQ TAB PO ONE (16:00)
[2022-06-26] MEDS: carvediloL 25 MG TAB PO SCH (17:55)
[2022-06-26] MEDS ORDERED: carvediloL 12.5 MG TAB PO SCH (18:00)
--- NOTE | 2022-06-26 19:51 | PN ---
Date of Progress Note: 06/26/2022 Patient states he feels considerably better today. He has had marked diuresis with IV Lasix. His x- ray did reveal mild CHF, which he had recently been treated for with the possibility of a complicatin g pneumonia and at the time of discharge, he is feeling somewhat better, required oxygen. According to his family, the patient over the few weeks, he did not require. However, over the past few days, he noticed some difference. While in the hospital, he required low-grade oxygen. He was seen by Cardiology who suggested the possibility of some dietary issues contributing to his recurrent episodes. When seen, he was no longer dyspnea. However, he was relatively inert compared to what moris ashford had done at home. We will continue with usual medication plus the Lasix. Repeat chest x-ray in e morning. Try and get a dietary consult and possibly could be discharged. HR/MODL Voice ID: [id number] Report ID: [id number]
[2022-06-26] MEDS: GABAPENTIN 100 MG CAP PO SCH (20:20)
[2022-06-26] MEDS ORDERED: HOME MED 1 EA UNK (Simvastatin [Simvastatin] 40 MG Tablet) PO SCH (21:00)
[2022-06-26] MEDS ORDERED: ATORVASTATIN 20 MG TAB PO SCH (21:00)
[2022-06-27] MEDS ORDERED: TRAMADOL HCL 50 MG TAB PO PRN (00:57)
[2022-06-27] MEDS ORDERED: ACETAMINOPHEN 500 MG TAB PO PRN (00:58)
[2022-06-27] MEDS: carvediloL 25 MG TAB PO SCH (05:33)
[2022-06-27] MEDS: HYDROCODONE/APAP 7.5/325 MG TAB PO PRN ×2 (05:41→13:06)
[2022-06-27 06:25] LABS: Absolute Lymphocytes (CBC) 1.2 K/uL (0.7-4.9); Hematocrit 44.2 % (39.6-49.0); Lymphocytes % 22.7 % (15.3-44.8); MCV 93.1 fL (80-100); MPV 7.7 fL (7.6-11.3); RBC Red Blood Cell Count 4.75 M/uL (4.33-5.43)
[2022-06-27 06:41] LABS: Magnesium 2.5 mg/dL (1.6-2.4); Potassium 4.1 mmol/L (3.5-5.1)
--- NOTE | 2022-06-27 07:23 | RAD REPORT ---
EXAM DESCRIPTION: RAD - Chest Single View - 06/27/2022 7:02 am CLINICAL HISTORY: CHF COMPARISON: Portable 06/25/2022 TECHNIQUE: AP portable chest image was obtained 06/27/2022 7:02 am . FINDINGS: No new mass or consolidation. Interstitial pattern shows a slight improvement from the maddy or examination. Central vasculature has decreased slightly. Heart size remains prominent, stable in s ize. No measurable pleural effusion and no pneumothorax. No acute bony abnormality seen. No acute aortic finding. IMPRESSION: Complete or near complete resolution of the mild CHF findings reported June 25.
--- NOTE | 2022-06-27 08:08 | EKG ---
Test Date: 2022-06-25 Test Time: 16:53:55 Property Management Accountant: MB MEASUREMENT RESULTS: Intervals: Rate: 78 AK: QRSD: 162 QT: 438 QTc: 499 [place]: P: AK: QRS: -78 T: 113 INTERPRETIVE STATEMENTS: Atrial flutter with variable AV block Left axis deviation Nonspecific intraventricular block Possible Lateral infarct, age undetermined Abnormal ECG Compared to ECG 06/02/2022 07:27:49 Left-axis deviation now present Atrial fibrillation no longer present Ventricular premature complex(es) no longer present Right superior axis no longer present Myocardial infarct finding still present Electronically Signed On 06-27-22 08:02:22 PARTITION ASSEMBLER by Vinh Barfield
--- NOTE | 2022-06-27 08:21 | ECHO ---
HEIGHT: 5 ft 11 in WEIGHT: 164 lb 0 oz DATE OF STUDY: 06/26/[address]: Chente Schmid 2-DIMENSIONAL: YES M.MODE: YES DOPPLER: YES COLOR FLOW: YES TDS: PORTABLE: YES DEFINITY: BUBBLE STUDY: DIAGNOSIS: CONGESTIVE HEART FAILURE CARDIAC HISTORY: CATHERIZATION: YES SURGERY: NO PROSTHETIC VALVE: NO PACEMAKER: NO MEASUREMENTS (cm) DIASTOLIC (NORMALS) SYSTOLIC (NORMALS) IVSd 1.2 (0.6-1.2) LA Diam 3.9 (1.9-4.0) LVEF 30-35% LVIDd 4.7 (3.5-5.7) LVIDs 3.8 (2.0-3.5) %FS % LVPWd 1.3 (0.6-1.2) Ao Diam 2.5 (2.0-3.7) 2 DIMENSIONAL ASSESSMENT: RIGHT ATRIUM: NORMAL LEFT ATRIUM: NORMAL RIGHT VENTRICLE: NORMAL LEFT VENTRICLE: NORMAL SIZE TRICUSPID VALVE: NORMAL MITRAL VALVE: MITRAL ANNULAR CALCIFICATION PULMONIC VALVE: NORMAL AORTIC VALVE: NORMAL PERICARDIAL EFFUSION: NONE AORTIC ROOT: NORMAL LEFT VENTRICULAR WALL MOTION: SEVERE GLOBAL HYPOKINESIS DOPPLER/COLOR FLOW: NORMAL COMMENTS: 1. SEVERE GLOBAL HYPOKINESIS 2. MITRAL ANNULAR CALCIFICATION 3. EJECTION FRACTION 30-35% TECHNOLOGIST: KARY WAYNE
[2022-06-27] MEDS ORDERED: CLOPIDOGREL 75 MG TABLET PO SCH (09:00)
[2022-06-27] MEDS: APIXABAN 2.5 MG TABLET PO SCH (09:00)
[2022-06-27 09:21] VITALS: O2SAT 98
[2022-06-27] MEDS: ASPIRIN EC 81 MG TAB PO SCH (09:30)
[2022-06-27] MEDS: GABAPENTIN 100 MG CAP PO SCH ×2 (09:30→13:07)
[2022-06-27] MEDS: FUROSEMIDE 20 MG/ 2ML VIAL IV SCH (09:31)
[2022-06-27 12:43] VITALS: BP 118/58; TEMP 97
--- NOTE | 2022-06-27 14:28 | PN ---
Date of Progress Note: 06/27/2022 The patient feels much better today coincides with his almost complete resolution of the CHF. Potass ium was within normal limits as well as magnesium. We will discharge on his usual medication. Accor ding to his daughter, he has been taking Lasix 40 b.i.d.; however, there was some question about that . Also, we will give him some instruction on his sodium content. He will be discharged to follow up with me next week and Dr. Barfield in 2-3 weeks. HR/MODL Voice ID: [id number] Report ID: [id number]
--- NOTE | 2022-07-25 08:58 | CON ---
Date of Consultation: 06/26/2022 Reason For Consultation: Congestive heart failure. History Of Present Illness: Mr. Mg is 87. Has a history of coronary artery disease, paroxy smal atrial fibrillation, congestive heart failure, dyslipidemia. Came in with CHF. BNP is 8600 in December 2001. Ejection fraction was 40%. He denied any chest pain, nausea, vomiting, diaphoresis. Den ied any palpitation, syncope. Denied any fever or chills. Past Medical History: As stated above. Allergies: NONE. Review of Systems: Negative. Social History: Negative. Family History: Negative. Medications: Include steroid, Coreg, Plavix, Eliquis, Lasix, Zocor. Physical Examination: Vital Signs: Stable, afebrile. HEENT: Negative. Neck: Supple with no bruit. Chest: Clear to auscultation and percussion. Cardiac: Revealed a regular rhythm and rate with S3 gallops. No murmurs or rubs. Abdomen: Benign. Extremities: Revealed no clubbing, cyanosis. He had trace edema. Diagnostic Data: As stated earlier. Impression And Plan: 1.Acute on chronic systolic congestive heart failure. 2.Coronary artery disease. 3.Chronic obstructive pulmonary disease. 4.Paroxysmal atrial fibrillation, on Eliquis and Coreg. 5.Dyslipidemia. He is now on Lasix, inhalers, Lovenox, aspirin in addition to his home medications. Echocardiogram is pending. His heart rate is still in atrial flutter at rate of 86. Creatinine is 1.46. He will hopefully require 1 more day of diuresis and discharge home. We will see him as an o utpatient. JUNIOR/LIZ Voice ID: [id number] Report ID: [id number]
--- NOTE | 2022-07-25 10:10 | PN ---
Date of Progress Note: 06/27/2022 Mr. Mg was admitted with congestive heart failure. He is in atrial flutter at a rate of 86. Creatinine is 1.46. He is now on aspirin, Eliquis, Lipitor, and Coreg. He is improving. He is di uresing. Heart rate is controlled. No further cardiac workup recommended at this point. Continue p resent regimen. We will see him in the office as an outpatient. JUNIOR/LIZ Voice ID: [id number] Report ID: [id number]
== END 2022-06-27 13:28 | disposition home or self-care (01) | DRG 291 ==
LOC: ER 15:40 → ERHOLD 21:10 → 2ND 06-26 13:07
PROVIDERS: ADMIT Family Medicine; ATTEND Family Medicine
DX: I11.0 Hypertensive heart disease with heart failure (principal); I50.41 Acute combined systolic (congestive) and diastolic (congestive) heart failure; I48.92 Unspecified atrial flutter; I48.91 Unspecified atrial fibrillation; I25.10 Atherosclerotic heart disease of native coronary artery without angina pectoris; G89.29 Other chronic pain; J44.9 Chronic obstructive pulmonary disease, unspecified; E78.5 Hyperlipidemia, unspecified; Z79.01 Long term (current) use of anticoagulants; Z86.73 Personal history of transient ischemic attack (TIA), and cerebral infarction without residual deficits; Z20.822 Contact with and (suspected) exposure to COVID-19
CPT/HCPCS: 0240U; 36415; 71045; 80048; 80076; 83735; 83880; 84132; 84484; 85025; 85610; 93005; 93306; 96374; 99285; J1650; J1940

== ENCOUNTER 2022-07-14 08:29 | Inpatient (IN) | payer OTHER ==
--- OUTSIDE RECORDS SUMMARY | 2022-07-14 08:33 | XMS REPORT | Continuity of Care Document ---
:1935 Author Organization [facility] t Address [address] [place] [address] [address] [place] [address] Care Team Providers Name Role Phone Zara Rell Primary Care Physician Therapy, Adc Covid Infusion Attending Clinician Unavailable Felipa Gill MD Attending Clinician FELIPA GILL Attending Clinician Unavailable Niyah Bowie RN Attending Clinician Unavailable Only, Ang Db Test Attending Clinician Unavailable Audrey Solorzano Attending Clinician AUDREY FLORENCE Attending Clinician Unavailable Doctor Unassigned, [place] Attending Clinician Unavailable Janusz Matos MD Attending [...] active ity of problems problems [facility] Allergies, Adverse Reactions, Alerts Allergy Allergy Status Severity Reaction(s) Onset Inactive Treating Comm ents Source Name Type Date Date Clinician NO KNOWN Drug Active Univers ALLERGIE Class ity of S [facility] Social History Social Habit Start Date Stop Date Quantity Comments Source Exposure to 2021-12-21 2021-12-31 Not sure [facility] SARS-CoV-2 (event) 00:00:00 13:06:00 Medica l Branch Tobacco use and 2019-03-01 2019-03-01 Never used [facility] [place] exposure 00:00:00 00:00:00 Medical Branch Sex Ass[birth year] [facility] of [place] 00:00:00 00:00:00 Medical Branch Smoking Status Start Date Stop Date Source Former smoker 2019-03-01 00:00:00 2019-03-01 00:00:00 [facility] Medical Branch Medications Ordered Filled Start Stop Current Ordering Indication Dosage Frequency Signature Comments Components Source Medication Medication Date Date Medication? Clinician (SIG) Name Name aspirin 81 2019-0 Yes 81mg Take 81 mg U nivers mg chewable 9-09 by mouth ity of tablet 16:02: daily. [place] [address] Medical Branch simvastatin 2019-0 Yes 40mg Take 40 mg Univers 40 mg 9-09 by mouth ity of tablet 16:02: daily. [place] [address] Medical Branch carvedilol 2018-0 Yes 25mg Take 25 mg U nivers 25 mg 9-09 by mouth 2 ity of tablet 16:02: (two) [address] Medical daily with Branch meals. traMADol 50 2018-0 Yes 50mg Take 50 mg Univers mg tablet 9-09 by mouth 2 ity of 16:02: (two) [place] [address] times Medical daily. Branch gabapentin 2018-0 Yes 100mg Take 100 Un tameka 100 mg 9-09 mg by ity of capsule 16:02: mouth at [place] [address] bedtime. Medical Branch clopidogrel 2018-0 Yes 75mg Take 75 mg Univers 75 mg 9-09 by mouth ity of tablet 16:02: daily. [place] [address] Medical Branch losartan 2019-0 Yes 100mg Take 100 Univ ers 100 mg 9-09 mg by ity of tablet 16:02: mouth [place] [address] daily. Medical Branch aspirin 81 2019-0 Yes 81mg Take 81 mg U nivers mg chewable 9-09 by mouth ity of tablet 16:02: daily. [place] [address] Medical Branch simvastatin 2019-0 Yes 40mg Take 40 mg Univers 40 mg 9-09 by mouth ity of tablet 16:02: daily. [place] [address] Medical Branch carvedilol 2019-0 Yes 25mg Take 25 mg U nivers 25 mg 9-09 by mouth 2 ity of tablet 16:02: (two) [place] [address] times Medical daily with Branch meals. traMADol 50 2019-0 Yes 50mg Take 50 mg Univers mg tablet 9-09 by mouth 2 ity of 16:02: (two) [place] [address] times Medical daily. Branch gabapentin 2019-0 Yes 100mg Take 100 Un tameka 100 mg 9-09 mg by ity of capsule 16:02: mouth at [place] [address] bedtime. Medical Branch clopidogrel 2019-0 Yes 75mg Take 75 mg Univers 75 mg 9-09 by mouth ity of tablet 16:02: daily. [place] [address] Medical Branch losartan 2019-0 Yes 100mg Take 100 Univ ers 100 mg 9-09 mg by ity of tablet 16:02: mouth [place] [address] daily. Medical Branch aspirin 81 2019-0 Yes 81mg Take 81 mg U nivers mg chewable 9-09 by mouth ity of tablet 16:02: daily. [place] [address] Medical Branch simvastatin 2019-0 Yes 40mg Take 40 mg Univers 40 mg 9-09 by mouth ity of tablet 16:02: daily. [place] [address] Medical Branch carvedilol 2019-0 Yes 25mg Take 25 mg U nivers 25 mg 9-09 by mouth 2 ity of tablet 16:02: (two) [place] [address] times Medical daily with Branch meals. traMADol 50 2019-0 Yes 50mg Take 50 mg Univers mg tablet 9-09 by mouth 2 ity of 16:02: (two) [place] [address] times Medical daily. Branch gabapentin 2019-0 Yes 100mg Take 100 Un tameka 100 mg 9-09 mg by ity of capsule 16:02: mouth at [place] [address] bedtime. Medical Branch clopidogrel 2019-0 Yes 75mg Take 75 mg Univers 75 mg 9-09 by mouth ity of tablet 16:02: daily. [place] [address] Medical Branch losartan 2019-0 Yes 100mg Take 100 Univ ers 100 mg 9-09 mg by ity of tablet 16:02: mouth [place] [address] daily. Medical Branch aspirin 81 2019-0 Yes 81mg Take 81 mg U nivers mg chewable 9-09 by mouth ity of tablet 16:02: daily. [place] [address] Medical Branch simvastatin 2019-0 Yes 40mg Take 40 mg Univers 40 mg 9-09 by mouth ity of tablet 16:02: daily. [place] [address] Medical Branch carvedilol 2019-0 Yes 25mg Take 25 mg U nivers 25 mg 9-09 by mouth 2 ity of tablet 16:02: (two) [place] [address] times Medical daily with Branch meals. traMADol 50 2019-0 Yes 50mg Take 50 mg Univers mg tablet 9-09 by mouth 2 ity of 16:02: (two) [place] [address] times Medical daily. Branch gabapentin 2019-0 Yes 100mg Take 100 Un tameka 100 mg 9-09 mg by ity of capsule 16:02: mouth at [place] [address] bedtime. Medical Branch clopidogrel 2019-0 Yes 75mg Take 75 mg Univers 75 mg 9-09 by mouth ity of tablet 16:02: daily. [place] [address] Medical Branch losartan 2019-0 Yes 100mg Take 100 Univ ers 100 mg 9-09 mg by ity of tablet 16:02: mouth [place] [address] daily. Medical Branch Immunizations Ordered Filled Immunization Date Status Comments Sourc e Immunization Name Name MICHELLE 2022-01-01 Completed University o f 00:00:00 [facility] Vital Signs Vital Name Observation Time Observation Value Comments Source Systolic blood 2022-01-01 22:08:00 142 mm[Hg] [facility] sity of pressure [facility] Diastolic blood 2022-01-01 22:08:00 71 mm[Hg] Unive rsity of [facility] Heart rate 2022-01-01 22:08:00 88 /min [facility] Body temperature 2022-01-01 22:08:00 36.89 [facility] Respiratory rate 2022-01-01 22:08:00 19 /min [facility] Oxygen saturation in 2022-01-01 22:08:00 93 /min [facility] Arterial blood by [facility] Pulse oximetry [place] Body height 2022-01-01 21:01:00 180.3 cm [facility] Body weight 2022-01-01 21:01:00 81.647 kg [facility] BMI 2022-01-01 21:01:00 25.10 kg/m2 [facility] Procedures Procedure Date / Time Performed Performing Clinician Sour e CONSENT/REFUSAL FOR 2021-12-31 18:08:39 Doctor Unassigned, No [facility] DIAGNOSIS AND Name Medical [place] TREATMENT ASSIGNMENT OF BENEFITS 2021-12-31 18:08:28 Doctor Unassigned, No [facility] Encounters Start End Encounter Admission Attending Care Care Encounter Source Date/Time Date/Time Type Type Clinicians Facility Department ID 2022-01-01 2022-01-01 Nurse Therapy, Adc Covid Infusion [facility] 1.2.840.114 [id number] Univers 16:00:00 17:00:00 Visit Bridget Felipa Contreras TIFFANYLUISA [id number] ity [place] [id number] [place] [id number] [place] 2022-01-01 2022-01-01 Outpatient R BRIDGET [facility] [id number] Univers 16:00:00 16:00:00 FELIPA ity of [facility] 2022-01-01 2022-01-01 Letter Niyah Bowie [id number] Univers 00:00:00 00:00:00 (Out) AMELIA [id number] it y of HOSPITAL 4.2.7.2.686 [place] as [id number] [facility] 019 [place] 2021-12-31 2021-12-31 Laboratory Only, Ang Db Test [facility] 1.2.8 40.114 [id number] Univers 13:00:00 13:15:00 [facility] [id number] ity of [place] 4.2.7.2.686 [place] as MONSTER?BLEA [id number] [address] MEDICAL OFFICE BUILDING 2021-12-31 2021-12-31 Outpatient R LUDIVINA [facility] [id number] Univers 13:00:00 13:00:00 AUDREY hully o f [facility] 2021-12-31 2021-12-31 Orders Doctor RAMOS 1.2.840.114 [id number] Univers 00:00:00 00:00:00 Only Unassigned, AMELIA [id number] ity of [place] [facility] 4.2.7.2.686 [place] as [id number] [facility] 009 Branch 2019-08-26 2019-08-26 Orders Doctor RAMOS 1.2.840.114 [id number] 00:00:00 00:00:00 Only Unassigned, AMELIA 350.1.13.10 [place] [facility] 4.2.7.2.686 [id number] 2019-03-17 2019-03-17 [facility] [id number] 11:26:00 14:59:00 Encounter Janusz [place] 350.1.13.10 [place] 4.2.7.2.686 Surgical [id number] [place] [address] 2019-03-03 2019-03-03 [facility] [id number] 09:37:00 13:20:00 Encounter Janusz Patel Doreen 350.1.13.10 [place] 4.2.7.2.686 Surgical [id number] [place] [address] 2019-03-03 2019-03-03 Orders Doctor RICHARD 1.2.840.114 [id number] 00:00:00 00:00:00 Only Unassigned, AMELIA 350.1.13.10 [place] [id number] [id number] 2019-02-24 2019-02-24 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
[2022-07-14] MEDS ORDERED: FUROSEMIDE 40 MG/4 ML VIAL ONE (09:02)
[2022-07-14 09:09] LABS: Absolute Lymphocytes (CBC) 1.1 K/uL (0.7-4.9); Hematocrit 41.7 % (39.6-49.0); Lymphocytes % 13.6 % (15.3-44.8); MCV 93.6 fL (80-100); MPV 7.9 fL (7.6-11.3); RBC Red Blood Cell Count 4.46 M/uL (4.33-5.43)
[2022-07-14 09:23] LABS: Urine Blood 1+ (Negative); Urine Glucose Negative (Negative); Urine Protein Negative (Negative); Urine Specific Gravity 1.015 (1.005-1.030); Urine pH 6.5 (5.0-7.0)
[2022-07-14 09:27] LABS: Protime INR 1.22
--- NOTE | 2022-07-14 09:28 | RAD REPORT ---
EXAM DESCRIPTION: RAD - Chest Single View - 07/14/2022 9:18 am CLINICAL HISTORY: SOB COMPARISON: AP chest 06/27/2022 TECHNIQUE: AP portable chest image was obtained 07/14/2022 9:18 am . FINDINGS: Patient has a mildly prominent baseline interstitial pattern. Interstitial markings in the right lung base are increased over prior imaging and questionably increased in the left lung base. N o dense consolidation. There is some patchy alveolar opacification evident on the right. Heart size is within normal range. Central vasculature is not abnormally enlarged. No measurable pleural effusion and no pneumothorax. No acute bony abnormality seen. No acute aortic findings suspected. IMPRESSION: Right greater than left lung parenchymal opacification increased over June 27 imagin g. Pneumonia would be the primary consideration and needs correlation with clinical presentation. Noninf ectious interstitial edema would be possible though heart size and vascularity do not indicate a sign ificant degree of failure or volume overload.
[2022-07-14 09:31] LABS: Albumin 3.4 g/dL (3.4-5.0); Bilirubin Total 1.5 mg/dL (0.2-1.0); Magnesium 2.4 mg/dL (1.6-2.4); Phosphorus 3.2 mg/dL (2.5-4.9); Potassium 4.7 mmol/L (3.5-5.1); Protein, Total 7.3 g/dL (6.4-8.2)
[2022-07-14 09:44] LABS: Troponin High Sensitivity 66.1 pg/mL (<58.9)
[2022-07-14 09:48] LABS: SARS-COV-2 RT PCR NEGATIVE (NEGATIVE)
--- NOTE | 2022-07-14 10:02 | ER ---
Nurse's Notes [facility] Name: Vitor Mg Age: 87 yrs Sex: Male : 1935 Arrival Date: 07/14/2022 Time: 08:32 Bed 20 Private MD: Rell Zuñiga Diagnosis: Systolic (congestive) heart failure Presentation: 07/14 08:35 Chief complaint: Patient states: SOB and chest discomfort that has been ongoing x 2-3 ss days. Coronavirus screen: Client denies travel out of the [place] in the last 14 days. Ebola Screen: Patient denies exposure to infectious person. Patient denies travel to an Ebola-affected area in the 21 days before illness onset. Initial Sepsis Screen: Does the patient meet any 2 criteria? No. Patient's initial sepsis screen is negative. Does the patient have a suspected source of infection? No. Patient's initial sepsis screen is negative. Risk Assessment: Do you want to hurt yourself or someone else? Patient reports no desire to harm self or others. Onset of symptoms was July 10, 2022. 08:35 Method Of Arrival: Wheelchair ss 08:35 Acuity: GLENDY 3 ss Historical: - Allergies: 08:38 No Known Allergies; ss - PMHx: 08:38 CAD; cancer, throat; Chronic pain; CVA; Hypertension; ss 08:38 Home O2 \T\ 2L NC; ss - PSHx: 08:38 Stented artery; ss - Immunization history:: Client reports having NOT received the Covid vaccine. - Social history:: Smoking status: Patient/guardian denies using tobacco, but has a distant history of tobacco abuse. Screenin:01 Abuse screen: Denies threats or abuse. Denies injuries from another. Nutritional eh3 screening: No deficits noted. Tuberculosis screening: No symptoms or risk factors identified. 09:30 [facility] ED Fall Risk Assessment (Adult) History of falling in the last 3 months, eh3 including since admission No falls in past 3 months (0 pts) Confusion or Disorientation No (0 pts) Intoxicated or Sedated No (0 pts) Impaired Gait Yes (1 pt) Mobility Assist Device Used Yes (1 pt) Altered Elimination No (0 pt) Score/Fall Risk Level 0 - 2 = Low Risk. Assessment: 09:01 General: Appears in no apparent distress. uncomfortable, Behavior is calm, cooperative, eh3 appropriate for age. Pain: Complains of pain in chest Pain does not radiate. Pain began 2-3 days ago. Neuro: Level of Consciousness is awake, alert, obeys commands, Oriented to person, place, time, situation. Cardiovascular: Capillary refill < 3 seconds Patient's skin is warm and dry. Rhythm is irregular. Respiratory: Airway is patent Respiratory effort is even, labored, Respiratory pattern is regular, symmetrical. GI: No signs and/or symptoms were reported involving the gastrointestinal system. Abdomen is round non-distended. : No signs and/or symptoms were reported regarding the genitourinary system. EENT: No signs and/or symptoms were reported regarding the EENT system. Derm: No signs and/or symptoms reported regarding the dermatologic system. Musculoskeletal: Circulation, motion, and sensation intact. 10:00 Reassessment: Patient appears in no apparent distress at this time. Patient and/or 3 family updated on plan of care and expected duration. Pain level reassessed. Patient is alert, oriented x 3, equal unlabored respirations, skin warm/dry/pink. 11:00 Reassessment: Patient appears in no apparent distress at this time. Patient and/or eh3 family updated on plan of care and expected duration. Pain level reassessed. Patient is alert, oriented x 3, equal unlabored respirations, skin warm/dry/pink. Vital Signs: 08:35 BP 146 / 96; Pulse 97; Resp 16; Temp 97.7(TE); Pulse Ox 100% on R/A; Weight 74.84 kg; Height 5 ft. 11 in. (180.34 cm); Pain 5/10; 09:30 BP 134 / 79; Pulse 83; Resp 20; Pulse Ox 100% on 2 lpm NC; eh3 10:00 BP 102 / 88; Pulse 87; Resp 16; Pulse Ox 100% on 2 lpm NC; eh3 11:00 BP 131 / 63; Pulse 99; Resp 20; Pulse Ox 98% on 2 lpm NC; eh3 08:35 Body Mass Index 23.01 (74.84 kg, 180.34 cm) ED Course: 08:32 Patient arrived in ED. rg4 08:32 Rell Zuñiga MD is Private Physician. rg4 08:33 Shannon Harrell PA is PHCP. en 08:33 Gregory Cheney MD is Attending Physician. en 08:38 Triage completed. ss 08:38 Arm band placed on right wrist. ss 08:58 Yvette Hensley, RN is Primary Nurse. eh3 09:00 Patient maintains SpO2 saturation greater than 95% on room air. eh3 09:01 Patient has correct armband on for positive identification. Bed in low position. Call eh3 light in reach. Side rails up X2. Adult w/ patient. Client placed on continuous cardiac and pulse oximetry monitoring. NIBP monitoring applied. 09:03 CMP Sent. rs5 09:04 CBC with Diff Sent. rs5 09:04 Troponin High Sensitivity Sent. rs5 09:04 Magnesium Sent. rs5 09:04 Phosphorus Sent. rs5 09:04 PT-INR Sent. rs5 09:04 Inserted saline lock: 22 gauge in right antecubital area, using aseptic technique. rs5 Blood collected. 09:04 COVID-19/FLU A+B Sent. rs5 09:20 CXR XRAY In Process Unspecified. EDMS 09:22 UA Sent. mm9 09:22 COVID-19/FLU A+B Sent. mm9 10:00 Boone Whitt is Hospitalizing Provider. en 11:04 Lactate w/ 2H reflex if indic. Sent. eh3 11:04 Blood Culture Adult (2) Sent. eh3 15:51 No provider procedures requiring assistance completed. Patient admitted, IV remains in eh3 place. Administered Medications: 09:30 Drug: Lasix (furosemide) 40 mg Route: IVP; Site: right forearm; eh3 11:04 Follow up: Response: No adverse reaction eh3 11:00 Drug: Rocephin (cefTRIAXone) 1 grams Route: IV; Rate: bolus; Site: right forearm; eh3 11:00 Drug: Zithromax (azithromycin) 10 mg/kg {Note: 500mg.} Route: IVPB; Rate: calculated 3 rate; Site: right forearm; Medication: 15:52 VIS not applicable for this client. eh3 Outcome: 10:01 Decision to Hospitalize by Provider. en 15:[address] [facility] accompanied by tech, via wheelchair, room 405, with oxygen, Report eh3 called to [facility] 15:52 Condition: stable 15:52 Instructed on the need for admit. 16:05 Patient left the ED. [facility] Signatures: Dispatcher [employer] EDMS Denia Givens RN RN Janeth Guillaume rg4 Yvette Hensley RN RN [facility] Shannon Harrell PA PA en Martinez, Maria mm9 Mohit Lindo rs5 Corrections: (The following items were deleted from the chart) 11:25 11:00 Zithromax (azithromycin) 10 mg/kg IVPB at calculated rate in right forearm [place] [id number] 11:28 09:30 BP 134 / 79; Pulse 83bpm; Resp 20bpm; Pulse Ox 100% RA; [place] [address] 11:28 10:00 BP 102 / 88; Pulse 87bpm; Resp 16bpm; Pulse Ox 100% RA; [place] [id number]
--- NOTE | 2022-07-14 10:02 | EDPHYS ---
Physician Documentation [facility] Name: Vtior Mg Age: 87 yrs Sex: Male : 1935 Arrival Date: 07/14/2022 Time: 08:32 Bed 20 Private MD: Rell Zuñiga ED Physician Gregory Cheney HPI: 07/14 08:50 This 87 yrs old Male presents to ER via Wheelchair with complaints of Chest en Pain, Breathing Difficulty. 08:50 87 yo M with HTN, CHF, ? COPD on 3L home O2, A Fib on Eliquis presents to ED with 2 en days of worsening SOB at rest and increased RANDLE. NO F/C/N/V/D. Has been compliant with all meds, eating and drinking well. Mild chest congestion, but no cough or wheezing. Pt was discharged from hospital on 06/27/22 after admission for CHF exacerbation and hypernatremia, per family. Discharge Note is limited, but Na at ri was 146, Cr 1.4. Historical: - Allergies: 08:38 No Known Allergies; ss - PMHx: 08:38 CAD; cancer, throat; Chronic pain; CVA; Hypertension; ss 08:38 Home O2 \T\ 2L NC; ss - PSHx: 08:38 Stented artery; ss - Immunization history:: Client reports having NOT received the Covid vaccine. - Social history:: Smoking status: Patient/guardian denies using tobacco, but has a distant history of tobacco abuse. ROS: 08:50 Constitutional: Negative for fever, chills, and weight loss. en 08:50 Constitutional: Negative for body aches, fatigue, fever, malaise, poor PO intake. 08:50 Cardiovascular: Positive for 08:50 Cardiovascular: Positive for orthopnea, Negative for chest pain, edema, palpitations. 08:50 Respiratory: Negative for 08:50 Respiratory: Positive for dyspnea on exertion, shortness of breath, Negative for cough, wheezing. 08:50 Abdomen/GI: Negative for abdominal pain, nausea and vomiting, nausea, vomiting, and diarrhea. 08:50 All other systems are negative. Exam: 08:50 Constitutional: Elderly, chronically ill appearing, but cooperative, mild respiratory en distress from baseline on 3L NC, cooperative but fatigued appearing 08:50 Constitutional: The patient appears alert, awake. 08:50 Eyes: Conjunctiva: normal, no exudate, no injection. 08:50 ENT: Mouth: Lips: dry. 08:50 Neck: Exam negative for no JVD. 08:50 Cardiovascular: irregularly irregular rate and rhythm no m/g/r. No peripheral edema. 08:50 Respiratory: bibasilar crackles, mild respiratory distress from baseline but no increase in O2 requirement. No accessory muscle use, hypoxia. 08:50 Abdomen/GI: Inspection: abdomen appears normal, Bowel sounds: normal, Palpation: abdomen is soft and non-tender. Vital Signs: 08:35 BP 146 / 96; Pulse 97; Resp 16; Temp 97.7(TE); Pulse Ox 100% on R/A; Weight 74.84 kg; ss Height 5 ft. 11 in. (180.34 cm); Pain 5/10; 09:30 BP 134 / 79; Pulse 83; Resp 20; Pulse Ox 100% on 2 lpm NC; eh3 10:00 BP 102 / 88; Pulse 87; Resp 16; Pulse Ox 100% on 2 lpm NC; eh3 11:00 BP 131 / 63; Pulse 99; Resp 20; Pulse Ox 98% on 2 lpm NC; eh3 08:35 Body Mass Index 23.01 (74.84 kg, 180.34 cm) ss MDM: 08:38 Patient medically screened. en 08:50 Data reviewed: vital signs, nurses notes, old medical records, discharge NA 145, Cr en 1.4, Limited discharge summary from 06/27 available lab test result(s), EKG, and as a result, I will. 08:50 ED course: 87 yo my with increased SOB and clinically volume overloaded on exam, mild en worsening of respiratory distress from baseline. Additional hx provided by daughter, who reports pt is on 3L NC at baseline, but has been down to 2.5L the last several days to conserve remaining O2 tanks. This could be contributing to his increased SOB, but also has mild bibasilar crackles. No Fevers and has been compliant with medications. DDX includes hyper/hyponatremia, ACS, A. fib, CHF exacerbation, COPD, COVID, Flu, PNA, URI EKG interpreted by 07/14/22\T\[id number] A Fib \T\98bpm with PVC, LAD, No STEMI Accountant Controller interpretation A Fib at 96BPM ED medical Intervention- Will give lasix 40mg IV x 1 for diuresis. Admission is being considered 2/2 clinical volume overload but will await imaging and labs. Pt course complicated by h/o CHF with O2 dependence, HTN, A. Fib, and limited mobility. . 09:46 Data reviewed: lab test result(s), cardiac enzymes, troponin i, Trop elevated at 66.1, en (previous admission reviewed and was 55). Data interpreted: harness brusher: Interpretation: normal rate, atrial fibrillation, 98 bpm, Pulse oximetry: on 3L(s) per nasal canula, 97%. 09:49 Data reviewed: radiologic studies, CXR with pulmonary edema, increased from previous. en ED course: Reviewed imaging and labs. CXR read with ?PNA vs CHF exacerbation. PNA less likely given clinical hx and exam with elevated BNP and elevated Trop may be chronic but can't r/o ACS from CHF exacerbation. WBC WNL, but HR in the 90s giving him only 1 SIRS criteria. Pt is at risk for sepsis 2/2 age and CXR with ?PNA. , so will draw blood cultures, lactic acid, start IV Rocephin and Zithromax. Will defer IVF 2/2 CHF and clinically volume overloaded. Will admit for diuresis. Accepted by Dr Carballo, Hospitalist. 07/14 08:49 Order name: CBC with Diff; Complete Time: :48 en 07/14 08:49 Order name: CMP; Complete Time: :48 en 07/14 08:49 Order name: Troponin High Sensitivity; Complete Time: :48 en 07/14 08:49 Order name: Magnesium; Complete Time: 09:48 en 07/14 08:49 Order name: Phosphorus; Complete Time: 09:48 en 07/14 08:49 Order name: PT-INR; Complete Time: :48 en 07/14 08:49 Order name: Ptt, Activated; Complete Time: 09:48 en 07/14 08:49 Order name: UA en 07/14 08:49 Order name: BNP; Complete Time: 09:48 en 07/14 08:49 Order name: COVID-19/FLU A+B en 07/14 09:23 Order name: Urine Dipstick-Ancillary; Complete Time: 09:48 EDMS 07/14 09:59 Order name: Blood Culture Adult (2) en 07/14 09:59 Order name: Lactate w/ 2H reflex if indic. en 07/14 15:48 Order name: Troponin High Sensitivity EDMS 07/14 08:49 Order name: EKG; Complete Time: 08:50 en 07/14 08:49 Order name: IV Saline Lock; Complete Time: 08:59 en 07/14 08:49 Order name: Cardiac monitoring; Complete Time: 08:58 en 07/14 08:49 Order name: CXR XRAY; Complete Time: 09:48 en 07/14 09:59 Order name: O2 Per Protocol; Complete Time: 10:19 en 07/14 09:59 Order name: O2 Sat Monitoring; Complete Time: 10:19 en 07/14 09:59 Order name: Urine Dipstick-Ancillary (obtain specimen); Complete Time: 10:04 en EC:50 Rate is 98 beats/min. Rhythm is irregularly irregular. MT interval is normal. QRS en interval is normal. QT interval is normal. No ST changes noted. Clinical impression: Atrial Fibrillation, LVH, and No evidence of ischemia. Interpreted by me. Administered Medications: 09:30 Drug: Lasix (furosemide) 40 mg Route: IVP; Site: right forearm; eh3 11:04 Follow up: Response: No adverse reaction eh3 11:00 Drug: Rocephin (cefTRIAXone) 1 grams Route: IV; Rate: bolus; Site: right forearm; eh3 11:00 Drug: Zithromax (azithromycin) 10 mg/kg {Note: 500mg.} Route: IVPB; Rate: calculated eh3 rate; Site: right forearm; Disposition: 17:34 Co-signature as Attending Physician, Gregory Cheney MD. Chart complete. rn Disposition Summary: 07/14/22 10:01 Hospitalization Ordered Hospitalization Status: Inpatient Admission en Provider: Boone Whitt Condition: Guarded en Problem: an acute exacerbation en Symptoms: have worsened en Bed/Room Type: Standard en Location: Telemetry/MedSurg (Inpatient)(07/14/22 14:36) dw Room Assignment: 405(07/14/22 14:36) dw Diagnosis - Systolic (congestive) heart failure en Forms: - Medication Reconciliation Form en - SBAR form en Signatures: Dispatcher [employer] Gavi Wiley RN RN dw Gregory Cheney MD MD rn Smirch, Shelby, RN RN Shannon Andrew Erin, RN RN 3 Shannon Harrell PA PA en Corrections: (The following items were deleted from the chart) 12:14 10:01 Telemetry/MedSurg (Inpatient) en eb 12:14 10:01 en eb 14:36 12:14 [facility] ER HOLD eb dw 14:36 12:14 ERHOLD- eb dw
[2022-07-14] MEDS ORDERED: CEFTRIAXONE 1000 MG/VIAL ONE (10:30)
[2022-07-14] MEDS ORDERED: NA CHLORIDE 0.9% 250 ML ONE (11:09)
[2022-07-14] MEDS ORDERED: AZITHROMYCIN 500 MG INJ IVPB ONE (11:09)
[2022-07-14] MEDS ORDERED: NA CHLORIDE 0.9% 50 ML IV ONE (11:09)
--- NOTE | 2022-07-14 11:46 | P.HP ---
Certification for Inpatient Patient admitted to: Inpatient With expected LOS: >2 Midnights Practitioner: I am a practitioner with admitting privileges, knowledge of patient current condition, hospital course, and medical plan of care. Services: Services provided to patient in accordance with Admission requirements found in Title 42 Section 412.3 of the Code of Federal Regulations Patient History Date of Service: 07/14/22 Reason for admission: Shortness of breath History of Present Illness: 87-year-old gentleman with a history of chronic systolic heart failure, chronic respiratory failure on 2 L of oxygen by nasal cannula at baseline, history of COPD/emphysema recently hospitalized a couple of weeks ago for shortness of breath and pneumonia was brought to the emergency department due to progressive shortness of breath of 3 days duration. Family stated patient shortness of breath was much worse today, he was unable to make it to the bathroom even with significant assistance due to the shortness of breath. Chest x-ray done in the ED demonstrated bilateral lung opacities, right greater than left, infiltrate increased compared to prior images. Troponins mildly elevated to 66, BNP elevated. Patient was maintained on 2 L oxygen by nasal cannula and he was saturating 100%. ED provider wishes to admit patient for further management of pneumonia and possible CHF exacerbation. 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 Family stated she has not noted that patient has any difficulty with swallowing. Allergies No Known Allergies Allergy (Verified 05/07/22 21:46) Home Medications: Clopidogrel Bisulfate [Plavix*] 75 mg PO DAILY tablet 01/24/20 Apixaban [Eliquis *] 2.5 mg PO BID 09/20/20 Simvastatin 40 mg PO BEDTIME 09/20/20 traMADol HCL [Ultram*] 50 mg PO TID PRN 09/20/20 Docusate [Colace Cap*] 2 tab PO BID PRN 01/09/21 carvediloL [Coreg*] 12.5 mg PO BID 6AM 6PM #60 tab 02/01/21 Gabapentin [Neurontin*] 100 mg PO TID 01/02/22 Benzonatate [Tessalon Perle*] 100 mg PO TID PRN 7 Days #20 cap 05/11/22 dexAMETHasone [Dexamethasone] 2 mg PO BID 10 Days #20 tab 06/02/22 levoFLOXacin [Levaquin*] 500 mg PO DAILY 7 Days #7 tab 06/02/22 Furosemide [Lasix*] 40 mg PO SEECOM 06/26/22 - Past Medical/Surgical History Diabetic: No -: Hypertension -: Hyperlipidemia -: CAD -: Throat cancer status post radiation therapy -: Chronic pain -: CVA -: Peripheral vascular disease -: A. fib on chronic anticoagulation -: Multiple stents to the heart -: Stents to the lower extremity -: Stents to the carotid Psychosocial/ Personal History: Patient lives at home with daughter. - Social History Alcohol use: No CD- Drugs: No Caffeine use: No Review of Systems Other: No reported fever, no nausea or vomiting. Patient denied any chest pain. At baseline he ambulates with a walker. Except as documented, all other systems reviewed and negative. Physical Examination - Physical Exam General: Alert, In no apparent distress, Oriented x3 HEENT: PERRLA, Mucous membr. moist/pink, Sclerae nonicteric Neck: Supple, JVD not distended Respiratory: Clear to auscultation bilaterally, Normal air movement Cardiovascular: No edema, Regular rate/rhythm, No murmurs Gastrointestinal: Soft and benign, Non-distended, No tenderness Musculoskeletal: No swelling, No tenderness Integumentary: No rashes, No cyanosis Neurological: Normal speech, Other (No focal motor deficit) - Studies Laboratory Data (last 24 hrs) 07/14/22 09:00: PT 13.4 H, INR 1.22, APTT 37.5 H 07/14/22 09:00: Sodium 138, Potassium 4.7, BUN 28 H, Creatinine 1.30, Glucose 118 H, Phosphorus 3.2, Magnesium 2.4, Total Bilirubin 1.5 H, AST 24, ALT 17, Alkaline Phosphatase 55 07/14/22 09:00: WBC 8.20, Hgb 13.9, Hct 41.7, Plt Count 142 L Assessment and Plan - Problems (Diagnosis) (1) Pneumonia Current Visit: Yes Status: Acute (2) Chronic respiratory failure with hypoxia Current Visit: Yes Status: Acute (3) Chronic systolic heart failure Current Visit: Yes Status: Acute (4) History of head and neck cancer Current Visit: Yes Status: Acute - Plan Patient with recurrent pneumonia. Aspiration pneumonia is highly possible. Admit patient to the medical floor. Start IV Levaquin and Zosyn. Obtain CT chest to further assess the bilateral pneumonia Supplemental oxygen Bronchodilators Continue home dose Lasix. PT consult. Reconcile and continue other home medication. - Advance Directives Does patient have a Living Will: No Does patient have a Durable POA for Healthcare: No
[2022-07-14 14:04] VITALS: BMI 23.0
[2022-07-14] MEDS: Levofloxacin 750mg IV 750 MG/150 ML BAG IV SCH ×2 (14:05→16:35)
[2022-07-14] MEDS: PIPER TAZO 3.375 GM in NA CHLORIDE 0.9% 100 ML IV SCH (14:05)
[2022-07-14] MEDS ORDERED: ACETAMINOPHEN 500 MG TAB PO PRN (14:05)
[2022-07-14] MEDS ORDERED: ONDANSETRON 4 MG/2 ML VIAL IV PRN (14:05)
[2022-07-14] MEDS ORDERED: IPRATROPIUM BROM 0.5MG/2.5ML NEB SCH (14:05)
[2022-07-14] MEDS: ALBUTEROL 2.5 MG/3 ML NEB SOL NEB SCH ×2 (14:05→20:00)
[2022-07-14] MEDS ORDERED: Levofloxacin 750mg IV 750 MG/150 ML BAG IV ONE (14:15)
[2022-07-14] MEDS ORDERED: PIPERACIL/TAZO 3.375 GM VIAL IV ONE (14:15)
[2022-07-14] MEDS ORDERED: NA CHLORIDE 0.9% 100 ML IV ONE (14:16)
[2022-07-14] MEDS: TRAMADOL HCL 50 MG TAB PO PRN ×2 (14:43→21:03)
[2022-07-14] MEDS ORDERED: TRAMADOL HCL 50 MG TAB ONE (14:48)
--- NOTE | 2022-07-14 16:09 | RAD REPORT ---
EXAM DESCRIPTION: CT - Chest For Pe Angio - 07/14/2022 3:41 pm CLINICAL HISTORY: Dyspnea, elevated trop, hypoxia COMPARISON: Chest For Pe Angio dated 05/07/2022; Chest Single View dated 07/14/2022 TECHNIQUE: Dynamically enhanced 3 mm thick images of the chest were obtained during administration o f approximately 150mL Isovue 370 IV contrast. Coronal and oblique MIP reconstruction images were gene rated and reviewed. Exam utilizes a protocol to evaluate the pulmonary arterial tree. All CT scans are performed using dose optimization technique as appropriate and may include automated exposure control or mA/KV adjustment according to patient size. FINDINGS: No pulmonary emboli are identified. The aorta as imaged shows no acute or suspicious finding. Aortic assessment is limited on a PE protoc ol study. Cardiomegaly is present without pericardial thickening or effusion. Patient has significant baseline lung parenchymal disease. There is diffuse fibrosis and numerous bul lae and blebs. Calcified pleural plaques are present. There is trace left pleural effusion and minima l right pleural effusion. Interstitial markings are prominent and there is suspected to be superimpos ed edema or infiltrate. CHF/volume overload may well be present. No pneumothorax. Nonspecific mediastinal reactive lymph nodes are present. No chest wall masses or abnormal axillary l ymphadenopathy. IMPRESSION: No pulmonary emboli identified. Suspected interstitial edema or infiltrate superimposed on chronic fibrotic lung disease. There are n umerous bullae and blebs better subpleural and more central in positioning. There are numerous areas of calcified pleural plaquing.
[2022-07-14] MEDS ORDERED: HEPARIN 5000 UNIT/ML 1 ML VIAL SQ SCH (17:00)
[2022-07-14] MEDS ORDERED: DOCUSATE NA 100 MG CAP PO PRN (18:17)
[2022-07-14] MEDS: IPRATROPIUM BROM 0.5MG/2.5ML NEB SCH (20:00)
[2022-07-14] MEDS: ATORVASTATIN 20 MG TAB PO SCH (21:03)
[2022-07-14] MEDS: GABAPENTIN 100 MG CAP PO SCH (21:03)
[2022-07-14] MEDS: APIXABAN 2.5 MG TABLET PO SCH (21:03)
[2022-07-15] MEDS: PIPER TAZO 3.375 GM in NA CHLORIDE 0.9% 100 ML IV SCH ×3 (00:04→16:26)
[2022-07-15] MEDS: IPRATROPIUM BROM 0.5MG/2.5ML NEB SCH ×4 (02:50→19:09)
[2022-07-15] MEDS: ALBUTEROL 2.5 MG/3 ML NEB SOL NEB SCH ×4 (02:50→19:09)
[2022-07-15] MEDS: TRAMADOL HCL 50 MG TAB PO PRN ×2 (03:21→20:10)
[2022-07-15 03:43] LABS: Absolute Lymphocytes (CBC) 1.6 K/uL (0.7-4.9); Hematocrit 36.9 % (39.6-49.0); Lymphocytes % 19.7 % (15.3-44.8); MCV 93.3 fL (80-100); RBC Red Blood Cell Count 3.96 M/uL (4.33-5.43)
[2022-07-15 03:59] LABS: Magnesium 2.3 mg/dL (1.6-2.4); Phosphorus 3.1 mg/dL (2.5-4.9); Potassium 3.7 mmol/L (3.5-5.1)
[2022-07-15] MEDS: carvediloL 12.5 MG TAB PO SCH ×2 (05:28→16:27)
[2022-07-15] MEDS ORDERED: POTASSIUM CL SA 10 MEQ TAB PO ONE (06:00)
[2022-07-15] MEDS ORDERED: FUROSEMIDE 40 MG TABLET PO SCH (08:00)
[2022-07-15] MEDS: GABAPENTIN 100 MG CAP PO SCH ×3 (08:13→20:06)
[2022-07-15] MEDS: CLOPIDOGREL 75 MG TABLET PO SCH (08:13)
[2022-07-15] MEDS: APIXABAN 2.5 MG TABLET PO SCH ×2 (08:13→20:06)
[2022-07-15] MEDS: FUROSEMIDE 40 MG/4 ML VIAL IV SCH ×2 (08:16→16:27)
--- NOTE | 2022-07-15 13:26 | CON ---
History Of Present Illness: This is an 87-year-old male I was consulted for evaluation of pneumonia. Patient is brought in on July 14 with significant past medical history of chronic systolic hear t failure, respiratory failure on 2 L nasal cannula with history of COPD, emphysema. Patient was fou nd to have shortness of breath for a week and was seen for pneumonia. Chest x-ray in the emergency r oom shows bilateral lung opacities. Currently, patient is getting 2 L nasal cannula. Denies any karri st pain, abdominal pain, constipation, or diarrhea. Complains of cough and sore throat. Past Medical History: Hypertension, hyperlipidemia, coronary artery disease, throat cancer, chronic , stroke, peripheral vascular disease, atrial fibrillation, multiple stents to the heart st ents to the lower extremities, stents to the carotid artery. Social History: Nondrinker. Former tobacco use. Family History: Noncontributory. Medications: Zosyn. See MAR for other medications. Allergies: NO KNOWN DRUG ALLERGIES. Review of Systems: A 10-point review was performed. Physical Examination: General: This is an 87-year-old male, lying in bed, not in any acute cardiopulmonary distress. Vital Signs: Temperature 97.8, pulse 90, respirations 16, blood pressure 133/75. HEENT: Unremarkable. Neck: Supple. Lungs: Basal crackles, right more than left. Heart: S1, S2. Regular. Abdomen: Soft, nontender. Bowel sounds present. Extremities: No edema. Imaging: Chest x-ray done on July 14 shows patient has right greater than left parenchymal opaci fication. Thorax CTA done on July 14, no pulmonary emboli, suspected interstitial edema or infil trates superimposed with chronic fibrotic lung disease, numerous bullae and blebs that are subpleural and more central in position calcific pleural plaquing noted. Assessment And Plan: An 87-year-old male with right lower lobe pneumonia, currently being treated wi Zosyn and Levaquin. We will recommend to stop Levaquin. Anemia of chronic disease, renal insuffi ciency, chronic obstructive pulmonary disease exacerbation. We will continue current treatment. Mon itor the patient for signs of infection. Continue nutritional support. We will follow patient as brandy wayne. NF/MODL Voice ID: [id number] Report ID: [id number]
--- NOTE | 2022-07-15 15:21 | RAD REPORT ---
EXAM DESCRIPTION: RAD - Barium Swallow Modified - 07/15/2022 2:48 pm CLINICAL HISTORY: Respiratory complications. Pneumonia FINDINGS: laryngeal penetraion: not cleared aspiration : cough with thin Pooling of contrast within the vallecula. Pharyngeal residue. other : swallow delay, incolpleate airway closure, tongue mashing, mild swallow delay, reduced coordi nation UES opening Fluoroscopy time 1.4 minutes. A fluoroscopic spot images obtained
--- NOTE | 2022-07-15 16:56 | P.PN ---
Subjective Date of Service: 07/15/22 Chief Complaint: Shortness of breath No major changes from yesterday. Patient is maintained on 2 L oxygen by nasal cannula and saturating at 99%. Physical Examination - Vital Signs Temperature: 97.9 F Blood Pressure: 125/58 Pulse: 87 Respirations: 18 Pulse Ox (%): 96 - Physical Exam General: In no apparent distress, Other (Awake) HEENT: Mucous membr. moist/pink Neck: JVD not distended Respiratory: Crackles/rales (Bilateral) Cardiovascular: No edema, Regular rate/rhythm, Normal S1 S2 Gastrointestinal: Soft and benign, Non-distended, No tenderness Musculoskeletal: No swelling Integumentary: No rashes Neurological: Other (No focal motor deficit) Assessment And Plan - Current Problems (Diagnosis) (1) Pneumonia Current Visit: Yes Status: Acute (2) Chronic respiratory failure with hypoxia Current Visit: Yes Status: Acute (3) Chronic systolic heart failure Current Visit: Yes Status: Acute (4) History of head and neck cancer Current Visit: Yes Status: Acute - Plan Patient with recurrent pneumonia. Aspiration pneumonia is highly possible. CT chest result reviewed and report. Patient has pulmonary fibrosis and emphysema. Possible diffuse interstitial infiltrates/edema. Speech therapy input appreciated. MBS done. Awaiting speech therapy recommendation regarding diet. Infectious disease recommendation appreciated Continue IV Zosyn. Discontinue Levaquin. Supplemental oxygen Bronchodilators Trial of IV Lasix for possible interstitial edema. PT consulted. Continue other home medications. Hospice for advanced COPD/emphysema recommended. Family yet to make a decision.
[2022-07-15] MEDS: ATORVASTATIN 20 MG TAB PO SCH (20:06)
--- NOTE | 2022-07-15 22:01 | P.PN ---
Date of Service: 07/16/22 Subjective: no acute events overnight feels better overall no new/worsening of symptoms ROS: A complete review of systems was performed and is negative except as mentioned above Physical Exam: Gen: NAD, AOx3 CV: regular rate & rhythm, no edema Pulm: non-labored respirations on 2L NC, mild b/l crackles Abd: soft, non-tender, non-distended Neuro: normal speech, normal affect, moves all extremities vitals reviewed Problem List Acute on chronic hypoxemic respiratory failure secondary to pneumonia recurrent pneumonia, possible aspiration Chronic systolic heart failure History of head and neck cancer chronic COPD, with pulmonary fibrosis, on home O@ h/o CAD, PVD, CVA HTN CKD3 Anemia of chronic kidney disease Peripheral Neuropathy Patient with recurrent pneumonia. secondary to aspiration pneumonia CT chest result reviewed. Patient has pulmonary fibrosis and emphysema. Possible diffuse interstitial infiltrates/edema. Speech therapy consulted MBS done - noted aspiration. thickened liquids family have decided to pursue hospice given chronic COPD, pulmonary fibrosis, and ongoing aspiration complicated by recurrent pneumonias Infectious disease recommendation appreciated Continue IV Zosyn. dc'd Levaquin. Supplemental oxygen Bronchodilators Trial of IV Lasix for possible interstitial edema. PT consulted. Continue other home medications. Hospice for advanced COPD/emphysema recommended by Dr. Whitt, family have chosen hospice marriage and family social worker consulted for assistance Code: DNR Dispo: home with hospice, ~24 hrs Time Spent Managing Pts Care (In Minutes): 30
[2022-07-16] MEDS: ALBUTEROL 2.5 MG/3 ML NEB SOL NEB SCH ×4 (00:30→21:15)
[2022-07-16] MEDS: IPRATROPIUM BROM 0.5MG/2.5ML NEB SCH ×4 (00:30→21:15)
[2022-07-16] MEDS: PIPER TAZO 3.375 GM in NA CHLORIDE 0.9% 100 ML IV SCH ×3 (00:34→16:59)
[2022-07-16 05:17] LABS: Potassium 3.5 mmol/L (3.5-5.1)
[2022-07-16] MEDS: carvediloL 12.5 MG TAB PO SCH ×2 (06:13→17:01)
[2022-07-16] MEDS ORDERED: POTASSIUM 25 MEQ EFFERV TAB PO ONE ×2 (09:00)
[2022-07-16] MEDS ORDERED: POTASSIUM CL SA 10 MEQ TAB PO ONE (09:00)
[2022-07-16] MEDS: APIXABAN 2.5 MG TABLET PO SCH ×2 (09:16→20:40)
[2022-07-16] MEDS: CLOPIDOGREL 75 MG TABLET PO SCH (09:16)
[2022-07-16] MEDS: GABAPENTIN 100 MG CAP PO SCH ×3 (09:16→20:40)
[2022-07-16] MEDS: FUROSEMIDE 40 MG/4 ML VIAL IV SCH ×2 (09:17→17:01)
--- NOTE | 2022-07-16 11:22 | P.CNS ---
Chief Complaint: Shortness of breath Allergies No Known Allergies Allergy (Verified 05/07/22 21:46) Home Medications: Clopidogrel Bisulfate [Plavix*] 75 mg PO DAILY tablet 01/24/20 Apixaban [Eliquis *] 2.5 mg PO BID 09/20/20 Simvastatin 40 mg PO BEDTIME 09/20/20 traMADol HCL [Ultram*] 50 mg PO TID PRN 09/20/20 Docusate [Colace Cap*] 2 tab PO BID PRN 01/09/21 carvediloL [Coreg*] 12.5 mg PO BID 6AM 6PM #60 tab 02/01/21 Gabapentin [Neurontin*] 100 mg PO TID 01/02/22 Furosemide [Lasix*] 40 mg PO SEECOM 06/26/22 - Past Medical/Surgical History Diabetic: No -: Hypertension -: Hyperlipidemia -: CAD -: Throat cancer status post radiation therapy -: Chronic pain -: CVA -: Peripheral vascular disease -: A. fib on chronic anticoagulation -: Multiple stents to the heart -: Stents to the lower extremity -: Stents to the carotid Psychosocial/ Personal History: Patient lives at home with daughter. - Social History Smoking Status: Former smoker Alcohol use: No CD- Drugs: No Caffeine use: No Place of Residence: Home Physical Examination Temp Pulse Resp BP Pulse Ox 97.5 F 59 16 113/67 98 07/16/22 08:00 07/16/22 08:00 07/16/22 08:00 07/16/22 08:00 07/16/22 08:00 - Problems (1) Pneumonia Current Visit: Yes Status: Acute Plan: Per Xray 07/14: Right greater than left lung parenchymal opacification increased over June 27 imaging. Pneumonia would be the primary consideration and needs correlation with clinical presentation. Noninfectious interstitial edema would be possible though heart size and vascularity do not indicate a significant degree of failure or volume overload. 07/14 BC: Negative Currently on IV Zosyn, day 3, started 07/14 (2) Chronic systolic heart failure Current Visit: Yes Status: Acute (3) History of head and neck cancer Current Visit: Yes Status: Acute
--- NOTE | 2022-07-16 11:27 | P.PN ---
Subjective Date of Service: 07/16/22 Chief Complaint: Shortness of breath Patient sitting at the edge of the bed dinner lunch with daughter at the bedside. No cardiopulmonary distress seen and answered questions pleasantly. Physical Examination - Vital Signs Temperature: 97.5 F Blood Pressure: 113/67 Pulse: 59 Respirations: 16 Pulse Ox (%): 98 - Physical Exam General: Alert, In no apparent distress Respiratory: Crackles/rales, Other (LLL) Cardiovascular: Normal S1 S2 Gastrointestinal: Normal bowel sounds Integumentary: No rashes Assessment And Plan - Current Problems (Diagnosis) (1) Pneumonia Current Visit: Yes Status: Acute Plan: Per Xray 07/14: Right greater than left lung parenchymal opacification increased over June 27 imaging. Pneumonia would be the primary consideration and needs correlation with clinical presentation. Noninfectious interstitial edema would be possible though heart size and vascularity do not indicate a significant degree of failure or volume overload. 07/14 BC: Negative Currently on IV Zosyn, day 3, started 07/14 We will monitoring the patient closely (2) Chronic systolic heart failure Current Visit: Yes Status: Acute (3) History of head and neck cancer Current Visit: Yes Status: Acute Plan: Possible Hospice, pending for family decision. Case has been discussed with Dr. Loya N
--- NOTE | 2022-07-16 14:34 | EKG ---
Test Date: 2022-07-14 Test Time: 08:49:37 Nib Adjuster: DREAD MEASUREMENT RESULTS: Intervals: Rate: 98 PA: QRSD: 162 QT: 410 QTc: 523 [place]: P: PA: QRS: -75 T: 60 INTERPRETIVE STATEMENTS: Atrial flutter with variable AV block with premature ventricular or aberrantly conducted complexes Left axis deviation Left bundle branch block Abnormal ECG Compared to ECG 06/25/2022 16:53:55 Ventricular premature complex(es) now present Left bundle-branch block now present Myocardial infarct finding no longer present Electronically Signed On 07-16-22 14:32:09 DIRECTOR OF ENTERTAINMENT by Bossman Zuniga
[2022-07-16] MEDS: TRAMADOL HCL 50 MG TAB PO PRN (16:59)
[2022-07-16] MEDS: ATORVASTATIN 20 MG TAB PO SCH (20:40)
[2022-07-17] MEDS: PIPER TAZO 3.375 GM in NA CHLORIDE 0.9% 100 ML IV SCH (00:28)
[2022-07-17] MEDS: ALBUTEROL 2.5 MG/3 ML NEB SOL NEB SCH ×2 (01:45→09:07)
[2022-07-17] MEDS: IPRATROPIUM BROM 0.5MG/2.5ML NEB SCH ×2 (01:45→09:07)
[2022-07-17] MEDS: TRAMADOL HCL 50 MG TAB PO PRN (04:02)
[2022-07-17 04:31] LABS: Potassium 3.5 mmol/L (3.5-5.1)
[2022-07-17] MEDS: carvediloL 12.5 MG TAB PO SCH (05:55)
[2022-07-17 06:07] VITALS: TEMP 96.8
[2022-07-17 08:19] VITALS: BP 127/65
[2022-07-17] MEDS ORDERED: POTASSIUM 25 MEQ EFFERV TAB PO ONE (09:00)
[2022-07-17 09:48] VITALS: O2SAT 99
--- NOTE | 2022-07-18 23:28 | P.DS ---
Admission Date: 07/14/22 Discharge Date: 07/17/22 Disposition: HOSPICE-HOME Reason for Admission: Shortness of breath Brief History of Present Illness: 87-year-old gentleman with a history of chronic systolic heart failure, chronic respiratory failure on 2 L of oxygen by nasal cannula at baseline, history of COPD/emphysema recently hospitalized a couple of weeks ago for shortness of breath and pneumonia was brought to the emergency department due to progressive shortness of breath of 3 days duration. Family stated patient shortness of breath was much worse today, he was unable to make it to the bathroom even with significant assistance due to the shortness of breath. Chest x-ray done in the ED demonstrated bilateral lung opacities, right greater than left, infiltrate increased compared to prior images. Troponins mildly elevated to 66, BNP elevat ed. Patient was maintained on 2 L oxygen by nasal cannula and he was saturating 100%. ED provider wishes to admit patient for further management of pneumonia and possible CHF exacerbation. 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 Family stated she has not noted that patient has any difficulty with swallowing. Hospital Course: Problem List Acute on chronic hypoxemic respiratory failure secondary to pneumonia recurrent pneumonia, possible aspiration Chronic systolic heart failure History of head and neck cancer chronic COPD, with pulmonary fibrosis, on home O@ h/o CAD, PVD, CVA HTN CKD3 Anemia of chronic kidney disease Peripheral Neuropathy Patient presented with recurrent pneumonia. He was evaluated by speech therapy and modified barium swallow study noted aspiration. He was treated with IV zosyn and transitioned to PO augmentin. Given his pulmonary fibrosis, emphysema, recurrent pneumonias with ongoing aspiration, the decision was made to discharge on hospice. Vital Signs/Physical Exam: Temp Pulse Resp BP Pulse Ox 96.8 F 87 16 127/65 100 07/17/22 08:00 07/17/22 08:00 07/17/22 08:00 07/17/22 08:00 07/17/22 08:00 Physical Exam: Gen: NAD, AOx3 CV: regular rate & rhythm, no edema Pulm: non-labored respirations on 2L NC, mild b/l crackles Abd: soft, non-tender, non-distended Neuro: normal speech, normal affect, moves all extremities Laboratory Data at Discharge: WBC 7.90 K/uL (4.3-10.9) 07/15/22 03:21 Hgb 12.5 g/dL (13.6-17.9) L D 07/15/22 03:21 Hct 36.9 % (39.6-49.0) L 07/15/22 03:21 Plt Count 120 K/uL (152-406) L 07/15/22 03:21 PT 13.4 SECONDS (9.5-12.5) H 07/14/22 09:00 INR 1.22 07/14/22 09:00 APTT 37.5 SECONDS (24.3-36.9) H 07/14/22 09:00 Sodium 139 mmol/L (136-145) 07/17/22 03:37 Potassium 3.5 mmol/L (3.5-5.1) 07/17/22 03:37 BUN 31 mg/dL (7-18) H 07/17/22 03:37 Creatinine 1.48 mg/dL (0.70-1.30) H 07/17/22 03:37 Glucose 112 mg/dL (74-106) H 07/17/22 03:37 Phosphorus 3.1 mg/dL (2.5-4.9) 07/15/22 03:21 Magnesium 2.3 mg/dL (1.6-2.4) 07/15/22 03:21 Total Bilirubin 1.5 mg/dL (0.2-1.0) H 07/14/22 09:00 AST 24 U/L (15-37) 07/14/22 09:00 ALT 17 U/L (16-61) 07/14/22 09:00 Alkaline Phosphatase 55 U/L (45-117) 07/14/22 09:00 Home Medications: Clopidogrel Bisulfate [Plavix*] 75 mg PO DAILY tablet 01/24/20 Apixaban [Eliquis *] 2.5 mg PO BID 09/20/20 Simvastatin 40 mg PO BEDTIME 09/20/20 traMADol HCL [Ultram*] 50 mg PO TID PRN 09/20/20 Docusate [Colace Cap*] 2 tab PO BID PRN 01/09/21 carvediloL [Coreg*] 12.5 mg PO BID 6AM 6PM #60 tab 02/01/21 Gabapentin [Neurontin*] 100 mg PO TID 01/02/22 Furosemide [Lasix*] 40 mg PO SEECOM 06/26/22 Amox/Clavulanate [Augmentin 875-125 Tab] 875 mg PO BID 10 Days #20 tab 07/17/22 New Medications: Amox/Clavulanate [Augmentin 875-125 Tab] 875 mg PO BID 10 Days #20 tab Physician Discharge Instructions: Patient presented with recurrent pneumonia. He was evaluated by speech therapy and modified barium swallow study noted aspiration. He was treated with IV zosyn and transitioned to PO augmentin. Given his pulmonary fibrosis, emphysema, recurrent pneumonias with ongoing aspiration, the decision was made for discharge hospice. Followup: Rell Zuñiga MD [Primary Care Provider] - Time spent managing pt's care (in minutes): 45
== END 2022-07-17 09:39 | disposition hospice, home (50) | DRG 177 ==
LOC: ER 08:29 → ERHOLD 11:32 → 4TH 15:42
PROVIDERS: ADMIT Internal Medicine; ATTEND Hospitalist
DX: J69.0 Pneumonitis due to inhalation of food and vomit (principal); J96.21 Acute and chronic respiratory failure with hypoxia; I50.22 Chronic systolic (congestive) heart failure; I13.0 Hypertensive heart and chronic kidney disease with heart failure and stage 1 through stage 4 chronic kidney disease, or unspecified chronic kidney disease; N18.30 Chronic kidney disease, stage 3 unspecified; D63.1 Anemia in chronic kidney disease; J43.9 Emphysema, unspecified; J84.10 Pulmonary fibrosis, unspecified; E78.5 Hyperlipidemia, unspecified; G62.9 Polyneuropathy, unspecified; I48.91 Unspecified atrial fibrillation; G89.29 Other chronic pain; I25.10 Atherosclerotic heart disease of native coronary artery without angina pectoris; Z66 Do not resuscitate; Z51.5 Encounter for palliative care; Z95.5 Presence of coronary angioplasty implant and graft; Z79.01 Long term (current) use of anticoagulants; Z79.02 Long term (current) use of antithrombotics/antiplatelets; Z86.73 Personal history of transient ischemic attack (TIA), and cerebral infarction without residual deficits; Z99.81 Dependence on supplemental oxygen; Z28.310 Unvaccinated for COVID-19; Z87.891 Personal history of nicotine dependence; Z79.899 Other long term (current) drug therapy; Z20.822 Contact with and (suspected) exposure to COVID-19
CPT/HCPCS: 0240U; 36415; 71045; 71275; 74230; 80048; 80053; 81003; 83605; 83735; 83880; 84100; 84484; 85025; 85610; 85730; 87040; 92526; 92611; 93005; 94760; 96374; 96375; 97116; 97161; 97530; 99285; J0456; J1644; J1940; J2543; J7050; J7613; J7644; Q9967

== ENCOUNTER 2022-09-06 20:38 | Inpatient (IN) | payer OTHER ==
--- OUTSIDE RECORDS SUMMARY | 2022-09-06 20:44 | XMS REPORT | Continuity of Care Document ---
:1935 Author Organization [facility] t Address [address] [place] [address] [address] [place] [address] Care Team Providers Name Role Phone Zara Rell Primary Care Physician Therapy, Adc Covid Infusion Attending Clinician Unavailable Felipa Gill MD Attending Clinician FELIPA GILL Attending Clinician Unavailable Niyah Bowie RN Attending Clinician Unavailable Only, Ang Db Test Attending Clinician Unavailable Audrey Solorzano Attending Clinician AUDREY FLORENCE Attending Clinician Unavailable Doctor Unassigned, [place] Attending Clinician Unavailable Janusz Matos MD Attending [...] rs active active ity of problems problems [facility] Allergies, Adverse Reactions, Alerts Allergy Allergy Status Severity Reaction(s) Onset Inactive Treating Comm ents Source Name Type Date Date Clinician NO KNOWN Drug Active Univers ALLERGIE Class ity of S [facility] Social History Social Habit Start Date Stop Date Quantity Comments Source Exposure to 2021-12-21 2021-12-31 Not sure [facility] SARS-CoV-2 (event) 00:00:00 13:06:00 Medica l Branch Tobacco use and 2019-03-01 2019-03-01 Never used [facility] [place] exposure 00:00:00 00:00:00 Medical Branch Sex Ass[birth year] [facility] y of [place] 00:00:00 00:00:00 Medical Branch Smoking Status Start Date Stop Date Source Former smoker 2019-03-01 00:00:00 2019-03-01 00:00:00 [facility] Medical Branch Medications Ordered Filled Start Stop Current Ordering Indication Dosage Frequency Signature Comments Components Source Medication Medication Date Date Medication? Clinician (SIG) Name Name aspirin 81 2019-0 Yes 81mg Take 81 mg U nivers mg chewable 9-09 by mouth ity of tablet 16:02: daily. [place] [address] Medical Branch simvastatin 2019-0 Yes 40mg Take 40 mg Univers 40 mg 9-09 by mouth ity of tablet 16:02: daily. [place] [address] Medical Branch carvedilol 2018-0 Yes 25mg Take 25 mg U nivers 25 mg 9-09 by mouth 2 ity of tablet 16:02: (two) [address] Medical daily with Branch meals. traMADol 50 2018-0 Yes 50mg Take 50 mg Univers mg tablet 9-09 by mouth 2 ity of 16:02: (two) [place] [address] times Medical daily. Branch gabapentin 2018-0 Yes 100mg Take 100 Un tameka 100 mg 9-09 mg by ity of capsule 16:02: mouth at [place] [address] bedtime. Medical Branch clopidogrel 2018-0 Yes 75mg Take 75 mg Univers 75 mg 9-09 by mouth ity of tablet 16:02: daily. [place] [address] Medical Branch losartan 2019-0 Yes 100mg Take 100 Univ ers 100 mg 9-09 mg by ity of tablet 16:02: mouth [place] [address] daily. Medical Branch aspirin 81 2019-0 Yes 81mg Take 81 mg U nivers mg chewable 9-09 by mouth ity of tablet 16:02: daily. [place] [address] Medical Branch simvastatin 2019-0 Yes 40mg Take 40 mg Univers 40 mg 9-09 by mouth ity of tablet 16:02: daily. [place] [address] Medical Branch carvedilol 2019-0 Yes 25mg Take 25 mg U nivers 25 mg 9-09 by mouth 2 ity of tablet 16:02: (two) [place] [address] times Medical daily with Branch meals. traMADol 50 2019-0 Yes 50mg Take 50 mg Univers mg tablet 9-09 by mouth 2 ity of 16:02: (two) [place] [address] times Medical daily. Branch gabapentin 2019-0 Yes 100mg Take 100 Un tameka 100 mg 9-09 mg by ity of capsule 16:02: mouth at [place] [address] bedtime. Medical Branch clopidogrel 2019-0 Yes 75mg Take 75 mg Univers 75 mg 9-09 by mouth ity of tablet 16:02: daily. [place] [address] Medical Branch losartan 2019-0 Yes 100mg Take 100 Univ ers 100 mg 9-09 mg by ity of tablet 16:02: mouth [place] [address] daily. Medical Branch aspirin 81 2019-0 Yes 81mg Take 81 mg U nivers mg chewable 9-09 by mouth ity of tablet 16:02: daily. [place] [address] Medical Branch simvastatin 2019-0 Yes 40mg Take 40 mg Univers 40 mg 9-09 by mouth ity of tablet 16:02: daily. [place] [address] Medical Branch carvedilol 2019-0 Yes 25mg Take 25 mg U nivers 25 mg 9-09 by mouth 2 ity of tablet 16:02: (two) [place] [address] times Medical daily with Branch meals. traMADol 50 2019-0 Yes 50mg Take 50 mg Univers mg tablet 9-09 by mouth 2 ity of 16:02: (two) [place] [address] times Medical daily. Branch gabapentin 2019-0 Yes 100mg Take 100 Un tameka 100 mg 9-09 mg by ity of capsule 16:02: mouth at [place] [address] bedtime. Medical Branch clopidogrel 2019-0 Yes 75mg Take 75 mg Univers 75 mg 9-09 by mouth ity of tablet 16:02: daily. [place] [address] Medical Branch losartan 2019-0 Yes 100mg Take 100 Univ ers 100 mg 9-09 mg by ity of tablet 16:02: mouth [place] [address] daily. Medical Branch aspirin 81 2019-0 Yes 81mg Take 81 mg U nivers mg chewable 9-09 by mouth ity of tablet 16:02: daily. [place] [address] Medical Branch simvastatin 2019-0 Yes 40mg Take 40 mg Univers 40 mg 9-09 by mouth ity of tablet 16:02: daily. [place] [address] Medical Branch carvedilol 2019-0 Yes 25mg Take 25 mg U nivers 25 mg 9-09 by mouth 2 ity of tablet 16:02: (two) [place] [address] times Medical daily with Branch meals. traMADol 50 2019-0 Yes 50mg Take 50 mg Univers mg tablet 9-09 by mouth 2 ity of 16:02: (two) [place] [address] times Medical daily. Branch gabapentin 2019-0 Yes 100mg Take 100 Un tameka 100 mg 9-09 mg by ity of capsule 16:02: mouth at [place] [address] bedtime. Medical Branch clopidogrel 2019-0 Yes 75mg Take 75 mg Univers 75 mg 9-09 by mouth ity of tablet 16:02: daily. [place] [address] Medical Branch losartan 2019-0 Yes 100mg Take 100 Univ ers 100 mg 9-09 mg by ity of tablet 16:02: mouth [place] [address] daily. Medical Branch Immunizations Ordered Filled Immunization Date Status Comments Sourc e Immunization Name Name MICHELLE 2022-01-01 Completed University o f 00:00:00 [facility] Vital Signs Vital Name Observation Time Observation Value Comments Source Systolic [facility] 2022-01-01 22:08:00 [facility] Diastolic blood 2022-01-01 22:08:00 71 mm[Hg] Unive rsity of [facility] Heart rate 2022-01-01 22:08:00 88 /min [facility] Body temperature 2022-01-01 22:08:00 36.89 [facility] Respiratory rate 2022-01-01 22:08:00 19 /[facility] O[facility] saturation in 2022-01-01 22:08:00 93 /min [facility] Arterial blood by [facility] Pulse oximetry [place] Body height 2022-01-01 21:01:00 180.3 cm [facility] Body weight 2022-01-01 21:01:00 81.647 kg [facility] BMI 2022-01-01 21:01:00 25.10 kg/m2 [facility] Procedures Procedure Date / Time Performed Performing Clinician Sour e CONSENT/REFUSAL FOR 2021-12-31 18:08:39 Doctor Unassigned, No [facility] DIAGNOSIS AND Name [facility] TREATMENT ASSIGNMENT OF BENEFITS 2021-12-31 18:08:28 Doctor Unassigned, No [facility] Encounters Start End Encounter Admission Attending Care Care Encounter Source Date/Time Date/Time Type Type Clinicians Facility Department ID 2022-01-01 2022-01-01 Nurse Therapy, Adc Covid Infusion [facility] [id number] Univers 16:00:00 17:00:00 Visit Bridget Felipa Contreras TIFFANYLUISA [id number] ity of [id number] [id number] [place] [id number] [place] 2022-01-01 2022-01-01 Outpatient R BRIDGET [facility] [id number] Univers 16:00:00 16:00:00 FELIPA ity of [facility] 2022-01-01 2022-01-01 Letter Niyah Bowie [id number] Univers 00:00:00 00:00:00 (Out) AMELIA [id number] it y of HOSPITAL [id number] [place] [id number] [facility] 019 [place] 2021-12-31 2021-12-31 Laboratory Only, Ang Db Test [facility] 1.2.8 40.114 [id number] Univers 13:00:00 13:15:00 [facility] [id number] ity of [place] [id number] [place] MONSTER?BLEA [id number] [address] MEDICAL OFFICE BUILDING 2021-12-31 2021-12-31 Outpatient R LUDIVINA [facility] [id number] Univers 13:00:00 13:00:00 AUDREY hully o f [facility] 2021-12-31 2021-12-31 Orders Doctor RAMOS [id number] [id number] Univers 00:00:00 00:00:00 Only Unassigned, AMELIA [id number] ity of [place] [facility] 4.2.7.2.686 [place] [phone] [facility] 009 Branch 2019-08-26 2019-08-26 Orders Doctor RAMOS 1.2.840.114 [id number] 00:00:00 00:00:00 Only Unassigned, AMELIA [id number] [place] [facility] [id number] [id number] 2019-03-17 2019-03-17 [facility] [id number] 11:26:00 14:59:00 Encounter Janusz [place] [id number] [place] 4.2.7.2.686 Surgical [id number] [place] [address] 2019-03-03 2019-03-03 [facility] [id number] 09:37:00 13:20:00 Encounter Janusz Patel D[place] [id number] [place] 4.2.7.2.686 Surgical [id number] [place] [address] 2019-03-03 2019-03-03 Orders Doctor RICHARD 1.2.840.114 [id number] 00:00:00 00:00:00 Only Unassigned, AMELIA [id number] [place] [id number] 2019-02-24 2019-02-24 [employer] Install[employer] Supervisor 1, Adc Lab [facility] 1.2.840.114 [id number] 16:37:01 16:54:18 Visit Doreen [id number] [place] 4.2.7.2.686 [place] [id number] Results This patient has no known results.
--- NOTE | 2022-09-06 21:03 | RAD REPORT ---
EXAM DESCRIPTION: Dustin Single View09/06/2022 8:51 pm CLINICAL HISTORY: Alteration of consciousness COMPARISON: July 2022 FINDINGS: [id number] right basilar opacity Remainder lungs appear clear Heart is moderately enlarged IMPRESSION: Mild to moderate right basilar opacity presumably pneumonia
--- NOTE | 2022-09-06 21:26 | RAD REPORT ---
EXAM DESCRIPTION: CT - Head Brain Wo Cont - 09/06/2022 9:15 pm CLINICAL HISTORY: Alteration of awareness/confusion COMPARISON: 2020 TECHNIQUE: Computed axial tomography of the head was obtained. IV contrast was not requested. All CT scans are performed using dose optimization technique as appropriate and may include automated exposure control or mA/KV adjustment according to patient size. FINDINGS: An intracranial bleed is not seen The ventricles are normal in caliber No extra-axial fluid collection is noted. Mild low-density areas within periventricular, deep and subcortical white matter likely represent isc hemic changes secondary to small vessel disease. Fluid within the sinuses/ mastoids is not seen. IMPRESSION: No acute intracranial abnormality is seen If patient's symptoms persist MRI of the brain would be recommended
[2022-09-06 21:45] LABS: Urine Blood Trace-intact (Negative); Urine Glucose Negative (Negative); Urine Protein Negative (Negative); Urine Specific Gravity 1.015 (1.005-1.030)
[2022-09-06 22:04] LABS: Absolute Lymphocytes (CBC) 0.9 K/uL (0.7-4.9); Hematocrit 32.6 % (39.6-49.0); Lymphocytes % 12.7 % (15.3-44.8); MCV 94.4 fL (80-100); MPV 7.7 fL (7.6-11.3); RBC Red Blood Cell Count 3.46 M/uL (4.33-5.43)
[2022-09-06 22:05] LABS: Urine Bacteria None Seen /HPF (<20); Urine Mucus Slight /HPF (None Seen); Urine RBC <5 /HPF (None Seen)
[2022-09-06 22:06] LABS: Protime INR 1.24
[2022-09-06 22:22] LABS: Albumin 3.5 g/dL (3.4-5.0); Bilirubin Direct 0.3 mg/dL (0-0.2); Magnesium 2.8 mg/dL (1.6-2.4); Potassium 4.5 mmol/L (3.5-5.1); Protein, Total 7.4 g/dL (6.4-8.2); Troponin High Sensitivity 43.5 pg/mL (<58.9)
--- NOTE | 2022-09-06 22:39 | EDPHYS ---
Physician Documentation [facility] Name: Vitor Mg Age: 87 yrs Sex: Male : 1935 Arrival Date: 09/06/2022 Time: 20:40 Bed 3 Private MD: ED Physician Lino Brown HPI: 09/06 20:41 This 87 yrs old Male presents to ER via Unassigned with complaints of Altered Mental cp Status. 20:41 The patient presents with confusion. Onset: The symptoms/episode began/occurred 3 cp day(s) ago. 20:41 Possible causes: history of frequent pneumonia. cp 20:41 Associated signs and symptoms: Pertinent negatives: abdominal pain, chest pain, fever. cp Patient's baseline: Neuro: alert and fully oriented, Motor: no deficits, Ambulation: walks without assistance, Speech: normal. Historical: - Allergies: 20:56 No Known Allergies; kd3 - PMHx: 20:56 CAD; Chronic pain; CVA; Home O2 \T\ 2L NC; Hypertension; cancer, throat; kd3 - PSHx: 20:56 Stented artery; kd3 - Immunization history:: Adult Immunizations up to date. - Social history:: Smoking status: unknown. ROS: 20:45 Constitutional: Negative for fever. cp 20:45 Eyes: Negative for injury, pain, redness, and discharge. cp 20:45 Cardiovascular: Negative for chest pain. 20:45 Respiratory: Negative for shortness of breath, wheezing. 20:45 Abdomen/GI: Negative for abdominal pain, vomiting, diarrhea, constipation. 20:45 Neuro: Positive for altered mental status. 20:45 All other systems are negative. Exam: 20:50 Constitutional: The patient appears alert, awake, non-diaphoretic, non-toxic, well cp developed, well nourished, uncomfortable. 20:50 Head/Face: Normocephalic, atraumatic. cp 20:50 Eyes: Periorbital structures: appear normal, Pupils: equal, round, and reactive to light and accomodation, Conjunctiva: normal, no exudate, no injection, Sclera: no appreciated abnormality, Lids and lashes: appear normal, bilaterally. 20:50 ENT: External ear(s): are unremarkable, Ear canal(s): are normal, TM's: dullness, bilaterally, Nose: is normal, Mouth: Lips: moist, Oral mucosa: moist, Posterior pharynx: Airway: no evidence of obstruction, patent. 20:50 Neck: ROM/movement: is normal, is supple, without pain, no range of motions limitations, no meningismus. 20:50 Chest/axilla: Inspection: normal. 20:50 Cardiovascular: Rate: normal, Rhythm: irregular, Edema: ankle edema, that is mild, JVD: is not appreciated. 20:50 Respiratory: the patient does not display signs of respiratory distress, Respirations: normal, no use of accessory muscles, no retractions, labored breathing, is not present, Breath sounds: bronchial sounds, that are mild, are heard diffusely, decreased breath sounds, that are mild, diffuse, stridor, is not appreciated, wheezing: is not appreciated. 20:50 Abdomen/GI: Inspection: abdomen appears normal, Bowel sounds: active, all quadrants, Palpation: abdomen is soft and non-tender, in all quadrants. 20:50 Skin: cellulitis, is not appreciated, no rash present. 20:50 Neuro: Orientation: to person, Mentation: slow to respond, confused, Motor: moves all fours. 21:47 ECG was reviewed by the Attending Physician. cp Vital Signs: 20:40 BP 122 / 70; Pulse 82; Resp 19; Temp 98.1; Pulse Ox 100% ; kd3 22:19 Pulse 94; Resp 19; Pulse Ox 93% ; kd3 09/07 00:00 BP 120 / 63; Pulse 90; Resp 23; Pulse Ox 94% on 4 lpm NC; kd3 01:45 BP 145 / 73; Pulse 98; Resp 21; Pulse Ox 95% on 4 lpm NC; kd3 02:05 BP 143 / 108; Pulse 95; Resp 20; Pulse Ox 94% on 4 lpm NC; ha1 MDM: 09/06 20:43 Patient medically screened. cp 21:00 Differential Diagnosis: CVA, electrolyte abnormality, intracranial bleed, meningitis, cp pneumonia, sepsis, volume depletion. 22:30 Data reviewed: vital signs, nurses notes, lab test result(s), EKG, radiologic studies, cp plain films. 22:30 Consideration of Admission/Observation Patient was admitted/placed on observation. cp Independent interpretation of the following test(s) in the Emergency Department EKG: See my EKG interpretation above. Test considered but Not performed: CT: chest, abdomen/pelvis. Historians other than the Patient: EMS: provides initial HPI. Daughter/Son: daughter provides HPI. Care significantly affected by the following chronic conditions: Hypertension. 23:00 ED course: discussed results of labs, EKG and radiology studies with DR Zuñiga who cp will admit patient. 09/06 20:43 Order name: Basic Metabolic Panel; Complete Time: 22:26 cp 09/06 22:26 Interpretation: Normal except: GLUC 134; BUN 37; CRE 1.58; GFR 43. cp 09/06 20:43 Order name: CBC with Diff; Complete Time: 22:26 cp 09/06 22:27 Interpretation: RBC 3.46; HGB 11.0; HCT 32.6; NOEMÍ% 78.7; LYM% 12.7. cp 09/06 20:43 Order name: LFT's; Complete Time: 22:26 cp 09/06 20:43 Order name: Magnesium; Complete Time: 22: cp 09/06 20:43 Order name: NT PRO-BNP; Complete Time: 22:26 cp 09/06 22:27 Interpretation: Abnormal: NT PRO-BNP 18848. cp 09/06 20:43 Order name: PT-INR; Complete Time: 22: cp 09/06 20:43 Order name: Troponin HS; Complete Time: 22: cp 09/06 20:43 Order name: XRAY Chest (1 view); Complete Time: 22:26 cp 09/06 20:43 Order name: Lactate w/ 2H reflex if indic.; Complete Time: 22:26 cp 09/06 20:43 Order name: Procalcitonin; Complete Time: 00:16 cp 09/06 20:43 Order name: Blood Culture Adult (2) cp 09/06 20:43 Order name: Urine Microscopic Only; Complete Time: 22:26 cp 09/06 21:46 Order name: Urine Dipstick-Ancillary; Complete Time: 22:26 EDTN 09/06 22:27 Interpretation: Normal except: UBLD Trace-intact. cp 09/06 22:28 Order name: COVID-19/FLU A+B; Complete Time: 00:16 cp 09/06 20:43 Order name: EKG; Complete Time: 20:44 cp 09/06 20:43 Order name: Cardiac monitoring; Complete Time: :47 cp 09/06 20:43 Order name: EKG - Nurse/Tech; Complete Time: :47 cp 09/06 20:43 Order name: IV Saline Lock; Complete Time: :47 cp 09/06 20:43 Order name: Labs collected and sent; Complete Time: :47 cp 09/06 20:43 Order name: O2 Per Protocol; Complete Time: :47 cp 09/06 20:43 Order name: O2 Sat Monitoring; Complete Time: :47 cp 09/06 20:43 Order name: CT Head Brain wo Cont; Complete Time: 22:26 cp 09/06 20:43 Order name: Urine Dipstick-Ancillary (obtain specimen); Complete Time: :47 cp EC:47 Rate is 84 beats/min. Rhythm is irregular. QRS interval is prolonged at 166 msec. QT cp interval is normal. Interpreted by me. Reviewed by me. Administered Medications: 23:00 Drug: Rocephin (cefTRIAXone) 1 grams Route: IV; Rate: calculated rate; Site: right kd3 forearm; 23:00 Follow up: IV Status: Completed infusion kd3 23:00 Drug: Zithromax (azithromycin) 500 mg Route: IVPB; Infused Over: 1 hrs; Site: right kd3 forearm; 09/07 01:01 Drug: Ativan (LORazepam) 0.5 mg Route: IVP; Site: right wrist; vc1 01:14 Drug: Xopenex (levalbuterol) (3) 1.25 mg Route: Inhalation; vc1 Disposition Summary: 09/06/22 22:38 Hospitalization Ordered Hospitalization Status: Inpatient Admission cp Provider: Rell Zuñiga cp Location: Telemetry/MedSurg (Inpatient) cp Condition: Fair cp Problem: new cp Symptoms: are unchanged cp Bed/Room Type: Standard cp Room Assignment: 201(09/07/22 00:33) vc1 Diagnosis - Altered mental status, unspecified cp - Other pneumonia, unspecified organism cp Forms: - Medication Reconciliation Form cp - SBAR form cp Signatures: Dispatcher [employer] EDMS Chente Schmid PA PA cp Doucette, Kyli, RN RN kd3 Penny Moe RN RN vc1 Corrections: (The following items were deleted from the chart) 00:33 0224 22:38 cp vc1
--- NOTE | 2022-09-06 22:39 | ER ---
Nurse's Notes [facility] Name: Vitor Mg Age: 87 yrs Sex: Male : 1935 Arrival Date: 09/06/2022 Time: 20:40 Bed 3 Private MD: Diagnosis: Altered mental status, unspecified;Other pneumonia, unspecified organism Presentation: 09/06 20:40 Chief complaint: Patient states: the daughter called stating that the patient had had kd3 AMS for 3 days and that he seems to be getting worse. His home health nurse visited him and stated that he had a UTI. They started him on a new antibiotic and he has also been on a muscle relaxer. Ebola Screen: No symptoms or risks identified at this time. Initial Sepsis Screen: Does the patient meet any 2 criteria? No. Patient's initial sepsis screen is negative. Does the patient have a suspected source of infection? No. Patient's initial sepsis screen is negative. Risk Assessment: Do you want to hurt yourself or someone else? Patient reports no desire to harm self or others. Onset of symptoms was September 06, 2022. 20:40 Method Of Arrival: EMS: [facility] kd3 20:40 Acuity: GLENDY 3 kd3 Triage Assessment: 20:56 General: Appears in no apparent distress. Behavior is calm, cooperative. Pain: Denies kd3 pain. Historical: - Allergies: 20:56 No Known Allergies; kd3 - PMHx: 20:56 CAD; Chronic pain; CVA; Home O2 \\T\\ 2L NC; Hypertension; cancer, throat; kd3 - PSHx: 20:56 Stented artery; kd3 - Immunization history:: Adult Immunizations up to date. - Social history:: Smoking status: unknown. Screenin:[address] [facility] ED Fall Risk Assessment (Adult) History of falling in the last 3 months, kd3 including since admission Yes- single mechanical fall (1 pt) Confusion or Disorientation Yes (5 pts) Intoxicated or Sedated No (0 pts) Impaired Gait No (0 pts) Mobility Assist Device Used Yes (1 pt) Altered Elimination Yes (1 pt) Score/Fall Risk Level 3 or more points = High Risk Maintained a safe environment, Hourly rounding (assess needs \\T\\ fall precautionary measures) done, Offered frequent toileting (1:1 observation), Utilized family, sitter, or virtual automobile body repair chief as indicated. Abuse screen: Denies threats or abuse. Denies injuries from another. Nutritional screening: No deficits noted. Tuberculosis screening: No symptoms or risk factors identified. Assessment: 20:40 Reassessment: see triage assessment. ha1 21:40 Reassessment: Patient and/or family updated on plan of care and expected duration. Pain ha1 level reassessed. Patient is alert, oriented x 3, equal unlabored respirations, skin warm/dry/pink. daughter at bedside. 22:40 Reassessment: Patient and/or family updated on plan of care and expected duration. Pain ha1 level reassessed. Patient is alert, oriented x 3, equal unlabored respirations, skin warm/dry/pink. 09/07 01:12 Reassessment: Patient and/or family updated on plan of care and expected duration. Pain ha1 level reassessed. oxygen saturation dropped to 82. Care provider and respiratory therapy in the room. pt. States " in case my heart stops I do not want CPR". 02:04 Reassessment: Patient and/or family updated on plan of care and expected duration. Pain ha1 level reassessed. Patient is alert, oriented x 3, equal unlabored respirations, skin warm/dry/pink. being admitted. Vital Signs: 09/06 20:40 BP 122 / 70; Pulse 82; Resp 19; Temp 98.1; Pulse Ox 100% ; kd3 22:19 Pulse 94; Resp 19; Pulse Ox 93% ; kd3 09/07 00:00 BP 120 / 63; Pulse 90; Resp 23; Pulse Ox 94% on 4 lpm NC; kd3 01:45 BP 145 / 73; Pulse 98; Resp 21; Pulse Ox 95% on 4 lpm NC; kd3 02:05 BP 143 / 108; Pulse 95; Resp 20; Pulse Ox 94% on 4 lpm NC; ha1 ED Course: 09/06 20:40 Patient arrived in ED. kd3 20:41 Chente Schmid PA is PHCP. cp 20:41 Lino Brown MD is Attending Physician. cp 20:52 XRAY Chest (1 view) In Process Unspecified. EDMS 20:56 Triage completed. kd3 20:56 Arm band placed on right wrist. kd3 20:58 Ghada Anthony, RN is Primary Nurse. kd3 21:21 CT Head Brain wo Cont In Process Unspecified. EDMS 21:47 Urine Microscopic Only Sent. kd3 21:55 Basic Metabolic Panel Sent. as7 21:55 CBC with Diff Sent. as7 21:55 LFT's Sent. as7 21:55 Magnesium Sent. as7 21:55 NT PRO-BNP Sent. as7 21:55 PT-INR Sent. as7 21:55 Troponin HS Sent. as7 21:55 Procalcitonin Sent. as7 21:55 Lactate w/ 2H reflex if indic. Sent. as7 22:20 Patient has correct armband on for positive identification. Placed in gown. Bed in low kd3 position. Call light in reach. 22:35 Rell Zuñiga MD is Hospitalizing Provider. cp 23:00 COVID-19/FLU A+B Sent. kd3 09/07 02:03 No provider procedures requiring assistance completed. Patient admitted, IV remains in ha1 place. Administered Medications: 09/06 23:00 Drug: Rocephin (cefTRIAXone) 1 grams Route: IV; Rate: calculated rate; Site: right kd3 forearm; 23:00 Follow up: IV Status: Completed infusion kd3 23:00 Drug: Zithromax (azithromycin) 500 mg Route: IVPB; Infused Over: 1 hrs; Site: right kd3 forearm; 09/07 01:01 Drug: Ativan (LORazepam) 0.5 mg Route: IVP; Site: right wrist; vc1 01:14 Drug: Xopenex (levalbuterol) (3) 1.25 mg Route: Inhalation; vc1 Medication: 09/06 22:20 VIS not applicable for this client. kd3 Outcome: 22:38 Decision to Hospitalize by Provider. cp 09/07 02:03 Admitted to Med/surg accompanied by tech, family with patient, via stretcher, room 201, ha1 with oxygen, with chart, Report called to ALLEY Edmond Condition: stable Instructed on the need for admit, Demonstrated understanding of instructions. 02:06 Patient left the ED. ha1 Signatures: Dispatcher [employer] EDDE Chente Schmid PA PA cp Doucette, Kyli, RN RN kd3 Penny Moe RN RN 1 Marsh, Rosanna, RN RN ha1 Senkyrik, Dasha as7
[2022-09-06] MEDS ORDERED: CEFTRIAXONE 1000 MG/VIAL ONE (22:54)
[2022-09-06] MEDS ORDERED: NA CHLORIDE 0.9% 250 ML ONE (22:54)
[2022-09-06] MEDS ORDERED: AZITHROMYCIN 500 MG INJ IVPB ONE (22:54)
[2022-09-06 23:51] LABS: SARS-COV-2 RT PCR NEGATIVE (NEGATIVE)
[2022-09-07] MEDS ORDERED: ACETAMINOPHEN 500 MG TAB PO PRN (00:24)
[2022-09-07] MEDS ORDERED: ONDANSETRON 4 MG/2 ML VIAL IV PRN (00:24)
[2022-09-07] MEDS ORDERED: ALBUTEROL 2.5 MG/3 ML NEB SOL NEB PRN (00:24)
[2022-09-07] MEDS ORDERED: IPRATROPIUM BROM 0.5MG/2.5ML NEB PRN (00:24)
[2022-09-07] MEDS ORDERED: LORazepam 2 MG/ML VIAL ONE (01:00)
[2022-09-07] MEDS ORDERED: LEVALBUTEROL 1.25 MG/3 ML NEB ONE (01:11)
[2022-09-07] MEDS: ALBUTEROL 2.5 MG/3 ML NEB SOL NEB SCH ×6 (02:00→20:50)
[2022-09-07] MEDS: IPRATROPIUM BROM 0.5MG/2.5ML NEB SCH ×6 (02:00→20:50)
[2022-09-07] MEDS ORDERED: LORazepam 2 MG/ML VIAL IV ONE (03:14)
[2022-09-07] MEDS ORDERED: LORazepam 2 MG/ML VIAL IV PRN (03:15)
[2022-09-07] MEDS ORDERED: FUROSEMIDE 40 MG/4 ML VIAL IV ONE (03:16)
[2022-09-07 04:51] LABS: Absolute Lymphocytes (CBC) 0.9 K/uL (0.7-4.9); Lymphocytes % 6.7 % (15.3-44.8); MCV 94.1 fL (80-100); MPV 7.8 fL (7.6-11.3); RBC Red Blood Cell Count 3.93 M/uL (4.33-5.43)
[2022-09-07 05:14] LABS: Potassium 4.4 mmol/L (3.5-5.1); Troponin High Sensitivity 54.8 pg/mL (<58.9)
[2022-09-07] MEDS: CEFTRIAXONE 1,000 MG in NA CHLORIDE 0.9% 50 ML IVPB SCH ×2 (08:33→20:23)
[2022-09-07] MEDS: AZITHROMYCIN IV 250 MG in NA CHLORIDE 0.9% 250 ML IVPB SCH (08:33)
[2022-09-07] MEDS: NA CHLORIDE 0.9% 1,000 ML IV SCH (12:45)
[2022-09-07] MEDS: ENOXAPARIN 40 MG/0.4 ML SQ SCH (12:45)
[2022-09-07] MEDS: LORazepam 2 MG/ML VIAL IV SCH ×6 (13:00→22:57)
--- NOTE | 2022-09-07 17:59 | PN ---
Date of Progress Note: 09/07/2022 The patient is still seen confused according to his daughter. The Ativan works for short periods of time. We will therefore increase the dose significantly to every 2 hours schedule rather than a q.4h . p.r.n. May also require some analgesics, IV fluids. We will start his creatinine and hydration. O n examination, has decreasing increasing respectively. Discussion was made with daughter who has [facility] power of prosecuting attorney. Was told to continue on the IV antibiotics, and depending on the results, we will discuss placement prior to discharge. HR/MODL Voice ID: [id number] Report ID: [id number]
--- NOTE | 2022-09-07 18:20 | HP ---
Date of Admission: 09/07/2022 Chief Complaint: Does complain of dyspnea, confusion, generalized malaise. History Of Present Illness: The patient presented to the emergency room with the above outlined symp toms according to his daughter. He was discharged from the hospital approximately 2 months ago after a bout of pneumonia and placed in hospice. He has been doing fairly well until the last couple of d ays when he became increasingly dyspneic and anorectic. He had difficulty getting him into eat or dr ink, and became much more confused and was brought to the emergency room with tentative diagnosis of pneumonia, recurrent, was made and the possibility of UTI as well, and he was admitted for further tr eatment. Past History: As above. Social History: Nonsmoker, nondrinker. Family History: Noncontributory. Physical Examination: General: When seen, patient is very confused, elderly male. Head and Neck: Normocephalic. Pupils equal and reactive to light and accommodation. Trachea midlin e. ENT: Negative. Chest: Occasional rales of both bases. Adequate air entry and movement bilaterally. Cardiovascular: PMI midclavicular line. Heart sounds normal. Peripheral pulses are present and equ al bilaterally. Abdomen: No organomegaly. Bowel sounds present. Extremities: Slightly dehydrated. Good tone movement bilaterally. Reflexes physiologic. Rectal: Deferred. Impression: 1.Pneumonitis, bilateral basilar. 2.Urinary tract infection. 3.Dehydration. Plan: Patient will be admitted, placed on IV antibiotics, and maintain him as DNR. IV fluids will a lso be started on difficulty taking his medication, so in place of some of the p.o. medication. IV L asix will be given as well as the antibiotics, breathing treatments. HR/MODL Voice ID: [id number]
[2022-09-08] MEDS: NA CHLORIDE 0.9% 1,000 ML IV SCH ×3 (00:57→13:57)
[2022-09-08] MEDS: LORazepam 2 MG/ML VIAL IV SCH ×13 (01:00→23:51)
[2022-09-08 01:53] VITALS: BMI 23.0
[2022-09-08] MEDS: IPRATROPIUM BROM 0.5MG/2.5ML NEB SCH ×6 (03:20→20:40)
[2022-09-08] MEDS: ALBUTEROL 2.5 MG/3 ML NEB SOL NEB SCH ×6 (03:20→20:40)
[2022-09-08 03:59] LABS: Hematocrit 34.8 % (39.6-49.0); Lymphocytes % 10.2 % (15.3-44.8); RBC Red Blood Cell Count 3.66 M/uL (4.33-5.43)
[2022-09-08 04:22] LABS: Potassium 4.2 mmol/L (3.5-5.1)
[2022-09-08] MEDS: AZITHROMYCIN IV 250 MG in NA CHLORIDE 0.9% 250 ML IVPB SCH (08:11)
[2022-09-08] MEDS: CEFTRIAXONE 1,000 MG in NA CHLORIDE 0.9% 50 ML IVPB SCH ×2 (08:11→20:28)
[2022-09-08] MEDS: ENOXAPARIN 40 MG/0.4 ML SQ SCH (08:11)
[2022-09-08] MEDS ORDERED: LORazepam 2 MG/ML VIAL IV SCH (10:00)
--- NOTE | 2022-09-08 15:39 | P.PN ---
Subjective Date of Service: 09/08/22 Subjective: Chart is been reviewed. Patient presented with pneumonia. Possibly aspiration pneumonia. Patient clinical condition has gradually worsened. Spoke with the daughter and she does not want to see her father struggle too much. She is hoping he turns around but in light of the fact that he is 87 and he has been having frequent pneumonia admissions she is thinking that if he worsens much more she may want to proceed with hospice care. She does not want to see him suffer. We will get a keep the antibiotics going and we will add steroids. Continue with gentle hydration. Patient is not really opening his eyes up and waking up according to the daughter. She states she will be staying by his bedside until he gets better Review of Systems is unable to be obtained Physical Examination - Vital Signs Temperature: 98.1 F Blood Pressure: 157/108 Pulse: 120 Respirations: 36 Pulse Ox (%): 91 - Physical Exam General: Confused, Unresponsive Neck: JVD not distended Respiratory: Clear to auscultation bilaterally, Normal air movement Cardiovascular: Regular rate/rhythm, Normal S1 S2, No murmurs Gastrointestinal: Hypoactive, Soft and benign, Non-distended, No tenderness Musculoskeletal: No clubbing, No swelling, No tenderness Integumentary: No rashes Neurological: Normal tone, Sensation intact, Normal affect Lymphatics: No axilla or inguinal lymphadenopathy - Studies Medications List Reviewed: Yes Assessment & Plan - Problems (Diagnosis) (1) Right lower lobe pneumonia Current Visit: Yes Status: Acute (2) Congestive heart failure Current Visit: No Status: Acute (3) History of head and neck cancer Current Visit: No Status: Acute (4) Atrial fibrillation Current Visit: Yes Status: Acute (5) Coronary artery disease Current Visit: Yes Status: Acute - Plan Plan: 1. Continue with IV antibiotics 2. Awaiting sputum and blood culture 3. Repeat chest x-ray 4. Continue with Ativan/morphine 5. Gentle hydration 6. Continue with nebs as needed 7. O2 per protocol 8. Repeat labs 9. GI and DVT prophylaxis Plan to discharge in: Greater than 2 days - Advance Directives Does patient have a Living Will: Yes Does patient have a Durable POA for Healthcare: No - Code Status/Comfort Care Code Status Assessed: Yes Code Status: Do Not Attempt Resuscitat Critical Care: No Time Spent Managing PTS Care (In Minutes): 35
[2022-09-08] MEDS: METHYLPREDNISOLONE 125 MG INJ IV SCH ×2 (17:32→23:50)
[2022-09-08] MEDS: MORPHINE 2 MG/ML SYR IV PRN (22:22)
[2022-09-09] MEDS: LORazepam 2 MG/ML VIAL IV SCH ×12 (01:00→23:00)
[2022-09-09] MEDS: IPRATROPIUM BROM 0.5MG/2.5ML NEB SCH ×6 (03:48→19:50)
[2022-09-09] MEDS: ALBUTEROL 2.5 MG/3 ML NEB SOL NEB SCH ×6 (03:48→19:50)
[2022-09-09] MEDS: NA CHLORIDE 0.9% 1,000 ML IV SCH (03:50)
[2022-09-09] MEDS: METHYLPREDNISOLONE 125 MG INJ IV SCH ×3 (05:06→17:26)
[2022-09-09 06:13] LABS: Absolute Lymphocytes (CBC) 0.5 K/uL (0.7-4.9); Lymphocytes % 5.3 % (15.3-44.8); MCV 94.7 fL (80-100); MPV 7.9 fL (7.6-11.3); RBC Red Blood Cell Count 3.59 M/uL (4.33-5.43)
[2022-09-09 06:42] LABS: Albumin 2.9 g/dL (3.4-5.0); Bilirubin Total 1.2 mg/dL (0.2-1.0); Magnesium 2.7 mg/dL (1.6-2.4); Potassium 4.2 mmol/L (3.5-5.1); Protein, Total 6.1 g/dL (6.4-8.2)
--- NOTE | 2022-09-09 08:03 | RAD REPORT ---
EXAM DESCRIPTION: RAD - Chest Single View - 09/09/2022 5:24 am CLINICAL HISTORY: pneumonia COMPARISON: Chest Single View dated 09/06/2022; Chest Single View dated 07/14/2022; Chest Single View d ated 06/27/2022; Chest Single View dated 06/25/2022; Barium Swallow Modified dated 07/15/2022; Chest Fo r Pe Angio dated 07/14/2022 FINDINGS: Lines: None. Lungs: Worsening bilateral interstitial airspace disease Pleural: No significant pleural effusions or pneumothorax. Cardiac: Cardiomegaly. Mediastinum: Within normal limits. Bones: No acute fractures. Other: None IMPRESSION: Worsening bilateral interstitial airspace disease that may reflect edema and/or multifoc al pneumonia.
[2022-09-09 08:05] LABS: Blood Morphology Comment NOT SEEN (NOT SEEN); Platelet Estimate DECR; White Blood Cell Scan OK (OK)
[2022-09-09] MEDS: CEFTRIAXONE 1,000 MG in NA CHLORIDE 0.9% 50 ML IVPB SCH ×2 (08:21→20:54)
[2022-09-09] MEDS: ENOXAPARIN 30 MG/0.3 ML SQ SCH (08:21)
[2022-09-09] MEDS: AZITHROMYCIN IV 250 MG in NA CHLORIDE 0.9% 250 ML IVPB SCH (09:37)
[2022-09-09] MEDS: D5 0.9 NS 1,000 ML IV SCH ×2 (09:37→22:46)
[2022-09-09] MEDS: MORPHINE 2 MG/ML SYR IV PRN ×2 (11:23→17:27)
[2022-09-09] MEDS ORDERED: DOCUSATE NA 100 MG CAP PO PRN (13:54)
[2022-09-09] MEDS: SPIRONOLACTONE 25 MG TABLET PO SCH ×2 (14:57→22:46)
[2022-09-09] MEDS: CLOPIDOGREL 75 MG TABLET PO SCH (14:58)
[2022-09-09] MEDS: carvediloL 12.5 MG TAB PO SCH (17:27)
--- NOTE | 2022-09-09 18:47 | EKG ---
Test Date: 2022-09-06 Test Time: 21:40:03 Coat Joiner Lockstitch: LOKESH MEASUREMENT RESULTS: Intervals: Rate: 84 TN: QRSD: 166 QT: 444 QTc: 524 [place]: P: TN: QRS: -73 T: 102 INTERPRETIVE STATEMENTS: Atrial fibrillation with premature ventricular or aberrantly conducted complexes Left axis deviation Nonspecific intraventricular block Possible Lateral infarct, age undetermined Abnormal ECG Compared to ECG 07/14/2022 08:49:37 Myocardial infarct finding now present Atrial flutter no longer present Left bundle-branch block no longer present Electronically Signed On 09-09-22 18:42:26 YARD HAND by Bossman Zuniga
[2022-09-09] MEDS: SULFAMETH/TRIMETHOPRIM 200 MG/5 ML UDBOT PO SCH (20:54)
[2022-09-10] MEDS: MORPHINE 2 MG/ML SYR IV PRN ×3 (00:07→18:37)
[2022-09-10] MEDS: METHYLPREDNISOLONE 125 MG INJ IV SCH ×4 (00:11→20:33)
[2022-09-10] MEDS: ALBUTEROL 2.5 MG/3 ML NEB SOL NEB SCH ×7 (01:00→23:30)
[2022-09-10] MEDS: LORazepam 2 MG/ML VIAL IV SCH ×12 (01:00→23:00)
[2022-09-10] MEDS: IPRATROPIUM BROM 0.5MG/2.5ML NEB SCH ×7 (01:00→23:30)
[2022-09-10 03:16] LABS: Absolute Lymphocytes (CBC) 0.4 K/uL (0.7-4.9); Hematocrit 37.1 % (39.6-49.0); Lymphocytes % 4.4 % (15.3-44.8); MPV 8.6 fL (7.6-11.3); RBC Red Blood Cell Count 3.87 M/uL (4.33-5.43)
[2022-09-10 03:30] LABS: Potassium 4.4 mmol/L (3.5-5.1)
[2022-09-10] MEDS: carvediloL 12.5 MG TAB PO SCH (05:30)
[2022-09-10] MEDS ORDERED: FUROSEMIDE 40 MG/4 ML VIAL IV SCH (09:00)
[2022-09-10] MEDS: ENOXAPARIN 30 MG/0.3 ML SQ SCH (09:17)
[2022-09-10] MEDS: CEFTRIAXONE 1,000 MG in NA CHLORIDE 0.9% 50 ML IVPB SCH ×2 (09:17→20:34)
[2022-09-10] MEDS: AZITHROMYCIN IV 250 MG in NA CHLORIDE 0.9% 250 ML IVPB SCH (09:26)
[2022-09-10] MEDS: SULFAMETH/TRIMETHOPRIM 200 MG/5 ML UDBOT PO SCH (09:28)
[2022-09-10] MEDS: SPIRONOLACTONE 25 MG TABLET PO SCH (09:28)
[2022-09-10] MEDS: CLOPIDOGREL 75 MG TABLET PO SCH (09:28)
[2022-09-10 12:15] LABS: Arterial Blood Carboxyhemoglob 1.1 % (0-1.5); Blood Gas Oxyhemoglobin 94.6 % (94-97); Blood O2 Saturation 96.5 % (92-98.5)
--- NOTE | 2022-09-10 12:41 | RAD REPORT ---
EXAM DESCRIPTION: US - Renal Ultrasound-Complete - 09/10/2022 11:05 am CLINICAL HISTORY: Acute renal insufficiency COMPARISON: 2011 FINDINGS: The right kidney measures 8 cm with a mildly increased echotexture. The left kidney measures 9 cm with a mildly increased echotexture. Hydronephrosis is not seen. No gross abnormality of bladder IMPRESSION: Mildly increased renal echotexture may indicate parenchymal disease
--- NOTE | 2022-09-10 16:56 | CON ---
Date of Consultation: 09/10/2022 Reason For Consultation: Elevated BUN and creatinine, fluid management, electrolyte imbalance. History Of Present Illness: All the information has been obtained from the daughter by bedside as the patient has been obtunded. This is a pleasant an unfortunate 87-year-old gentleman with significant past medical history of throat cancer status post radiation, CAD complicated with congestive heart failure, status post [place], echocardiogram with ejection fraction 30-35 with global hypokinesia, advanced COPD, the patient had chronic kidney disease. Reviewing the record for the patient, baseline creatinine is 1.5 with GFR of 40 as of August 05 and July 04. The patient had recurrent admission to the hospital with respiratory distress/pneumonia, treated, then recovered. Apparently, the patient was placed on hospice because of the advanced COPD and congestive heart failure. The patient started doing well, visited his PCP couple of weeks ago, functioning well. Apparently in the last few days, the patient started getting worse his respiratory status. For that reason, brought to the hospital. Upon arrival to the hospital on the , creatinine was 1.7, gradually creatinine started trending up. For that reason, we have been consulted. Reviewing the record for the patient, the patient did not have any significant low blood pressure in this admission, the lowest we have around 110-120. The patient has been having good voiding with good urine output. The patient was placed on Bactrim for suspect of pneumonia. The patient also was on Lasix orally with spironolactone and treatment for his COPD. There is no other insulting medication except the spironolactone. The patient was started on IV fluid in the last 36 hours. As I mentioned, kidney function gradually declining. The patient showed elevation in BNP and elevation in transaminase without any elevation of the alkaline phosphatase. Past Medical History: Includes; 1. Recurrent pneumonia. 2. Advanced COPD. 3. UTI. 4. Chronic kidney disease, stage 3B. Baseline creatinine 1.5, GFR of 40. 5. COPD. 6. Throat CA, status post radiation. 7. Congestive heart failure, ejection fraction of 30-35 with global hypokinesia. 8. CAD, status post [place] complicated with congestive heart failure. Allergies: NO KNOWN DRUGS ALLERGY. Home Medications: Include; 1. Simvastatin. 2. Gabapentin. 3. Eliquis. 4. Spironolactone 25 b.i.d. 5. Hydrocodone. 6. Plavix. 7. Lasix 40. 8. Carvedilol. 9. Colace. Current Medications: In the hospital include; 1. Azithromycin. 2. Ceftriaxone. 3. Carvedilol. 4. Lasix 40 oral daily. 5. Spironolactone. 6. Plavix. 7. Lovenox. 8. Solu-Medrol 60 Q 6. 9. Zofran. Family History: Positive for hypertension. Social History: Denied smoking, denied drinking, denied drug abuse. Review of Systems: None obtainable. Physical Examination: General: When I saw the patient, the patient lying in bed, on nonrebreather. Vital Signs: Blood pressure 126/87, pulse of 96, afebrile. Chest: Crackles bilateral, more prominent on the left side. Heart: S1, S2. Systolic murmur. Abdomen: Soft, nontender. Could not appreciate any organomegaly. No hepatomegaly. Could not appreciate any bruit over the renal area. Extremities: Trace edema. Neuro: The patient obtunded. Laboratory Data: Upon admission to our hospital; sodium 139, potassium 4.4, bicarb 31, BUN 37, creatinine 1.7, GFR of 38. Today lab data; sodium 146, potassium 4.4, bicarb 23, BUN 79, creatinine of 2, calcium 8.4, AST 675, alkaline phosphatase 41, albumin 2.9, corrected calcium 9.2. WBC 10, hemoglobin 12.1. Lab data back in July; hemoglobin 12.5, creatinine 1.4, GFR of 46. Urinalysis negative for infection. Chest x-ray; cardiomegaly with congestion worsening compared to the chest x-ray back on the . Renal ultrasound; 02/19.6, no hydronephrosis, increased echogenicity. ABG; pH 7.44, CO2 29, O2 89, base excess -3. Assessment And Plan: 1. Acute kidney injury secondary to cardiorenal syndrome superimposed with the NANCY inhibitor, spironolactone, and Bactrim, on the over volume side. I am going to go ahead and discontinue IV fluid, discontinue spironolactone, hold any NANCY inhibitor or ARB, discontinue Bactrim. I am going to go ahead and increase Lasix 40 mg b.i.d. and we will follow up the patient closely. 2. For the disproportion in BUN and creatinine, mostly it is secondary to catabolic/the cardiorenal status/superimposed with steroid use. I am going to go ahead and decrease the steroid to b.i.d., optimize fluid status for the patient with Lasix and we will follow up the patient. 3. Chronic obstructive pulmonary disease exacerbation. The patient is already on atypical cover with azithromycin and ceftriaxone. I am going to go ahead and adjust the dose. We will hold on the Bactrim given the worsening kidney function. 4. Hypertension. We will try to utilize blood pressure for more diuresis. I will increase the Lasix to 40 b.i.d., decrease carvedilol to 6.25, and we will follow up. Discontinue spironolactone as above. 5. Respiratory failure, looked to me more cardiorenal because of the over volume status. I agree with antibiotic as above and we will increase Lasix to optimize the fluid status. I am going to go ahead given the finding on the ABG and decrease his prednisone. 6. Congestive heart failure with exacerbation as above. 7. Deconditioning. We will address it with the PCP upon improvement of the patient. Thank you, Dr. Zuñiga for allowing us to participate in the care of your patient. time spend exam the patient face to face reviewing data lab and radiology , placing order , discussing with the patient and nursing staff , discussing with hospitalist >65 min SETH Voice ID: [id number] Report ID: [id number] KRYSTINA
[2022-09-10] MEDS: carvediloL 6.25 MG TAB PO SCH (17:34)
--- NOTE | 2022-09-10 18:35 | PN ---
Date of Progress Note: 09/09/2022 The patient seems somewhat more alert this morning, although he is confused as to his surroundings. He does respond to some questioning. Thick mucus is being suctioned of on regular basis. Chest x-ra y is somewhat worse. However, his breathing has improved somewhat after being given Lasix IV with a significant amount of diuresis. Further discussion was held with regard to disposition with his daug hter and it was decided to continue with the present regimen at least for another day or so. Ene adrian, if the patient goes back into prior arrangements, cannot receive IV antibiotics. HR/MODL Voice ID: [id number] Report ID: [id number]
--- NOTE | 2022-09-10 18:39 | PN ---
Date of Progress Note: 09/10/2022 The patient has actually decreased his mental status today and has increased creatinine and also incr eased sodium and chloride. Discussion was held with the daughter for continuing present regimen or p ut him back into hospice. Renal consult was obtained too and depending on the chest x-ray tomorrow, I think some decision could be made as to whether to continue the IV antibiotics. I placed him in in- hospital hospice for the 5 days available or discharge him on hospice and p.o. medication. HR/MODL Voice ID: [id number] Report ID: [id number]
[2022-09-10] MEDS: FUROSEMIDE 40 MG/4 ML VIAL IV SCH (20:34)
[2022-09-11] MEDS: MORPHINE 2 MG/ML SYR IV PRN ×2 (00:59→08:59)
[2022-09-11] MEDS: LORazepam 2 MG/ML VIAL IV SCH ×8 (01:00→18:01)
[2022-09-11] MEDS: IPRATROPIUM BROM 0.5MG/2.5ML NEB SCH ×5 (03:05→20:05)
[2022-09-11] MEDS: ALBUTEROL 2.5 MG/3 ML NEB SOL NEB SCH ×5 (03:05→20:05)
[2022-09-11 04:38] LABS: Albumin 3.1 g/dL (3.4-5.0); Phosphorus 6.1 mg/dL (2.5-4.9); Potassium 4.4 mmol/L (3.5-5.1); Uric Acid 14.9 mg/dL (3.5-7.2)
[2022-09-11] MEDS: carvediloL 6.25 MG TAB PO SCH ×2 (05:43→15:39)
--- NOTE | 2022-09-11 08:34 | RAD REPORT ---
EXAM DESCRIPTION: Dustin Single View3 8:17 am CLINICAL HISTORY: Chest pain COMPARISON: September 09, 2022 FINDINGS: Minimal improvement in bilateral pulmonary opacities. Heart remains enlarged IMPRESSION: Minimal improvement in the bilateral pulmonary opacities which may represent pneumonia o r pulmonary edema
[2022-09-11] MEDS: ENOXAPARIN 30 MG/0.3 ML SQ SCH (08:57)
[2022-09-11] MEDS: CLOPIDOGREL 75 MG TABLET PO SCH (08:58)
[2022-09-11] MEDS: FUROSEMIDE 40 MG/4 ML VIAL IV SCH ×2 (08:58→20:27)
[2022-09-11] MEDS: AZITHROMYCIN IV 250 MG in NA CHLORIDE 0.9% 250 ML IVPB SCH (08:58)
[2022-09-11] MEDS: METHYLPREDNISOLONE 125 MG INJ IV SCH (08:59)
[2022-09-11] MEDS: CEFTRIAXONE 1,000 MG in NA CHLORIDE 0.9% 50 ML IVPB SCH ×2 (08:59→20:27)
[2022-09-11] MEDS: allopurinoL 100 MG TAB PO SCH (11:48)
[2022-09-11 12:26] LABS: Specific Gravity 1.014 (1.005-1.030); Urine Bilirubin NEGATIVE (Negative); Urine Blood Negative (Negative); Urine Clarity Clear (Clear); Urine Color Light-Yellow (Yellow); Urine Glucose NEGATIVE (Negative); Urine Protein NEGATIVE (Negative); Urine Urobilinogen Normal (Normal)
--- NOTE | 2022-09-11 12:50 | PN ---
Date of Progress Note: 09/11/2022 Subjective: The patient was admitted with cardiorenal syndrome, respiratory failure. The patient had worsening kidney function. Yesterday, we started the patient on aggressive diuresis. Physical Examination: Vital Signs: Blood pressure 126/96, pulse of 99. The patient has been voiding, not reported as the patient on diaper. Chest: Crackles bilateral. Heart: S1, S2. Systolic murmur. Abdomen: Soft, nontender. Extremity: Trace edema. Neuro: The patient obtunded. Moving 4 extremities. No focality. Laboratory Data: Hemoglobin 12.1. Sodium 149, potassium 4.4, bicarb 24, BUN 104, creatinine 2.5, uric acid 14.9, calcium 8.8, phosphorus 6.1, albumin 3.1, corrected calcium 9.6. PTH 304. Chest x-ray; better airspace compared to yesterday. Renal ultrasound showing normal to small size kidney bilateral without any hydro with echogenicity on both sides 8/9 cm. Current Medications: The patient on; 1. Azithromycin. 2. Ceftriaxone. 3. Plavix. 4. Lovenox. 5. Carvedilol 6.25. 6. Lorazepam. 7. Tylenol. 8. Lasix 40 b.i.d. 9. Solu-Medrol 60 b.i.d. 10. Morphine. 11. Multivitamin. Assessment And Plan: 1. Acute kidney injury secondary to cardiorenal with severe disproportion in BUN and creatinine. The patient obtunded. I am going to go ahead and continue on the diuresis for the patient and we will monitor. I had a long discussion with the patient's daughter by bedside regarding the prognosis of the patient as we just did the intervention yesterday. We will watch the patient for another 24 hours and we will follow up. 2. Disproportion in BUN and creatinine, multifactorial, secondary to cardiorenal, steroid use, catabolic state. I am going to go ahead and decrease prednisone to 60 mg daily. Continue on the Lasix. We will optimize the fluid status for the patient. We will start the patient on PPN and we will follow up. 3. Hypertension, controlled, optimal. We will continue to utilize blood pressure for more diuresis. 4. Congestive heart failure exacerbation. Continue current diuresis. 5. Elevation in uric acid secondary to cardiorenal. I am going to start the patient on allopurinol. 6. Altered mental status, possible secondary to metabolic. I am going to decrease his Ativan and we will continue current antibiotic. 7. Pneumonia, urinary tract infection. Continue current antibiotic. Follow up with culture. time spend exam the patient face to face reviewing data lab and radiology , placing order , discussing with the patient and nursing staff , discussing with hospitalist >35 min SETH Voice ID: [id number] Report ID: [id number] MTDD
[2022-09-11 12:51] LABS: UR PROTEIN 21.2 mg/dL (<11.9); Urine Protein/Creatinine Ratio 0.3 ratio (<0.15)
[2022-09-11] MEDS: AA 4.25 %/D5W/ELECTROLYTES 2,000 ML, Lipids 20% 250 ML with MULTIVITAMINS INJ 10 ML IV SCH ×3 (18:01)
--- NOTE | 2022-09-11 18:05 | PN ---
Date of Progress Note: 09/11/2022 The patient has shown slight improvement in his orientation. The edema has improved as far as the pos sible element of CHF. Pneumonia did show, as mentioned, slight improvement. After discussion with the daughter, we will continue the treatment for least another 24 hours, which is the active IV antibiot ics and breathing treatments and then make another determination HR/MODL Voice ID: [id number] Report ID: [id number]
--- NOTE | 2022-09-11 18:14 | PN ---
Date of Progress Note: 09/10/2022 The patient continues status quo. However, some changes will be made in his medication after being s een by Nephrology and determined that the status for disposition can be based on the changes if in fa ct they occur and Nephrology has instituted. Also dependent somewhat on chest x-ray and discussion w ith the hospice is continued with the feeling that if he progresses, even if it is just a slight amou nt, continue active treatment. Otherwise, we will put him back into hospice and keep him comfortable . Orientation is still poor and without medication, he does become more unsettled. HR/MODL Voice ID: [id number] Report ID: [id number]
[2022-09-12] MEDS: LORazepam 2 MG/ML VIAL IV SCH ×4 (00:59→17:46)
[2022-09-12] MEDS: IPRATROPIUM BROM 0.5MG/2.5ML NEB SCH ×6 (01:50→20:10)
[2022-09-12] MEDS: ALBUTEROL 2.5 MG/3 ML NEB SOL NEB SCH ×6 (01:50→20:10)
[2022-09-12] MEDS: carvediloL 6.25 MG TAB PO SCH ×2 (06:00→17:46)
[2022-09-12 06:34] LABS: Phosphorus 7.8 mg/dL (2.5-4.9); Potassium 4.9 mmol/L (3.5-5.1)
[2022-09-12] MEDS: CLOPIDOGREL 75 MG TABLET PO SCH (09:00)
[2022-09-12] MEDS: allopurinoL 100 MG TAB PO SCH (09:00)
[2022-09-12] MEDS: FUROSEMIDE 40 MG/4 ML VIAL IV SCH ×2 (09:44→20:22)
[2022-09-12] MEDS: CEFTRIAXONE 1,000 MG in NA CHLORIDE 0.9% 50 ML IVPB SCH ×2 (09:44→20:22)
[2022-09-12] MEDS: ENOXAPARIN 30 MG/0.3 ML SQ SCH (09:45)
[2022-09-12] MEDS: METHYLPREDNISOLONE 125 MG INJ IV SCH (09:45)
[2022-09-12] MEDS: AZITHROMYCIN IV 250 MG in NA CHLORIDE 0.9% 250 ML IVPB SCH (09:46)
--- NOTE | 2022-09-12 13:23 | PN ---
Date of Progress Note: 09/12/2022 Subjective: The patient was admitted with pneumonia, COPD exacerbation with acute kidney injury secondary to cardiorenal, superimposed with spironolactone and Bactrim. The patient is still obtunded, poor intake, not waking up. Physical Examination: Vital Signs: Blood pressure 148/91, pulse of 96, afebrile. The patient had good urine output in the last 6 hours, has 500. Chest: Faint rales bilateral. Heart: S1, S2. Systolic murmur. Abdomen: Soft, nontender. Extremity: No edema. Neurologic: The patient moving 4 extremities. No focality. The patient obtunded. Laboratory Data: Hemoglobin 12.1. Sodium 149, potassium 4.9, bicarb 22, BUN 144, creatinine 3.3, GFR of 18, calcium 8.7, phosphorus 7.8, albumin 3, corrected calcium is 9.5. Current Medications: The patient on include; 1. Azithromycin. 2. Ceftriaxone. 3. Plavix. 4. Lovenox. 5. Carvedilol. 6. TPN. 7. Lasix 40 b.i.d. 8. Zofran. 9. Allopurinol. Assessment And Plan: 1. Acute kidney injury secondary to cardiorenal, nonoliguric. The patient had severe disproportion in BUN and creatinine possible secondary to catabolic state. I had long discussion with daughter by the bedside about possible need for renal replacement therapy with his current kidney function and current medical condition with a history of cancer and advanced chronic obstructive pulmonary disease. I do not think it is going to be a good choice for the patient. The patient wants to discuss with Dr. Zuñiga. Again, the patient, I do not think, is going to be a good candidate for renal replacement therapy. We will follow up closely. I am going to go ahead and get chest x-ray for better evaluation of his fluid status and we will follow up. 2. Hypertension, controlled, optimal. We will keep utilizing the blood pressure for more diuresis. 3. Congestive heart failure with exacerbation as above. Continue Lasix. 4. Chronic obstructive pulmonary disease, advanced. Continue supportive treatment. 5. Poor intake. Continue TPN. time spend exam the patient face to face reviewing data lab and radiology , placing order , discussing with the patient and nursing staff , discussing with hospitalist >35 min RICH/LIZ Voice ID: [id number] Report ID: [id number] KRYSTINA
--- NOTE | 2022-09-12 15:09 | RAD REPORT ---
EXAM DESCRIPTION: RADChest Single View09/12/2022 1:26 pm CLINICAL HISTORY: f/u pn COMPARISON: Chest Single View dated 09/11/2022; Chest Single View dated 09/09/2022; Chest Single View d ated 09/06/2022; Chest Single View dated 07/14/2022 TECHNIQUE: Portable AP view of the chest. FINDINGS: Stable central predominant patchy opacities with interstitial prominence. The right costop hrenic angle is excluded. No pneumothorax or sizable effusion. The cardiomediastinal contours are unr emarkable. IMPRESSION: Stable findings suggestive of pulmonary edema and/or superimposed pneumonia as above.
[2022-09-12] MEDS: MORPHINE 2 MG/ML SYR IV PRN (15:18)
--- NOTE | 2022-09-12 15:32 | PN ---
Date of Progress Note: 09/12/2022 Patient basically status quo except for the renal function which has deteriorated. Discussion with Raymundo Peng as far as further treatment possibilities and basically it would be dialysis if there is continuation of increased creatinine and decreased GFR continues. However, the patient has instructe d his daughter that he is not to have that done. Pulmonary cason, basically status quo, difficulty sw allowing as well. Discussion with the daughter who felt that as there was no further renal treatment available other than dialysis and the next chest x-ray shows minimal improvement, then patient could be entered into either at home or hospital for 5 days. We will continue the treatment until chest x -ray determination be based on this progress. HR/MODL Voice ID: [id number] Report ID: [id number]
[2022-09-12] MEDS ORDERED: AA 4.25 %/D5W/ELECTROLYTES 2,000 ML IV SCH (17:00)
[2022-09-13] MEDS: ALBUTEROL 2.5 MG/3 ML NEB SOL NEB SCH ×7 (01:00→23:20)
[2022-09-13] MEDS: IPRATROPIUM BROM 0.5MG/2.5ML NEB SCH ×7 (01:00→23:20)
[2022-09-13] MEDS: LORazepam 2 MG/ML VIAL IV SCH ×4 (06:00→17:15)
[2022-09-13] MEDS: carvediloL 6.25 MG TAB PO SCH ×2 (06:00→17:15)
[2022-09-13 06:28] LABS: Absolute Lymphocytes (CBC) 0.5 K/uL (0.7-4.9); Hematocrit 40.4 % (39.6-49.0); Lymphocytes % 4.2 % (15.3-44.8); MCV 97.3 fL (80-100); MPV 9.9 fL (7.6-11.3); RBC Red Blood Cell Count 4.15 M/uL (4.33-5.43)
[2022-09-13 06:41] LABS: Albumin 3.1 g/dL (3.4-5.0); Phosphorus 8.3 mg/dL (2.5-4.9); Potassium 5.2 mmol/L (3.5-5.1)
[2022-09-13] MEDS: CLOPIDOGREL 75 MG TABLET PO SCH (08:48)
[2022-09-13] MEDS: METHYLPREDNISOLONE 125 MG INJ IV SCH (08:51)
[2022-09-13] MEDS: ENOXAPARIN 30 MG/0.3 ML SQ SCH (08:52)
[2022-09-13] MEDS: FUROSEMIDE 40 MG/4 ML VIAL IV SCH ×2 (08:52→21:17)
[2022-09-13] MEDS: CEFTRIAXONE 1,000 MG in NA CHLORIDE 0.9% 50 ML IVPB SCH ×2 (08:52→21:17)
[2022-09-13] MEDS: allopurinoL 100 MG TAB PO SCH (08:53)
[2022-09-13] MEDS: AZITHROMYCIN IV 250 MG in NA CHLORIDE 0.9% 250 ML IVPB SCH (09:34)
--- NOTE | 2022-09-13 15:23 | PN ---
Date of Progress Note: 09/13/2022 The patient is basically status quo both clinically and imaging and blood work, although his breathin g has become somewhat more shallow. Discussion with the daughter in regard to hospice continues. Lacey ashford has much difficulty deciding. She has no one else to talk to in her family. I suggested that she think about it over the weekend and in the meantime, we will maintain the treatment and if it improve s by Friday, continue and if it does not, then I think she is agreeable to hospice. Another problem is maintaining his present condition, IV antibiotics, and he goes into hospice. I have been told alta t p.o. would be necessary and he can swallow his medication somewhat with dilemma, but I think by ove r a weekend you need to take his course or decision can be made by the daughter. HR/MODL Voice ID: [id number] Report ID: [id number]
[2022-09-13] MEDS: AA 4.25 %/D5W/ELECTROLYTES 2,000 ML, Lipids 20% 250 ML with MULTIVITAMINS INJ 10 ML IV SCH ×3 (17:15)
--- NOTE | 2022-09-13 21:56 | PN ---
Date of Progress Note: 09/13/2022 Chief Complaint: Acute kidney injury, severe nonoliguric. Subjective: The patient developed acute kidney injury in setting of pneumonia, COPD exacerbation. T he patient has history of cardiorenal syndrome. He was taking spironolactone and Bactrim and it was stopped. Serum creatinine level has not improved. BUN is elevated. The patient has some altered me ntal status changes. I discussed with his daughter at the bedside. The patient refused previously t o be started on dialysis. Family is refusing dialysis. Review of Systems: Denies fever or chills. Physical Examination: Lungs: Clear to auscultation bilaterally. Heart: S1, S2. Abdomen: Benign. Extremities: No edema. Impression And Plan: Acute kidney injury secondary to cardiorenal syndrome and nonoliguric acute tub ular necrosis. The patient has severe azotemia. BUN is over 100. Due to hypercatabolic state and s epsis as well as diuretic effect, the patient refused renal replacement therapy. The patient is curr ently treated for obstructive pulmonary disease. Continue antibiotics. Monitor electrolytes. Potas sium today is 5.2 and the patient received Lokelma. Monitor bicarbonate level. There is no signific ant metabolic acidosis. EB/MODL Voice ID: [id number] Report ID: [id number]
[2022-09-14] MEDS: ALBUTEROL 2.5 MG/3 ML NEB SOL NEB SCH ×4 (04:25→15:27)
[2022-09-14] MEDS: IPRATROPIUM BROM 0.5MG/2.5ML NEB SCH ×4 (04:25→15:27)
[2022-09-14] MEDS: LORazepam 2 MG/ML VIAL IV SCH ×2 (06:00)
[2022-09-14] MEDS: carvediloL 6.25 MG TAB PO SCH (06:00)
[2022-09-14 06:04] LABS: Phosphorus 7.8 mg/dL (2.5-4.9); Potassium 4.9 mmol/L (3.5-5.1)
--- NOTE | 2022-09-14 07:03 | P.PN ---
Date of Service: 09/14/22 Subjective: no acute events overnight Unresponsive Kidney function slightly worse ROS: 10 point ROS as noted above, otherwise negative Physical Exam: GEN: Alert, oriented, NAD HEENT: Normal conjunctiva, sclera anicteric CV: Regular rate and rhythm, no edema Pulm: Nonlabored respirations on room air ABD: Soft, nontender, nondistended MSK: No joint tenderness Integumentary: No rashes Neuro: Normal speech, normal affect Problem List: Right lower lobe pneumonia Congestive heart failure History of head and neck cancer Atrial fibrillation Coronary artery disease inpatient hospice recommended to patients daughter start comfort care VTE: Lovenox Code: DNR Dispo: more than 2 days
[2022-09-14] MEDS: CLOPIDOGREL 75 MG TABLET PO SCH (08:11)
[2022-09-14] MEDS: allopurinoL 100 MG TAB PO SCH (08:12)
[2022-09-14] MEDS: ENOXAPARIN 30 MG/0.3 ML SQ SCH (08:20)
[2022-09-14] MEDS: CEFTRIAXONE 1,000 MG in NA CHLORIDE 0.9% 50 ML IVPB SCH (08:20)
[2022-09-14] MEDS: AZITHROMYCIN IV 250 MG in NA CHLORIDE 0.9% 250 ML IVPB SCH (08:20)
[2022-09-14] MEDS: FUROSEMIDE 40 MG/4 ML VIAL IV SCH (08:21)
[2022-09-14] MEDS: METHYLPREDNISOLONE 125 MG INJ IV SCH (08:21)
[2022-09-14] MEDS ORDERED: SODIUM ZIRCONIUM CYCLOSILICATE 10 GM/PKT PO SCH (09:00)
[2022-09-14] MEDS ORDERED: GLUCAGON 1 MG/VIAL IM PRN (10:04)
[2022-09-14] MEDS ORDERED: D10W 125 ML IV PRN (10:06)
--- NOTE | 2022-09-14 10:11 | PN ---
Date of Progress Note: 09/14/2022 Subjective: The patient was admitted with cardiorenal syndrome. The patient was having acute kidney injury, started on diuresis. The patient converted to nonoliguric. Both kidney function continue to worsen, currently plateaued. Physical Examination: Vital Signs: Blood pressure 124/69, pulse of 61, afebrile. The patient had good urine output of 2600. Chest: Faint crackles bilateral, much better than before. Heart: S1 and S2 systolic murmur. Abdomen: Soft. Nontender. Extremities: No edema. Neurologic: The patient obtunded. Moving extremities. No focality. Laboratory Data: Sodium 152, potassium 4.9, bicarb 25, BUN 172, creatinine 3.2, glucose 331. Corrected sodium 154, calcium 8.5, phosphorus 7.8, albumin 3.2. Current Medications: The patient on include: 1. Azithromycin. 2. Ceftriaxone. 3. Plavix. 4. Carvedilol 6.25. 5. Lorazepam. 6. Lasix. 7. Lokelma. 8. Allopurinol. 9. Morphine. 10. TPN. Assessment And Plan: 1. Acute kidney injury secondary to cardiorenal Syn The patient more close up to normal volume. I am going to go ahead and decrease his Lasix to once a day and we will monitor the patient. The patient has severe disproportion BUN and creatinine, mostly secondary to catabolic and prerenal secondary to cardiorenal superimposed with steroid. I am going to go ahead and decrease his steroid to 40 mg. I am going to adjust his TPN and we will decrease Lasix to once a day and we will continue to monitor the patient. 2. I spoke with the family about renal replacement therapy to patient. I do not think he is a good candidate for a renal replacement therapy given all the comorbid condition and hospice status before. I agree the patient better to be on maybe hospice. We will follow up with the patient closely during the hospitalization and we will monitor. 3. Hyperkalemia, resolved. Continue diuresis and glaucoma. 4. Hypertension, controlled, optimal. Continue current treatment. I had decreased his Lasix. Blood pressure been stable. I am going to go ahead and decrease his carvedilol. 5. Altered mental status secondary to metabolic encephalopathy, severe uremia secondary to elevation in the BUN. Again, family is not in favor of any renal replacement therapy, which I agree with the condition of the patient. We are going to try to treat medically. I am going to stop any sedation for the patient. We will continue feeding through PPN and we will follow up. 6. Hypernatremia. We will adjust the PPN. 7. Hyperkalemia. We will adjust the TPN. 8. Hyperglycemia. We will add insulin and we will follow up with the patient. 9. 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 Continue current antibiotic. 10. Urinary tract infection. Continue current antibiotic. time spend exam the patient face to face reviewing data lab and radiology , placing order , discussing with the patient and nursing staff , discussing with hospitalist >35 min SETH Voice ID: [id number] Report ID: [id number] MTDD
--- NOTE | 2022-09-14 10:31 | RAD REPORT ---
EXAM DESCRIPTION: RADChest Single View09/14/2022 10:13 am CLINICAL HISTORY: COPD COMPARISON: Chest Single View dated 09/12/2022; Chest Single View dated 09/11/2022; Chest Single View da naren 09/09/2022; Chest Single View dated 09/06/2022 TECHNIQUE: Portable AP view of the chest. FINDINGS: Improving right basilar aeration. Diffuse interstitial prominence in the perihilar regions bilaterally, stable. This could relate to an element of underlying pulmonary edema. No pneumothorax or effusion. The cardiomediastinal contours are unremarkable. IMPRESSION: Improving right basilar aeration. Otherwise stable.
[2022-09-14] MEDS ORDERED: INSULIN -REGULAR HUMAN 50 UNIT/0.5 ML ML SQ SCH (11:30)
[2022-09-14] MEDS: MORPHINE 2 MG/ML SYR IV PRN (14:05)
[2022-09-14] MEDS ORDERED: LORazepam 2 MG/ML VIAL IV PRN (16:20)
[2022-09-14] MEDS ORDERED: MORPHINE 4 MG/ML SYR IV PRN (16:20)
[2022-09-14 17:00] VITALS: BP 123/78; TEMP 96.6
[2022-09-14] MEDS ORDERED: AMINO ACIDS 4.25 %/DEXTROSE 5% 2,000 ML IV SCH ×2 (17:00)
[2022-09-14 17:34] VITALS: O2SAT 94
[2022-09-14] MEDS ORDERED: carvediloL 3.125 MG TAB PO SCH (18:00)
--- NOTE | 2022-09-14 23:31 | P.DS ---
Admission Date: 09/07/22 Discharge Date: 09/14/22 Disposition: HOSPICE-MEDICAL FACILITY Brief History of Present Illness: The patient presented to the emergency room with the above outlined symptoms according to his daughter. He was discharged from the hospital approximately 2 months ago after a bout of pneumonia and placed in hospice. He has been doing fairly well until the last couple of days when he became increasingly dyspneic and anorectic. He had difficulty getting him into eat or drink, and became much more confused and was brought to the emergency room with tentative diagnosis of pneumonia, recurrent, was made and the possibility of UTI as well, and he was admitted for further treatment. Hospital Course: Problem List: Right lower lobe pneumonia Congestive heart failure History of head and neck cancer Atrial fibrillation Coronary artery disease Patient presented with worsenign dyspnea and anorexia. He was admitted by his PCP and did not have improvement. PCP And family were in discussions on t ransitioning to inpatient hospice. Family initiated inpatient hospice on morning I assumed care and patient was transferred to inpatient hospice service. Vital Signs/Physical Exam: Temp Pulse Resp BP Pulse Ox 96.6 F L 109 H 22 H 123/78 100 09/14/22 16:00 09/14/22 16:00 09/14/22 16:00 09/14/22 16:00 09/14/22 16:00 General: Unresponsive HEENT: Sclerae nonicteric Respiratory: Crackles/rales, Other (labored respirations) Cardiovascular: No edema, Regular rate/rhythm Gastrointestinal: Soft and benign, Non-distended Musculoskeletal: No tenderness, No warmth Integumentary: No rashes, No tenderness/swelling Neurological: Other (unresponsive) Laboratory Data at Discharge: WBC 10.80 K/uL (4.3-10.9) 09/13/22 06:10 Hgb 13.0 g/dL (13.6-17.9) L 09/13/22 06:10 Hct 40.4 % (39.6-49.0) 09/13/22 06:10 Plt Count 97 K/uL (152-406) L 09/13/22 06:10 PT 13.6 SECONDS (9.5-12.5) H 09/06/22 21:49 INR 1.24 09/06/22 21:49 Sodium 152 mmol/L (136-145) H 09/14/22 05:19 Potassium 4.9 mmol/L (3.5-5.1) 09/14/22 05:19 BUN 172 mg/dL (7-18) H 09/14/22 05:19 Creatinine 3.21 mg/dL (0.70-1.30) H 09/14/22 05:19 Glucose 331 mg/dL (74-106) H 09/14/22 05:19 Uric Acid 14.9 mg/dL (3.5-7.2) H 09/11/22 03:20 Phosphorus 7.8 mg/dL (2.5-4.9) H 09/14/22 05:19 Magnesium 2.7 mg/dL (1.6-2.4) H 09/09/22 05:56 Total Bilirubin 1.2 mg/dL (0.2-1.0) H 09/09/22 05:56 AST 675 U/L (15-37) H* 09/09/22 05:56 ALT 638 U/L (16-61) H* 09/09/22 05:56 Alkaline Phosphatase 41 U/L (45-117) L 09/09/22 05:56 Home Medications: Clopidogrel Bisulfate [Plavix*] 75 mg PO DAILY tablet 01/24/20 Apixaban [Eliquis *] 2.5 mg PO BID 09/20/20 Simvastatin 40 mg PO BEDTIME 09/20/20 Docusate [Colace Cap*] 2 tab PO BID PRN 01/09/21 carvediloL [Coreg*] 12.5 mg PO BID 6AM 6PM #60 tab 02/01/21 Gabapentin [Neurontin*] 300 mg PO TID 01/02/22 Furosemide [Lasix*] 40 mg PO SEECOM 06/26/22 Hydrocodone Bit/Acetaminophen [[place] 10-325 Tablet] 10 - 325 mg PO TID PRN 09/07/22 LORazepam [Ativan] 1 mg PO Q2H PRN 09/07/22 Spironolactone 25 mg PO BID 09/07/22 Followup: NONE,NONE [Primary Care Provider] - Time spent managing pt's care (in minutes): 45
[2022-09-15] MEDS ORDERED: METHYLPREDNISOLONE 40 MG INJ IV SCH (09:00)
[2022-09-15] MEDS ORDERED: FUROSEMIDE 40 MG/4 ML VIAL IV SCH (09:00)
[2022-09-16] MEDS ORDERED: AMINO ACIDS 4.25 %/DEXTROSE 5% 2,000 ML, Lipids 20% 250 ML with MULTIVITAMINS INJ 10 ML IV SCH ×3 (17:00)
== END 2022-09-14 18:21 | disposition hospice, inpatient (51) | DRG 193 ==
LOC: ER 20:38 → ERHOLD 09-07 00:22 → 2ND 09-07 01:45
PROVIDERS: ADMIT Family Medicine; ATTEND Hospitalist
PROC: 3E0336Z Introduction of Nutritional Substance into Peripheral Vein, Percutaneous Approach (ICD-10-PCS; principal; 2022-09-07)
DX: J18.9 Pneumonia, unspecified organism (principal); G93.41 Metabolic encephalopathy; I50.43 Acute on chronic combined systolic (congestive) and diastolic (congestive) heart failure; J96.01 Acute respiratory failure with hypoxia; N17.0 Acute kidney failure with tubular necrosis; N39.0 Urinary tract infection, site not specified; I13.0 Hypertensive heart and chronic kidney disease with heart failure and stage 1 through stage 4 chronic kidney disease, or unspecified chronic kidney disease; J44.0 Chronic obstructive pulmonary disease with (acute) lower respiratory infection; J44.1 Chronic obstructive pulmonary disease with (acute) exacerbation; N18.32 Chronic kidney disease, stage 3b; D63.1 Anemia in chronic kidney disease; I48.91 Unspecified atrial fibrillation; G89.29 Other chronic pain; E86.0 Dehydration; H40.9 Unspecified glaucoma; E87.5 Hyperkalemia; I25.10 Atherosclerotic heart disease of native coronary artery without angina pectoris; I25.2 Old myocardial infarction; R73.9 Hyperglycemia, unspecified; Z66 Do not resuscitate; Z86.73 Personal history of transient ischemic attack (TIA), and cerebral infarction without residual deficits; Z79.01 Long term (current) use of anticoagulants; Z79.02 Long term (current) use of antithrombotics/antiplatelets; Z79.899 Other long term (current) drug therapy; Z20.822 Contact with and (suspected) exposure to COVID-19
CPT/HCPCS: 0240U; 36415; 70450; 71045; 76770; 80048; 80053; 80069; 80076; 81003; 81015; 82550; 82570; 82805; 82947; 83605; 83735; 83880; 83970; 84145; 84156; 84484; 84550; 85025; 85610; 87040; 93005; 94640; 94760; 99285; J0456; J1650; J1940; J2270; J2930; J7030; J7042; J7050; J7613; J7614; J7644

== ENCOUNTER 2022-09-14 18:22 | Inpatient (IN) | payer OTHER ==
--- OUTSIDE RECORDS SUMMARY | 2022-09-14 18:35 | XMS REPORT | Continuity of Care Document ---
:1935 Author Organization [facility] t Address [address] [place] [address] [address] [place] [address] Care Team Providers Name Role Phone Zara Rell Primary Care Physician Therapy, Adc Covid Infusion Attending Clinician Unavailable Felipa Gill MD Attending Clinician FELIPA GILL Attending Clinician Unavailable Niyah Bowie RN Attending Clinician Unavailable Only, Ang Db Test Attending Clinician Unavailable Audrey Solorzano Attending Clinician AUDREY FLORENCE Attending Clinician Unavailable Doctor Unassigned, [place] Attending Clinician Unavailable Janusz Matos MD Attending [...] rs active active ity of problems problems [facility] Allergies, Adverse Reactions, Alerts Allergy Allergy Status Severity Reaction(s) Onset Inactive Treating Comm ents Source Name Type Date Date Clinician NO KNOWN Drug Active Univers ALLERGIE Class ity of S [facility] Social History Social Habit Start Date Stop Date Quantity Comments Source Exposure to 2021-12-21 2021-12-31 Not sure [facility] SARS-CoV-2 (event) 00:00:00 13:06:00 Medica l Branch Tobacco use and 2019-03-01 2019-03-01 Never used [facility] [place] exposure 00:00:00 00:00:00 Medical Branch Sex Ass[birth year] At [birth year] [address] [facility] [place] 00:00:00 00:00:00 Medical Branch Smoking Status Start Date Stop Date Source Former smoker 2019-03-01 00:00:00 2019-03-01 00:00:00 [facility] Medications Ordered Filled Start Stop Current Ordering Indication Dosage Frequency Signature Comments Components Source Medication Medication Date Date Medication? Clinician (SIG) Name Name aspirin 81 2019-0 Yes 81mg Take 81 mg U nivers mg chewable 9-09 by mouth ity of tablet 16:02: daily. [place] [address] Medical Branch simvastatin 2019-0 Yes 40mg Take 40 mg Univers 40 mg 9-09 by mouth ity of tablet 16:02: daily. [place] [address] Medical Branch carvedilol 2018-0 Yes 25mg Take 25 mg U nivers 25 mg 9-09 by mouth 2 ity of tablet 16:02: (two) [address] Medical daily with Branch meals. traMADol 50 2018-0 Yes 50mg Take 50 mg Univers mg tablet 9-09 by mouth 2 ity of 16:02: (two) [place] [address] times Medical daily. Branch gabapentin 2018-0 Yes 100mg Take 100 Un tameka 100 mg 9-09 mg by ity of capsule 16:02: mouth at [place] [address] bedtime. Medical Branch clopidogrel 2018-0 Yes 75mg Take 75 mg Univers 75 mg 9-09 by mouth ity of tablet 16:02: daily. [place] [address] Medical Branch losartan 2019-0 Yes 100mg Take 100 Univ ers 100 mg 9-09 mg by ity of tablet 16:02: mouth [place] [address] daily. Medical Branch aspirin 81 2019-0 Yes 81mg Take 81 mg U nivers mg chewable 9-09 by mouth ity of tablet 16:02: daily. [place] [address] Medical Branch simvastatin 2019-0 Yes 40mg Take 40 mg Univers 40 mg 9-09 by mouth ity of tablet 16:02: daily. [place] [address] Medical Branch carvedilol 2019-0 Yes 25mg Take 25 mg U nivers 25 mg 9-09 by mouth 2 ity of tablet 16:02: (two) [place] [address] times Medical daily with Branch meals. traMADol 50 2019-0 Yes 50mg Take 50 mg Univers mg tablet 9-09 by mouth 2 ity of 16:02: (two) [place] [address] times Medical daily. Branch gabapentin 2019-0 Yes 100mg Take 100 Un tameka 100 mg 9-09 mg by ity of capsule 16:02: mouth at [place] [address] bedtime. Medical Branch clopidogrel 2019-0 Yes 75mg Take 75 mg Univers 75 mg 9-09 by mouth ity of tablet 16:02: daily. [place] [address] Medical Branch losartan 2019-0 Yes 100mg Take 100 Univ ers 100 mg 9-09 mg by ity of tablet 16:02: mouth [place] [address] daily. Medical Branch aspirin 81 2019-0 Yes 81mg Take 81 mg U nivers mg chewable 9-09 by mouth ity of tablet 16:02: daily. [place] [address] Medical Branch simvastatin 2019-0 Yes 40mg Take 40 mg Univers 40 mg 9-09 by mouth ity of tablet 16:02: daily. [place] [address] Medical Branch carvedilol 2019-0 Yes 25mg Take 25 mg U nivers 25 mg 9-09 by mouth 2 ity of tablet 16:02: (two) [place] [address] times Medical daily with Branch meals. traMADol 50 2019-0 Yes 50mg Take 50 mg Univers mg tablet 9-09 by mouth 2 ity of 16:02: (two) [place] [address] times Medical daily. Branch gabapentin 2019-0 Yes 100mg Take 100 Un tameka 100 mg 9-09 mg by ity of capsule 16:02: mouth at [place] [address] bedtime. Medical Branch clopidogrel 2019-0 Yes 75mg Take 75 mg Univers 75 mg 9-09 by mouth ity of tablet 16:02: daily. [place] [address] Medical Branch losartan 2019-0 Yes 100mg Take 100 Univ ers 100 mg 9-09 mg by ity of tablet 16:02: mouth [place] [address] daily. Medical Branch aspirin 81 2019-0 Yes 81mg Take 81 mg U nivers mg chewable 9-09 by mouth ity of tablet 16:02: daily. [place] [address] Medical Branch simvastatin 2019-0 Yes 40mg Take 40 mg Univers 40 mg 9-09 by mouth ity of tablet 16:02: daily. [place] [address] Medical Branch carvedilol 2019-0 Yes 25mg Take 25 mg U nivers 25 mg 9-09 by mouth 2 ity of tablet 16:02: (two) [place] [address] times Medical daily with Branch meals. traMADol 50 2019-0 Yes 50mg Take 50 mg Univers mg tablet 9-09 by mouth 2 ity of 16:02: (two) [place] [address] times Medical daily. Branch gabapentin 2019-0 Yes 100mg Take 100 Un tameka 100 mg 9-09 mg by ity of capsule 16:02: mouth at [place] [address] bedtime. Medical Branch clopidogrel 2019-0 Yes 75mg Take 75 mg Univers 75 mg 9-09 by mouth ity of tablet 16:02: daily. [place] [address] Medical Branch losartan 2019-0 Yes 100mg Take 100 Univ ers 100 mg 9-09 mg by ity of tablet 16:02: mouth [place] [address] daily. Medical Branch Immunizations Ordered Filled Immunization Date Status Comments Sourc e Immunization Name Name MICHELLE 2022-01-01 Completed University o f 00:00:00 [facility] Vital Signs Vital Name Observation Time Observation Value Comments Source Systolic blood 2022-01-01 22:08:00 142 mm[facility]Hg[facility] Diastolic blood 2022-01-01 22:08:00 71 mm[Hg] Unive [facility] of [facility] Heart rate 2022-01-01 22:08:00 88 /min [facility] Body temperature 2022-01-01 22:08:00 36.89 [facility] Respiratory rate 2022-01-01 22:08:00 19 /min [facility] Oxygen saturation in 2022-01-01 22:08:00 93 /min [facility] Arterial blood by [facility] Pulse oximetry [place] Body height 2022-01-01 21:01:00 180.3 cm [facility] Body weight 2022-01-01 21:01:00 81.647 kg [facility] BMI 2022-01-01 21:01:00 25.10 kg/m2 [facility] Procedures Procedure Date / Time Performed Performing Clinician Sour e CONSENT/REFUSAL FOR 2021-12-31 18:08:39 Doctor Unassigned, No [facility] DIAGNOSIS AND Name Medical [place] TREATMENT ASSIGNMENT OF BENEFITS 2021-12-31 18:08:28 Doctor Unassigned, No [facility] Encounters Start End Encounter Admission Attending Care Care Encounter Source Date/Time Date/Time Type Type Clinicians Facility Department ID 2022-01-01 2022-01-01 Nurse Therapy, Adc Covid Infusion [facility] [id number] Univers 16:00:00 17:00:00 Visit Bridget Felipa Contreras TIFFANYLUISA [id number] ity [place] [id number] [place] [id number] [place] 2022-01-01 2022-01-01 Outpatient R BRIDGET [facility] [id number] Univers 16:00:00 16:00:00 FELIPA ity of [facility] 2022-01-01 2022-01-01 Letter Niyah Bowie [id number] Univers 00:00:00 00:00:00 (Out) AMELIA [id number] it y of HOSPITAL 4.2.7.2.686 [place] [id number] [facility] 019 [place] 2021-12-31 2021-12-31 Laboratory Only, Ang Db Test [facility] 1.2.8 40.114 [id number] Univers 13:00:00 13:15:00 [facility] [id number] ity of [place] 4.2.7.2.686 [place] OMNSTER?BLEA [id number] [address] MEDICAL OFFICE BUILDING 2021-12-31 2021-12-31 Outpatient R LUDIVINA [facility] [id number] Univers 13:00:00 13:00:00 AUDREY hully o f [facility] 2021-12-31 2021-12-31 Orders Doctor RAMOS [id number] Univers 00:00:00 00:00:00 Only Unassigned, AMELIA [id number] ity of [place] [facility] 4.2.7.2.686 [place] [id number] [facility] 009 Branch 2019-08-26 2019-08-26 Orders Doctor RAMOS [id number] [id number] 00:00:00 00:00:00 Only Unassigned, AMELIA 350.1.13.10 [place] [facility] 4.2.7.2.686 [id number] 2019-03-17 2019-03-17 [facility] [id number] 11:26:00 14:59:00 Encounter Janusz [place] 350.1.13.10 [place] 4.2.7.2.686 Surgical [id number] [place] [address] 2019-03-03 2019-03-03 [facility] [id number] 09:37:00 13:20:00 Encounter Janusz Patel Doreen 350.1.13.10 [place] 4.2.7.2.686 Surgical [id number] [place] [address] 2019-03-03 2019-03-03 Orders Doctor RICHARD 1.2.840.114 [id number] 00:00:00 00:00:00 Only Unassigned, AMELIA 350.1.13.10 [place] [id number] 009 2019-02-24 2019-02-24 Thermodynamic Physicist 1, Adc Lab [facility] 1.2.840.114 [id number] 16:37:01 16:54:18 Visit Doreen 350.1.13.10 [place] 4.2.7.2.686 [place] [id number] Results This patient has no known results.
[2022-09-14 18:42] VITALS: BMI 23.0
[2022-09-14] MEDS ORDERED: HYDROMORPHONE HCL 1 MG/ML INJ IV SCH (18:45)
[2022-09-14] MEDS ORDERED: SCOPOLAMINE HYDROBROMIDE PATCH TD SCH (21:00)
[2022-09-14] MEDS: HYDROMORPHONE HCL 1 MG/ML INJ IV SCH (21:10)
[2022-09-14] MEDS: LORazepam 2 MG/ML VIAL IV PRN (21:13)
--- NOTE | 2022-09-14 22:16 | P.HP ---
Certification for Inpatient Patient admitted to: Inpatient With expected LOS: >2 Midnights Practitioner: I am a practitioner with admitting privileges, knowledge of patient current condition, hospital course, and medical plan of care. Services: Services provided to patient in accordance with Admission requirements found in Title 42 Section 412.3 of the Code of Federal Regulations Patient History Date of Service: 09/14/22 Reason for admission: HOSPICE CONSULTED FOR CHF History of Present Illness: HOLLY IVEY IS 87 YEARS OLD GM PATIENT OF DR. CLARK AND DR. PHELPS WHO HAS FAILED TO RECOVER FROM REPIRATORY FAILURE AND CHF. HE HAS SHOWN CARDIORENAL SYNDROME, HE IS WORSE WITH ALL THERAPY OFFERED SO FAR AND SO FAMILY HAS ASKED FOR HOSPICE CARE. HOSPICE DON CALLED ME AND I HAD A VIRTUAL VISIT WITH HELP OF HOSPICE NURSE. I LATER GAVE ORDERS TO CHARGE NURSE FOR COMFORT CARE. Allergies No Known Allergies Allergy (Verified 05/07/22 21:46) Home Medications: Clopidogrel Bisulfate [Plavix*] 75 mg PO DAILY tablet 01/24/20 Apixaban [Eliquis *] 2.5 mg PO BID 09/20/20 Simvastatin 40 mg PO BEDTIME 09/20/20 Docusate [Colace Cap*] 2 tab PO BID PRN 01/09/21 carvediloL [Coreg*] 12.5 mg PO BID 6AM 6PM #60 tab 02/01/21 Gabapentin [Neurontin*] 300 mg PO TID 01/02/22 Furosemide [Lasix*] 40 mg PO SEECOM 06/26/22 Hydrocodone Bit/Acetaminophen [[place] 10-325 Tablet] 10 - 325 mg PO TID PRN 09/07/22 LORazepam [Ativan] 1 mg PO Q2H PRN 09/07/22 Spironolactone 25 mg PO BID 09/07/22 - Past Medical/Surgical History Diabetic: No -: Hypertension -: Hyperlipidemia -: CAD -: Throat cancer status post radiation therapy -: Chronic pain -: CVA -: Peripheral vascular disease -: A. fib on chronic anticoagulation -: Multiple stents to the heart -: Stents to the lower extremity -: Stents to the carotid Psychosocial/ Personal History: Patient lives at home with daughter. - Social History Smoking Status: Never smoker Alcohol use: No CD- Drugs: No Caffeine use: No Review of Systems is unable to be obtained Physical Examination - Vital Signs Temperature: 97.7 F Blood Pressure: 138/72 Pulse: 85 Respirations: 16 Pulse Ox (%): 100 - Physical Exam General: Oriented x1, Cachectic, Moderate distress, Severe distress HEENT: Atraumatic Neck: JVD not distended Respiratory: Diminished Cardiovascular: No edema Gastrointestinal: Normal bowel sounds Assessment and Plan - Problems (Diagnosis) (1) Acute on chronic systolic heart failure Current Visit: Yes Status: Acute Plan: HE IS TERMINAL AT GE OF 87 WITH MULTI SYSTEM ISSUES. HOLD ALL MEDS THEY ARE NOT WORKING . DNR STATUS FAMILY WANTS ONLY COMFORT CARE. (2) COPD (chronic obstructive pulmonary disease) Current Visit: Yes Status: Chronic Qualifiers: COPD type: COPD with acute exacerbation Qualified Code(s): J44.1 - Chronic obstructive pulmonary disease with (acute) exacerbation (3) KAYY (acute kidney injury) Current Visit: No Status: Chronic - Advance Directives Does patient have a Living Will: Yes Does patient have a Durable POA for Healthcare: No
[2022-09-15] MEDS: HYDROMORPHONE HCL 1 MG/ML INJ IV SCH ×8 (00:23→19:54)
--- NOTE | 2022-09-15 15:04 | P.PN ---
Subjective Date of Service: 09/15/22 Chief Complaint: HOSPICE CONSULTED FOR CHF Subjective: Worsening COMATOSE, DEEP BREATHING WITH PAUSES. Review of Systems is unable to be obtained Physical Examination - Vital Signs Temperature: 96.8 F Blood Pressure: 116/77 Pulse: 103 Respirations: 12 Pulse Ox (%): 90 - Physical Exam General: Comatose HEENT: Atraumatic, PERRLA, EOMI Neck: Supple, JVD not distended Respiratory: Diminished Cardiovascular: Irregular heart rate/rhythm Gastrointestinal: Normal bowel sounds, No tenderness Musculoskeletal: No tenderness Integumentary: No rashes Lymphatics: No axilla or inguinal lymphadenopathy - Studies Medications List Reviewed: Yes Assessment And Plan - Current Problems (Diagnosis) (1) Acute on chronic systolic heart failure Current Visit: Yes Status: Acute Plan: HE IS TERMINAL AT GE OF 87 WITH MULTI SYSTEM ISSUES. HOLD ALL MEDS THEY ARE NOT WORKING . DNR STATUS FAMILY WANTS ONLY COMFORT CARE. COMATOSE APNEUSTIC BREATHING. DAUGHTER IS AGGREABLE TO STOPPING OXYGEN IT IS NOT BENEFICIAL TO HIM. (2) COPD (chronic obstructive pulmonary disease) Current Visit: Yes Status: Chronic Qualifiers: COPD type: COPD with acute exacerbation Qualified Code(s): J44.1 - Chronic obstructive pulmonary disease with (acute) exacerbation (3) KAYY (acute kidney injury) Current Visit: No Status: Chronic
[2022-09-15] MEDS: LORazepam 2 MG/ML VIAL IV PRN (22:52)
[2022-09-16] MEDS: HYDROMORPHONE HCL 1 MG/ML INJ IV SCH ×8 (00:49→20:08)
[2022-09-16] MEDS: LORazepam 2 MG/ML VIAL IV PRN ×2 (03:20→15:04)
--- NOTE | 2022-09-16 18:08 | P.PN ---
Subjective Date of Service: 09/16/22 Chief Complaint: HOSPICE CONSULTED FOR CHF Subjective: No C/O voiced, Worsening COMATOSE, DEEP BREATHING WITH PAUSES. HE HAS LONG PAUSES IN BREATHING LASTING UPTO A MINUTE FAMILY IS AT BEDSIDE AND VERY CONTENT. Physical Examination - Vital Signs Temperature: 96.7 F Blood Pressure: 142/71 Pulse: 81 Respirations: 15 Pulse Ox (%): 89 - Physical Exam General: Moderate distress, Comatose HEENT: Atraumatic, PERRLA, EOMI Neck: Supple, JVD not distended Respiratory: Clear to auscultation bilaterally, Normal air movement Cardiovascular: Irregular heart rate/rhythm Gastrointestinal: Normal bowel sounds, No tenderness Musculoskeletal: No tenderness Integumentary: No rashes Lymphatics: No axilla or inguinal lymphadenopathy - Studies Medications List Reviewed: Yes Assessment And Plan - Current Problems (Diagnosis) (1) Acute on chronic systolic heart failure Current Visit: Yes Status: Acute Plan: HE IS TERMINAL AT GE OF 87 WITH MULTI SYSTEM ISSUES. HOLD ALL MEDS THEY ARE NOT WORKING . DNR STATUS FAMILY WANTS ONLY COMFORT CARE. COMATOSE APNEUSTIC BREATHING. DAUGHTER IS AGGREABLE TO STOPPING OXYGEN IT IS NOT BENEFICIAL TO HIM. TERMINAL CONDITION LIFE LIMITED TO A FEW DAYS. (2) COPD (chronic obstructive pulmonary disease) Current Visit: Yes Status: Chronic Qualifiers: COPD type: COPD with acute exacerbation Qualified Code(s): J44.1 - Chronic obstructive pulmonary disease with (acute) exacerbation (3) KAYY (acute kidney injury) Current Visit: No Status: Chronic
[2022-09-16] MEDS ORDERED: SCOPOLAMINE HYDROBROMIDE PATCH TD SCH (21:00)
[2022-09-17] MEDS: LORazepam 2 MG/ML VIAL IV PRN ×3 (00:02→14:09)
[2022-09-17] MEDS: HYDROMORPHONE HCL 1 MG/ML INJ IV SCH ×6 (00:02→15:00)
[2022-09-17 00:24] VITALS: O2SAT 90
[2022-09-17 08:40] VITALS: BP 134/84; TEMP 97.8
--- NOTE | 2022-09-17 21:32 | P.DS ---
Admission Date: 09/14/22 Discharge Date: 09/17/22 Disposition: Reason for Admission: HOSPICE CONSULTED FOR CHF - Problems (1) Acute on chronic systolic heart failure Status: Acute (2) COPD (chronic obstructive pulmonary disease) Status: Chronic Qualifiers: COPD type: COPD with acute exacerbation Qualified Code(s): J44.1 - Chronic obstructive pulmonary disease with (acute) exacerbation (3) KAYY (acute kidney injury) Status: Chronic Brief History of Present Illness: HOLLY IVEY IS 87 YEARS OLD GM PATIENT OF DR. CLARK AND DR. PHELPS WHO HAS FAILED TO RECOVER FROM REPIRATORY FAILURE AND CHF. HE HAS SHOWN CARDIORENAL SYNDROME, HE IS WORSE WITH ALL THERAPY OFFERED SO FAR AND SO FAMILY HAS ASKED FOR HOSPICE CARE. HOSPICE DON CALLED ME AND I HAD A VIRTUAL VISIT WITH HELP OF HOSPICE NURSE. I LATER GAVE ORDERS TO CHARGE NURSE FOR COMFORT CA RE. Hospital Course: MR. IVEY HAS EXPECTED THIS AFTERNOON. HE WAS KEPT COMFORTABLE PER HOSPICE PROTOCOL. Vital Signs/Physical Exam: Temp Pulse Resp BP Pulse Ox 97.8 F 93 H 16 134/84 91 09/17/22 08:00 09/17/22 08:00 09/17/22 08:00 09/17/22 08:00 09/17/22 08:00 Home Medications: Clopidogrel Bisulfate [Plavix*] 75 mg PO DAILY tablet 01/24/20 Apixaban [Eliquis *] 2.5 mg PO BID 09/20/20 Simvastatin 40 mg PO BEDTIME 09/20/20 Docusate [Colace Cap*] 2 tab PO BID PRN 01/09/21 carvediloL [Coreg*] 12.5 mg PO BID 6AM 6PM #60 tab 02/01/21 Gabapentin [Neurontin*] 300 mg PO TID 01/02/22 Furosemide [Lasix*] 40 mg PO SEECOM 06/26/22 Hydrocodone Bit/Acetaminophen [[place] 10-325 Tablet] 10 - 325 mg PO TID PRN 09/07/22 LORazepam [Ativan] 1 mg PO Q2H PRN 09/07/22 Spironolactone 25 mg PO BID 09/07/22
== END 2022-09-17 16:43 | disposition expired | DRG 951 ==
LOC: 2ND 18:22
PROVIDERS: ADMIT Hospitalist; ATTEND Internal Medicine
DX: Z51.5 Encounter for palliative care (principal)
CPT/HCPCS: J1170